=== PATIENT | male | born 1950 | race Caucasian/White ===

== ENCOUNTER 2016-10-03 06:34 | Inpatient (IN) | payer MEDICARE ==
[~2016-10-03] VITALS: Ht 157.5 cm; Wt 51.5 kg
[2016-10-03] VITALS (8 sets, daily range): BP systolic 86–113; BP diastolic 54–68
[2016-10-03 08:21] LABS: ALBUMIN 1.8 GM/DL (3.2-5.2); ALBUMIN/GLOBULIN RATIO 0.35 (1.00-1.93); ALKALINE PHOSPHATASE 149 U/L (45-117); ALT/SGPT 49 U/L (12-78); ANION GAP 14 MEQ/L (8-16); AST/SGOT 86 U/L (15-37); BILIRUBIN,DIRECT 0.4 MG/DL (0.0-0.2); BILIRUBIN,TOTAL 0.7 MG/DL (0.2-1.0); BLOOD UREA NITROGEN 110 MG/DL (7-18); CALCIUM LEVEL 7.5 MG/DL (8.8-10.2); CARBON DIOXIDE LEVEL 24 MEQ/L (21-32); CHLORIDE LEVEL 92 MEQ/L (98-107); GLOMERULAR FILTRATION RATE 13.1 (>49); GLUCOSE, FASTING 92 MG/DL (80-110); POTASSIUM SERUM 3.2 MEQ/L (3.5-5.1); SODIUM LEVEL 130 MEQ/L (136-145)
[2016-10-03 08:30] LABS: DIFF SLIDE NUMBER 94; MEAN CORPUSCULAR HEMOGLOBIN 31.4 pg (27.0-33.0); MEAN CORPUSCULAR HGB CONC 33.8 g/dl (32.0-36.5); MEAN CORPUSCULAR VOLUME 92.9 fl (80.0-96.0); PLATELET COUNT, AUTOMATED 222 k/mm3 (150-450); RED CELL DISTRIBUTION WIDTH 13.4 % (11.5-14.5); WHITE BLOOD COUNT 21.1 K/mm3 (4.0-10.0)
[2016-10-03 08:37] LABS: TOXIC VACUOLATION 1+
[2016-10-03] MEDS ORDERED: CIPROFLOXACIN 400 MG in APPROPRIATE DILUENT 1 EA IV ONE (09:30)
[2016-10-03] MEDS ORDERED: POTASSIUM CHLORIDE 10 MEQ SR TABLET PO ONE (09:45)
[2016-10-03] MEDS ORDERED: ACETAMINOPHEN 325 MG TAB PO ONE (09:45)
[2016-10-03] MEDS ORDERED: NS 1,000 ML IV SCH (09:56)
--- NOTE | 2016-10-03 09:58 | REP ---
CHEST, TWO VIEWS: No comparison. I see no evidence of acute infiltrate. Heart is normal in size. Mediastinal silhouette is unremarkable. There are degenerative changes of the spine. IMPRESSION: No evidence of acute infiltrate. Signed by Awais Carreon MD 10/03/2016 07:45 P
[2016-10-03] MEDS ORDERED: SODIUM CHLORIDE 0.9% 1000 ML IV ONE (10:00)
[2016-10-03 10:05] LABS: MAGNESIUM LEVEL 2.3 MG/DL (1.8-2.4); PHOSPHORUS LEVEL 5.4 MG/DL (2.5-4.9)
[2016-10-03] MEDS ORDERED: cefTRIAXone SOD 1 GM in D5W MINI-BAG PLUS 50 ML IV SCH (10:15)
[2016-10-03 10:44] LABS: GAMMA GLUTAMYLTRANSPEPTIDASE 51 U/L (15-85)
[2016-10-03] MEDS: PERCOCET 5MG/325MG TAB PO PRN ×2 (10:45→21:51)
--- NOTE | 2016-10-03 10:53 | REP ---
BILATERAL KNEES: AP and lateral views of bilateral knees performed. There is no acute fracture or dislocation. There is mild superior patellar spurring bilaterally. I do not see a significant joint effusion bilaterally. There is mild medial joint space narrowing and subchondral sclerosis bilaterally. IMPRESSION: Mild degenerative changes. No evidence of acute fracture or dislocation. Signed by Awais Carreon MD 10/03/2016 07:45 P
[2016-10-03 10:56] LABS: ERYTHROCYTE SEDIMENTATION RATE 65 mm/hr (0-20)
--- NOTE | 2016-10-03 11:40 | REP ---
RENAL AND BLADDER ULTRASOUND: Real-time sonographic evaluation of the kidneys performed. Both kidneys are echogenic suggesting medical renal disease. There is mild right hydronephrosis. I suspect a 6 mm stone in the mid aspect. Left kidney demonstrates no hydronephrosis but there is a possible mass in the upper pole measuring 4.3 x 4.3 x 3.3 cm. Incidental note is made of sludge in the gallbladder. Magaña catheter is seen in a collapsed urinary bladder. Prominent bladder wall may be due to suboptimal distention but I cannot exclude bladder wall thickening. IMPRESSION: Mild right hydronephrosis. Possible left renal mass. Thickened appearance of the bladder wall may be due to suboptimal distention but true thickening cannot be excluded. Signed by Awais Carreon MD 10/03/2016 07:46 P
[2016-10-03] MEDS: HEPARIN SOD (PORCINE) 5000 UNITS/ML VIAL SC SCH ×2 (12:59→21:41)
--- NOTE | 2016-10-03 13:43 | HPEPDOC ---
General Date of Admission October 03, 2016 at 09:56 Chief Complaint The patient is a 65-year-old male Presented to the ER with the inability to walk because of severe knee joint pain. History of Present Illness Patient is a 65 year old male with a PMHx of Osteoarthritis, Eczema / Psoriasis and Diverticulosis who presented to the ER because he was experiencing severe pain in his knees preventing him from walking. Patient noted that he has a history of osteoarthritis and that usually his legs give out below him and he falls. He denies any recent episodes of falls or trauma. He notes that over the past week his pain has been so bad that he cant even walk any more. He denies taking any medications for his knees, including over the counter medications. He did report the last time he took Tylenol or Ibuprofen was >3 months ago. Patient also noted that he has not been able to urinate on Wednesday, Wednesday and Wednesday and was able to have some urine output on . He notes that he has not had any pain or burning with urination. His urine output currently has been minimal. He denies any blood or foul odor of his urine. He denies any fevers at home. He is not aware of any renal disease in the past. Patient presented to the ER and had Magaña catheter placed which revealed an output of 600cc of urine. He denies chest pain, abdominal pain, nausea, vomiting, shortness of breath, no change in his chronic cough, denies any constipation or diarrhea. Denies muscle weakness or sensory changes. Denies blood in his stool. 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 Review of Symptoms Other systems Constitutional: Poor appetite, No recent trauma Eyes: No visual changes or eye pain Ears, Nose, Throat: Denies nose bleeds, or difficulty swallowing Cardiovascular: Denies chest pain, sweating, or orthopnea Respiratory: Denies cough, wheezing, or shortness of breath GI: Eusebio nausea, vomiting, abdominal pain, diarrhea or constipation : Difficulty with urination Musculoskeletal: Positive joint pain at knees and hands Neuro / Psych: Denies muscle weakness or sensory loss Skin: No skin rashes noted All other review of systems negative; otherwise stated in history of present illness Screening: - Colonoscopy done 10/[address] Bui; found multiple diverticuli Vital Signs - Vitals: BP 118/67, HR 54, RR 21, Sat 98%RA, Temp 99.3F - General: Lying in bed, No acute distress, Speaking in full sentences, AAOx3 - HEENT: NC, AT, PERRLA, EOMI - Oral: Poor dentition; Dry mucous membranes - CVS: RRR, +S1S2, - Murmurs / rubs / gallops - Lungs: Fair air entry bilaterally, Clear to auscultation, No wheezing / rales / rhonchi - Abdomen: Soft, Non-distended, Non-tender, + Bowel sounds x 4 - Extremities: + PPx4, No lower extremity edema, No calf tenderness - Neuro: No focal motor or sensory deficit - Joint: Unable to extend or flex at the knee bilaterally 2/2 severe pain; + Heberden and cam nodes - Skin: No visible rashes Laboratory Data Labs 24H Laboratory Tests 2 10/03/16 07:50: Bedside Glucose (Misc Panel) 96 10/03/16 07:52: Neutrophils 96H, Lymphocytes (Manual) 2L, Monocytes (Manual) 1, Myelocytes 1H, Toxic Vacuolation 1+, Platelet Estimate NORMAL, Red Blood Cell Morphology NORMAL , Erythrocyte Sedimentation Rate 65H, Anion Gap 14, Glomerular Filtration Rate 13.1L, Osmolality 299, Calcium Level 7.5L, Phosphorus Level 5.4H, Magnesium Level 2.3, Aspartate Amino Transf (AST/SGOT) 86H, Alanine Aminotransferase (ALT/ SGPT) 49, Gamma Glutamyl Transpeptidase 51, Alkaline Phosphatase 149H, Total Bilirubin 0.7, Direct Bilirubin 0.4H, C-Reactive Protein, Quantitative 40.80H, Total Protein 7.0, Albumin 1.8L, Albumin/Globulin Ratio 0.35L, Rheumatoid Factor < 10.0 10/03/16 08:00: Lactic Acid Level 1.4 10/03/16 08:56: Urine Appearance CLOUDYH, Urine Color BARBIE, Urine pH 6.0, Urine Specific [place] 1.012, Urine Protein 2+H, Urine Glucose (UA) NEGATIVE, Urine Ketones NEGATIVE, Urine Urobilinogen 0.2, Urine Bilirubin NEGATIVE, Urine Leukocyte Esterase 3+H, Urine Blood 3+H, Urine Nitrite NEGATIVE, Urine WBC (Auto) TNTCH, Urine RBC (Auto) 123H, Urine Hyaline Casts (Auto) 0, Urine Bacteria (Auto) 1+H, Urine Squamous Epithelial Cells 2, Urine Amorphous Sediment SMALLH, Urine Mucus (Auto) SMALL, Urine Sperm (Auto) , Urine Random Osmolality 339L, Urine Random Creatinine 145.0, Urine Random Sodium 28 CBC/BMP Laboratory Tests 10/03/16 07:52 Red Blood Count 4.46, Mean Corpuscular Volume 92.9, Mean Corpuscular Hemoglobin 31.4, Mean Corpuscular Hemoglobin Concent 33.8, Red Cell Distribution Width 13.4 Microbiology Microbiology 10/03/16 Blood Culture, Received Pending 10/03/16 Blood Culture, Received Pending 10/03/16 Urine Culture, Received Pending Plan / VTE VTE Prophylaxis Ordered?: Yes Plan / Urinary Catheter Reason for insertion/continuin: Other-document below Plan Plan Acute renal failure possibly 2/2 pre-renal etiology, renal etiology, post- renal etiology - Noted to have difficulty with urination over the last 1 week, poor oral intake / fluid intake - Physical reveals dry mucous membranes - Labs reveals significant elevation in Cr compared to baseline from 2008 - Will check urine electrolytes, urinalysis and renal ultrasound - Will give NS bolus of 1 Liter and c/w 100 cc/ hr thereafter - Will re-evaluate BMP at 300PM Leukocytosis possibly 2/2 infectious etiology, possibly 2/2 reactive etiology - Negative review of systems - No elevation in lactic acid - UA consistent with infection - CXR negative - Will get blood cultures and urine cultures - s/p Ciprofloxacin in the ER - Will start Ceftriaxone at this time Intractable knee pain likely 2/2 osteoarthritis - Presented with knee pain, preventing him from ambulating - Physical reveals limited range of motion of the knees 2/2 pain; + Heberden and cam nodes - will get XR of knees - will check RF and anti-CCP - Will start Tylenol and Percocet PRN for pain Hypokalemia - will supplement Hyponatremia - Serum osmolality of 299 - Volume status appears hypovolemic - Will give IV fluid hydration - Will repeat BMP at 300PM DVT prophylaxis - Will start heparin DEBBIE MAYO MD October 03, 2016 13:43
[2016-10-03 15:47] LABS: CALCIUM LEVEL 7.1 MG/DL (8.8-10.2); CREATININE FOR GFR 4.4 MG/DL (0.70-1.30); GLOMERULAR FILTRATION RATE 14.4 (>49); POTASSIUM SERUM 3.4 MEQ/L (3.5-5.1)
--- NOTE | 2016-10-03 16:47 | ECGEPIP ---
Stationary ECG Study [facility] - ED Test Date: 2016-10-03 Pat Name: BIENVENIDO DOVE Department: Room: [place] [address] Gender: M Rn Bsn: rn : 1950 Requested By: MANUEL House Order Number: [id number] Reading MD: Bonnie Martinez Measurements Intervals [place] Rate: 97 P: 71 LA: 157 QRS: -76 QRSD: 116 T: -21 QT: 324 QTc: 413 Interpretive Statements SINUS RHYTHM WITH OCCASIONAL SUPRAVENTRICULAR PREMATURE COMPLEXES PATTERN CONSISTENT WITH PULMONARY DISEASE INFERIOR MYOCARDIAL INFARCTION, OF INDETERMINATE AGE WITH POSTERIOR EXTENSION NSTTW ABNORMALITY NO PRIOR FOR COMPARISON Electronically Signed On 10-03-2016 16:46:52 EDT by Bonnie Martinez
[2016-10-03] MEDS: ACETAMINOPHEN TAB 650MG DOSE (2X325MG) PO PRN (18:48)
--- NOTE | 2016-10-03 21:22 | SMCUROLCON ---
Urology Consultation General Date of Consultation 10/03/16 Reason For Consultation This patient is seen for Acute Kidney Injury, UTI?; leukocytosis; AUR; CRF; OA. Magaña to SD. IV Rocephin until urine and blood cultures available. Review CT. Full consultation dictated. History of Present Illness The patient is a -year-old with a past medical history for . Medications Current Medications Current Medications Acetaminophen (Tylenol Tab) 650 mg Q4HP PRN PO MILD PAIN OR FEVER Last administered on 10/03/16 18:48; Start 10/03/16 at 10:00; Stop 11/02/16 at 09:59 Ceftriaxone Sodium 1 gm/ Dextrose 50 ml @ 100 mls/hr Q24H IV Last administered on 10/03/16 10:55; Start 10/03/16 at 10:15; Stop 10/10/16 at 10:14 Heparin Sodium (Porcine) (Heparin) 5,000 units Q8H SC Last administered on 10/03 12:59; Start 10/03/16 at 14:00; Stop 10/08/16 at 13:59 Home Med (Med Rec Complete!) ASDIRECTED XX ; Start 10/03/16 at 08:15; Stop at 08:15; Status DC Oxycodone/ Acetaminophen (Percocet 5mg/ 325mg Tablet) 1 tab Q4HP PRN PO MODERATE PAIN (PS 5-7) Last administered on 10/03/16 10:45; Start 10/03/16 at 10:00; Stop 10/10/16 at 09:59 Sodium Chloride 1,000 ml @ 100 mls/hr Q10H IV Last administered on 10/03/16 09:56; Start 10/03/16 at 09:56; Stop 10/03/16 at 19:55; Status DC Allergies Allergies: Coded Allergies: No Known Drug Allergy (Verified Allergy, Unknown, 10/03/16) Vital Signs/I&O Vital Signs Date Time Temp Pulse Resp B/P (MAP) Pulse Ox O2 Delivery O2 Flow Rate FiO2 10/03/16 18:00 100.9 111 18 113/68 (83) 95 Room Air Laboratory Data 24H Labs Laboratory Tests 2 10/03/16 07:50: Bedside Glucose (Misc Panel) 96 10/03/16 07:52: Neutrophils 96H, Lymphocytes (Manual) 2L, Monocytes (Manual) 1, Myelocytes 1H, Toxic Vacuolation 1+, Platelet Estimate NORMAL, Red Blood Cell Morphology NORMAL , Erythrocyte Sedimentation Rate 65H, Anion Gap 14, Glomerular Filtration Rate 13.1L, Osmolality 299, Calcium Level 7.5L, Phosphorus Level 5.4H, Magnesium Level 2.3, Aspartate Amino Transf (AST/SGOT) 86H, Alanine Aminotransferase (ALT/ SGPT) 49, Gamma Glutamyl Transpeptidase 51, Alkaline Phosphatase 149H, Total Bilirubin 0.7, Direct Bilirubin 0.4H, C-Reactive Protein, Quantitative 40.80H, Total Protein 7.0, Albumin 1.8L, Albumin/Globulin Ratio 0.35L, Rheumatoid Factor < 10.0 10/03/16 08:00: Lactic Acid Level 1.4 10/03/16 08:56: Urine Appearance CLOUDYH, Urine Color BARBIE, Urine pH 6.0, Urine Specific [place] 1.012, Urine Protein 2+H, Urine Glucose (UA) NEGATIVE, Urine Ketones NEGATIVE, Urine Urobilinogen 0.2, Urine Bilirubin NEGATIVE, Urine Leukocyte Esterase 3+H, Urine Blood 3+H, Urine Nitrite NEGATIVE, Urine WBC (Auto) TNTCH, Urine RBC (Auto) 123H, Urine Hyaline Casts (Auto) 0, Urine Bacteria (Auto) 1+H, Urine Squamous Epithelial Cells 2, Urine Amorphous Sediment SMALLH, Urine Mucus (Auto) SMALL, Urine Sperm (Auto) , Urine Random Osmolality 339L, Urine Random Creatinine 145.0, Urine Random Sodium 28 10/03/16 15:16: Anion Gap 14, Glomerular Filtration Rate 14.4L, Blood Urea Nitrogen 108H, Creatinine 4.40H, Sodium Level 131L, Potassium Level 3.4L, Chloride Level 94L, Carbon Dioxide Level 23, Calcium Level 7.1L CBC/BMP Laboratory Tests 10/03/16 07:52 Red Blood Count 4.46, Mean Corpuscular Volume 92.9, Mean Corpuscular Hemoglobin 31.4, Mean Corpuscular Hemoglobin Concent 33.8, Red Cell Distribution Width 13.4 10/03/16 15:16 Calcium Level 7.1 L Microbiology Microbiology 10/03/16 Blood Culture, Received Pending 10/03/16 Blood Culture, Received Pending 10/03/16 Urine Culture, Received Pending KETAN CARRILLO MD October 03, 2016 21:22
[2016-10-03] MEDS: NS 1,000 ML IV SCH (21:53)
--- NOTE | 2016-10-03 22:03 | CR ---
DATE OF CONSULTATION: 10/03/2016 This 65-year-old male was evaluated in consultation as requested by Dr. Hernández on 10/03/2016 for acute urinary retention. He was admitted to the hospital (10/03/2016) with weakness secondary to osteoarthritis and a 5-day history of low urine output with difficulty voiding. Magaña catheter insertion in the emergency department at [facility] resulted in drainage of 600 mL of clear, yellow urine. Prior to presentation, he had a moderate history of lower urinary tract symptoms secondary to benign prostatic hyperplasia. There is no history of gross hematuria, urinary tract infection, flank pain, or constitutional symptoms. PAST MEDICAL HISTORY: Significant for: 1. Osteoarthritis. 2. Diverticulosis. 3. Eczema. 4. Psoriasis. REVIEW OF SYSTEMS: Negative for diabetes, hypertension, cardiac or pulmonary pathology, thyroid problems, headaches, CVA, glaucoma, peptic ulcer disease, urolithiasis, cholelithiasis, or blood borne diseases. MEDICATIONS: He is on no medications. ALLERGIES: He has no allergies to medications. SOCIAL HISTORY: He is single. 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 He is a 65-pack year smoker who does not consume alcohol. FAMILY HISTORY: Significant for gastric cancer in the paternal side. PHYSICAL EXAMINATION: GENERAL: Revealed a comfortable individual. His heart rate was 108, respiratory rate was 36, blood pressure was 92/58, and temperature was 101 degrees Fahrenheit. HEAD/NECK: Palpation of the head and neck failed to reveal the presence of lymphadenopathy. CHEST: Auscultation of the chest is clear. HEART: No murmur or extra heart sounds. ABDOMEN: Examination of the back and abdomen were benign. GENITOURINARY: Draining Magaña catheter was noted. Urinalysis (10/03/2016) demonstrated 3+ microhematuria, 3+ leukocytes with a pH of 6.0. Nitrites were negative. Urine and blood cultures (10/03/2016) were pending at the time of this dictation. CT of the abdomen and pelvis without intravenous contrast (10/03/2016) demonstrated mild right hydroureteronephrosis with a right middle pole 5 mm calculus. Serum hematologic and biochemical indices determination (10/03/2016) demonstrated a hemoglobin of 14.0, leukocytes 21.1, and a creatinine of 4.4. Renal ultrasonography (10/03/2016) demonstrated medical renal disease, mild right hydroureteronephrosis, right middle pole 6 mm calculus and left upper pole 4.3 cm mass versus cystic lesion. ASSESSMENT: 1. Acute urinary retention. 2. Question of sepsis. 3. Leukocytosis. 4. Chronic renal failure. 5. Right middle pole calculus. 6. Left upper pole renal mass. 7. Osteoarthritis. 8. Diverticulosis. PLAN: The above findings were discussed with the patient, nursing staff and hospitalist. Concern for sepsis was reviewed with the hospitalist. Intravenous Rocephin will continue until definitive urine and blood cultures are available. Magaña catheter to straight drainage will continue. Stat complete blood count (CBC), basic metabolic panel (BMP) and lactate levels were obtained. Radiology review of the CT (10/03/2016) will be obtained. Should you require additional information, please do not hesitate to contact me. Thanking you for the confidence of your referral. Sincerely, Lebron Martinez MD
[2016-10-03 22:23] LABS: BASO % 0.2 % (0.0-1.0); EOS % 0.1 % (0.0-3.0); LARGE UNSTAINED CELL # 0.2 K/mm3 (0.0-0.4); LARGE UNSTAINED CELL % 1.1 % (0.0-4.0); LYMPH # 0.3 K/mm3 (1.5-4.5); LYMPH % 1.8 % (24.0-44.0); MEAN CORPUSCULAR HEMOGLOBIN 31.4 pg (27.0-33.0); MEAN CORPUSCULAR HGB CONC 33.3 g/dl (32.0-36.5); MEAN CORPUSCULAR VOLUME 94.4 fl (80.0-96.0); MONO # 0.8 K/mm3 (0.0-0.8); MONO % 4.6 % (0.0-5.0); NEUTROPHILS # 15.3 K/mm3 (1.8-7.7); NEUTROPHILS % 92.1 % (36.0-66.0); PLATELET COUNT, AUTOMATED 200 k/mm3 (150-450); RED CELL DISTRIBUTION WIDTH 13.3 % (11.5-14.5); WHITE BLOOD COUNT 16.6 K/mm3 (4.0-10.0)
[2016-10-03] MEDS ORDERED: VANCOMYCIN HCL 1,000 MG, VIAL MATE ADAPTER 1 EACH in D5W 250 ML IV ONE (22:30)
[2016-10-03] MEDS ORDERED: NS 1,000 ML IV ONE (22:30)
[2016-10-03 22:31] LABS: CREATININE FOR GFR 4.25 MG/DL (0.70-1.30); POTASSIUM SERUM 3.3 MEQ/L (3.5-5.1)
--- NOTE | 2016-10-03 22:48 | PHACANCOPD ---
PHARMACY VANCOMYCIN DOSING Pt Demographics Demographics Patient Age:65 , Weight:47.700 , Gender: male Adjusted Body Weight Date: 10/03/16, Adjusted Body Weight: [46] Kg Events Past 24 Hours Events Past 24 Hours: NO: Dialysis, Diuretic Therapy, Change in CrCl, Fever, Elevation in WBC, Pending Diagnostics, Pending Procedures, Other Vancomycin Vancomycin Target Ranges: 15-20 mcg/ml Vancomycin Load Y/N: Yes Load Dose Date Time Vancomycin Load Dose: 1000MG Date: 10-03 Time: 2300 Vancomycin Dose Date: 10/03/16. Current Vancomycin Dose: [INT] Intermittent Dosing?: Yes Labs Labs Item Value Date Time White Blood Count 16.6 K/mm3 H 10/03/16 2141 Creatinine 4.40 MG/DL H 10/03/16 1516 Creatinine 4.25 MG/DL H 10/03/16 2141 Vital Signs Label Value Date Time Patient Temperature 99.3 degrees F 10/03/16 2215 Temperature Source Oral 10/03/16 2215 Patient Temperature 101.0 degrees F 10/03/16 2200 Temperature Source Temporal 10/03/16 2200 Micro Microbiology 10/03/16 Blood Culture, Received Pending 10/03/16 Blood Culture, Received Pending 10/03/16 Blood Culture - Preliminary, Resulted 10/03/16 Blood Culture, Received Pending 10/03/16 Urine Culture, Received Pending Creatinine Clearance Date:10/03/16. Creatinine Clearance: [13]. Pending Labs Random 05-14 in am Assessment and Plan Maintaining Current Dose?: Yes Reason for dose change: No Dose Change Pharmacist Note Pharmacist Note Date: 10/03/16. Pharmacist note:Dosed intermittent by levels with first random level ordered for 05-14 in am. Will continue to monitor and make adjustments as needed. [facility] October 03, 2016 22:48
[2016-10-04] VITALS (10 sets, daily range): BP systolic 92–112; BP diastolic 52–72
[2016-10-04] MEDS: PIPERACILLIN/TAZOBACTAM SOD 2.25 GM in D5W MINI-BAG PLUS 50 ML IV SCH ×4 (00:49→23:17)
[2016-10-04] MEDS: ACETAMINOPHEN TAB 650MG DOSE (2X325MG) PO PRN ×3 (03:07→21:45)
[2016-10-04] MEDS: HEPARIN SOD (PORCINE) 5000 UNITS/ML VIAL SC SCH ×3 (06:00→21:37)
[2016-10-04 06:26] LABS: BASO % 0.3 % (0.0-1.0); EOS % 0.2 % (0.0-3.0); LARGE UNSTAINED CELL # 0.1 K/mm3 (0.0-0.4); LARGE UNSTAINED CELL % 0.6 % (0.0-4.0); LYMPH # 0.5 K/mm3 (1.5-4.5); LYMPH % 2.9 % (24.0-44.0); MEAN CORPUSCULAR HEMOGLOBIN 32.1 pg (27.0-33.0); MEAN CORPUSCULAR HGB CONC 32.9 g/dl (32.0-36.5); MEAN CORPUSCULAR VOLUME 97.4 fl (80.0-96.0); MONO # 0.5 K/mm3 (0.0-0.8); MONO % 3.4 % (0.0-5.0); NEUTROPHILS # 14.3 K/mm3 (1.8-7.7); NEUTROPHILS % 92.6 % (36.0-66.0); PLATELET COUNT, AUTOMATED 167 k/mm3 (150-450); RED CELL DISTRIBUTION WIDTH 13.5 % (11.5-14.5); WHITE BLOOD COUNT 15.5 K/mm3 (4.0-10.0)
[2016-10-04 06:34] LABS: ALBUMIN 1.3 GM/DL (3.2-5.2); ALBUMIN/GLOBULIN RATIO 0.3 (1.00-1.93); BILIRUBIN,TOTAL 0.6 MG/DL (0.2-1.0); CALCIUM LEVEL 6.8 MG/DL (8.8-10.2); CREATININE FOR GFR 3.91 MG/DL (0.70-1.30); GLOMERULAR FILTRATION RATE 16.6 (>49); MAGNESIUM LEVEL 2.1 MG/DL (1.8-2.4); POTASSIUM SERUM 3.4 MEQ/L (3.5-5.1); TOTAL PROTEIN 5.6 GM/DL (6.4-8.2)
[2016-10-04] MEDS: NS 1,000 ML IV SCH ×3 (06:44→21:37)
--- NOTE | 2016-10-04 06:58 | REP ---
CT ABDOMEN AND PELVIS WITHOUT CONTRAST: CT abdomen and pelvis performed without oral or IV contrast. There appears to be fibrotic change in each lung base with bronchiectasis. There may be some mild superimposed atelectasis or infiltrate in the left lung base. There is a 6 mm nodule in the left lower lobe as well. Evaluation for visceral organ masses is limited without IV contrast Liver, spleen, adrenals and pancreas are grossly unremarkable. Left kidney is grossly unremarkable. Right kidney demonstrates mild hydronephrosis. There is a 5 mm intrarenal calculus in the mid right renal collecting system. No ureteral calculi are seen. There is mild atherosclerotic calcification of the abdominal aorta. No gross adenopathy is seen. There is no free air. No gross bowel wall thickening is seen. There is mild free fluid in the pelvis. A Magaña catheter is seen in the urinary bladder which appears diffusely thickened. The right testicle appears to be located in the right inguinal canal. IMPRESSION: Limited evaluation for visceral organ masses without IV contrast. No obvious mass is seen in the left kidney as was suggested by the recent ultrasound. There is mild right hydronephrosis with a small intrarenal calculus. 6 mm nodule is seen in the left lower lobe with probable adjacent mild atelectasis or infiltrate. Diffuse bladder wall thickening. Mild free fluid in the pelvis. Right testicle is located in the right inguinal canal. Signed by Awais Carreon MD 10/04/2016 07:50 P
[2016-10-04] MEDS ORDERED: POTASSIUM CHLORIDE 10 MEQ SR TABLET PO ONE (09:30)
--- NOTE | 2016-10-04 09:31 | IPNPDOC ---
Text Note Date of Service The patient was seen on 10/04/16. NOTE Subjective: Patient is a 65 year old male with a PMHx Osteoarthritis, Eczema / Psoriasis and Diverticulosis who presented to the ER because he was experiencing severe pain in his knees preventing him from walking. He was noted to have urinary retention and acute kidney injury and was admitted to medical surgical floor. Patient was seen and examined at the bedside. He reports persistence of his knee pain. Objective: Vitals (See below) General: Lying in bed, no acute distress, comfortable, AAOx3 HEENT: NC, AT CVS: RRR, +S1S2 Lungs: Fair air entry b/l, -w/r/r Abdomen: Soft, ND, NT, +BSx4 Extremities: +PPx4, - Edema, - Calf tenderness, + Heberden and cam nodes at bilateral hands; Decrease ROM at knees Assessment and plan: 1. Sepsis / Bacteremia - 2/2 likely urinary tract infection - Hypotensive on the evening of 10/03; responded to IVF hydration - No elevation in lactic acid - UA consistent with infection; Urine culture pending - Blood cultures positive for Staph aureus - CXR negative - s/p Ciprofloxacin in the ER; s/p Ciprofloxacin - c/w Vancomycin and Zosyn (Day #1) 2. Acute renal failure - possibly 2/2 pre-renal etiology, renal etiology, post- renal etiology - Noted to have difficulty with urination over the last 1 week, poor oral intake / fluid intake - Physical initially revealed dry mucous membranes - Labs reveals significant elevation in Cr compared to baseline from 2008; continues to trend down - c/w IV fluid hydration 3. Intractable knee pain - likely 2/2 osteoarthritis - Presented with knee pain, preventing him from ambulating - Physical reveals limited range of motion of the knees 2/2 pain; + Heberden and cam nodes - XR of knees with subchondral cysts - No elevation of RF or anti-CCP - c/w Tylenol and Percocet PRN for pain 4. Hypokalemia - will supplement again today 5. Hyponatremia - Serum osmolality of 299 - Volume status appears hypovolemic - Sodium is improving - c/w IV fluid hydration 6. DVT prophylaxis - Will start heparin VS,Fishbone, I+O VS, Fishbone, I+O Laboratory Tests 10/03/16 15:16 Calcium Level 7.1 L 10/03/16 21:41 Calcium Level 7.0 L, Red Blood Count 4.05 L, Mean Corpuscular Volume 94.4, Mean Corpuscular Hemoglobin 31.4, Mean Corpuscular Hemoglobin Concent 33.3, Red Cell Distribution Width 13.3, Neutrophils (%) (Auto) 92.1 H, Lymphocytes (%) (Auto) 1.8 L, Monocytes (%) (Auto) 4.6, Eosinophils (%) (Auto) 0.1, Basophils (%) (Auto ) 0.2, Neutrophils # (Auto) 15.3 H, Lymphocytes # (Auto) 0.3 L, Monocytes # ( Auto) 0.8, Eosinophils # (Auto) 0.0, Basophils # (Auto) 0.0 10/04/16 05:22 Calcium Level 6.8 L, Red Blood Count 4.02 L, Mean Corpuscular Volume 97.4 H, Mean Corpuscular Hemoglobin 32.1, Mean Corpuscular Hemoglobin Concent 32.9, Red Cell Distribution Width 13.5, Neutrophils (%) (Auto) 92.6 H, Lymphocytes (%) ( Auto) 2.9 L, Monocytes (%) (Auto) 3.4, Eosinophils (%) (Auto) 0.2, Basophils (% ) (Auto) 0.3, Neutrophils # (Auto) 14.3 H, Lymphocytes # (Auto) 0.5 L, Monocytes # (Auto) 0.5, Eosinophils # (Auto) 0.0, Basophils # (Auto) 0.0, Aspartate Amino Transf (AST/SGOT) 79 H, Alanine Aminotransferase (ALT/SGPT) 35, Alkaline Phosphatase 143 H, Total Bilirubin 0.6, Total Protein 5.6 L, Albumin 1.3 #L Vital Signs Date Time Temp Pulse Resp B/P (MAP) Pulse Ox O2 Delivery O2 Flow Rate FiO2 10/04/16 06:00 98.8 91 20 112/71 (85) 92 Room Air I&O- Last 24 Hours up to 6 AM 10/04/16 05:59 Intake Total 1854 ml Output Total 1590 ml Balance 264 ml DEBBIE MAYO MD October 04, 2016 09:31
[2016-10-04] MEDS: PERCOCET 5MG/325MG TAB PO PRN (10:06)
[2016-10-04] MEDS: VANCOMYCIN HCL 750 MG, VIAL MATE ADAPTER 1 EACH in D5W 250 ML IV SCH (10:34)
--- NOTE | 2016-10-04 12:16 | PHACANCOPD ---
PHARMACY VANCOMYCIN DOSING Pt Demographics Demographics Patient Age:65 , Weight:48.900 , Gender: male Adjusted Body Weight Date: 10/03/16, Adjusted Body Weight: [46 - use actual] Kg Events Past 24 Hours Events Past 24 Hours: YES: Change in CrCl, Fever, Elevation in WBC, NO: Dialysis, Diuretic Therapy, Pending Diagnostics, Pending Procedures, Other Vancomycin Vancomycin indication: sepsis Vancomycin Target Ranges: 15-20 mcg/ml Vancomycin Load Y/N: Yes Load Dose Date Time Vancomycin Load Dose: 1000MG Date: 10-03 Time: 2300 Vancomycin Dose Date: 10/04/16. Current Vancomycin Dose: [750mg IV q24h @11] Date: 10/03/16. Current Vancomycin Dose: [INT] Intermittent Dosing?: No Labs Labs Item Value Date Time White Blood Count 21.1 K/mm3 H 10/03/16 0752 White Blood Count 16.6 K/mm3 H 10/03/16 2141 White Blood Count 15.5 K/mm3 H 10/04/16 0522 Random Vancomycin Level 15.4 UG/ML 10/04/16 0522 Creatinine 4.40 MG/DL H 10/03/16 1516 Creatinine 4.25 MG/DL H 10/03/16 2141 Creatinine 3.91 MG/DL H 10/04/16 0522 Vital Signs Label Value Date Time Patient Temperature 99.1 degrees F 10/04/16 0000 Temperature Source Temporal 10/04/16 0000 Micro Microbiology 10/03/16 Blood Culture, Received Pending 10/03/16 Blood Culture, Received Pending 10/03/16 Blood Culture - Preliminary, Resulted Staphylococcus Aureus 10/03/16 Blood Culture - Preliminary, Resulted Staphylococcus Aureus 10/03/16 Urine Culture - Preliminary, Resulted Staphylococcus Aureus Creatinine Clearance Date:10/03/16. Creatinine Clearance: [13]. Pending Labs Random vancomycin level scheduled 5/16 - AM Assessment and Plan Maintaining Current Dose?: No Reason for dose change: Change in serum Cr Pharmacist Note Pharmacist Note Date: 10/04/16. Pharmacist note: random vancomycin level drawn ~6 hours after his first 1g dose was 15.4. I have started him on 750mg q24h. I have a random scheduled for Wednesday morning. Blood 2/2 and urine cultures are positive for Staph aureus, sensitivities are still pending. Pt has had poor intake/output, hydronephrosis. We will continue to monitor cultures, if MSSA he should be changed to a penicillin or cephalosporin based on sensitivities. Date: 10/03/16. Pharmacist note:Dosed intermittent by levels with first random level ordered for 05-14 in am. Will continue to monitor and make adjustments as needed. Morro Ortiz Pharm.D. October 04, 2016 12:16
--- NOTE | 2016-10-04 13:10 | IPNPDOC ---
Assessment/Plan Date Seen The patient was seen on 10/04/16. Plan/VTE VTE Prophylaxis Ordered?: Yes Plan/Urinary Catheter Reason for insertion/continuin: Other-document below Subjective Review oF Systems Chief Complaint The patient is a 65-year-old male admitted with a reason for visit of Acute Kidney Injury; Urosepsis; AUR; OA. [place] to SD. po. Poor ambulation. Comfortable. 96, 20, 92/60, 99.8f. Abdo: Benign. Magaña: 300cc/4hr. Urine/blood cultures (10/03/16) S. Aureus, Vanco/Zosyn. (10/04/16) Hg 12.9, wbc 15.5 (down), Cr 3.9 (down). A: Above. P: [place] to SD. Follow for sepsis evolution. IV Vanco/Zosyn. Objective Vital Signs/I&O Vital Signs Date Time Temp Pulse Resp B/P (MAP) Pulse Ox O2 Delivery O2 Flow Rate FiO2 10/04/16 13:00 98.6 95 95/60 (72) 10/04/16 10:50 24 Room Air 10/04/16 10:00 93 I&O- Last 24 Hours up to 6 AM 10/04/16 06:00 Intake Total 2624 ml Output Total 2090 ml Balance 534 ml Laboratory Data Labs 24H Laboratory Tests 2 10/03/16 15:16: Anion Gap 14, Glomerular Filtration Rate 14.4L, Blood Urea Nitrogen 108H, Creatinine 4.40H, Sodium Level 131L, Potassium Level 3.4L, Chloride Level 94L, Carbon Dioxide Level 23, Calcium Level 7.1L 10/03/16 21:41: Anion Gap 13, Glomerular Filtration Rate 15.0L, Blood Urea Nitrogen 107H, Creatinine 4.25H, Sodium Level 131L, Potassium Level 3.3L, Chloride Level 98, Carbon Dioxide Level 20L, Calcium Level 7.0L, White Blood Count 16.6H, Red Blood Count 4.05L, Hemoglobin 12.7L, Hematocrit 38.3L, Mean Corpuscular Volume 94.4, Mean Corpuscular Hemoglobin 31.4, Mean Corpuscular Hemoglobin Concent 33.3 , Red Cell Distribution Width 13.3, Platelet Count 200, Neutrophils (%) (Auto) 92.1H, Lymphocytes (%) (Auto) 1.8L, Monocytes (%) (Auto) 4.6, Eosinophils (%) ( Auto) 0.1, Basophils (%) (Auto) 0.2, Neutrophils # (Auto) 15.3H, Lymphocytes # ( Auto) 0.3L, Monocytes # (Auto) 0.8, Eosinophils # (Auto) 0.0, Basophils # (Auto ) 0.0, Large Unclassified Cells % 1.1, Large Unclassified Cells # 0.2 10/03/16 21:42: Lactic Acid Level 1.2 10/04/16 05:22: Anion Gap 13, Glomerular Filtration Rate 16.6L, Blood Urea Nitrogen 99H, Creatinine 3.91H, Sodium Level 133L, Potassium Level 3.4L, Chloride Level 101, Carbon Dioxide Level 19L, Calcium Level 6.8L, White Blood Count 15.5H, Red Blood Count 4.02L, Hemoglobin 12.9L, Hematocrit 39.2L, Mean Corpuscular Volume 97.4H, Mean Corpuscular Hemoglobin 32.1, Mean Corpuscular Hemoglobin Concent 32.9, Red Cell Distribution Width 13.5, Platelet Count 167, Neutrophils (%) ( Auto) 92.6H, Lymphocytes (%) (Auto) 2.9L, Monocytes (%) (Auto) 3.4, Eosinophils (%) (Auto) 0.2, Basophils (%) (Auto) 0.3, Neutrophils # (Auto) 14.3H, Lymphocytes # (Auto) 0.5L, Monocytes # (Auto) 0.5, Eosinophils # (Auto) 0.0, Basophils # (Auto) 0.0, Large Unclassified Cells % 0.6, Large Unclassified Cells # 0.1, Aspartate Amino Transf (AST/SGOT) 79H, Alanine Aminotransferase ( ALT/SGPT) 35, Alkaline Phosphatase 143H, Total Bilirubin 0.6, Total Protein 5.6L , Albumin 1.3#L, Magnesium Level 2.1, C-Reactive Protein, Quantitative 28.50H, Albumin/Globulin Ratio 0.30L, Random Vancomycin Level 15.4 CBC/BMP Laboratory Tests 10/03/16 15:16 Calcium Level 7.1 L 10/03/16 21:41 Calcium Level 7.0 L, Red Blood Count 4.05 L, Mean Corpuscular Volume 94.4, Mean Corpuscular Hemoglobin 31.4, Mean Corpuscular Hemoglobin Concent 33.3, Red Cell Distribution Width 13.3, Neutrophils (%) (Auto) 92.1 H, Lymphocytes (%) (Auto) 1.8 L, Monocytes (%) (Auto) 4.6, Eosinophils (%) (Auto) 0.1, Basophils (%) (Auto ) 0.2, Neutrophils # (Auto) 15.3 H, Lymphocytes # (Auto) 0.3 L, Monocytes # ( Auto) 0.8, Eosinophils # (Auto) 0.0, Basophils # (Auto) 0.0 10/04/16 05:22 Calcium Level 6.8 L, Red Blood Count 4.02 L, Mean Corpuscular Volume 97.4 H, Mean Corpuscular Hemoglobin 32.1, Mean Corpuscular Hemoglobin Concent 32.9, Red Cell Distribution Width 13.5, Neutrophils (%) (Auto) 92.6 H, Lymphocytes (%) ( Auto) 2.9 L, Monocytes (%) (Auto) 3.4, Eosinophils (%) (Auto) 0.2, Basophils (% ) (Auto) 0.3, Neutrophils # (Auto) 14.3 H, Lymphocytes # (Auto) 0.5 L, Monocytes # (Auto) 0.5, Eosinophils # (Auto) 0.0, Basophils # (Auto) 0.0, Aspartate Amino Transf (AST/SGOT) 79 H, Alanine Aminotransferase (ALT/SGPT) 35, Alkaline Phosphatase 143 H, Total Bilirubin 0.6, Total Protein 5.6 L, Albumin 1.3 #L Microbiology Microbiology 10/03/16 Blood Culture, Received Pending 10/03/16 Blood Culture, Received Pending 10/03/16 Blood Culture - Preliminary, Resulted Staphylococcus Aureus 10/03/16 Blood Culture - Preliminary, Resulted Staphylococcus Aureus 10/03/16 Urine Culture - Preliminary, Resulted Staphylococcus Aureus KETAN CARRILLO MD October 04, 2016 13:09
[2016-10-04] MEDS ORDERED: SODIUM CHLORIDE 0.9% 1000 ML IV ONE (15:30)
[2016-10-04] MEDS ORDERED: NS 1,000 ML IV ONE (16:30)
[2016-10-05 02:00] VITALS: BP 95/50
[2016-10-05] MEDS: ACETAMINOPHEN TAB 650MG DOSE (2X325MG) PO PRN ×4 (02:18→20:36)
[2016-10-05] MEDS: HEPARIN SOD (PORCINE) 5000 UNITS/ML VIAL SC SCH ×3 (05:00→21:08)
[2016-10-05 05:27] VITALS: BP 97/55
[2016-10-05 05:52] LABS: BASO # 0.1 K/mm3 (0.0-0.2); BASO % 0.3 % (0.0-1.0); EOS # 0.1 K/mm3 (0.0-0.50); EOS % 0.3 % (0.0-3.0); LARGE UNSTAINED CELL # 0.2 K/mm3 (0.0-0.4); LARGE UNSTAINED CELL % 0.7 % (0.0-4.0); LYMPH # 0.6 K/mm3 (1.5-4.5); LYMPH % 2.4 % (24.0-44.0); MEAN CORPUSCULAR HEMOGLOBIN 31.3 pg (27.0-33.0); MEAN CORPUSCULAR HGB CONC 32.1 g/dl (32.0-36.5); MEAN CORPUSCULAR VOLUME 97.2 fl (80.0-96.0); MONO # 0.4 K/mm3 (0.0-0.8); MONO % 1.5 % (0.0-5.0); NEUTROPHILS # 22.4 K/mm3 (1.8-7.7); NEUTROPHILS % 94.8 % (36.0-66.0); PLATELET COUNT, AUTOMATED 142 k/mm3 (150-450); RED CELL DISTRIBUTION WIDTH 14.1 % (11.5-14.5); WHITE BLOOD COUNT 23.6 K/mm3 (4.0-10.0)
[2016-10-05 06:14] LABS: ALBUMIN 1.1 GM/DL (3.2-5.2); ALBUMIN/GLOBULIN RATIO 0.29 (1.00-1.93); BILIRUBIN,TOTAL 0.6 MG/DL (0.2-1.0); CALCIUM LEVEL 6.6 MG/DL (8.8-10.2); CREATININE FOR GFR 3.44 MG/DL (0.70-1.30); GLOMERULAR FILTRATION RATE 19.2 (>49); MAGNESIUM LEVEL 1.9 MG/DL (1.8-2.4); POTASSIUM SERUM 3.7 MEQ/L (3.5-5.1); TOTAL PROTEIN 4.9 GM/DL (6.4-8.2)
[2016-10-05] MEDS: NS 1,000 ML IV SCH ×3 (08:21→22:31)
[2016-10-05] MEDS: PIPERACILLIN/TAZOBACTAM SOD 2.25 GM in D5W MINI-BAG PLUS 50 ML IV SCH (08:21)
[2016-10-05] MEDS ORDERED: SODIUM CHLORIDE 0.9% 1000 ML IV ONE (11:15)
[2016-10-05] MEDS: VANCOMYCIN HCL 750 MG, VIAL MATE ADAPTER 1 EACH in D5W 250 ML IV SCH (11:16)
--- NOTE | 2016-10-05 11:23 | IPNPDOC ---
Text Note Date of Service The patient was seen on 10/05/16. NOTE Subjective: Patient is a 65 year old male with a PMHx Osteoarthritis, Eczema / Psoriasis and Diverticulosis who presented to the ER because he was experiencing severe pain in his knees preventing him from walking. He was noted to have urinary retention and acute kidney injury and was admitted to medical surgical floor. Patient was seen and examined at the bedside. He has noted that his knees continue to hurt. He has been hypotensive on the past few nights, but has been responsive to IV fluids. Objective: Vitals (See below) General: Lying in bed, no acute distress, comfortable, AAOx3 HEENT: NC, AT CVS: RRR, +S1S2 Lungs: Fair air entry b/l, -w/r/r Abdomen: Soft, ND, NT, +BSx4 Extremities: +PPx4, - Edema, - Calf tenderness, + Heberden and cam nodes at bilateral hands; Decrease ROM at knees Assessment and plan: 1. Sepsis - 2/2 bacteremia 2/2 urinary tract infection - Hypotensive on the evening of 10/03 and 10/04; responded to IVF hydration - No elevation in lactic acid - UA consistent with infection; Urine culture positive for MRSA - Blood cultures 10/03 and 10/03 (repeat) positive for MRSA - CXR negative - Will order another set of blood cultures - Will order ECHO and consult infectious disease (Dr. Knig) - s/p Ciprofloxacin in the ER; s/p Ceftriaxone - c/w Vancomycin and Zosyn (Day #2) 2. Acute renal failure - possibly 2/2 pre-renal etiology, renal etiology, post- renal etiology - Noted to have difficulty with urination over the last 1 week, poor oral intake / fluid intake - Physical initially revealed dry mucous membranes - Labs reveals significant elevation in Cr compared to baseline from 2008; continues to trend down - c/w IV fluid hydration - Will consult Nephrology (Dr. Shaw) 3. AG and Non-AG metabolic acidosis - Delta / Delta of < 1 - Possibly 2/2 lactic acidosis and dilutional / RTA - Will get Urine electrolytes (Na, K, Cl) to calculate UAG - Will check lactic acid - c/w IV fluid hydration for now 4. Intractable knee pain - likely 2/2 osteoarthritis - Presented with knee pain, preventing him from ambulating - Physical reveals limited range of motion of the knees 2/2 pain; + Heberden and cam nodes - XR of knees with subchondral cysts - No elevation of RF or anti-CCP - c/w Tylenol PRN for pain; s/p Opiates (re: hypotension) - Pain management has been consulted 5. s/p Hypokalemia 6. s/p Hyponatremia 7. DVT prophylaxis - c/w heparin VS,Fishbone, I+O VS, Fishbone, I+O Laboratory Tests 10/05/16 05:17 Red Blood Count 3.57 L, Mean Corpuscular Volume 97.2 H, Mean Corpuscular Hemoglobin 31.3, Mean Corpuscular Hemoglobin Concent 32.1, Red Cell Distribution Width 14.1, Neutrophils (%) (Auto) 94.8 H, Lymphocytes (%) (Auto) 2.4 L, Monocytes (%) (Auto) 1.5, Eosinophils (%) (Auto) 0.3, Basophils (%) (Auto ) 0.3, Neutrophils # (Auto) 22.4 H, Lymphocytes # (Auto) 0.6 L, Monocytes # ( Auto) 0.4, Eosinophils # (Auto) 0.1, Basophils # (Auto) 0.1, Calcium Level 6.6 L , Aspartate Amino Transf (AST/SGOT) 48 H, Alanine Aminotransferase (ALT/SGPT) 23 , Alkaline Phosphatase 220 H, Total Bilirubin 0.6, Total Protein 4.9 L, Albumin 1.1 L Vital Signs Date Time Temp Pulse Resp B/P (MAP) Pulse Ox O2 Delivery O2 Flow Rate FiO2 10/05/16 05:27 99.2 90 20 97/55 (69) 94 Room Air I&O- Last 24 Hours up to 6 AM 10/05/16 06:00 Intake Total 2825 ml Output Total 2000 ml Balance 825 ml DEBBIE MAYO MD October 05, 2016 11:23
[2016-10-05 11:30] VITALS: BP 95/59
--- NOTE | 2016-10-05 13:10 | REP ---
Clinical: Shortness of breath. Technique: Portable semiupright AP view of the chest. Findings: Mediastinum and cardiac silhouette are normal. Right lower lobe and left lower lobe/retrocardiac infiltrate/atelectasis suggested. Mild interstitial edema cannot be excluded. No obvious effusion. No pneumothorax. Skeletal structures stable. Impression: Trace right basilar and moderate right lower lobe opacities suggest atelectasis/infiltrate. No obvious effusion. Signed by Connor Castrejon MD 10/05/2016 01:01 P
[2016-10-05 14:00] VITALS: BP 109/5
[2016-10-05] MEDS: BICITRA 30ML SOLN UDC PO SCH ×2 (14:01→20:36)
--- NOTE | 2016-10-05 16:41 | CR.PDOC ---
[facility] Pain Clinic Consultation General Date of Consultation: 10/05/16 Consultation Report For: DEBBIE MAYO MD Chief Complaint The patient is a 65-year-old male admitted with a reason for visit of Acute Kidney Injury,Uti. Pain management is asked to see the patient for joint pain involving both knees and the right hand. History of Present Illness Spike Mcdonald is a 65-year-old gentleman who reports that he has been having knee pain which she felt was manageable for about the last 5 years. States, however, at times he did have falls, particularly if he stood too long or walks too far. Reports that over the weekend the pain became so bad that he was unable to get up from his chair. He did call 911 and was brought to the hospital. Once here, it was determined that his bladder was overdistended, that he had developed some acute renal failure and it urinary tract infection. Cultures have demonstrated methicillin-resistant staph aureus and he has had a continuously rising white count. Mr. Mcdonald reports that he rarely takes any medication and has taken no Tylenol or ibuprofen at home. Reports he does have a history of psoriasis. Reports that in the distant past. He was on prednisone, but he is not quite certain what that was for. Rates his pain level today as a 7 -8/10. Notes the pain is centered in both knees and in the joints of the right hand. Describes the pain as aching, burning and throbbing. This that it is similar to his usual pain but much worse. Denies any pain, any other areas. Home Medications No Active Prescriptions or Reported Meds Allergies Coded Allergies: No Known Drug Allergy (Verified Allergy, Unknown, 10/03/16) Past Medical History Medical History History of psoriasis Family History Significant Family History: Noncontributory Social History Social History Denies tobacco, alcohol, or illicit substance abuse. Currently lives with a friend. He is retired Review of Systems Subjective Constitutional: Reports: fever (intermittent), weakness HEENT: Denies: head aches, vision problems, hearing problems Skin: Reports: other (psoriasis lesions over both knees and lower extremities) Pulmonary: Reports: cough (intermittent but frequent), sputum production ( occasional dark yellow were brown) Cardiovascular: Reports: chest pain (denies), palpitations (denies) Gastrointestinal: Reports: normal bowel movements, Denies: loss of bowel control Genitourinary: Reports: loss of bladder control (worsening in the last several days prior to admission), Denies: hematuria Endocrine: Reports: Thyroid dysfunction (denies), Denies: Diabetes mellitus Musculoskeletal: Reports: joint pain (bilateral knees and right hand), joint sweling (bilateral knees and right hand) Psych: Reports: mood normal, Denies: thoughts of self harm, thoughts of harming other Physical Examination Physical Examination Vital Signs/I&O Vital Signs Date Time Temp Pulse Resp B/P (MAP) Pulse Ox O2 Delivery O2 Flow Rate FiO2 10/05/16 14:00 98.5 79 18 109/5 (39) 98 Room Air I&O- Last 24 Hours up to 6 AM 10/05/16 06:00 Intake Total 2825 ml Output Total 2000 ml Balance 825 ml General Exam: Positive: alert, attentive, talkative, no acute distress Visual Analog Score (VAS): 8 (with movement) ENT EXAM: Positive: normocephalic, other (evidence of prior fractured nose) Neck Exam: Positive: Carotid bruit (right carotid bruit) Chest Exam: Positive: Clear to auscultation, Negative: Wheezing, Rales Heart Exam: Positive: Regular rate and rhythm, Normal S1, S2, Negative: Murmurs, Rubs Abdominal Exam: Positive: Soft (slightly distended. Bowel sounds hyperactive) Extremity Exam: Positive: Edema (trace to 1+ edema bilaterally at the ankles), Other (1+ popliteal pulses bilaterally) Skin Exam: Positive: Warm, Rashes (flaky rash noted over both knees for legs and feet.) Psych Exam: Positive: Memory Intact, Alert and oriented x 3 Musculoskeletal Tenderness with palpation bilaterally over the knees. Under numbness also present with palpation in the popliteal space bilaterally. Able to flex knees bilaterally to 90 and does note pain with this movement. Able to flex, extend and rotate both ankles. Edema is noted over the PIP joints of the right hand.. Poor flexion and extension of the fingers right hand. No difficulty noted on the left. Laboratory Data Labs 24H Laboratory Tests 2 10/04/16 16:47: Lactic Acid Level 2.0 10/05/16 05:17: White Blood Count 23.6H, Red Blood Count 3.57L, Hemoglobin 11.2L, Hematocrit 34.7L, Mean Corpuscular Volume 97.2H, Mean Corpuscular Hemoglobin 31.3, Mean Corpuscular Hemoglobin Concent 32.1, Red Cell Distribution Width 14.1, Platelet Count 142L, Neutrophils (%) (Auto) 94.8H, Lymphocytes (%) (Auto) 2.4L, Monocytes (%) (Auto) 1.5, Eosinophils (%) (Auto) 0.3, Basophils (%) (Auto) 0.3, Neutrophils # (Auto) 22.4H, Lymphocytes # (Auto) 0.6L, Monocytes # (Auto) 0.4, Eosinophils # (Auto) 0.1, Basophils # (Auto) 0.1, Large Unclassified Cells % 0.7 , Large Unclassified Cells # 0.2, Anion Gap 12, Glomerular Filtration Rate 19.2L , Blood Urea Nitrogen 85H, Creatinine 3.44H, Sodium Level 140#, Potassium Level 3.7, Chloride Level 111H, Carbon Dioxide Level 17L, Calcium Level 6.6L, Aspartate Amino Transf (AST/SGOT) 48H, Alanine Aminotransferase (ALT/SGPT) 23, Alkaline Phosphatase 220H, Total Bilirubin 0.6, Total Protein 4.9L, Albumin 1.1L , Magnesium Level 1.9, C-Reactive Protein, Quantitative 22.50H, Albumin/ Globulin Ratio 0.29L 10/05/16 11:37: Lactic Acid Level 2.1*H, Phosphorus Level 3.3# 10/05/16 16:07: CBC/BMP Laboratory Tests 10/05/16 05:17 Red Blood Count 3.57 L, Mean Corpuscular Volume 97.2 H, Mean Corpuscular Hemoglobin 31.3, Mean Corpuscular Hemoglobin Concent 32.1, Red Cell Distribution Width 14.1, Neutrophils (%) (Auto) 94.8 H, Lymphocytes (%) (Auto) 2.4 L, Monocytes (%) (Auto) 1.5, Eosinophils (%) (Auto) 0.3, Basophils (%) (Auto ) 0.3, Neutrophils # (Auto) 22.4 H, Lymphocytes # (Auto) 0.6 L, Monocytes # ( Auto) 0.4, Eosinophils # (Auto) 0.1, Basophils # (Auto) 0.1, Calcium Level 6.6 L , Aspartate Amino Transf (AST/SGOT) 48 H, Alanine Aminotransferase (ALT/SGPT) 23 , Alkaline Phosphatase 220 H, Total Bilirubin 0.6, Total Protein 4.9 L, Albumin 1.1 L Microbiology Microbiology 10/05/16 Blood Culture, Received Pending 10/05/16 Blood Culture, Received Pending 10/03/16 Blood Culture - Preliminary, Resulted 10/03/16 Blood Culture - Preliminary, Resulted 10/03/16 Blood Culture - Final, Complete Staph.aureus Methicillin Resis 10/03/16 Blood Culture - Final, Complete Staph.aureus Methicillin Resis 10/03/16 Urine Culture - Final, Complete Staph.aureus Methicillin Resis Diagnostic and Imaging Studies X-ray of the lateral knees demonstrates some degenerative changes. However, there are no fracture or large joint effusions. ASSESSMENT: 1. Degenerative joint disease, probable inflammatory arthritis 2. Joint pain, knees and right hand 3. UTI, acute renal failure and sepsis RECOMMENDATIONS and PLAN: Mr Mcdonald reports he is very resistant to the taking of any pain medications. Review of the chart shows that he has taken none of the acetaminophen which is already ordered. I have encouraged him to use this as needed. He is amenable to the application of some BenGAy cream to his knees and right hand joints. If necessary tramadol 37.5 mg with acetaminophen may be helpful. He is opiate naive and does not wish to be given any stronger opioids. He tells me that he was on prednisone in the past for flaires such as this but right now in view of his sepsis, this would not be appropriate. Thank you Dr Mayo for allowing us to participate in the care of your patient, Spike Mcdonald. Should you have any questions please contact us here at the Pain center at [phone]. Meka Gibson October 05, 2016 16:41
--- NOTE | 2016-10-05 17:50 | REP ---
Clinical: Follow up hydronephrosis. Technique: Real time tavarez scale ultrasound examination using curved array transducer. Comparison: 10/03/2016. Findings: The kidneys are mildly enlarged and diffusely echogenic. The right kidney measures 13.0 x 7.0 x 6.1 cm with mild hydronephrosis and debris in the collecting system as well as 6 mm nonobstructing midpole calculus. The left kidney measures 13.0 x 7.5 x 8.0 cm with mild hydronephrosis and debris in the collecting system and no evidence for nephrolithiasis cystic or mass lesion. Incidental note is made of a presumed column of Chavez in the mid pole left kidney. [place] catheter is identified in collapsed bladder which demonstrates diffuse wall thickening. Incidental note is made of sludge in the gallbladder and mild right upper quadrant free fluid. Impression: 1. Kidneys are enlarged and echogenic along with mild hydronephrosis and debris in the collecting system. 6 mm nonobstructing right renal calculus. Presumed column of Chavez in the left kidney. 2. Bladder wall thickening. 3. Gallbladder demonstrates layering sludge/gravel and small amount of free fluid noted in the right upper quadrant Signed by Connor Castrejon MD 10/05/2016 05:41 P
[2016-10-05 18:00] VITALS: BP 102/62
--- NOTE | 2016-10-05 18:51 | CR ---
DATE OF CONSULTATION: 10/05/2016 REQUESTING PHYSICIAN: Dr. Jeanette Hernández. REASON FOR CONSULTATION: Management of acute kidney injury, and urinary tract infection. CHIEF COMPLAINT: The patient presented to the emergency room on October 03, 2016 with generalized weakness, inability to walk and severe knee pains. HISTORY OF PRESENT ILLNESS: Mr. Spike Bravo is a 65-year-old male with no significant past medical history of chronic kidney disease, baseline creatinine is unknown. He presented to the emergency room on September with severe weakness, generalized body aches and pains, severe pain in both knees. He also complained of inability to urinate and dysuria for about 3-4 days. He was found to have urinary retention in the emergency room. He got a Magaña catheter placed and had 600 mL of urine output right after the Magaña catheter placement. He was also found to have sepsis with a white blood cell count of 21,000. Further imaging in the emergency room including renal ultrasound and CAT scan of the abdomen and pelvis showed that he had mild hydronephrosis on the right side. There was a small intrarenal calculus. The patient was seen by urology as well. Later on the patient's blood culture and urine culture which were sent on October 03, 2016 came back positive for methicillin resistant Staphylococcus aureus (MRSA). The patient's creatinine on admission was 4.8. It is gradually improving with aggressive intravenous (IV) fluid hydration. Creatinine is 3.4 today. Nephrology service was called on board because of acute kidney injury and MRSA urinary tract infection (UTI). PAST MEDICAL HISTORY: 1. Osteoarthritis. 2. Eczema and psoriasis. 3. History of diverticulosis. There is no known history of chronic kidney disease. The patient does have history of benign prostatic hyperplasia. PAST SURGICAL HISTORY: No significant past surgical history. ALLERGIES: No known drug allergies. FAMILY HISTORY: No significant family history of end-stage renal disease or hemodialysis. His father had carcinoma of the stomach. SOCIAL HISTORY: The patient is a current active smoker. He smokes about five packs per day. He denies any history of alcohol abuse or elicit drug abuse. The patient lives alone. REVIEW OF SYSTEMS: CONSTITUTIONAL: The patient reports weakness and inability to walk and fever with chills. HEENT: He denies any blurry vision or double vision. ENT: The patient denies any dysphagia or odynophagia, no ear discharge. CARDIOVASCULAR: The patient denies any chest pain or palpitations. RESPIRATORY: The patient denies any cough, wheezing or shortness of breath. GASTROINTESTINAL (GI): The patient denies any nausea, vomiting, diarrhea, abdominal pain, constipation. GENITOURINARY: The patient did present with difficulty with urination and was found to have urinary retention. He currently has a Magaña catheter. MUSCULOSKELETAL: The patient reports generalized muscle aches and pain, and severe knee pains. 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 SKIN: He denies any rashes or ulcers. PSYCHIATRIC: He denies history of anxiety or depression. Hematologic: The patient denies any history of cancers or anemia. All of the review of systems was found to be negative. PHYSICAL EXAMINATION: VITAL SIGNS: Temperature 99.2 degrees Fahrenheit, blood pressure 97/55, pulse 90, respiratory rate 20, saturating 94% on room air. GENERAL: The patient is awake, alert, oriented times three, sitting on the sofa, no apparent distress at this time. INTAKE AND OUTPUT: The patient's urine output was 1.8 liters yesterday, 650 mL so far today since overnight. Weight in the bed scale is 51.5 mg. HEAD AND NECK EXAM: Extraocular muscles intact. Pupils equal, round, and reactive to light. Moist mucous membranes. Neck is supple. There is no jugular venous distention (JVD). CARDIOVASCULAR: S1, S2. There is a grade 1/6 systolic murmur at the apex. No radiation was noted. RESPIRATORY: Chest is clear to auscultation bilaterally. Bilateral equal air entry. No rales or rhonchi. ABDOMEN: Soft, positive bowel sounds, nontender, no ascites, no organomegaly. The patient has an indwelling Magaña catheter. The urine in the bag is cloudy with some debris and precipitation of blood cells. MUSCULOSKELETAL: The patient has pain in bilateral knees; otherwise pulses are 2+. There is no edema of the bilateral lower extremities. CENTRAL NERVOUS SYSTEM: There is no focal neurological deficits. Power is 5/5 in all extremities. SKIN: No rashes or ulcers, but skin is dry generally LABORATORY DATA: CBC showed WBC 23.6, hemoglobin 11.2, platelets 142. Urinalysis was done on October 03 which was cloudy with 3+ blood, 3+ leukocyte esterase, too numerous to count wbc's. BMP showed sodium 140, potassium 3.7, chloride 111, bicarbonate 17, BUN 85, creatinine 3.4, GRF 19. Lactic acid 2, calcium is 6.6, magnesium 1.9, albumin 1.1. Toxicology: Random vancomycin level was 15.4. Immunology: Rheumatoid factor is negative. Cyclic Citrullinated Peptide (Anti-CCP is pending). Microbiology: Urine culture and blood cultures sent on October 03, 2016 are positive for Staphylococcus Aureus which is methicillin resistant, sensitive to vancomycin which the patient is already on. IMAGING: CAT scan of the abdomen and pelvis done on October 03, 2016 showed no obvious mass in the left kidney, mild right sided hydronephrosis with a small intrarenal calculus and diffuse bladder wall thickening. CURRENT INPATIENT MEDICATIONS: - normal saline at 120 mL per hour - Zosyn 2.25 grams IV every eight hours - vancomycin 750 mg IV every 24 hours - he was started on Bicitra 30 mL by mouth hourly by md - he is on heparin subcutaneous ASSESSMENT: 65-year-old male with past medical history of osteoarthritis, eczema this admission with urinary retention and sepsis secondary to urinary tract infection. PLAN: 1. Acute kidney injury. Acute kidney injury secondary to urinary obstruction and urinary tract infection. Continue aggressive intravenous (IV) fluid hydration. Creatinine is significantly improving. It was 4.8 on admission and it is down to 3.4 now. Continue to monitor daily intake and output. 2. Sepsis secondary to urinary tract infection (UTI). The patient continues to have fever spikes with a temperature maximum of 100.2 last night. He headache leukocytosis and tachycardia, continue aggressive fluid hydration. Continue IV Zosyn and vancomycin. MRSA is sensitive to vancomycin. Continue to aim for vancomycin level of 15-20. Adjust dose accordingly. 3. Methicillin resistant Staphylococcus aureus (MRSA) bacteremia. The source is most likely urine; however the patient is going to get 2 D echocardiogram to rule out vegetation. The patient is currently hemodynamically stable. If the patient becomes hypotensive then he can be transferred to the intensive care unit (ICU) for further management. Serum lactate is being monitored. Lactate level done yesterday was within the acceptable limit. 4. Hyponatremia. Hyponatremia was most likely secondary to hypovolemia. The patient has been aggressively hydrated. His sodium has improved to 140 today. 5. Hypokalemia. Continue to monitor BMP and replete potassium as needed. Potassium is 3.7 which is acceptable at this time. 6. Normal anion gap metabolic acidosis. It is most likely secondary to acute renal failure. Bicarbonate is 17, I have started the patient on Bicitra 30 mL by mouth twice a day. 7. Urinary retention. The patient was already seen by urology. He has an indwelling Magaña catheter. Continue the Magaña at this time. He has mild right sided hydronephrosis as well. The management is as per urology's recommendations. Thank you for involving us in the care of this patient. We shall be happy to follow the patient along with you tomorrow morning. Plan of care was discussed with the hospitalist team, Dr. Jeanette Hernández. cc: Jammie Hernández MD
--- NOTE | 2016-10-05 19:28 | ECHO ---
DATE OF PROCEDURE: 10/05/2016 REFERRING PHYSICIAN: Dr. Jammie Hernández Study which was performed on 10/05/2016 for indication of blood culture positive for methicillin-resistant Staphylococcus aureus (MRSA). The patient measures 158 cm and weighs 52 kg. DIMENSIONS: IVS: 1.0 LV: 4.4 LVPW: 0.9 LA: 3.2 Aorta 3.3 FINDINGS: The study is of excellent technical quality. Left ventricle is of normal size and systolic function with estimated ejection fraction (EF) around 65%. Right ventricle also normal size and systolic function. Both atria appear grossly normal. Aortic valve is heavily sclerotic. It has some thickening of all leaflets, but it has three cusps and mobility is grossly preserved. Mitral valve was very well seen. There is an echo density attached to anterior mitral leaflet that is highly mobile and protruding from left ventricle to the left atrium, depending on cardiac cycle. It measures approximately 1.9 x 0.6 cm. In appropriate clinical setting is diagnostic of vegetation. Tricuspid and pulmonic valves appear normal. No pericardial effusion is noted. Inferior vena cava is normal size. Aortic root is normal, aortic arch is normal. Abdominal aorta was not well seen. Doppler interrogation reveals mild aortic stenosis with peak gradient 25 and mean gradient 12 mmHg. Trace aortic insufficiency is also present. There is approximately mild to moderate mitral insufficiency with posteriorly oriented MR jet. Mild tricuspid insufficiency seen. Calculated pulmonary artery pressure is at least in mid 40s corresponding to moderate pulmonary hypertension. Pulmonic valve is functionally competent. Mitral inflow pattern and tissue Doppler imaging of mitral annulus revealed grade 1 diastolic dysfunction. CONCLUSION: 1. Study is of excellent technical quality. 2. Normal left ventricular (LV) size, systolic function. Grade 1 diastolic dysfunction. 3. Echo density attached to anterior mitral leaflet in appropriate clinical setting consistent with vegetation with resulting mild to moderate mitral insufficiency. 4. Heavily sclerotic aortic valve with mild aortic stenosis. No distinct vegetation is seen on aortic valve. 5. Normal central venous pressure and probably moderate pulmonary hypertension. COMMENT: Subacute bacterial endocarditis (SBE) prophylaxis is recommended. Results of the study were communicated to Dr. Hernández. [facility]CHESTERAleyda
[2016-10-05] MEDS: EUCERIN 120GM CREAM EXT SCH (20:36)
[2016-10-05 22:00] VITALS: BP 115/64
[2016-10-06 02:00] VITALS: BP 110/59
[2016-10-06] MEDS: ACETAMINOPHEN TAB 650MG DOSE (2X325MG) PO PRN ×2 (03:14→16:05)
--- NOTE | 2016-10-06 05:50 | CR ---
DATE OF CONSULTATION: 10/05/2016 REASON FOR CONSULTATION: Asked to consult by Dr. Hernández for evaluation of Methicillin-resistant Staphylococcus aureus bacteremia. HISTORY OF PRESENT ILLNESS: Mr. Mcdonald is a 65-year-old gentleman with no significant past medical history who came into the emergency room complaining of severe right knee pain that he was not able to walk. He also had a low- grade fever, although he did not notice that. On admission, his temperature was 101 and blood cultures were drawn which were positive for Methicillin-resistant Staphylococcus aureus. He was also noticing decreased urine output with some burning. He had some nausea, but no vomiting or diarrhea. No abdominal pain. The patient had a chronic cough from his tobacco abuse, and light shortness of breath, but that was unchanged to baseline. He quit smoking on 09/22 when he moved to his new apartment. On admission, he was noted to have an extremely high white count of 21,000 and he was started on Zosyn and vancomycin. Since hospitalization, he has complained of persistent right knee pain, right ankle, right wrist pain and the left wrist. He is having difficulty walking. He has had five blood cultures drawn on the first day of admission, in an 18-hour period, which were all positive for Methicillin-resistant Staphylococcus aureus. Repeat blood cultures were done 48-hours later are still pending. MEDICAL HISTORY: Significant for osteoarthritis, although he states he had rheumatoid arthritis. In 2004 he had negative rheumatoid factor, uric acid was negative and Lyme titer was negative. He uses a cane due to joint pain. Colonoscopy was done in [address] Cam. He had diverticulosis and internal hemorrhoids. SURGICAL HISTORY: Colonoscopy. ALLERGIES: No known drug allergies. MEDICATIONS: -Eucerin to both legs, -Bicitra 30 mL by mouth every 12 hours - Vancomycin 750 mg IV every 12 hours - Zosyn 2.25 mg IV every 8 hours - Heparin subcu 5,000 units every 8 hours - Sodium Chloride IV fluids - Tylenol as needed. LABORATORY DATA: White count on admission was 21.1, today was 23.6, hemoglobin 11.2, hematocrit 34.7, platelets 142, 95% neutrophils, 2% lymphocytes, 5% monocytes. ESR was 65, sodium 133, potassium 3.4, chloride 101, bicarbonate 19 , BUN 99, creatinine 3.91, glucose 82, calcium 6.8, magnesium 2.1, bilirubin 0.6 , AST 79, ALT 35, alkaline phosphatase 143. CRP today was 28.5, down from 40.8 on admission. Vancomycin level today was 15.4. Rheumatoid factors less than 10 , anti cyclic citrullinated peptide is pending. Blood cultures as previously mentioned four sets are positive for Methicillin- resistant Staphylococcus aureus, with EVELYN for vancomycin of 1. Clindamycin sensitive. Gentamicin resistant. Urine culture had too numerous to count white cells, 123 red cells, and urine culture was also positive for Methicillin-resistant Staphylococcus aureus. Vancomycin EVELYN= 1. Gentamicin also resistant. IMAGING DATA: Chest x-ray done on 10/03 showed no evidence of acute infiltrate. Renal ultrasound repeated on 10/05 and previously done on 10/03 shows enlarged kidneys, echogenic, along with mild hydronephrosis and debris in the collecting system. 6 mm non obstructive right renal calculus, bladder wall thickening, gallbladder demonstrating layering sludge gravel and small amount of free fluid. CT of the abdomen done on 10/03 limited by the fact that it was without contrast showed no obvious mass in the kidneys. There is mild right hydronephrosis and a 6 mm nodule in the left lower lobe. Diffuse bladder wall thickening. PHYSICAL EXAMINATION: He is an elderly gentleman, sick-looking, in no acute distress. T-max in the past 24-hours was 100.2. Pulse 86, respirations 18, blood pressure 102/62, O2 sat 96% on room air. Heart: Normal S1, S2 with a systolic ejection murmur 2/6 best heard at the left upper sternal border. LUNGS: Diminished breath sounds at the bases, but clear. ABDOMEN: Soft, nontender, no visceromegaly. EXTREMITIES: Ankle edema bilaterally. Ankles have good range of motion. Right knee has limited range of motion. There is mild diffusion noted. He is not able to flex his knee more than 30 degrees. Passively I am to flex it for him but with significant pain. Hip flexion bilaterally normal. Limited range of motion of right wrist, more than left wrist, but they are both slightly swollen and red. NEUROLOGIC EXAM: Intact. SKIN: Has multiple eczematous rashes, erythema scaling of both ankles and feet. IMPRESSION: This is a 65-year-old gentleman with no significant past medical history other than osteoarthritis who presents with acute pain in his knee, difficulty walking, fever, significant leukocytosis, acute renal failure, who has Methicillin-resistant Staphylococcus aureus sepsis. He also had acute renal failure and CT is suggestive of urinary tract infection with evidence of CT showing cystitis with bladder wall thickening and debris as well in the kidneys. The patient does not have CVA tenderness. The fact that he has had persistent bacteremia for 24 hours is concerning as well for endocarditis and therefore an echocardiogram was ordered. On exam he also has evidence of a knee effusion with limited range of motion at the right knee, which makes it concerning for a septic arthritis from seating of his right knee. His wrists as well are concerning. That could be though a flare up of gout of pseudo gout in the setting of an acute infection. PLAN: Continue IV vancomycin. Keeping vancomycin trough between 15 and 20. Echocardiogram has been obtained and results called from the hospitalist stated that he has a vegetation on his mitral valve 1.5 cm, and therefore this patient will be transferred to [place] as soon as we can find a bed. I had ordered earlier a knee MRI to rule out an effusion, and if there is an effusion then the orthopedic needs to be consulted to do an arthrocentesis. Patient will need a valve replacement as the size of the vegetation >1cm and is at risk of septic emboli. Repeat blood cultures on 10/05 are pending. Continue blood cultures until we have a negative set. SORIN
[2016-10-06 06:00] VITALS: BP 106/64
[2016-10-06] MEDS: HEPARIN SOD (PORCINE) 5000 UNITS/ML VIAL SC SCH ×2 (06:01→14:32)
[2016-10-06 07:14] LABS: IONIZED CALCIUM 4.1 MG/DL (4.5-5.3)
[2016-10-06 07:20] LABS: BASO # 0.1 K/mm3 (0.0-0.2); BASO % 0.5 % (0.0-1.0); EOS # 0.1 K/mm3 (0.0-0.50); EOS % 0.2 % (0.0-3.0); LARGE UNSTAINED CELL # 0.2 K/mm3 (0.0-0.4); LARGE UNSTAINED CELL % 0.8 % (0.0-4.0); LYMPH # 1.3 K/mm3 (1.5-4.5); LYMPH % 4.2 % (24.0-44.0); MEAN CORPUSCULAR HEMOGLOBIN 31.3 pg (27.0-33.0); MEAN CORPUSCULAR HGB CONC 32.8 g/dl (32.0-36.5); MEAN CORPUSCULAR VOLUME 95.6 fl (80.0-96.0); MONO # 0.5 K/mm3 (0.0-0.8); NEUTROPHILS # 23.7 K/mm3 (1.8-7.7); NEUTROPHILS % 92.4 % (36.0-66.0); PLATELET COUNT, AUTOMATED 167 k/mm3 (150-450); RED CELL DISTRIBUTION WIDTH 14.6 % (11.5-14.5); WHITE BLOOD COUNT 25.6 K/mm3 (4.0-10.0)
[2016-10-06 07:39] LABS: PHOSPHORUS LEVEL 3.3 MG/DL (2.5-4.9)
[2016-10-06 07:44] LABS: ALBUMIN 1.1 GM/DL (3.2-5.2); ALBUMIN/GLOBULIN RATIO 0.33 (1.00-1.93); BILIRUBIN,TOTAL 0.7 MG/DL (0.2-1.0); CALCIUM LEVEL 6.3 MG/DL (8.8-10.2); CREATININE FOR GFR 2.65 MG/DL (0.70-1.30); GLOMERULAR FILTRATION RATE 25.9 (>49); MAGNESIUM LEVEL 1.8 MG/DL (1.8-2.4); POTASSIUM SERUM 3.6 MEQ/L (3.5-5.1); TOTAL PROTEIN 4.4 GM/DL (6.4-8.2); VANCOMYCIN RANDOM 19.1 UG/ML
[2016-10-06] MEDS: BICITRA 30ML SOLN UDC PO SCH ×2 (08:08→09:00)
[2016-10-06] MEDS: EUCERIN 120GM CREAM EXT SCH (08:08)
[2016-10-06] MEDS: NS 1,000 ML IV SCH (08:08)
--- NOTE | 2016-10-06 08:08 | PHACANCOPD ---
PHARMACY VANCOMYCIN DOSING Pt Demographics Demographics Patient Age:65 , Weight:51.500 , Gender: male Adjusted Body Weight Date: 10/03/16, Adjusted Body Weight: [46 - use actual] Kg Events Past 24 Hours Events Past 24 Hours: YES: Change in CrCl (CRCL HAS IMPROVED ) Vancomycin Vancomycin indication: sepsis Vancomycin Target Ranges: 15-20 mcg/ml Vancomycin Load Y/N: Yes Load Dose Date Time Vancomycin Load Dose: 1000MG Date: 10-03 Time: 2300 Vancomycin Dose Date: 10/04/16. Current Vancomycin Dose: [750mg IV q24h @11] Date: 10/03/16. Current Vancomycin Dose: [INT] Intermittent Dosing?: No Labs Labs Item Value Date Time White Blood Count 15.5 K/mm3 H 10/04/16 05 White Blood Count 23.6 K/mm3 H 10/05/16 05 White Blood Count 25.6 K/mm3 H 10/06/16 0658 Creatinine 2.65 MG/DL H 10/06/16 0657 Creatinine 3.91 MG/DL H 10/04/16 0522 Creatinine 3.44 MG/DL H 10/05/16 0517 Random Vancomycin Level 15.4 UG/ML 10/04/16 0522 Random Vancomycin Level 19.1 UG/ML 10/06/16 0657 Micro Microbiology 10/05/16 Blood Culture, Received Pending 10/05/16 Blood Culture, Received Pending 10/03/16 Blood Culture - Final, Complete Staph.aureus Methicillin Resis 10/03/16 Blood Culture - Final, Complete Staph.aureus Methicillin Resis 10/03/16 Blood Culture - Final, Complete Staph.aureus Methicillin Resis 10/03/16 Blood Culture - Final, Complete Staph.aureus Methicillin Resis 10/03/16 Urine Culture - Final, Complete Staph.aureus Methicillin Resis Creatinine Clearance Date:10/06/16. Creatinine Clearance: [21]. Date:10/03/16. Creatinine Clearance: [13]. Assessment and Plan Maintaining Current Dose?: Yes Reason for dose change: No Dose Change Pharmacist Note Pharmacist Note Date: 10/06/16. Pharmacist note: Patients trough was drawn after 3 doses and returned at 19.1. Patients CrCl has improved. Cultures were positive for MRSA with a Vanco EVELYN of 1. Continue current dosing and follow up with another trough in a few days. Continue to monitor renal function and adjust dose as needed. Date: 10/04/16. Pharmacist note: random vancomycin level drawn ~6 hours after his first 1g dose was 15.4. I have started him on 750mg q24h. I have a random scheduled for Wednesday morning. Blood 2/2 and urine cultures are positive for Staph aureus, sensitivities are still pending. Pt has had poor intake/output, hydronephrosis. We will continue to monitor cultures, if MSSA he should be changed to a penicillin or cephalosporin based on sensitivities. Date: 10/03/16. Pharmacist note:Dosed intermittent by levels with first random level ordered for 05-14 in am. Will continue to monitor and make adjustments as needed. [facility] October 06, 2016 08:08
[2016-10-06 10:00] VITALS: BP 115/70
[2016-10-06] MEDS ORDERED: CALCIUM GLUCONATE 1,000 MG in D5W MINI-BAG PLUS 100 ML IV ONE (10:00)
[2016-10-06] MEDS: VANCOMYCIN HCL 750 MG, VIAL MATE ADAPTER 1 EACH in D5W 250 ML IV SCH (11:02)
--- NOTE | 2016-10-06 12:19 | IPN ---
DATE: 10/06/2016 SUBJECTIVE: Patient was seen and examined at the bedside today in the morning. He continues to report weakness. His renal function is improving. Last 24 hour urines were noted. Patient was found to have a vegetation on the mitral valve. Patient was seen by infectious disease as well. I appreciate the ID recommendations. They are recommending to transfer the patient to [place] as soon as possible. REVIEW OF SYSTEMS: The patient reports chills and rigors. He reports generalized body aches and pains. He reports weakness. He denies any chest pain or shortness of breath. The patient denies pain in the abdomen, constipation or diarrhea, but he reports decreased appetite. The rest of review of systems is negative. OBJECTIVE: VITAL SIGNS: Temperature is 100.4 degrees Fahrenheit, blood pressure is 115/70, pulse is 100, respiratory rate of 24, saturating 94% on room air. INTAKE AND OUTPUT: Urine output recorded is 2.7 liters yesterday, 750 mL so far today since overnight. Weight on the bed scale is not available. PHYSICAL EXAMINATION: GENERAL: Patient is awake, alert and oriented times three, feeling weak and tired, laying in bed, in no apparent distress. HEAD/NECK: Extraocular muscles intact. Pupils equal, round, reactive to light.. Mucous membranes are dry. Neck is supple. There is no jugular venous distention (JVD). CARDIOVASCULAR: S1, S2. He has a grade 1/6 systolic murmur at the apex with no radiation. RESPIRATORY: Chest is clear to auscultation bilaterally. Bilateral equal air entry. No rales or rhonchi. ABDOMEN: Soft. Positive bowel sounds. Nontender. No ascites. No organomegaly. GENITOURINARY (): Patient has an indwelling Magaña catheter and urine int he bag is slightly cloudy. MUSCULOSKELETAL: Patient reports bilateral knee pains and decreased range of movement of bilateral knees. There is trace edema of the bilateral lower extremities. Pulses are 2+. FERTILIZER LOADER: No focal neurological deficit. Power is 5/5 in extremities. LAB REVIEW: CBC showed a WBC of 25.6, hemoglobin 11.5, platelets 167. Urinalysis done today showed it was cloudy. 1+ protein, 3+ blood, 3+ leukocyte esterase. White cell count was 133. Too numerous to count RBCs. BMP showed sodium 143, potassium 3.6, chloride 114, bicarb 16, BUN 72, creatinine 2.6, it was 3.4 yesterday. Uric acid is 8. Calcium is 6.3. Ionized calcium was 4.1. Phosphorous was 3.3. Albumin is 1.1. Random vancomycin level is 19.1. Immunology: Rheumatoid factor and anti-CCP is negative. Microbiology: A repeat blood culture sent on October 05 are negative so far, but the original cultures are positive for Methicillin-resistant Staphylococcus aureus (MRSA). IMAGING: A renal ultrasound was done yesterday, which showed the kidneys are enlarged and echogenic, along with mild hydronephrosis and debris in the collecting system. There was a 6 mm nonobstructing right renal stone. 2D echocardiogram done yesterday showed normal left ventricular systolic function. There was a vegetation in the anterior mitral valve leaflet and aortic valve was heavily sclerotic with no vegetation. There was normal central venous pressure and probably moderate pulmonary hypertension. CURRENT MEDICATIONS: The patient medications were all reviewed by me. He continues to be on IV normal saline at 100 mL an hour. He is on vancomycin 750 mg IV every 24 hours. I gave him a dose of calcium gluconate 1 gram IV and he was started on Bicitra 30 mL by mouth twice a day. There is no other changes in the medications today as compared with yesterday. ASSESSMENT: 65-year-old male with past medical history of osteoarthritis and eczema, this admission with sepsis secondary to MRSA UTI, MRSA bacteremia and infective endocarditis. PLAN: 1. Acute kidney injury. Acute kidney injury is secondary to urinary obstruction, MRSA UTI, sepsis, and bacteremia. Continue aggressive IV fluid hydration. The patient is developing mild edema of the lower extremities. I have decreased the IV fluid to 100 mL an hour. Creatinine continues to improve. Continue to monitor daily intake and output. 2. Sepsis secondary to infective endocarditis. The patient has a vegetation on the mitral valve. Continue vancomycin at this time as recommended by ID. The primary team is trying to transfer the patient to [place] for a higher level of care. 3. MRSA bacteremia and MRSA UTI. The patient is being treated with IV vancomycin. Try to aim for a vancomycin trough level of 15-20. Level was 19.1 today. 4. Metabolic acidosis. It is secondary to acute renal failure. Patient was started on Bicitra. Continue current dose of Bicitra 30 mL by mouth twice a day. No need of bicarb in the IV fluids at this time. 5. Hypocalcemia. Patient was given a dose of calcium gluconate 1 gram IV today morning. 6. Hyperuricemia. Patient denies any history of gout attacks in the past. Acute hyperuricemia might be secondary to acute renal failure. I am not going to start Uloric at this time. I will repeat another uric acid level. If uric acid level remains high given the patient's history of arthritis and knee pains, I will probably start the patient on xanthine oxidase inhibitors. Continue to monitor for now. The plan of care was discussed with the hospitalist team, Dr. Zev Rizvi. SORIN
[2016-10-06 14:00] VITALS: BP 119/74
[2016-10-06] MEDS ORDERED: predniSONE 20 MG TAB PO ONE (15:00)
--- NOTE | 2016-10-06 16:07 | IPN ---
DATE: 10/06/2016 Spike is not doing very well. He still complains of significant pain in his joints, mostly the wrist and both knees. He has a cough, mostly a smoker cough, but minimal shortness of breath. No nausea, vomiting or diarrhea. Temperature is 100.4, pulse 100, respirations 24, blood pressure 115/70, O2 sat 94% on room air. Heart: Normal S1-S2 with a holosystolic murmur 2/6 best heard at the left upper sternal and left lower sternal border. Lungs are clear. No wheezes, rales or rhonchi. Abdomen: Soft, nontender. : Has a Magaña catheter. Urine is cloudy. Extremities: He has bilateral knee erythema with decreased range of motion especially of the right knee, decreased range of motion of the right wrist. Neurologic: Exam is normal. LABORATORY DATA White count is 25.6, hemoglobin 11.5, hematocrit 35.1, platelets 167, 92% neutrophils, 4% lymphocytes. Sodium 143, potassium 3.6, chloride 14, bicarb 16, BUN 72, creatinine 2.65, glucose 60. Uric acid is 8, calcium 6.3. Whole blood ionized calcium is 4.1, phosphorus 3.3, AST 41, ALT 21, alkaline phosphatase 295, CRP 15.2, total protein 4.1, albumin 1.1. Blood cultures, four sets were positive on 10/03 with Methicillin-resistant Staphylococcus aureus (MRSA). Minimum inhibitory concentration (EVELYN) is 1. Gentamicin resistant. Medication, day number #3 of IV vancomycin and 750 mg every 24 hours. Echocardiogram done by Dr. Izquierdo shows left ventricle size and systolic function being normal. Grade 1 diastolic dysfunction. Density attached to the anterior mitral leaflet consistent with vegetation with moderate mitral insufficiency. Heavily sclerotic aortic valve, with mild aortic stenosis. The vegetation size measures 1.9 x 0.6 cm. IMPRESSION 1. 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 Repeat cultures after 48 hours are negative. Due to the size of the vegetation, the patient will need to be transferred to tertiary care center for probable valve replacement. Repeat cultures have been negative. EVELYN to vancomycin is 1. His vancomycin trough has been between 15 and 19. Will also obtain daptomycin MICs. The patient has gentamicin resistance and rifampin has not been added as rifampin use is controversial. 2. Polyarthritis involving right wrist, both knees. 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 Uric acid is elevated. The patient will be given a dose of prednisone 20 mg today. 3. Acute kidney injury. Creatinine has improved from 4.8 to 2.65 with IV fluids and Bicitra. PLAN: Transfer to a tertiary care center.
--- NOTE | 2016-10-06 16:14 | REP ---
MRI study of the right knee without contrast: History: Increased right knee pain. Comparison knee radiographs are from October 03, 2016. Technique: Sagittal, axial and coronal imaging planes are utilized for T1, proton density and T2-weighted scans obtained in the usual fashion with and without fat saturation. MRI findings: Cortical and medullary bone signal intensity are normal. There is no evidence of occult fracture. There is a diffuse pattern of extra-articular soft tissue swelling involving the subcutaneous and fascial planes about the knee. This is most pronounced posterolaterally. There is a Hartman's cyst in the posteromedial popliteal soft tissues, which measures 3.5 cm in greatest diameter. A small joint effusion is evident. Medial and lateral patellar retinacular structures are intact. The patellar and quadriceps tendons appear intact. There is some thickening of the quadriceps tendon at the superior pole and patellar insertion consistent with chronic quadriceps tendonitis. Anterior and posterior cruciate ligaments have an intact appearance. There is a horizontal pattern of increased signal intensity in the body and posterior horn of the lateral meniscus. This extends to the superior meniscal margin at the level of the central body of the meniscus and is consistent with a meniscal tear. No medial meniscal tear is appreciated. No medial or lateral collateral ligament disruption is appreciated. There is mild chondromalacia involving the medial femoral condyle. Impression: 1. Diffuse periarticular soft tissue swelling. 2. Small joint effusion and Hartman's cyst. 3. Evidence of chronic patellar tendonitis. 4. Horizontal tear lateral meniscus. 5. Chondromalacia in the medial tibiofemoral compartment. Signed by Juve Mart MD 10/06/2016 04:15 P
--- NOTE | 2016-10-06 17:11 | DS.PDOC ---
Discharge Summary General Date of Admission October 03, 2016 at 09:56 Date of Discharge 10/06/16 Specialist/Consultants Involve Dr. Martinez of Urology, Dr. Shaw of Nephrology, Dr. King of Infectious Diseases Discharge Summary PROCEDURES PERFORMED DURING STAY: None. ADMITTING DIAGNOSES: 1. . MRSA bacteremia 2. . Vegetation on mitral valve, found on echocardiogram 3. . Acute kidney injury DISCHARGE DIAGNOSES: 1. . MRSA bacteremia 2. . Vegetation on mitral valve, found on echocardiogram 3. . Acute kidney injury COMPLICATIONS/CHIEF COMPLAINT: Acute Kidney Injury,Uti. HISTORY OF PRESENT ILLNESS: . 65-year-old male with past medical history of osteoarthritis, eczema, psoriasis , and diverticulosis presented to the ER with a chief complaint of severe knee joint pain and progressive weakness with difficulty walking. In addition, the patient noted that he was having difficulty urinating, and was making minimal urine over the last 4 days. He denied taking any NSAIDs, or any other medications. The patient also notes that he felt febrile at home during this time. In the ER, the patient was noted to have acute renal failure with a serum creatinine of 4.8. The patient was started on IV fluids and a nephrology and urology consultation was obtained. During the patient's hospitalization his serum creatinine improved to 2.65, and he had adequate urine output. However, the patient was noted to be persistently febrile and blood cultures ordered on admission were noted to be positive for MRSA 4 bottles total. The patient was started on vancomycin. He has remained hemodynamically stable. An echocardiogram was obtained to further delineate the etiology of the blood cultures. The patient's echocardiogram noted an echodensity attached to the anterior mitral leaflet measuring 1.9 x 0.6 cm diagnostic of a vegetation. In addition the patient was also noted to have moderate mitral insufficiency. Given the above findings, and after consultation with our infectious disease specialist and assembler aircraft power plant who read the echo, it was deemed that the patient would be best served to be transferred to a higher level of care for possible mitral valve replacement given the above findings of MRSA bacteremia in a patient with a vegetation on the mitral valve. Dr. Rodriguez has graciously accepted our request for transfer for further evaluation and management of care. DISCHARGE MEDICATIONS: Please see below. ALLERGIES: Please see below. PHYSICAL EXAMINATION ON DISCHARGE: VITAL SIGNS: Please see below. GENERAL: Awake, alert, oriented HEENT: Normocephalic NECK: No JVD CARDIOVASCULAR EXAMINATION: Normal rate, rhythm RESPIRATORY EXAMINATION: Clear to auscultation bilaterally ABDOMINAL EXAMINATION: Soft, nontender, nondistended EXTREMITIES: No swelling, no erythema LABORATORY DATA: Please see below. IMAGING: Study which was performed on 10/05/2016 for indication of blood culture positive for methicillin-resistant Staphylococcus aureus (MRSA). The patient measures 158 cm and weighs 52 kg. DIMENSIONS: IVS: 1.0 LV: 4.4 LVPW: 0.9 LA: 3.2 Aorta 3.3 FINDINGS: The study is of excellent technical quality. Left ventricle is of normal size and systolic function with estimated ejection fraction (EF) around 65%. Right ventricle also normal size and systolic function. Both atria appear grossly normal. Aortic valve is heavily sclerotic. It has some thickening of all leaflets, but it has three cusps and mobility is grossly preserved. Mitral valve was very well seen. There is an echo density attached to anterior mitral leaflet that is highly mobile and protruding from left ventricle to the left atrium, depending on cardiac cycle. It measures approximately 1.9 x 0.6 cm in appropriate clinical setting is diagnostic of vegetation. Tricuspid and pulmonic valves appear normal. No pericardial effusion is noted. Inferior vena cava is normal size. Aortic root is normal, aortic arch is normal. Abdominal aorta was not well seen. Doppler interrogation reveals mild aortic stenosis with peak gradient 25 and mean gradient 12 mmHg. Trace aortic insufficiency is also present. There is approximately mild to moderate mitral insufficiency with posteriorly oriented MR jet. Mild tricuspid insufficiency seen. Calculated pulmonary artery pressure is at least in mid 40s corresponding to moderate pulmonary hypertension. Pulmonic valve is functionally competent. Mitral inflow pattern and tissue Doppler imaging of mitral annulus revealed grade 1 diastolic dysfunction. CONCLUSION: 1. Study is of excellent technical quality. 2. Normal left ventricular (LV) size, systolic function. Grade 1 diastolic dysfunction. 3. Echo density attached to anterior mitral leaflet in appropriate clinical setting consistent with vegetation with resulting mild to moderate mitral insufficiency. 4. Heavily sclerotic aortic valve with mild aortic stenosis. No distinct vegetation is seen on aortic valve. 5. Normal central venous pressure and probably moderate pulmonary hypertension. Findings: The kidneys are mildly enlarged and diffusely echogenic. The right kidney measures 13.0 x 7.0 x 6.1 cm with mild hydronephrosis and debris in the collecting system as well as 6 mm nonobstructing midpole calculus. The left kidney measures 13.0 x 7.5 x 8.0 cm with mild hydronephrosis and debris in the collecting system and no evidence for nephrolithiasis cystic or mass lesion. Incidental note is made of a presumed column of Chavez in the mid pole left kidney. Magaña catheter is identified in collapsed bladder which demonstrates diffuse wall thickening. Incidental note is made of sludge in the gallbladder and mild right upper quadrant free fluid. Impression: 1. Kidneys are enlarged and echogenic along with mild hydronephrosis and debris in the collecting system. 6 mm nonobstructing right renal calculus. Presumed column of Chavez in the left kidney. 2. Bladder wall thickening. 3. Gallbladder demonstrates layering sludge/gravel PROGNOSIS: Guarded ACTIVITY: As tolerated. DIET: . Nothing by mouth DISCHARGE PLAN: DISPOSITION: . Patient to be transferred to [facility] DISCHARGE INSTRUCTIONS: 1. . Follow-up with Dr. Rodriguez of cardiothoracic surgery regarding possible mitral valve replacement in view of aforementioned findings ITEMS TO FOLLOWUP ON ON OUTPATIENT: 1. . Follow-up with primary care physician within one week following discharge from [facility] DISCHARGE CONDITION: Stable. TIME SPENT ON DISCHARGE: Greater than 30 minutes. Vital Signs/I&Os Vital Signs Date Time Temp Pulse Resp B/P (MAP) Pulse Ox O2 Delivery O2 Flow Rate FiO2 10/06/16 14:00 100.0 103 24 119/74 (89) 96 Room Air I&O- Last 24 Hours up to 6 AM 10/06/16 06:00 Intake Total 3245 ml Output Total 2825 ml Balance 420 ml Laboratory Data Labs 24H Laboratory Tests 2 10/06/16 03:19: Urine Appearance CLOUDYH, Urine Color YELLOW, Urine pH 5.0, Urine Specific [place] 1.008, Urine Protein 1+H, Urine Glucose (UA) NEGATIVE, Urine Ketones NEGATIVE, Urine Urobilinogen 0.2, Urine Bilirubin NEGATIVE, Urine Leukocyte Esterase 3+H, Urine Blood 3+H, Urine Nitrite NEGATIVE, Urine WBC (Auto) 133H, Urine RBC (Auto) TNTCH, Urine Hyaline Casts (Auto) 0, Urine Bacteria (Auto) NEGATIVE, Urine Squamous Epithelial Cells 0, Urine Mucus (Auto) SMALL, Urine Sperm (Auto) , Urine Random Sodium 66, Urine Random Potassium 8.3, Urine Random Chloride 74 10/06/16 06:57: Anion Gap 13, Glomerular Filtration Rate 25.9L, Blood Urea Nitrogen 72H, Creatinine 2.65H, Sodium Level 143, Potassium Level 3.6, Chloride Level 114H, Carbon Dioxide Level 16L, Calcium Level 6.3L, Aspartate Amino Transf (AST/SGOT) 41H, Alanine Aminotransferase (ALT/SGPT) 21, Alkaline Phosphatase 295H, Total Bilirubin 0.7, Uric Acid 8.0H, Total Protein 4.4L, Albumin 1.1L, Magnesium Level 1.8, C-Reactive Protein, Quantitative 15.20H, Albumin/Globulin Ratio 0.33L , Random Vancomycin Level 19.1 10/06/16 06:58: White Blood Count 25.6H, Red Blood Count 3.67L, Hemoglobin 11.5L, Hematocrit 35.1L, Mean Corpuscular Volume 95.6, Mean Corpuscular Hemoglobin 31.3, Mean Corpuscular Hemoglobin Concent 32.8, Red Cell Distribution Width 14.6H, Platelet Count 167, Neutrophils (%) (Auto) 92.4H, Lymphocytes (%) (Auto) 4.2L, Monocytes (%) (Auto) 2.0, Eosinophils (%) (Auto) 0.2, Basophils (%) (Auto) 0.5, Neutrophils # (Auto) 23.7H, Lymphocytes # (Auto) 1.3L, Monocytes # (Auto) 0.5, Eosinophils # (Auto) 0.1, Basophils # (Auto) 0.1, Large Unclassified Cells % 0.8 , Large Unclassified Cells # 0.2, Whole Blood Ionized Calcium 4.1L, Phosphorus Level 3.3 CBC/BMP Laboratory Tests 10/06/16 06:57 Calcium Level 6.3 L, Aspartate Amino Transf (AST/SGOT) 41 H, Alanine Aminotransferase (ALT/SGPT) 21, Alkaline Phosphatase 295 H, Total Bilirubin 0.7 , Uric Acid 8.0 H, Total Protein 4.4 L, Albumin 1.1 L 10/06/16 06:58 Red Blood Count 3.67 L, Mean Corpuscular Volume 95.6, Mean Corpuscular Hemoglobin 31.3, Mean Corpuscular Hemoglobin Concent 32.8, Red Cell Distribution Width 14.6 H, Neutrophils (%) (Auto) 92.4 H, Lymphocytes (%) (Auto ) 4.2 L, Monocytes (%) (Auto) 2.0, Eosinophils (%) (Auto) 0.2, Basophils (%) ( Auto) 0.5, Neutrophils # (Auto) 23.7 H, Lymphocytes # (Auto) 1.3 L, Monocytes # (Auto) 0.5, Eosinophils # (Auto) 0.1, Basophils # (Auto) 0.1 Microbiology Microbiology 10/05/16 Blood Culture - Preliminary, Resulted No growth after 24 hours . All specim... 10/05/16 Blood Culture - Preliminary, Resulted No growth after 24 hours . All specim... 10/03/16 Blood Culture - Final, Complete Staph.aureus Methicillin Resis 10/03/16 Blood Culture - Final, Complete Staph.aureus Methicillin Resis 10/03/16 Blood Culture - Final, Complete Staph.aureus Methicillin Resis 10/03/16 Blood Culture - Final, Complete Staph.aureus Methicillin Resis 10/03/16 Urine Culture - Final, Complete Staph.aureus Methicillin Resis Discharge Medications No Active Prescriptions or Reported Meds Allergies Coded Allergies: No Known Drug Allergy (Verified Allergy, Unknown, 10/03/16) EDGARDO MONAE MD October 06, 2016 17:11
== END 2016-10-06 17:50 | disposition short-term general hospital (02) | DRG 871 ==
LOC: EDBD 06:34 → M ED 07:19 → M ED INP 09:56 → EEVIPCON 09:56 → M MSPAV 11:15
PROVIDERS: ADMIT Internal Medicine; ATTEND Internal Medicine
DX: A41.02 Sepsis due to Methicillin resistant Staphylococcus aureus (principal); I33.0 Acute and subacute infective endocarditis; N17.9 Acute kidney failure, unspecified; N39.0 Urinary tract infection, site not specified; E87.1 Hypo-osmolality and hyponatremia; E87.2 Acidosis; N13.6 Pyonephrosis; N40.1 Benign prostatic hyperplasia with lower urinary tract symptoms; M25.562 Pain in left knee; M25.541 Pain in joints of right hand; M10.9 Gout, unspecified; B95.62 Methicillin resistant Staphylococcus aureus infection as the cause of diseases classified elsewhere; M25.561 Pain in right knee; M17.4 Other bilateral secondary osteoarthritis of knee; F17.210 Nicotine dependence, cigarettes, uncomplicated; E87.6 Hypokalemia; Z80.0 Family history of malignant neoplasm of digestive organs

== ENCOUNTER → 2016-12-09 | Outpatient (REF) | payer MEDICARE ==
[~2016-12-09] MED LIST: ASPI81TA18; ASPI81TA18 PO; FLOM5CAP PO; TAMSULOSIN PO; TRAM50TA2 PO
[2016-12-09 14:16] LABS: ANION GAP 5 MEQ/L (8-16); BLOOD UREA NITROGEN 24 MG/DL (7-18); CALCIUM LEVEL 9.6 MG/DL (8.8-10.2); CARBON DIOXIDE LEVEL 30 MEQ/L (21-32); CHLORIDE LEVEL 105 MEQ/L (98-107); CREATININE FOR GFR 1.27 MG/DL (0.70-1.30); GLOMERULAR FILTRATION RATE > 60.0 (>49); GLUCOSE, FASTING 93 MG/DL (80-110); POTASSIUM SERUM 4.9 MEQ/L (3.5-5.1); SODIUM LEVEL 140 MEQ/L (136-145)
== END ==
LOC: M SHH 13:53 → M LAB REF 13:53
PROVIDERS: ATTEND Physician Assistant Medical
DX: N39.0 Urinary tract infection, site not specified (principal)

== ENCOUNTER 2017-03-17 12:27 | Inpatient (IN) | payer MEDICARE ==
[~2017-03-17] VITALS: Ht 157.5 cm; Wt 35.6 kg
[2017-03-17] MEDS ORDERED: ASPI81TA18 (12:52)
[2017-03-17] MEDS ORDERED: TRAM50TA2 PO ×2 (12:52→14:14)
[2017-03-17] MEDS ORDERED: TAMSULOSIN PO (12:52)
[2017-03-17 13:48] LABS: MEAN CORPUSCULAR HEMOGLOBIN 26.9 pg (27.0-33.0); MEAN CORPUSCULAR VOLUME 79.1 fl (80.0-96.0); PLATELET COUNT, AUTOMATED 629 10^3/uL (150-450); RED CELL DISTRIBUTION WIDTH 15.5 % (11.5-14.5); WHITE BLOOD COUNT 12.7 10^3/uL (4.0-10.0)
[2017-03-17 13:55] LABS: CALCIUM LEVEL 10.5 MG/DL (8.8-10.2); CREATININE FOR GFR 9.9 MG/DL (0.70-1.30); GLOMERULAR FILTRATION RATE 5.6 (>49); POTASSIUM SERUM 4.3 MEQ/L (3.5-5.1)
[2017-03-17 13:57] LABS: ALBUMIN 1.9 GM/DL (3.2-5.2); ALBUMIN/GLOBULIN RATIO 0.32 (1.00-1.93); BILIRUBIN,DIRECT 0.2 MG/DL (0.0-0.2); BILIRUBIN,TOTAL 0.4 MG/DL (0.2-1.0); TOTAL PROTEIN 7.9 GM/DL (6.4-8.2)
[2017-03-17 13:58] LABS: ADD MANUAL DIFFER YES; DIFF SLIDE NUMBER 265; LEFT SHIFT POS FLAG; POSITIVE MORPH POS FLAG
[2017-03-17] MEDS ORDERED: FLOM5CAP PO (14:14)
[2017-03-17] MEDS ORDERED: ASPI81TA18 PO (14:14)
--- NOTE | 2017-03-17 14:33 | REP ---
Portable chest, 02:01 p.m., the patient semi upright AP: Comparison is 10/05/1926. The patient is rotated. The lung bonner are clear. Cardiac size normal. The josiah, mediastinum, and bony thorax are unremarkable. Impression: There are no acute cardiopulmonary changes. The patient is rotated. Signed by Awais Vargas MD 03/17/2017 02:25 P
[2017-03-17] MEDS ORDERED: NS 500 ML IV ONE ×2 (14:45→15:30)
[2017-03-17 15:00] LABS: BANDS 2 % (< 11); TOXIC GRANULATION 2+
--- NOTE | 2017-03-17 15:17 | REP ---
CT study of the brain without contrast: History: Injury in a fall. No comparison CT studies. CT findings: Preliminary digital fitness centre manager radiograph is unremarkable. The patient is edentulous. Bone window settings demonstrate an intact bony calvarium. No skull fracture is seen. No significant scalp hematoma is appreciated. There is vascular calcification. Visualized paranasal sinuses are clear. There is diffuse moderate cerebral atrophy. There is no evidence of intracranial hemorrhage. No mass, infarct, extra-axial fluid collection, or midline shift is seen. Carreon/white differentiation pattern is intact. Impression: Diffuse moderate atrophy and vascular calcification. No acute intracranial abnormality. Signed by Juve Mart MD 03/17/2017 03:19 P
--- NOTE | 2017-03-17 15:26 | REP ---
BILATERAL HIPS AND PELVIS: Six views. HISTORY: Hip pain recent falls. FINDINGS: AP lateral and oblique radiographs are obtained. There is severe osteoarthritis the right hip with subcortical cyst formation extensively in the right acetabulum and femoral head. Positioning is suboptimal. The patient is apparently unable to straighten the right hip. There is mild osteoarthritis of the left hip. Bony pelvic ring is otherwise intact. Sacrum and SI joints are unremarkable. There are some degenerative changes in the lower lumbar spine. IMPRESSION: Severe osteoarthritis right hip with extensive subcortical cyst formation in the right acetabulum and right femoral head. Milder osteoarthritic changes are noted in the left hip. No fracture or other acute bony abnormality is appreciated. The patient is apparently unable to straighten or extend the right hip. Signed by Juve aMrt MD 03/17/2017 04:12 P
[2017-03-17] MEDS ORDERED: ONDANSETRON 4MG/2ML VIAL (J2405) IV PRN (16:30)
[2017-03-17 16:31] LABS: RENAL EPITHELIAL CELLS 4 /HPF; YEAST LIKE CELL URINE AUTO LARGE
[2017-03-17] MEDS: NS 1,000 ML IV SCH (17:03)
[2017-03-17] MEDS: cefTRIAXone SOD 1 GM in D5W 50 ML IV SCH (17:15)
[2017-03-17] MEDS: PERCOCET 5MG/325MG TAB PO PRN (17:17)
--- NOTE | 2017-03-17 17:40 | HPE ---
DATE OF ADMISSION: 03/17/2017 PRIMARY CARE PROVIDER: [facility] HISTORY OF PRESENT ILLNESS: The patient is a 66-year-old male with past medical history significant for severe osteoarthritis, eczema/psoriasis and diverticulosis, hemorrhoids was brought to [facility] on March 17, 2017. When the patient arrived in the emergency room per emergency room physician the patient had a complete altered mental status and no information was able to be obtained from the patient. The hospitalist team was called for admission. When I saw the patient, the patient started having improved mental status and the patient became more oriented. The patient states that he is been having worsening weakness for the past three weeks. The patient also started to have frequent falls per patient. The patient has been falling at least three times in the past 3 weeks. The patient also started having very poor oral intake. The patient noted to have frequent bowel movements. He stated he had several bowel movements on a daily basis for the past three weeks and his stool is loose. The patient is also complaining about worsening right hip pain. The pain is sharp and radiates to the right lower extremities. Denies any fever or chills. PAST MEDICAL HISTORY: Osteoarthritis. Eczema/psoriasis. Diverticulosis. PAST SURGICAL HISTORY: None. SOCIAL HISTORY: The patient has smoked since 5 years old. Denies alcohol use. Denies recreational drug use. The patient lives with a niece. HOME MEDICATIONS: - aspirin 81 mg by mouth every daily - Flomax 0.4 mg by mouth every evening - tramadol 50 mg by mouth twice a day REVIEW OF SYSTEMS: GENERAL: No fever, no chills. Complains about poor oral intake over the past 3 weeks. HEENT: No vision changes, no auditory changes. CARDIOVASCULAR: Denies any chest pain or palpitations. RESPIRATORY: No cough, no sputum production. GI: Complains about frequent bowel movements. Loose stool. No abdominal pain. No nausea, no vomiting. MUSCULOSKELETAL: Severe right hip pain, progressively worse over the last several years. Now he can hardly move his right hip. It is hard to find a position that is comfortable for him. NEUROLOGICAL: No numbness, no tingling. OBJECTIVE: VITAL SIGNS: Rectal temperature is 97.6, pulse is 106, blood pressure is 92/57, pulse oximetry 94% on room air. GENERAL: Moderate to severe distress secondary to significant right hip pain. Alert and oriented times three at the moment of encounter. HEENT: Normocephalic, atraumatic. Extraocular motors grossly intact. CARDIOVASCULAR: Distant heart sounds, positive S1, S2. LUNGS: Clear to auscultation bilaterally. Distant lung sounds. ABDOMEN: Soft, nontender, nondistended. Bowel sounds present. MUSCULOSKELETAL: Severe tenderness to palpation of the right hip joint. Unable to test with limited range of motion due to the severe pain. No lower extremity edema. NEUROLOGICAL: Sensation to fine touch grossly intact. Muscle strength, unable to test of the lower extremities due to severe pain. EXTREMITIES: No cyanosis, no calf tenderness. LABORATORY DATA: WBC 12.7, hemoglobin 9.8, hematocrit 28.8, platelet count is 629. Sodium is 128. Potassium 4.3, chloride 93, carbon dioxide 17, BUN 154, creatinine 9.9. GFR is 5.6. Fasting glucose 143. Lactic acid 143. Calcium 10.5. Total bilirubin is 0.4. Direct bilirubin 0.2, AST 48, ALT 31, alkaline phosphatase 131. Total protein 7.9, albumin 1.9. Urine culture is pending. IMAGING STUDIES: Chest x-ray shows no acute cardiopulmonary changes. Bilateral hip x-ray shows severe osteoarthritis of the right hip with extensive subcortical cyst formation in the right acetabulum and the right femoral head. Mild osteoarthritic changes noted on the left hip. No fracture or acute bony abnormality is appreciated. IMPRESSION: Acute renal failure. The patient admitted to PCU under inpatient status. Will follow with UA and urine cultures. Will also follow with renal ultrasound and urine chemistry. Follow with renal function. Nephrology has been consulted and I will appreciate Dr. Antoine's assistance. Hypotension. Will try to rule out urinary tract infection (UTI) or other potential. The patient does have a history of methicillin-resistant Staphylococcus aureus (MRSA) bacteremia and endocarditis from MRSA urosepsis. While we are waiting for urine culture results empirically the patient started on Rocephin and Vancomycin for the possible UTI. History of MRSA endocarditis/ urosepsis/ bacteremia. Occurred in September 2016. Patient was transferred to [facility] at that hospitalization stay. Grade 1 distolic CHF. No sign of overload at this moment. Patient has hypotension from currently infection. On fluid support. Confusion. Initially when patient arrived in the emergency room the patient's complete altered, no information able to be obtained from the patient. During the encounter, the patient's mental status started to improve. Severe osteoarthritis with extensive subcortical cyst formation in the right acetabulum and the right femoral head. I have discussed the case with orthopedic surgeon, Dr. Banks, who recommended pain management at the moment and the patient can followup in the outpatient setting. Deep venous thrombosis (DVT) prophylaxis. Heparin. MTDD
[2017-03-17 20:24] VITALS: BP 89/55
[2017-03-17 20:30] VITALS: BP 82/62
--- NOTE | 2017-03-17 21:21 | PHACANCOPD ---
PHARMACY VANCOMYCIN DOSING Pt Demographics Demographics Patient Age:66 , Weight:38.000 , Gender: male Adjusted Body Weight Date: 03/17/17, Adjusted Body Weight: [38] Kg Events Past 24 Hours Events Past 24 Hours: NO: Dialysis, Diuretic Therapy, Change in CrCl, Fever, Elevation in WBC, Pending Diagnostics, Pending Procedures, Other Vancomycin Vancomycin Target Ranges: 15-20 mcg/ml Vancomycin Load Y/N: Yes Load Dose Date Time Vancomycin Load Dose: 750MG Date: 03-17 Time: 2129 Vancomycin Dose Date: 03/17/17. Current Vancomycin Dose: Intermittent Dosing?: Yes Labs Labs Item Value Date Time White Blood Count 12.7 10^3/uL H 03/17/17 1317 Creatinine 9.90 MG/DL H 03/17/17 1317 Blood Urea Nitrogen 154 MG/DL H 03/17/17 1317 Vital Signs Label Value Date Time Patient Temperature 98.9 degrees F 03/17/172023 Temperature Source Temporal 03/17/172023 Micro Microbiology 03/17/17 Urine Culture, Received Pending Creatinine Clearance Date:03/17/17. Creatinine Clearance: [5.6]. Pending Labs Random level 10-27 in am Assessment and Plan Maintaining Current Dose?: Yes Reason for dose change: No Dose Change Pharmacist Note Pharmacist Note Date: 03/17/17. Pharmacist note:Patient dosed intermittent with levels. 750mg load given with the first random ordered for 10-27 in am. Will continue to monitor and make adjustments as needed. [facility] Mar 17, 2017 21:21
[2017-03-17] MEDS ORDERED: VANCOMYCIN HCL 750 MG, VIAL MATE ADAPTER 1 EACH in D5W 250 ML IV ONE (21:30)
[2017-03-17] MEDS: TAMSULOSIN 0.4 MG CAP PO SCH (22:55)
[2017-03-17] MEDS: HEPARIN SOD (PORCINE) 5000 UNITS/ML VIAL SC SCH (22:55)
[2017-03-17 23:59] VITALS: BP 78/42
[2017-03-18] VITALS (10 sets, daily range): BP systolic 66–99; BP diastolic 47–68
[2017-03-18] MEDS ORDERED: NS 500 ML IV ONE (00:45)
[2017-03-18] MEDS: NS 1,000 ML IV SCH ×3 (01:38→21:26)
[2017-03-18] MEDS: cefTRIAXone SOD 1 GM in D5W 50 ML IV SCH ×2 (05:29→17:20)
[2017-03-18] MEDS: HEPARIN SOD (PORCINE) 5000 UNITS/ML VIAL SC SCH ×3 (05:30→21:24)
[2017-03-18] MEDS: PERCOCET 5MG/325MG TAB PO PRN (05:30)
[2017-03-18 05:42] LABS: MEAN CORPUSCULAR HEMOGLOBIN 27.5 pg (27.0-33.0); MEAN CORPUSCULAR HGB CONC 34.4 g/dl (32.0-36.5); MEAN CORPUSCULAR VOLUME 79.8 fl (80.0-96.0); PLATELET COUNT, AUTOMATED 612 10^3/uL (150-450); RED CELL DISTRIBUTION WIDTH 15.6 % (11.5-14.5); WHITE BLOOD COUNT 12.8 10^3/uL (4.0-10.0)
[2017-03-18 05:57] LABS: CALCIUM LEVEL 8.6 MG/DL (8.8-10.2); CREATININE FOR GFR 7.14 MG/DL (0.70-1.30); GLOMERULAR FILTRATION RATE 8.2 (>49); MAGNESIUM LEVEL 2.3 MG/DL (1.8-2.4); POTASSIUM SERUM 3.7 MEQ/L (3.5-5.1)
[2017-03-18] MEDS ORDERED: DIGOXIN IMMUNE FAB (OVINE) 40MG VIAL (J1162) IV STA (08:32)
[2017-03-18] MEDS ORDERED: DIGOXIN INJ 0.5 MG/2 ML AMP (J1160) As Ordered ONE (08:49)
[2017-03-18] MEDS ORDERED: DIGOXIN INJ 0.5 MG/2 ML AMP (J1160) IV ONE (09:00)
[2017-03-18] MEDS: ASPIRIN 81 MG ENTERIC TAB PO SCH (10:46)
[2017-03-18 11:07] LABS: CORTISOL AM 33.8 UG/DL (4.3-22.4)
[2017-03-18] MEDS ORDERED: VANCOMYCIN INTERMITTENT/PULSE DOSING BY CLINICAL PHARMACIST PER DOSING PROTOCOL XX SCH (12:00)
[2017-03-18] MEDS: ACETAMINOPHEN TAB 650MG DOSE (2X325MG) PO PRN (12:18)
--- NOTE | 2017-03-18 14:04 | CR ---
DATE OF CONSULTATION: 03/17/2017 REQUESTING PHYSICIAN: Dr. Aleisha Corona REASON FOR CONSULTATION: Management of acute renal failure. HISTORY OF PRESENT ILLNESS: The patient is a somewhat poor historian. History is obtained from discussion with the patient and also from conversation with other health care providers. The patient is a 66-year-old male with a past medical history for severe osteoarthritis, history of urinary retention, history of acute kidney injury, hemorrhoids, diverticulosis, and failure to thrive. The patient was a welfare check earlier today and was brought to the emergency room with altered mental status. Per the patient, he has been feeling very fatigued and weak for the past several weeks. He cannot recall the last time he was able to leave his bed. He thinks it was a couple of weeks prior. His nephew's girlfriend brings him food, but he states he has not eaten or drunk in several days. He cannot recall the last time he passed urine. He complained of diarrheal episodes over the past several days. He also complained of pain in his right hip and knee. He complained of thirst. When the patient arrived in the emergency room, he was mildly tachycardic, pulse 103, with borderline blood pressures, systolic 80s to 90s, and clinically dehydrated on exam. He received a one liter normal saline bolus. Magaña catheter was placed with immediate output of 600 mL of cloudy urine. Over the subsequent several hours, the patient made an additional 500 mL of urine while continuing on IV fluid. At the time of my visit, the patient was eating dinner and was noted to have finished most of his tray and was drinking beverages with gusto. PAST MEDICAL HISTORY: 1. Acute kidney injury secondary to urinary retention and methicillin-resistant Staphylococcus aureus (MRSA) bacteremia. 2. History of infective endocarditis with mitral valve vegetation. 3. History of hyperuricemia. 4. History of severe osteoarthritis. 5. History of sepsis. 6. History of nephrolithiasis. PAST SURGICAL HISTORY: None reported. FAMILY HISTORY: Father with stomach cancer. HOME MEDICATIONS: Reportedly taking tramadol. ALLERGIES: No known drug allergies. SOCIAL HISTORY: Chronic smoker for over 60 years. Lives alone, but family lives next door, his nephew and nephew's fiancee who provide the patient with food while the patient has been bed bound recently. REVIEW OF SYSTEMS: Limited due to clinical condition: Positive for generalized fatigue, weakness, poor oral intake for the past several days, decreased urine output, diarrheal bowel movements, and severe pain in the right lower extremity. Review of systems is negative for chest pain, palpitations, shortness of breath, nausea, vomiting, headaches, syncope. Remainder of review of systems is negative. PHYSICAL EXAMINATION: VITAL SIGNS: Temperature 97.6. Pulse 98. Blood pressure 105/55. Saturating 96% on room air. INTAKE AND OUTPUT: Urine output to the Magaña catheter at the time of my visit was 1100 mL. PHYSICAL EXAMINATION: The patient is seen in the emergency room lying in bed in no distress at rest. Chronically ill appearing. Appears older than stated age. Frail body habitus. Deconditioned with muscle wasting. HEAD AND NECK: Bitemporal wasting. Edentulous. Tongue is moist. Neck is supple. No distention of the jugular veins. CARDIOVASCULAR: S1, S2. Faint systolic murmur. 2+ radial pulse. Absolutely no edema in the peripheries or in the dependent area. LUNGS: Clear to auscultation bilaterally. ABDOMEN: Soft. Nontender. There are bowel sounds present. GENITOURINARY: Magaña catheter with cloudy urine output. MUSCULOSKELETAL: The patient's legs are folded. He is unable to stretch them out due to pain. He grimaces with palpation of the right hip to the right knee. He is able to wiggle his toes. There is absolutely no edema in the dependent areas or in the lower extremities. NEUROLOGIC: He answers simple questions appropriately and is oriented to self and situation. PSYCHIATRIC: Appropriate mood and affect. LABS: White count 12.7, hemoglobin 9.8, platelets 629. Sodium 128, potassium 4.3, bicarbonate 17, BUN 154, creatinine 9.9, glucose 143, lactic acid 1.3, calcium 10.5, corrected calcium 12.1, BNP 3300, CRP 34. MICROBIOLOGY: Blood and urine cultures pending. IMAGING: Chest x-ray clear lungs, 03/17/2017. Hip x-ray, 03/17/2017, severe osteoarthritis of the right hip. Head CT on 03/17/2017, diffuse moderate atrophy, no acute intracranial abnormality. INPATIENT MEDICATIONS: - The patient received a 1 liter normal saline bolus in the emergency room. I increased his IV fluids to normal saline at 100 mL/hr and ordered an extra 500 mL bolus as his blood pressures are borderline and he continues to be tachycardic. - The patient is also on Ceftriaxone 1 gram IV every 12. - Received 750 mg of IV vancomycin times one dose. - aspirin 81 mg by mouth daily - heparin subcutaneous 5000 units every 8 - Percocet as needed - Flomax 0.4 mg by mouth at bedtime ASSESSMENT AND PLAN: 1. Nonoliguric renal failure in the setting of poor oral intake, dehydration and recurrent diarrheal bowel movements. The patient is clinically dry on exam when seen in the emergency room. Vitals are noticeable for hypotension and tachycardia. The patient received a 1 liter normal saline bolus with improvement in his blood pressure and heart rate. I have increased the rate of IV fluids to 100 mL/hr and have ordered an additional bolus. He has begun to make urine output to the Magaña catheter. When initially placed, there was 600 mL output. Subsequently, he has made a further 500 mL with improvement while he has received IV fluids and his hemodynamics have improved. He is markedly dehydrated with a corrected calcium of 12.1 and needs IV hydration to stabilize his blood pressure at this time. 2. History of urinary retention. The patient is currently with a Magaña catheter and started on Flomax. He does have a history of nephrolithiasis in the past. Renal ultrasound is pending. 3. Leukocytosis, hypotension, elevated markers of inflammation concerning for a picture of sepsis. Blood cultures and urine cultures are pending. The patient received a one time dose of vancomycin 750 mg, which I feel is appropriate given his renal failure and slight body habitus. He is also on ceftriaxone 1 gram IV every 12. The patient does have a history of MRSA bacteremia in the past and mitral valve vegetation on a recent admission in September 2016. 4. Hyponatremia. Serum sodium 128 secondary to renal failure with marked elevation in BUN and hyperosmolar state. His sodium should improve with normal saline and with correction of his acute renal failure. 5. Anion gap metabolic acidosis with a normal lactate. Acidemia is likely secondary to renal failure. No need for bicarbonate therapy at present. 6. Hypercalcemia. Corrected calcium of 12.1. Presumed secondary to intravascular volume depletion. Continue with IV fluids. 7. Diastolic dysfunction. Clinically hypovolemic at present. Continue with IV fluids for hemodynamic support. Patient is currently hypotensive and tachycardic. Chest x-ray with clear lungs and saturating well on room air at present. MTDD
[2017-03-18] MEDS ORDERED: SLF 3 ML SYR IV PRN (15:00)
--- NOTE | 2017-03-18 15:13 | REP ---
RENAL ULTRASOUND: Real-time sonographic evaluation of the kidneys performed. Both kidneys are hyperechoic. Right kidney measures 11.7 x 5.9 x 6.7 cm and left kidney 11.4 x 6.5 x 8.0 cm. There is moderate to severe right hydroureteronephrosis. There is moderate left hydroureteronephrosis. There is a 7 mm caliceal calcification in the right upper pole. Debris is seen in the dilated collecting systems bilaterally. Urinary bladder contains a Magaña catheter and is empty. IMPRESSION: Moderate to severe right hydroureteronephrosis. Moderate left hydroureteronephrosis. Signed by Awais Carreon MD 03/19/2017 05:41 P
[2017-03-18] MEDS ORDERED: SODIUM CHLORIDE 0.9% 1000 ML IV ONE (17:00)
--- NOTE | 2017-03-18 17:25 | ECGEPIP ---
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 Rule out RVH versus prior PWMI ST/T-wave abnormalities Tachyarrhythmia new from 10/03/16. Clinical correlation advised. Electronically Signed On 03-18-2017 17:25:06 EDT by Dawson Rosa
--- NOTE | 2017-03-18 17:28 | ECGEPIP ---
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
--- NOTE | 2017-03-18 18:02 | IPNPDOC ---
Subjective Date Seen The patient was seen on 03/18/17. Subjective Chief Complaint/HPI The patient is a 66-year-old male admitted with a reason for visit of Acute Renal Failure. Events since last encounter Patient does not offer any complaints this am . Says feeling a little better since admission . Has a de la fuente in place which is draining purulent urine. patient was suddenly noted have tachycardia to 150- 170 around 8 :15 am initial ekg showed Afib with rvr , repeat ekg showed junctional vs a flutter . patient was given 1 dose of digoxin 0.5 mg with slowing of rate repeat ekg showed sinus rhythm at 11 am. Pateint's blood pressure had worsened with tachycardia but improved with control of heart rate. Objective Physical Examination General Exam: Positive: Alert, Cooperative, No Acute Distress Eye Exam: Positive: PERRLA, Conjunctiva & lids normal, EOMI, Negative: Sclera icteric ENT Exam: Positive: Atraumatic, Mucous membr. moist/pink, Pharynx Normal Neck Exam: Positive: Supple, Negative: JVD, thyromegaly Chest Exam: Positive: Clear to auscultation, Normal air movement Heart Exam: Positive: Tachycardic, Regular Rhythm, Normal S1, Normal S2 Telemetry: Positive: Tachycardia, Other Telemetry: (svt) Abdomen Exam: Positive: Normal bowel sounds, Soft, Negative: Tenderness, Hepatospenomegaly Extremity Exam: Positive: Normal pulses, Negative: Clubbing, Cyanosis, Edema Assessment /Plan Problems (1) Sepsis Status: Acute Problem Text: due to UTI urine culture and blood culture in progress. (2) Obstructive uropathy Status: Acute Problem Text: renal US shows bilateral hydronephrosis right > left old renal US in september did show mild to moderate right hydronephrosis at that time with thickened bladder [facility] has been consulted. (3) Acute renal failure Status: Acute Problem Text: due to obstructive uropathy de la fuente in place making urine creatinine improving no electrolyte imbalance, no uremic signs, no rub , no severe acidosis (4) UTI (urinary tract infection) Status: Acute Problem Text: will continue ceftriaxone. (5) Diastolic CHF Status: Chronic (6) Acute metabolic encephalopathy Status: Acute (7) History of endocarditis Status: Resolved (8) Hypotension Status: Acute Problem Text: poor oral intake , hypovolemia , infection , responed to IVF. Pateint does have chronically low blood pressure with systolic of 90s to 100s. will have to use small cuff for BP measurement. (9) Tachycardia Status: Acute Problem Text: SVT vs aflutter received 1 dose of dig and corrected to sinus rhythm (10) Severe protein-calorie malnutrition Status: Chronic Problem Text: Has a BMI of 15 . Has lost 10 kgs in last 6 months. Plan/VTE VTE Prophylaxis Ordered?: Yes VS, I&O, 24H, Fishbone Vital Signs/I&O Vital Signs Date Time Temp Pulse Resp B/P (MAP) Pulse Ox O2 Delivery O2 Flow Rate FiO2 03/18/17 16:00 98.2 101 20 95/51 (66) 98 Room Air I&O- Last 24 Hours up to 6 AM 03/19/17 06:00 Intake Total 1560 ml Output Total 400 ml Balance 1160 ml Laboratory Data 24H LABS Laboratory Tests 2 03/18/17 05:20: Nucleated Red Blood Cells % (auto) 0.0, Anion Gap 14, Glomerular Filtration Rate 8.2L, Blood Urea Nitrogen 129H, Creatinine 7.14H, Sodium Level 134L, Potassium Level 3.7, Chloride Level 103, Carbon Dioxide Level 17L, Calcium Level 8.6#L, Magnesium Level 2.3, C-Reactive Protein, Quantitative 27.30H, Thyroid Stimulating Hormone (TSH) 1.500, Cortisol AM Sample 33.8H CBC/BMP Laboratory Tests 03/18/17 05:20 Red Blood Count 3.02 L, Mean Corpuscular Volume 79.8 L, Mean Corpuscular Hemoglobin 27.5, Mean Corpuscular Hemoglobin Concent 34.4, Red Cell Distribution Width 15.6 H, Calcium Level 8.6 #L Microbiology Microbiology 03/17/17 Blood Culture, Received Pending 03/17/17 Blood Culture, Received Pending 03/18/17 MRSA Screen, Received Pending 03/17/17 Urine Culture, Received Pending ANTONIA GARCIA MD Mar 18, 2017 17:32
--- NOTE | 2017-03-18 19:38 | PHACANCOPD ---
PHARMACY VANCOMYCIN DOSING Pt Demographics Demographics Patient Age:66 , Weight:38.600 , Gender: male Adjusted Body Weight Date: 03/17/17, Adjusted Body Weight: [38] Kg Vancomycin Vancomycin Target Ranges: 15-20 mcg/ml Vancomycin Load Y/N: Yes Load Dose Date Time Vancomycin Load Dose: 750MG Date: 03-17 Time: 2130 Vancomycin Dose Date: 03/17/17. Current Vancomycin Dose: Intermittent Dosing?: Yes Labs Labs Item Value Date Time White Blood Count 12.7 10^3/uL H 03/17/17 1317 White Blood Count 12.8 10^3/uL H 03/18/17 0520 Creatinine 7.14 MG/DL H 03/18/17 0520 Creatinine 9.90 MG/DL H 03/17/17 1317 Vancomycin Level Trough 11.9 UG/ML 03/18/17 1758 Vital Signs Label Value Date Time Patient Temperature 98.2 degrees F 03/18/17 1600 Temperature Source Temporal 03/18/17 1600 Patient Temperature 97.4 degrees F 03/18/17 1200 Temperature Source Temporal 03/18/17 1200 Micro Microbiology 03/17/17 Blood Culture, Received Pending 03/17/17 Blood Culture, Received Pending 03/18/17 Gastrointestinal Tract Panel (PCR), Received Pending 03/18/17 MRSA Screen, Received Pending 03/17/17 Urine Culture, Received Pending Creatinine Clearance Date:03/17/17. Creatinine Clearance: [5.6]. Pending Labs Random level 10-27 in am Assessment and Plan Maintaining Current Dose?: No Reason for dose change: Trough too low Pharmacist Note Pharmacist Note 03/18/17: Random drawn at 1758 came back at 11.9mcg/ml. This level is well below our target ideal trough. Pt.s renal function is starting to improve. I have scheduled a 1G Vanco dose @1999. There is already another random scheduled for tomorrow at 0500. We will continue to monitor and dose as appropriate. Date: 03/17/17. Pharmacist note:Patient dosed intermittent with levels. 750mg load given with the first random ordered for 10-27 in am. Will continue to monitor and make adjustments as needed. [facility] Mar 18, 2017 19:38
[2017-03-18] MEDS ORDERED: VANCOMYCIN HCL 1,000 MG, VIAL MATE ADAPTER 1 EACH in D5W 250 ML IV ONE (20:00)
[2017-03-18] MEDS: TAMSULOSIN 0.4 MG CAP PO SCH (21:24)
[2017-03-18] MEDS: SLF 3 ML SYR IV SCH (21:24)
[2017-03-19 04:00] VITALS: BP 86/49
[2017-03-19] MEDS: cefTRIAXone SOD 1 GM in D5W 50 ML IV SCH ×2 (04:20→16:25)
[2017-03-19] MEDS: SLF 3 ML SYR IV SCH ×3 (04:20→21:22)
[2017-03-19] MEDS: HEPARIN SOD (PORCINE) 5000 UNITS/ML VIAL SC SCH ×3 (05:17→21:21)
[2017-03-19 05:34] LABS: MEAN CORPUSCULAR HEMOGLOBIN 26.9 pg (27.0-33.0); MEAN CORPUSCULAR HGB CONC 33.5 g/dl (32.0-36.5); MEAN CORPUSCULAR VOLUME 80.3 fl (80.0-96.0); PLATELET COUNT, AUTOMATED 615 10^3/uL (150-450); WHITE BLOOD COUNT 13.1 10^3/uL (4.0-10.0)
[2017-03-19 06:02] LABS: CALCIUM LEVEL 8.2 MG/DL (8.8-10.2); CREATININE FOR GFR 4.9 MG/DL (0.70-1.30); DIGOXIN LEVEL 0.9 NG/ML (0.5-2.0); GLOMERULAR FILTRATION RATE 12.7 (>49); PHOSPHORUS LEVEL 2.8 MG/DL (2.5-4.9); POTASSIUM SERUM 3.3 MEQ/L (3.5-5.1)
[2017-03-19] MEDS: KCL 40MEQ in NS 1000ML 1,000 ML IV SCH ×2 (06:21→16:26)
--- NOTE | 2017-03-19 07:17 | ECGEPIP ---
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
[2017-03-19 08:00] VITALS: BP 92/50
[2017-03-19] MEDS: DIGOXIN 0.0625MG PER 1/2TABLET PO SCH (08:37)
[2017-03-19] MEDS: ASPIRIN 81 MG ENTERIC TAB PO SCH (08:37)
[2017-03-19] MEDS: metroNIDAZOLE (FLAGYL) 500 MG TAB PO SCH ×3 (08:37→23:19)
--- NOTE | 2017-03-19 09:20 | IPNPDOC ---
Subjective Date Seen The patient was seen on 03/19/17. Subjective Chief Complaint/HPI The patient is a 66-year-old male admitted with a reason for visit of Acute Renal Failure. Events since last encounter No over night events, making good urine, having diarrhea, c diff positive, patient with contracted lower extremities seems like has not walked for months however patient says that he did walk a few steps with his walker the day before admission but has not been feeling safe using it. low grade fever. good oral intake. Objective Physical Examination General Exam: Positive: Alert, Cooperative, No Acute Distress Eye Exam: Positive: PERRLA, Conjunctiva & lids normal, EOMI, Negative: Sclera icteric ENT Exam: Positive: Atraumatic, Mucous membr. moist/pink, Pharynx Normal Neck Exam: Positive: Supple, Negative: JVD, thyromegaly Chest Exam: Positive: Clear to auscultation, Normal air movement Heart Exam: Positive: Tachycardic, Regular Rhythm, Normal S1, Normal S2 Telemetry: Positive: Tachycardia, Other Telemetry: (svt) Abdomen Exam: Positive: Normal bowel sounds, Soft, Negative: Tenderness, Hepatospenomegaly Extremity Exam: Positive: Normal pulses, Tenderness, Other (both legs are contracted. ), Negative: Clubbing, Cyanosis, Edema Skin Exam: Positive: Other skin issue (very frailand loose. ) Assessment /Plan Problems (1) Acute renal failure Status: Acute Problem Text: due to obstructive uropathy de la fuente in place making urine creatinine improving no electrolyte imbalance, no uremic signs, no rub , no severe acidosis (2) Sepsis Status: Acute Problem Text: due to UTI and c diff urine culture and blood culture in progress. (3) C. difficile diarrhea Status: Acute Problem Text: started on metronidazole. (4) Obstructive uropathy Status: Acute Problem Text: renal US shows bilateral hydronephrosis right > left old renal US in september did show mild to moderate right hydronephrosis at that time with thickened bladder [facility] urology has been consulted. (5) UTI (urinary tract infection) Status: Acute Problem Text: will continue ceftriaxone. (6) Diastolic CHF Status: Chronic (7) Acute metabolic encephalopathy Status: Acute (8) History of endocarditis Status: Resolved (9) Hypotension Status: Acute Problem Text: poor oral intake , hypovolemia , infection , responed to IVF. Pateint does have chronically low blood pressure with systolic of 90s to 100s. will have to use small cuff for BP measurement. (10) Tachycardia Status: Acute Problem Text: SVT vs aflutter received 1 dose of dig and corrected to sinus rhythm (11) Severe protein-calorie malnutrition Status: Chronic Problem Text: Has a BMI of 15 . Has lost 10 kgs in last 6 months. legs contracted and possibly has been bed bound for months. Plan/VTE VTE Prophylaxis Ordered?: Yes Plan Anticipated Discharge: [facility], I&O, 24H, Fish[facility] Vital Signs/I&O Vital Signs Date Time Temp Pulse Resp B/P (MAP) Pulse Ox O2 Delivery O2 Flow Rate FiO2 03/19/17 08:37 101 03/19/17 06:00 Room Air 03/19/17 04:00 99.6 22 86/49 (61) 93 Laboratory Data 24H LABS Laboratory Tests 2 03/18/17 17:58: Vancomycin Level Trough 11.9 03/19/17 04:57: Nucleated Red Blood Cells % (auto) 0.0, Anion Gap 13, Glomerular Filtration Rate 12.7L, Blood Urea Nitrogen 106H, Creatinine 4.90H, Sodium Level 141#, Potassium Level 3.3L, Chloride Level 113H, Carbon Dioxide Level 15L, Calcium Level 8.2L, Phosphorus Level 2.8, Magnesium Level 2.0, C-Reactive Protein, Quantitative 21.50H, Prostate Specific Antigen Screen 1.32, Digoxin Level 0.9 CBC/BMP Laboratory Tests 03/19/17 04:57 Red Blood Count 2.94 L, Mean Corpuscular Volume 80.3, Mean Corpuscular Hemoglobin 26.9 L, Mean Corpuscular Hemoglobin Concent 33.5, Red Cell Distribution Width 16.0 H, Calcium Level 8.2 L Microbiology Microbiology 03/17/17 Blood Culture - Preliminary, Resulted No growth after 24 hours . All specim... 03/17/17 Blood Culture - Preliminary, Resulted No growth after 24 hours . All specim... 03/18/17 Gastrointestinal Tract Panel (PCR) - Final, Complete Clostridium Difficile A/B 03/18/17 MRSA Screen - Final, Complete Staph.aureus Methicillin Resis 03/17/17 Urine Culture, Received Pending ANTONIA GARCIA MD Mar 19, 2017 09:20
[2017-03-19 11:23] LABS: ABG PARTIAL PRESSURE CO2 26.6 mmHg (35.0-45.0); ABG PARTIAL PRESSURE O2 84.7 mmHg (75.0-100.0); ABG TOTAL CO2 16.8 MEQ/L (23.0-31.0); ABG pH (ARTERIAL) 7.397 UNITS (7.350-7.450)
[2017-03-19 11:24] LABS: ABG BASE EXCESS -7.9 (-2.0-2.0)
[2017-03-19 12:00] VITALS: BP 80/42
--- NOTE | 2017-03-19 15:18 | IPN ---
DATE OF SERVICE: 03/18/2017 SUBJECTIVE: The patient is seen this morning at the bedside. The patient had an episode of tachycardia this morning and he received a dose of digoxin 0.5 mg for atrial fibrillation (AFib) with rapid ventricular response (RVR). He was subsequently noted to be in sinus tachycardia with heart rate 100-110. The patient did have hypotension while he was significantly tachycardic and blood pressure later on improved to 90s/50s. He has no specific complaints. Remains on room air. States he tolerated breakfast well without any issues. Denies any diarrhea or other complaints. His [place] remains in place and is draining purulent urine. He had a renal ultrasound that showed bilateral hydroureteronephrosis, which is a new finding as compared to a CAT scan done in September 2016. REVIEW OF SYSTEMS: Limited due to clinical condition, but patient denies headache, dizziness, chest pain, palpitations, shortness of breath, nausea, vomiting, diarrhea. He reports chronic arthritic pains and generalized fatigue and deconditioning. VITAL SIGNS: At time of my visit, temperature 97.4. Pulse 112, sinus tachycardia. Respiratory rate 20. Blood pressure 89/52. Mean arterial pressure (MAP) of 64. Saturating 93% on room air. INTAKE AND OUTPUT: Urine output to the [place] catheter was yesterday 900 mL, today 1325 mL. He is in positive fluid balance 1.5 liters. GENERAL: The patient is seeing lying lateral recumbent in bed with legs curled up towards chest, chronically ill appearing, appears older than stated age, frail body habitus, deconditioned with muscle wasting. HEAD AND NECK: Bitemporal wasting. Edentulous. His tongue is moist. His neck is supple. The jugular veins are not distended. CARDIAC: S1, S2. Tachycardic. Heart rate 110. 2+ radial pulse. No edema in the peripheries or in the dependent area. LUNGS: Symmetric auscultation bilaterally, comfortable on room air. ABDOMEN: Soft, nontender. GENITOURINARY: Mag[place] catheter with cloudy purulent urine draining. MUSCULOSKELETAL: The patient has pain with palpation of the right hip all the way to the right knee. He is able to move his toes. There is no edema in the dependent areas or in the lower extremities. His legs are folded. NEUROLOGIC: The patient is able to answer simple questions appropriately and follow commands. PSYCHIATRIC: Appropriate mood and affect. LABORATORIES: White count 12.8. Hemoglobin 8.3. Platelets 612. Sodium 134. Potassium 3.7. Bicarbonate 17. BUN 129. Creatinine 7.1. Calcium 8.6. CRP down trending 27. TSH 1.5. Cortisol 33. MICROBIOLOGY: GI tract PCR pending. Blood cultures and urine cultures pending. IMAGING: Renal ultrasound 03/18/2017, moderate to severe right hydroureteronephrosis, moderate left hydroureteronephrosis. INPATIENT MEDICATIONS: - The patient remains on normal saline at 100 mL/hr. - He is receiving vancomycin and ceftriaxone. - He received a one time dose of digoxin this morning and is started on digoxin 0.625 mg by mouth daily. Remainder of medications are unchanged from prior. PROBLEMS: 1. Nonoliguric renal failure in the setting of clinical dehydration and obstruction and hemodynamic instability. The patient has received multiple fluid boluses over the past 24 hours. His blood pressure remains somewhat soft and he continues on normal saline at 100 mL/hr. Continue IV fluids for hemodynamic support. Urology consult for obstructive uropathy with bilateral hydroureteronephrosis on ultrasound. The patient did have mild right-sided hydronephrosis back in September of 2016, which is likely chronic, however, worsened now at this time. 2. Sepsis. Blood cultures and urine cultures are pending. Patient is on empiric antibiotics. Redose vancomycin for level between 15-20. Continue with IV fluids for hemodynamic support. 3. Failure to thrive, deconditioning. 4. Diastolic heart failure and no evidence of volume overload at this time. Continue with IV fluids. 5. Hypotension secondary to sepsis as well as arrhythmia. Continue with IV fluids and started on digoxin per the primary team. 6. Hyponatremia. Hyperosmolar hyponatremia due to renal failure corrected by 6 mEq in 24 hours, which is appropriate. Thyroid-stimulating hormone (TSH) is normal and morning cortisol is appropriately elevated. Plan of care is discussed with Dr. Estrella Carrillo.
[2017-03-19 16:00] VITALS: BP 82/40
[2017-03-19 20:00] VITALS: BP 92/58
[2017-03-19] MEDS: TAMSULOSIN 0.4 MG CAP PO SCH (21:00)
[2017-03-19] MEDS: PERCOCET 5MG/325MG TAB PO PRN (21:19)
[2017-03-19] MEDS ORDERED: SODIUM BICARBONATE 75 MEQ in NS 0.45% 1,000 ML IV SCH (23:15)
[2017-03-20] VITALS: BP 90/54
[2017-03-20] MEDS: PERCOCET 5MG/325MG TAB PO PRN ×5 (01:07→18:24)
[2017-03-20 04:00] VITALS: BP 90/58
[2017-03-20] MEDS: HEPARIN SOD (PORCINE) 5000 UNITS/ML VIAL SC SCH ×3 (05:07→21:09)
[2017-03-20] MEDS: cefTRIAXone SOD 1 GM in D5W 50 ML IV SCH (05:07)
[2017-03-20] MEDS: SLF 3 ML SYR IV SCH ×3 (05:07→21:10)
[2017-03-20 05:23] LABS: MEAN CORPUSCULAR HEMOGLOBIN 27.1 pg (27.0-33.0); MEAN CORPUSCULAR HGB CONC 33.5 g/dl (32.0-36.5); MEAN CORPUSCULAR VOLUME 80.9 fl (80.0-96.0); PLATELET COUNT, AUTOMATED 598 10^3/uL (150-450); RED CELL DISTRIBUTION WIDTH 15.8 % (11.5-14.5); WHITE BLOOD COUNT 10.8 10^3/uL (4.0-10.0)
[2017-03-20 05:38] LABS: CALCIUM LEVEL 7.7 MG/DL (8.8-10.2); CREATININE FOR GFR 2.63 MG/DL (0.70-1.30); GLOMERULAR FILTRATION RATE 26.1 (>49); MAGNESIUM LEVEL 1.5 MG/DL (1.8-2.4); POTASSIUM SERUM 3.9 MEQ/L (3.5-5.1)
[2017-03-20] MEDS: MAG SULF 1GM/100ML (MAG RUN) 1 GM in APPROPRIATE DILUENT 1 EA IV SCH ×2 (07:34→08:39)
[2017-03-20 08:00] VITALS: BP 90/59
[2017-03-20] MEDS ORDERED: VANCOMYCIN HCL 500 MG in D5W MINI-BAG PLUS 100 ML IV SCH (08:00)
[2017-03-20] MEDS: ASPIRIN 81 MG ENTERIC TAB PO SCH (08:01)
[2017-03-20] MEDS: metroNIDAZOLE (FLAGYL) 500 MG TAB PO SCH ×2 (08:01→15:37)
[2017-03-20] MEDS: DIGOXIN 0.0625MG PER 1/2TABLET PO SCH (08:02)
[2017-03-20] MEDS: SODIUM BICARBONATE 75 MEQ, POTASSIUM CHLORIDE INJ 20 MEQ in NS 0.45% 1,000 ML IV SCH ×4 (09:43)
--- NOTE | 2017-03-20 10:17 | IPNPDOC ---
Assessment/Plan Date Seen The patient was seen on 03/20/17. Problems (1) Acute renal failure Status: Acute (2) Sepsis Status: Acute (3) C. difficile diarrhea Status: Acute (4) Obstructive uropathy Status: Acute (5) UTI (urinary tract infection) Status: Acute (6) Diastolic CHF Status: Chronic (7) Acute metabolic encephalopathy Status: Acute (8) History of endocarditis Status: Resolved (9) Hypotension Status: Acute (10) Tachycardia Status: Acute (11) Severe protein-calorie malnutrition Status: Chronic Plan/VTE VTE Prophylaxis Ordered?: Yes Plan Anticipated Discharge: [facility] Subjective Review oF Systems Chief Complaint The patient is a 66-year-old male admitted with a reason for visit of Acute Renal Failure; bilateral HUN; C Diff; MRSA; anorexia; extremity contractions. Poor po intake and mobilization. A, Ox3. 92, 20, 98.6f, 90/59. Abdo: Benign. Magaña clear. UA (03/17/17) 8.0, rbc2+, wbc3+, nitrite-. (03/20/17) Hg 7.1, 10.8, Cr 2.6 (down ). US (03/18/17) bilateral moderate HUN. A: Above. P: Mag[place] to SD. Serial Cr. Consider TPN. CT w/o IV as arranged. Objective Physical Examination Heart Exam: Positive: Tachycardic, Regular Rhythm, Normal S1, Normal S2 Vital Signs/I&O Vital Signs Date Time Temp Pulse Resp B/P (MAP) Pulse Ox O2 Delivery O2 Flow Rate FiO2 03/20/17 08:02 98 03/20/17 08:00 98.6 20 90/59 (69) 95 Room Air I&O- Last 24 Hours up to 6 AM 03/21/17 06:00 Intake Total 310 ml Output Total 0 ml Balance 310 ml Laboratory Data Labs 24H Laboratory Tests 2 03/19/17 11:13: Blood Gas Bicarbonate Standard 18.0L, Arterial Blood pH 7.397, Arterial Blood Partial Pressure CO2 26.6L, Arterial Blood Partial Pressure O2 84.7, Arterial Blood Total CO2 16.8L, Arterial Blood HCO3 16.0L, Arterial Blood Base Excess - 7.9L, Arterial Blood Oxygen Saturation 96.7 03/19/17 16:48: Random Vancomycin Level 18.6 03/20/17 04:58: Nucleated Red Blood Cells % (auto) 0.0, Anion Gap 9, Glomerular Filtration Rate 26.1L, Blood Urea Nitrogen 66H, Creatinine 2.63H, Sodium Level 144, Potassium Level 3.9, Chloride Level 117H, Carbon Dioxide Level 18L, Calcium Level 7.7L, Magnesium Level 1.5L, C-Reactive Protein, Quantitative 14.00H CBC/BMP Laboratory Tests 03/20/17 04:58 Red Blood Count 2.62 L, Mean Corpuscular Volume 80.9, Mean Corpuscular Hemoglobin 27.1, Mean Corpuscular Hemoglobin Concent 33.5, Red Cell Distribution Width 15.8 H, Calcium Level 7.7 L Microbiology Microbiology 03/17/17 Blood Culture - Preliminary, Resulted No Growth after 48 hours. All Specime... 03/17/17 Blood Culture - Preliminary, Resulted No Growth after 48 hours. All Specime... 03/18/17 Gastrointestinal Tract Panel (PCR) - Final, Complete Clostridium Difficile A/B 03/18/17 MRSA Screen - Final, Complete Staph.aureus Methicillin Resis 03/17/17 Urine Culture, Received Pending KETAN CARRILLO MD Mar 20, 2017 10:17
--- NOTE | 2017-03-20 10:33 | IPNPDOC ---
Subjective Date Seen The patient was seen on 03/20/17. Subjective Chief Complaint/HPI The patient is a 66-year-old male admitted with a reason for visit of Acute Renal Failure. Events since last encounter complains of generalized pain. Cannot straighten the right leg , no fever or chills, no chest pain or sob. No abdominal pain , nausea or vomiting , eating better. Objective Physical Examination General Exam: Positive: Alert, Cooperative, No Acute Distress Eye Exam: Positive: PERRLA, Conjunctiva & lids normal, EOMI, Negative: Sclera icteric ENT Exam: Positive: Atraumatic, Mucous membr. moist/pink, Pharynx Normal Neck Exam: Positive: Supple, Negative: JVD, thyromegaly Chest Exam: Positive: Clear to auscultation, Normal air movement Heart Exam: Positive: Tachycardic, Regular Rhythm, Normal S1, Normal S2 Telemetry: Positive: Tachycardia, Other Telemetry: (svt) Abdomen Exam: Positive: Normal bowel sounds, Soft, Negative: Tenderness, Hepatospenomegaly Extremity Exam: Positive: Normal pulses, Tenderness, Other (both legs are contracted. ), Negative: Clubbing, Cyanosis, Edema Skin Exam: Positive: Other skin issue (very frailand loose. ) Assessment /Plan Problems (1) Acute renal failure Status: Acute Response to Treatment: Improving Problem Text: due to obstructive uropathy and dehydration from diarrhea. improved with de la fuente possibly has bladder neck obs or bph or urethral stricture. de la fuente in place making urine creatinine improving (2) Sepsis Status: Acute Problem Text: due to UTI and c diff urine culture and blood culture in progress. (3) C. difficile diarrhea Status: Acute Problem Text: started on metronidazole. (4) Obstructive uropathy Status: Acute Problem Text: renal US showed bilateral hydronephrosis right > left old renal US in september did show mild to moderate right hydronephrosis at that time with thickened bladder mcdonald Spoke with urology as creatinine improving with de la fuente no need for urgent intervention at present however will need follow up as outpatient for work up of obstruction. 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 Will recall urology next week once creatinine improved and infection treated if patient still here. (5) UTI (urinary tract infection) Status: Acute Problem Text: will continue ceftriaxone. (6) Diastolic CHF Status: Chronic (7) Acute metabolic encephalopathy Status: Acute (8) History of endocarditis Status: Resolved (9) Hypotension Status: Acute Problem Text: poor oral intake , hypovolemia , infection , responed to IVF. Pateint does have chronically low blood pressure with systolic of 90s to 100s. will have to use small cuff for BP measurement. (10) Tachycardia Status: Acute Problem Text: SVT vs aflutter received 1 dose of dig and corrected to sinus rhythm (11) Severe protein-calorie malnutrition Status: Chronic Problem Text: Has a BMI of 15 . Has lost 10 kgs in last 6 months. legs contracted and possibly has been bed bound for months. Plan/VTE VTE Prophylaxis Ordered?: Yes Plan Anticipated Discharge: [facility], I&O, 24H, [facility] Vital Signs/I&O Vital Signs Date Time Temp Pulse Resp B/P (MAP) Pulse Ox O2 Delivery O2 Flow Rate FiO2 03/20/17 08:02 98 03/20/17 08:00 98.6 20 90/59 (69) 95 Room Air I&O- Last 24 Hours up to 6 AM 03/21/17 06:00 Intake Total 310 ml Output Total 0 ml Balance 310 ml Laboratory Data 24H LABS Laboratory Tests 2 03/19/17 11:13: Blood Gas Bicarbonate Standard 18.0L, Arterial Blood pH 7.397, Arterial Blood Partial Pressure CO2 26.6L, Arterial Blood Partial Pressure O2 84.7, Arterial Blood Total CO2 16.8L, Arterial Blood HCO3 16.0L, Arterial Blood Base Excess - 7.9L, Arterial Blood Oxygen Saturation 96.7 03/19/17 16:48: Random Vancomycin Level 18.6 03/20/17 04:58: Nucleated Red Blood Cells % (auto) 0.0, Anion Gap 9, Glomerular Filtration Rate 26.1L, Blood Urea Nitrogen 66H, Creatinine 2.63H, Sodium Level 144, Potassium Level 3.9, Chloride Level 117H, Carbon Dioxide Level 18L, Calcium Level 7.7L, Magnesium Level 1.5L, C-Reactive Protein, Quantitative 14.00H CBC/BMP Laboratory Tests 03/20/17 04:58 Red Blood Count 2.62 L, Mean Corpuscular Volume 80.9, Mean Corpuscular Hemoglobin 27.1, Mean Corpuscular Hemoglobin Concent 33.5, Red Cell Distribution Width 15.8 H, Calcium Level 7.7 L Microbiology Microbiology 03/17/17 Blood Culture - Preliminary, Resulted No Growth after 48 hours. All Specime... 03/17/17 Blood Culture - Preliminary, Resulted No Growth after 48 hours. All Specime... 03/18/17 Gastrointestinal Tract Panel (PCR) - Final, Complete Clostridium Difficile A/B 03/18/17 MRSA Screen - Final, Complete Staph.aureus Methicillin Resis 03/17/17 Urine Culture, Received Pending ANTONIA GARCIA MD Mar 20, 2017 10:33
[2017-03-20 12:00] VITALS: BP 100/56
[2017-03-20 16:00] VITALS: BP 93/69
[2017-03-20] MEDS ORDERED: CALCIUM GLUCONATE 1,000 MG in D5W MINI-BAG PLUS 100 ML IV ONE (16:00)
[2017-03-20] MEDS ORDERED: MAG SULF 1GM/100ML (MAG RUN) 1 GM in APPROPRIATE DILUENT 1 EA IV ONE (17:00)
[2017-03-20 19:30] VITALS: BP 90/48
[2017-03-20] MEDS: TAMSULOSIN 0.4 MG CAP PO SCH (21:09)
--- NOTE | 2017-03-20 21:09 | IPN ---
DATE: 03/19/2017 SUBJECTIVE: The patient is seen this morning at the bedside. He complains of diarrhea overnight. He otherwise denies any complaints at present. Reports eating breakfast without issues. He remains on intravenous (IV) fluids with [place] catheter and continues to make urine. Clostridium (C) difficile polymerase chain reaction (PCR) came back positive. The patient continues on vancomycin and ceftriaxone. Vancomycin random level today was 18. He is also started on oral Flagyl. REVIEW OF SYSTEMS: Positive for low-grade fevers, diarrhea, and chronic pain in both lower extremities. Review of systems is negative for chest pain, palpitations, shortness of breath, nausea, vomiting, abdominal pain. Remainder of review of systems is negative. Temperature 97.6, pulse 100-108, respiratory rate 19-22, blood pressure systolic 80-92 over diastolic in the 50s, saturating 94-100% on room air. Intake and output: Intake yesterday was 1080 mL. Intravenous (IV) intake was 3.4 liters. Urine output was 2.2 liters. Patient is positive 2300 mL. PHYSICAL EXAMINATION: The patient is seen lying in bed, left lateral recumbent. Legs contracted up toward the chest. Chronically ill appearing. Appears older than stated age. Very frail. Body habitus deconditioned with prominent muscle wasting. HEAD AND NECK: Bitemporal wasting. Edentulous. Tongue is moist. Neck is supple. The jugular veins are not distended. CARDIAC: S1, S2, tachycardic. Heart rate 100-110. Radial pulse 2+. Absolutely no edema in the peripheries nor in the dependent area. LUNGS: Symmetric air entry bilaterally. Comfortable on room air. No respiratory distress. ABDOMEN: Soft and nontender. GENITOURINARY: Mag[place] catheter with urine draining. MUSCULOSKELETAL: Severe muscle wasting and deconditioning. Contracture of the lower extremities and pain with palpation of the right knee and the right hip. NEUROLOGIC: The patient is able to answer simple questions appropriately and follow commands. PSYCHIATRIC: Appropriate mood and affect. LABORATORY DATA: White count 13.1, hemoglobin 7.9, platelets 615. Sodium 141, potassium 3.3, bicarbonate 15, BUN 106, creatinine 4.9. CRP down-trending to 21, phosphorus 2.8, magnesium 2.0, calcium 8.2, glucose 106. Vancomycin random 18.6. A pH 7.3, pCO2 of 26, pO2 of 84. Microbiology: Stool C. difficile PCR positive March 18, and methicillin-resistant Staphylococcus aureus (MRSA) nares positive March 18. INPATIENT MEDICATIONS: The patient is switched to half-normal saline with 75 mEq of sodium bicarbonate by myself at 125 mL an hour. He remains on ceftriaxone 1 gram IV every 12, vancomycin 500 mg IV 24 with a daily vancomycin level, aspirin 81 mg daily, digoxin 0.0625 mg by mouth daily, started on Flagyl 500 mg by mouth every 8. Remainder of medications are unchanged from prior. PROBLEMS: 1. Nonoliguric renal failure in the setting of clinical dehydration. Renal obstruction bilaterally. Hemodynamic instability from sepsis in the setting of C. difficile colitis. The patient's renal function continues to improve, and he is making adequate urine to the Mag[place] catheter. He is pending evaluation with urology. His blood pressures continue to be borderline with ongoing tachycardia. I have increased the rate of his IV fluids. He has had considerable urine output today, 2.8 liters thus far, and is actually in a negative fluid balance despite ongoing IV fluids. 2. Sepsis in the setting of C. difficile colitis. The patient is now on IV ceftriaxone and IV vancomycin. His vancomycin is dosed for daily level. I would keep him between 15-20. Vancomycin random this morning was 18. He is also started on oral Flagyl for C. difficile colitis. Blood cultures thus far have been negative for 48 hours. His white count does continue to mildly uptrend. 3. Anion gap metabolic acidosis with non-anion gap metabolic acidosis with respiratory alkalosis. Patient has a triple acid base disorder. He has increased his minute ventilation to compensate for his anion gap acidosis with concomitant non-anion gap acidosis. I have changed the IV fluids to half-normal saline with 75 mEq of bicarbonate and have increased the drip rate to 125 mL an hour in view of his acidemia and hypotension and current negative fluid balance. 4. Hypokalemi despite significant acidosis. The patient is currently total body potassium deplete. He received IV potassium with his IV fluids during the course of the day, and as I am switching to bicarbonate- containing fluids, I will give him further potassium. 5. History of diastolic heart failure. No evidence of any volume overload at this time. Patient is continued on increased IV fluids. 6. Hypertension secondary to sepsis. Continue with aggressive IV hydration with fluid boluses as required. At the present time, he does not seem to require pressor support. 7. Hyponatremia. The patient has corrected at a rate of 6 mEq per day for the past 2 days, which is appropriate. We will have to watch for polyuria secondary to postobstructive diuresis. The patient may end up requiring hypotonic fluid. At present, will monitor and continue with isotonic. MTDD
[2017-03-21] VITALS: BP 89/49
[2017-03-21] MEDS: metroNIDAZOLE (FLAGYL) 500 MG TAB PO SCH ×3 (00:01→16:38)
[2017-03-21] MEDS: PERCOCET 5MG/325MG TAB PO PRN (03:58)
[2017-03-21 04:00] VITALS: BP 90/46
[2017-03-21 05:16] LABS: MEAN CORPUSCULAR HEMOGLOBIN 27.1 pg (27.0-33.0); MEAN CORPUSCULAR HGB CONC 33.3 g/dl (32.0-36.5); MEAN CORPUSCULAR VOLUME 81.4 fl (80.0-96.0); PLATELET COUNT, AUTOMATED 686 10^3/uL (150-450); RED CELL DISTRIBUTION WIDTH 15.9 % (11.5-14.5); WHITE BLOOD COUNT 11.3 10^3/uL (4.0-10.0)
[2017-03-21] MEDS: HEPARIN SOD (PORCINE) 5000 UNITS/ML VIAL SC SCH ×3 (05:27→21:33)
[2017-03-21] MEDS: SLF 3 ML SYR IV SCH ×3 (05:27→21:33)
[2017-03-21 05:40] LABS: CALCIUM LEVEL 7.8 MG/DL (8.8-10.2); CREATININE FOR GFR 1.91 MG/DL (0.70-1.30); GLOMERULAR FILTRATION RATE 37.7 (>49); MAGNESIUM LEVEL 2.1 MG/DL (1.8-2.4); POTASSIUM SERUM 4.3 MEQ/L (3.5-5.1); VANCOMYCIN RANDOM 15.6 UG/ML
--- NOTE | 2017-03-21 05:57 | PHACANCOPD ---
PHARMACY VANCOMYCIN DOSING Pt Demographics Demographics Patient Age:66 , Weight:40.400 , Gender: male Adjusted Body Weight Date: 03/17/17, Adjusted Body Weight: [38] Kg Events Past 24 Hours Events Past 24 Hours: NO: Dialysis, Diuretic Therapy, Change in CrCl, Fever, Elevation in WBC, Pending Diagnostics, Pending Procedures, Other Vancomycin Vancomycin Target Ranges: 15-20 mcg/ml Vancomycin Load Y/N: Yes Load Dose Date Time Vancomycin Load Dose: 750MG Date: 03-17 Time: 2129 Vancomycin Dose Date: 03/21/17. Current Vancomycin Dose: [750MG Q24H] Intermittent Dosing?: Yes Labs Labs Item Value Date Time White Blood Count 11.3 10^3/uL H 03/21/17 0501 Creatinine 1.91 MG/DL H 03/21/17 0501 Blood Urea Nitrogen 44 MG/DL H 03/21/17 0501 Random Vancomycin Level 15.6 UG/ML 03/21/17 0501 Vital Signs Label Value Date Time Patient Temperature 98.6 degrees F 03/21/17 0400 Temperature Source Temporal 03/21/17 0400 Micro Microbiology 03/17/17 Blood Culture - Preliminary, Resulted No Growth after 72 hours. All specime... 03/17/17 Blood Culture - Preliminary, Resulted No Growth after 72 hours. All specime... 03/18/17 Gastrointestinal Tract Panel (PCR) - Final, Complete Clostridium Difficile A/B 03/18/17 MRSA Screen - Final, Complete Staph.aureus Methicillin Resis 03/17/17 Urine Culture - Final, Complete Proteus Mirabilis Creatinine Clearance Date:03/21/17. Creatinine Clearance: [29.38]. Pending Labs Trough 10- @0500 Assessment and Plan Maintaining Current Dose?: No Reason for dose change: Trough too low Pharmacist Note Pharmacist Note Date: 03/17/17. Pharmacist note:Random of 15.6 was drawn 3 hours before dose. by dosing time this would be below the target range. Dose increased to 750mg q24h with a trough ordered for 10-31 @0500. Will continue to monitor and make adjustments as needed. [facility] Mar 21, 2017 05:57
[2017-03-21] MEDS ORDERED: VANCOMYCIN HCL 750 MG, VIAL MATE ADAPTER 1 EACH in D5W 250 ML IV SCH (06:00)
[2017-03-21] MEDS: SODIUM BICARBONATE 75 MEQ, POTASSIUM CHLORIDE INJ 20 MEQ in NS 0.45% 1,000 ML IV SCH (07:40)
[2017-03-21 08:00] VITALS: BP 85/61
[2017-03-21] MEDS: DIGOXIN 0.0625MG PER 1/2TABLET PO SCH (09:08)
[2017-03-21] MEDS: cefTRIAXone SOD 1 GM in D5W 50 ML IV SCH (09:08)
[2017-03-21] MEDS: ASPIRIN 81 MG ENTERIC TAB PO SCH (09:08)
--- NOTE | 2017-03-21 11:01 | IPNPDOC ---
Assessment/Plan Date Seen The patient was seen on 03/21/17. Problems (1) Acute renal failure Status: Acute (2) Sepsis Status: Acute (3) C. difficile diarrhea Status: Acute (4) Obstructive uropathy Status: Acute (5) UTI (urinary tract infection) Status: Acute (6) Diastolic CHF Status: Chronic (7) Acute metabolic encephalopathy Status: Acute (8) History of endocarditis Status: Resolved (9) Hypotension Status: Acute (10) Tachycardia Status: Acute (11) Severe protein-calorie malnutrition Status: Chronic Plan/VTE VTE Prophylaxis Ordered?: Yes Plan Anticipated Discharge: Long-Term Subjective Review oF Systems Chief Complaint The patient is a 66-year-old male admitted with a reason for visit of Acute Renal Failure; bilateral HUN; C Diff; MRSA; anorexia; extremity contractions. Poor po intake and mobilization chronic. A, Ox3. 89, 18, 97.9f, 85/61. Abdo: Benign. Mag[place] clear. UA (03/17/17) 8.0, rbc2+, wbc3+, nitrite-. Urine culture (03/17/17) Proteus, Bactrim/Levaquin. Blood culture (03/17/17) no growth. Nasal culture (03/18/17) MRSA. Stool culture (03/18/17) C. Diff. (03/21/17) Hg 8.9, 11.3, Cr 1.9 (down). US (03/18/17) bilateral moderate HUN. A: Above. P: Ma[place] to SD. Serial Cr. Consider TPN. CT w/o IV as arranged. Objective Physical Examination Heart Exam: Positive: Tachycardic, Regular Rhythm, Normal S1, Normal S2 Vital Signs/I&O Vital Signs Date Time Temp Pulse Resp B/P (MAP) Pulse Ox O2 Delivery O2 Flow Rate FiO2 03/21/17 09:08 89 03/21/17 08:00 97.9 18 85/61 (69) 96 Room Air I&O- Last 24 Hours up to 6 AM 03/22/17 06:00 Intake Total 170 ml Output Total 0 ml Balance 170 ml Laboratory Data Labs 24H Laboratory Tests 2 03/21/17 05:01: Nucleated Red Blood Cells % (auto) 0.0, Anion Gap 8, Glomerular Filtration Rate 37.7L, Blood Urea Nitrogen 44H, Creatinine 1.91H, Sodium Level 141, Potassium Level 4.3, Chloride Level 111H, Carbon Dioxide Level 22, Calcium Level 7.8L, Magnesium Level 2.1, Random Vancomycin Level 15.6 CBC/BMP Laboratory Tests 03/21/17 05:01 Red Blood Count 3.28 L, Mean Corpuscular Volume 81.4, Mean Corpuscular Hemoglobin 27.1, Mean Corpuscular Hemoglobin Concent 33.3, Red Cell Distribution Width 15.9 H, Calcium Level 7.8 L Microbiology Microbiology 03/17/17 Blood Culture - Preliminary, Resulted No Growth after 72 hours. All specime... 03/17/17 Blood Culture - Preliminary, Resulted No Growth after 72 hours. All specime... 03/18/17 Gastrointestinal Tract Panel (PCR) - Final, Complete Clostridium Difficile A/B 03/18/17 MRSA Screen - Final, Complete Staph.aureus Methicillin Resis 03/17/17 Urine Culture - Final, Complete Proteus Mirabilis KETAN CARRILLO MD Mar 21, 2017 11:01
[2017-03-21 12:00] VITALS: BP 81/46
--- NOTE | 2017-03-21 14:03 | IPNPDOC ---
Subjective Date Seen The patient was seen on 03/21/17. Subjective Chief Complaint/HPI Patient seen and examined at the bedside. States that he is feeling better, denies any acute complaints at this time. Objective Physical Examination General Exam: Positive: Alert, Cooperative, No Acute Distress, Other (appears cachectic with bitemporal wasting) Eye Exam: Negative: Sclera icteric ENT Exam: Positive: Atraumatic, Mucous membr. moist/pink Neck Exam: Negative: JVD Chest Exam: Positive: Clear to auscultation, Normal air movement Heart Exam: Positive: Rate Normal, Regular Rhythm, Normal S1, Normal S2 Abdomen Exam: Positive: Soft, Negative: Tenderness Extremity Exam: Positive: Normal pulses, Tenderness, Other (both legs are contracted. ), Negative: Clubbing, Cyanosis, Edema Assessment /Plan Plan/VTE VTE Prophylaxis Ordered?: Yes Plan Anticipated Discharge: Halfway Acute Renal Failure 2/2 C. Diff, Obstructive Uropathy Serum Cr down to 1.9 this AM (Baseline ~1.3) IVF Hydration Hold Nephrotoxins Renal U/S notable for Bilateral hydronephrosis right > left -- no urological intervention was deemed necessary as the patient's serum creatinine was improving after placement of Mag[place] catheter, IV fluid hydration Repeat CT Scan of the Abd scheduled for tomorrow Appreciate nephrology and urology input Obstructive uropathy Renal U/S notable for Bilateral hydronephrosis right > left -- no urological intervention was deemed necessary as the patient's serum creatinine was improving after placement of [place] catheter , IV fluid hydration Repeat CT Scan of the Abd scheduled for tomorrow We will follow-up with urology recommendations C. difficile The patient reports that his diarrhea has improved while on metronidazole Urinary tract infection UA suggestive of possible Continue on Rocephin History of diastolic congestive heart failure Currently not volume overloaded History of endocarditis Status post treatment Severe protein calorie malnutrition By mouth intake encouraged Physical deconditioning, bilateral lower extremity/contractures Physical therapy ordered DVT prophylaxis Subcutaneous heparin Dispo--pending clinical improvement, physical therapy VS, I&O, 24H, Fishbone Vital Signs/I&O Vital Signs Date Time Temp Pulse Resp B/P (MAP) Pulse Ox O2 Delivery O2 Flow Rate FiO2 03/21/17 12:00 98.5 106 18 81/46 (58) 97 Room Air I&O- Last 24 Hours up to 6 AM 03/22/17 06:00 Intake Total 170 ml Output Total 0 ml Balance 170 ml Laboratory Data 24H LABS Laboratory Tests 2 03/21/17 05:01: Nucleated Red Blood Cells % (auto) 0.0, Anion Gap 8, Glomerular Filtration Rate 37.7L, Blood Urea Nitrogen 44H, Creatinine 1.91H, Sodium Level 141, Potassium Level 4.3, Chloride Level 111H, Carbon Dioxide Level 22, Calcium Level 7.8L, Magnesium Level 2.1, Random Vancomycin Level 15.6 CBC/BMP Laboratory Tests 03/21/17 05:01 Red Blood Count 3.28 L, Mean Corpuscular Volume 81.4, Mean Corpuscular Hemoglobin 27.1, Mean Corpuscular Hemoglobin Concent 33.3, Red Cell Distribution Width 15.9 H, Calcium Level 7.8 L Microbiology Microbiology 03/17/17 Blood Culture - Preliminary, Resulted No Growth after 72 hours. All specime... 03/17/17 Blood Culture - Preliminary, Resulted No Growth after 72 hours. All specime... 03/18/17 Gastrointestinal Tract Panel (PCR) - Final, Complete Clostridium Difficile A/B 03/18/17 MRSA Screen - Final, Complete Staph.aureus Methicillin Resis 03/17/17 Urine Culture - Final, Complete Proteus Mirabilis EDGARDO MONAE MD Mar 21, 2017 14:03
--- NOTE | 2017-03-21 14:33 | IPN ---
DATE: 03/20/2017 The patient was seen and examined at the bedside today in the morning. He was laying in the bed. No apparent distress. Renal function continues to improve with IV fluid hydration. Hemodynamically stable. Creatinine continues to trend down at this time. REVIEW OF SYSTEMS: The patient is unable to provide reliable review of systems, but he is not in any apparent distress and he is laying comfortably in the bed. He does report abdominal pain. OBJECTIVE: Vital signs: Temperature is 99.6 degrees Fahrenheit. Blood pressure is 100/56. Pulse is 104. Respiratory rate of 18, saturating 99% on room air. Intake and output: Urine output recorded as 2.8 liters yesterday. 2.1 liters so far today since overnight. Weight on the bed scale is 40.4 kg. PHYSICAL EXAMINATION: GENERAL: The patient is awake, alert and oriented times two. Laying in bed. Very weak and cachectic. HEAD/NECK: Bilateral temporal wasting. Mucous membranes are moist. Neck is supple. There is no jugular venous distention (JVD). CARDIOVASCULAR: S1, S2, tachycardia. No murmur, rub or gallop. RESPIRATORY: Chest is clear to auscultation bilaterally. Bilateral equal air entry. No rales or rhonchi. ABDOMEN: Soft. Tender to deep palpation. No ascites. No organomegaly. GENITOURINARY: The patient has a Mag[place] catheter. Urine in the bag is clear at this time. MUSCULOSKELETAL: The patient has contractures of his extremities. Otherwise no edema and pulses are 2+. CENTRAL NERVOUS SYSTEM: The patient is oriented times two. He follows some commands and he answers simple questions. PSYCHIATRIC: Appropriate mood and affect. LAB REVIEW: CBC showed WBC 10.8, hemoglobin 7.1, platelets are 598. BMP showed sodium 144, potassium 144. Potassium 3.9, chloride 117. Bicarbonate is 18, BUN 66, creatinine is 2.6 now. Calcium 7.7. Magnesium 1.5. C-reactive protein is 14. Microbiology: C. difficile toxin was positive on 03/18/2017. Urine culture was sent on March 17, 2017. Official report is pending. But as per preliminary report, the patient is growing proteus. Sensitivities are pending at this time. CURRENT INPATIENT MEDICATIONS: The patient's medications were all reviewed by me. I have decreased the Rocephin dose to 1 gram IV daily because the patient weighs only 40 kg and he is in acute renal failure at this time. I have decreased the IV fluid hydration at 50 mL an hour because of the risk of fluid overload in this patient. He continues to be on IV vancomycin as well. Vancomycin trough levels are within the acceptable range. There is no other change in the medications today as compared with yesterday. ASSESSMENT: 66-year-old male who is severely debilitated, cachectic, bed-bound admitted this time because of sepsis secondary to urinary tract infection, acute renal failure and failure to thrive. PLAN: 1. Acute kidney injury. It was secondary to sepsis, secondary to urinary tract infection (UTI), dehydration, volume depletion and urinary tract obstruction. The patient continues to have Magaña at this time. Continue IV fluid hydration, but I have decreased the rate to 50 mL an hour. Since patient is making good amount of urine, urology recommends outpatient followup at this time for bilateral hydroureteronephrosis. 2. Urinary tract infection. Preliminary reports show he is growing proteus. Sensitivity is back. Antibiotics will be changed once the sensitivity does come back. However, I have decreased the Rocephin dose to 1 gram IV daily because he has C. Difficile and he weighs only 40 kg. 3. C. difficile colitis. The patient is currently on Flagyl 500 mg by mouth every 8 hourly. Taper down the antibiotic coverage once the sensitivity results of UTI come back. 4. Metabolic acidosis. The patient has metabolic acidosis secondary to acute kidney injury. He is on IV bicarbonate fluid. Continue the bicarbonate fluid at this time. Serum bicarbonate is improving and it is up to 18 at this time. 5. Hypomagnesemia. The patient will get a dose of magnesium sulfate 1 gram IV times one dose today. 6. Anemia. The patient's hemoglobin is 7.1. He will be given one unit of packed red blood cells transfusion today.
[2017-03-21] MEDS: NS 0.45% 1,000 ML IV SCH (15:10)
[2017-03-21 16:00] VITALS: BP 89/51
[2017-03-21 20:39] VITALS: BP 89/50
[2017-03-21] MEDS: ACETAMINOPHEN TAB 650MG DOSE (2X325MG) PO PRN (21:32)
[2017-03-21] MEDS: TAMSULOSIN 0.4 MG CAP PO SCH (21:32)
[2017-03-22 00:38] VITALS: BP 88/53
[2017-03-22] MEDS: metroNIDAZOLE (FLAGYL) 500 MG TAB PO SCH ×4 (00:42→23:58)
[2017-03-22] MEDS: NS 0.45% 1,000 ML IV SCH (03:19)
[2017-03-22] MEDS: ACETAMINOPHEN TAB 650MG DOSE (2X325MG) PO PRN ×3 (03:44→20:52)
[2017-03-22 04:10] VITALS: BP 90/58
[2017-03-22 05:21] LABS: MEAN CORPUSCULAR HEMOGLOBIN 26.9 pg (27.0-33.0); MEAN CORPUSCULAR HGB CONC 32.6 g/dl (32.0-36.5); MEAN CORPUSCULAR VOLUME 82.6 fl (80.0-96.0); PLATELET COUNT, AUTOMATED 672 10^3/uL (150-450); RED CELL DISTRIBUTION WIDTH 16.3 % (11.5-14.5); WHITE BLOOD COUNT 10.7 10^3/uL (4.0-10.0)
[2017-03-22 05:40] LABS: CALCIUM LEVEL 7.9 MG/DL (8.8-10.2); CREATININE FOR GFR 1.49 MG/DL (0.70-1.30); GLOMERULAR FILTRATION RATE 50.2 (>49); MAGNESIUM LEVEL 1.7 MG/DL (1.8-2.4)
[2017-03-22 05:51] LABS: POTASSIUM SERUM 3.3 MEQ/L (3.5-5.1)
[2017-03-22] MEDS: HEPARIN SOD (PORCINE) 5000 UNITS/ML VIAL SC SCH ×3 (06:15→20:51)
[2017-03-22] MEDS: SLF 3 ML SYR IV SCH ×3 (06:15→20:51)
[2017-03-22] MEDS ORDERED: POTASSIUM CHLORIDE 10 MEQ SR TABLET PO ONE (07:45)
--- NOTE | 2017-03-22 08:42 | REP ---
CT of the abdomen pelvis without IV and oral contrast: Comparison is 10/03/2016. Note from the technologist reveals that the the patient was unable to lie flat or bring arms over head. These findings in combination with significant motion artifact and minimal volume of body fat conspire to make this study essentially uninterpretable. I suspect there is right hydronephrosis as an interval change. The right hip demonstrates that the right femoral head is impacted against the posterior acetabular labrum. There is now an impaction fracture of the right humeral head as well as posterior inferior subluxation within the acetabulum. This may all be secondary to aseptic necrosis. Right hip MRI might be considered. If the patient's clinical condition will permit repeat study with IV contrast and sedation might be considered. Signed by Awais Vargas MD 03/22/2017 08:34 A
[2017-03-22 09:14] VITALS: BP 97/50
[2017-03-22] MEDS: ASPIRIN 81 MG ENTERIC TAB PO SCH (09:19)
[2017-03-22] MEDS: DIGOXIN 0.0625MG PER 1/2TABLET PO SCH (09:19)
[2017-03-22] MEDS: MAG SULF 1GM/100ML (MAG RUN) 1 GM in APPROPRIATE DILUENT 1 EA IV SCH ×2 (09:20→10:33)
[2017-03-22] MEDS: PERCOCET 5MG/325MG TAB PO PRN (09:38)
--- NOTE | 2017-03-22 10:27 | IPNPDOC ---
Subjective Date Seen The patient was seen on 03/22/17. Subjective Chief Complaint/HPI Patient seen and examined at bedside. He states that he has been feeling more nauseous and has had more diarrhea overnight. Denies any abdominal pain or any episodes of vomiting. Objective Physical Examination General Exam: Positive: Alert, Cooperative, No Acute Distress, Other (appears cachectic with bitemporal wasting) Eye Exam: Negative: Sclera icteric ENT Exam: Positive: Atraumatic, Mucous membr. moist/pink Neck Exam: Negative: JVD Chest Exam: Positive: Clear to auscultation, Normal air movement Heart Exam: Positive: Rate Normal, Regular Rhythm, Normal S1, Normal S2 Abdomen Exam: Positive: Soft, Negative: Tenderness Extremity Exam: Positive: Normal pulses, Tenderness, Other (both legs are contracted. ), Negative: Clubbing, Cyanosis, Edema Psych Exam: Positive: Oriented x 3 Assessment /Plan Plan/VTE VTE Prophylaxis Ordered?: Yes Plan Anticipated Discharge: Snf Acute Renal Failure 2/ C. Diff, Obstructive Uropathy Serum Cr down to 1.49 this AM (Baseline ~1.3) IVF Hydration Hold Nephrotoxins Renal U/S notable for Bilateral hydronephrosis right > left -- no urological intervention was deemed necessary as the patient's serum creatinine was improving after placement of [place] catheter, IV fluid hydration Repeat CT Scan of the Abd scheduled for today Appreciate nephrology and urology input Obstructive uropathy Renal U/S notable for Bilateral hydronephrosis right > left -- no urological intervention was deemed necessary as the patient's serum creatinine was improving after placement of [place] catheter , IV fluid hydration Repeat CT Scan of the Abd scheduled for today We will follow-up with urology recommendations C. difficile The patient reports that his diarrhea was worse overnight Will add on PO Vancomycin Urinary tract infection UA suggestive of possible Continue on Rocephin History of diastolic congestive heart failure Currently not volume overloaded History of endocarditis Status post treatment Severe protein calorie malnutrition By mouth intake encouraged Physical deconditioning, bilateral lower extremity/contractures Physical therapy ordered DVT prophylaxis Subcutaneous heparin Dispo--pending clinical improvement, physical therapy VS, I&O, 24H, Fishbone Vital Signs/I&O Vital Signs Date Time Temp Pulse Resp B/P (MAP) Pulse Ox O2 Delivery O2 Flow Rate FiO2 03/22/17 09:38 18 Room Air 03/22/17 09:19 93 03/22/17 09:14 97.8 97/50 (51) 57 I&O- Last 24 Hours up to 6 AM 03/23/17 06:00 Intake Total 0 ml Output Total 0 ml Balance 0 ml Laboratory Data 24H LABS Laboratory Tests 2 03/22/17 04:59: Nucleated Red Blood Cells % (auto) 0.0, Anion Gap 9, Glomerular Filtration Rate 50.2, Blood Urea Nitrogen 29H, Creatinine 1.49H, Sodium Level 138, Potassium Level 3.3#L, Chloride Level 107, Carbon Dioxide Level 22, Calcium Level 7.9L, Magnesium Level 1.7L CBC/BMP Laboratory Tests 03/22/17 04:59 Red Blood Count 3.34 L, Mean Corpuscular Volume 82.6, Mean Corpuscular Hemoglobin 26.9 L, Mean Corpuscular Hemoglobin Concent 32.6, Red Cell Distribution Width 16.3 H, Calcium Level 7.9 L Microbiology Microbiology 03/17/17 Blood Culture - Preliminary, Resulted No Growth after 72 hours. All specime... 03/17/17 Blood Culture - Preliminary, Resulted No Growth after 72 hours. All specime... 03/18/17 Gastrointestinal Tract Panel (PCR) - Final, Complete Clostridium Difficile A/B 03/18/17 MRSA Screen - Final, Complete Staph.aureus Methicillin Resis 03/17/17 Urine Culture - Final, Complete Proteus Mirabilis EDGARDO MONAE MD Mar 22, 2017 10:27
[2017-03-22] MEDS ORDERED: VANCOMYCIN ORAL SOL 250MG/5ML ORAL SYRINGE PO SCH (11:00)
[2017-03-22] MEDS: KCL 20MEQ IN 0.45NS 1000ML 1,000 ML IV SCH (11:41)
[2017-03-22] MEDS: cefTRIAXone SOD 1 GM in D5W 50 ML IV SCH (11:41)
[2017-03-22] MEDS: VANCOMYCIN ORAL SOL 250MG/5ML ORAL SYRINGE PO SCH ×3 (12:23→23:58)
[2017-03-22 12:37] VITALS: BP 96/52
[2017-03-22 16:24] VITALS: BP 89/52
[2017-03-22 19:32] VITALS: BP 98/52
[2017-03-22] MEDS: TAMSULOSIN 0.4 MG CAP PO SCH (20:52)
[2017-03-23] VITALS: BP 90/58
--- NOTE | 2017-03-23 00:33 | IPN ---
DATE OF SERVICE: 03/21/2017 SUBJECTIVE: Patient was seen and examined at the bedside today morning. He is much more awake and alert. He is hemodynamically stable. Renal function continues to improve at this time and his acidosis is also improving. REVIEW OF SYSTEMS: Patient denies any fever or chills, rigors. He denies any chest pain, shortness of breath. He denies any pain abdomen, constipation, or diarrhea. Rest of review of systems is negative. OBJECTIVE: Vital signs: Temperature is 98.2 degrees Fahrenheit. Blood pressure is 89/51. Pulse is 97, respiratory rate of 18, saturating 99% on room air. Intake and output: Urine output recorded as 3.2 liters yesterday, 850 mL so far today since overnight. Weight on the bed scale is 42.7 kg. PHYSICAL EXAMINATION: GENERAL: Patient is awake, alert and oriented times two lying in bed. No apparent distress. Patient is very weak, cachectic. HEAD/NECK: Patient has bilateral temporal wasting. Mucous membranes are otherwise moist. Neck is supple. There is no jugular venous distention (JVD). CARDIOVASCULAR: S1, S2, regular rate. No murmur, rub or gallop. RESPIRATORY: Chest is clear to auscultation bilaterally. Bilateral equal air entry. No rales or rhonchi. ABDOMEN: Soft, nontender. No ascites. No organomegaly. GENITOURINARY: Patient has a [place] catheter. Urine in the bag is getting clear now. MUSCULOSKELETAL: Patient has contractures of his extremities. There is no edema. Pulses are 2+. CENTRAL NERVOUS SYSTEM: The patient is oriented times two. He follows commands and he is able to communicate. PSYCHIATRIC: Appropriate mood and affect. LABORATORY REVIEW: CBC showed WBC 11.3, hemoglobin 8.9, platelets are 696. BMP showed sodium 141, potassium 4.3, chloride 111. Bicarbonate is 22, BUN 44, creatinine is 1.9. Calcium is 7.8. Magnesium is 2.1. Microbiology: Urine culture sent on 03/17/2017 came back as proteus, which is sensitive to Rocephin. CURRENT INPATIENT MEDICATIONS: Patient's medications were all reviewed by me. He continues to be on intravenous (IV) Rocephin 1 gram daily. I have started the patient on half-normal saline at 60 mL/h. IV bicarbonate drip has been stopped. Vancomycin has also been stopped. ASSESSMENT: 66-year-old male severely debilitated, chronically bedridden, cachectic, admitted this time because of sepsis secondary to urinary tract infection, acute renal failure and failure to thrive. PLAN: 1. Acute kidney injury. It was secondary to sepsis, dehydration, volume depletion and urinary tract infection. Patient continues to improve. Continue the Mag[place] at this time. Stop the intravenous (IV) bicarbonate fluid. I have changed the fluid to half-normal saline. 2. Urinary tract infection. Patient is growing proteus, which is sensitive to Rocephin. Continue current dose of Rocephin at this time. 3. Clostridium (C) difficile colitis. Continue current dose of Flagyl. 4. Metabolic acidosis. It was secondary to acute kidney injury. Bicarbonate level has improved to 22 at this time. IV bicarbonate has been stopped now. Further improvement in the bicarbonate is expected with improvement in the renal function. 5. Anemia. Patient's hemoglobin was 7.1. He was given one unit of packed red blood cells (PRBC) transfusion. Hemoglobin has improved to 8.9 today. 6. Protein calorie malnutrition. Continue to encourage oral diet. Patient was bed bound and he was unable to feed himself at home. Continue Ensure with the diet.
[2017-03-23 04:50] VITALS: BP 98/52
[2017-03-23] MEDS: VANCOMYCIN ORAL SOL 250MG/5ML ORAL SYRINGE PO SCH (05:07)
[2017-03-23] MEDS: SLF 3 ML SYR IV SCH ×3 (05:08→21:37)
[2017-03-23] MEDS: HEPARIN SOD (PORCINE) 5000 UNITS/ML VIAL SC SCH ×3 (05:08→21:27)
[2017-03-23] MEDS: ACETAMINOPHEN TAB 650MG DOSE (2X325MG) PO PRN (05:08)
[2017-03-23] MEDS: KCL 20MEQ IN 0.45NS 1000ML 1,000 ML IV SCH ×2 (05:08→21:37)
[2017-03-23 05:34] LABS: MEAN CORPUSCULAR HEMOGLOBIN 27.6 pg (27.0-33.0); MEAN CORPUSCULAR VOLUME 83.8 fl (80.0-96.0); PLATELET COUNT, AUTOMATED 689 10^3/uL (150-450); RED CELL DISTRIBUTION WIDTH 16.7 % (11.5-14.5); WHITE BLOOD COUNT 11.8 10^3/uL (4.0-10.0)
[2017-03-23 05:57] LABS: ANION GAP 7 MEQ/L (8-16); BLOOD UREA NITROGEN 25 MG/DL (7-18); CARBON DIOXIDE LEVEL 25 MEQ/L (21-32); CHLORIDE LEVEL 106 MEQ/L (98-107); CREATININE FOR GFR 1.24 MG/DL (0.70-1.30); GLOMERULAR FILTRATION RATE > 60.0 (>49); GLUCOSE, FASTING 89 MG/DL (80-110); MAGNESIUM LEVEL 1.9 MG/DL (1.8-2.4); POTASSIUM SERUM 4.3 MEQ/L (3.5-5.1); SODIUM LEVEL 138 MEQ/L (136-145)
[2017-03-23 08:00] VITALS: BP 87/55
--- NOTE | 2017-03-23 08:37 | CR ---
DATE OF CONSULTATION: 03/23/2017 CONSULTATION FOR: Dr. Rizvi COMPLAINT: Right hip pain, longstanding. HISTORY: This is a 66-year-old gentleman with a long history of right hip pain. He said this has been bothering him since September when he went to [facility] to try to get cleared from a methicillin-resistant Staphylococcus aureus (MRSA) infection. He was admitted with altered mental status on the . There was mention of renal insufficiency. He said that since September he has not been able to ambulate, he has been somewhat contracted in his lower extremities. He complains of right hip pain. He also was noted to have some congestive heart failure and was hypotensive on admission. PAST MEDICAL HISTORY: Prior to this is notable for osteoporosis, eczema and diverticulosis. PAST SURGICAL HISTORY: Denies any. SOCIAL HISTORY: Has smoked since 5 years of age. HOME MEDICATIONS: - aspirin - Flomax - tramadol REVIEW OF SYSTEMS: Otherwise unremarkable for any current skin conditions. Musculoskeletal: As noted above. Cardiovascular and Respiratory: As noted above. PHYSICAL EXAMINATION: He is alert, frail, lays in the bed in somewhat contracted, almost position. HEENT: Extraocular muscles intact. His abdomen appears benign. He seems to have a regular rate and rhythm to his pulse. He keeps his right hip flexed above 90 degrees. He can move his toes well distally, but any sort of motion of the right hip is uncomfortable for him. Previous x-rays were pretty limited due to his contractures of his lower extremities. His CT scan of his abdomen and pelvis showed severe right hip osteoarthritis. CT scan showed not only the severe arthritis, but maybe even some subtle impaction of the femoral head which is related to arthritis, not necessarily from a trauma. IMPRESSION: Frail 66-year-old gentleman with history of MRSA endocarditis and urosepsis bacteremia in September who was treated at [facility] at that point. He has extensive osteoarthritis of his right hip and cystic formation, even a little bit of subchondral collapse. I reviewed the CT scan and plain x-rays. RECOMMENDATIONS: At this point, I do not think he is a candidate certainly in my hands for a hip replacement. This might be something that could be addressed at [facility] since he has had treatment there. I think the risk would be too high and it would be a very complicated surgery given his contractures. I would suggest that we try an intra-articular steroid injection of some Kenalog and see if that helps him. That might give him some temporary relief and might confirm that it is the hip joint that is causing the pain. He is very much interested in doing that. He understands the risk of infection and drug reaction. This will be ordered at this point, but I do not have any other further options for this patient. Again, he could follow up at [facility] down the road to see if they would consider doing a hip replacement, but that certainly us not something I would be willing to attempt. I discussed this with him.
[2017-03-23] MEDS: cefTRIAXone SOD 1 GM in D5W 50 ML IV SCH (09:08)
[2017-03-23] MEDS: DIGOXIN 0.0625MG PER 1/2TABLET PO SCH (09:08)
[2017-03-23] MEDS: ASPIRIN 81 MG ENTERIC TAB PO SCH (09:09)
[2017-03-23] MEDS: metroNIDAZOLE (FLAGYL) 500 MG TAB PO SCH (09:09)
[2017-03-23] MEDS ORDERED: CONRAY-43 43% 50ML VIAL (Q9960) As Ordered ONE (09:19)
[2017-03-23] MEDS ORDERED: TRIAMCINOLONE ACETONIDE SUSP 40 MG/ML VIAL (J3301) As Ordered ONE (09:19)
[2017-03-23] MEDS ORDERED: LIDOCAINE 1% MDV 20ML VIAL As Ordered ONE (09:19)
--- NOTE | 2017-03-23 10:44 | IPNPDOC ---
Subjective Date Seen The patient was seen on 03/23/17. Subjective Chief Complaint/HPI Patient seen and examined at bedside. States that he is still having persistent diarrhea, but it is becoming more formed. Denies any other acute complaints at this time. Objective Physical Examination General Exam: Positive: Alert, Cooperative, No Acute Distress, Other (appears cachectic with bitemporal wasting) Eye Exam: Negative: Sclera icteric ENT Exam: Positive: Atraumatic, Mucous membr. moist/pink Neck Exam: Negative: JVD Chest Exam: Positive: Clear to auscultation, Normal air movement Heart Exam: Positive: Rate Normal, Regular Rhythm, Normal S1, Normal S2 Abdomen Exam: Positive: Soft, Negative: Tenderness Extremity Exam: Positive: Normal pulses, Tenderness, Other (both legs are contracted. ), Negative: Clubbing, Cyanosis, Edema Psych Exam: Positive: Oriented x 3 Assessment /Plan Plan/VTE VTE Prophylaxis Ordered?: Yes Plan Anticipated Discharge: Longterm Acute Renal Failure 2/2 C. Diff, Obstructive Uropathy, resolved Serum Cr down to 1.24 this AM (Baseline ~1.3) IVF Hydration Hold Nephrotoxins Renal U/S notable for Bilateral hydronephrosis right > left -- no urological intervention was deemed necessary as the patient's serum creatinine was improving after placement of [place] catheter, IV fluid hydration Repeat CT Scan of the Abd from 03/22 noted--Will follow up with Urology regarding further recommendations Appreciate nephrology and urology input Obstructive uropathy Renal U/S notable for Bilateral hydronephrosis right > left -- no urological intervention was deemed necessary as the patient's serum creatinine was improving after placement of [place] catheter , IV fluid hydration Repeat CT Scan of the Abd on 03/22 noted We will follow-up with urology recommendations C. difficile The patient reports that his diarrhea was worse overnight Cont PO Vancomycin, Flagyl Severe Right Hip Arthritis with possible subtle impaction of Femoral Head noted on CT Patient unable to tolerate an MRI of the Hip Ortho consulted, and input appreciated--Patient will receive an intra-articular steroid injection of Kenalog Patient not a surgical candidate at this time, can follow up with [facility] in the future for further evaluation Urinary tract infection UA suggestive of possible Continue on Rocephin History of diastolic congestive heart failure Currently not volume overloaded History of endocarditis Status post treatment Severe protein calorie malnutrition By mouth intake encouraged Physical deconditioning, bilateral lower extremity/contractures Physical therapy ordered DVT prophylaxis Subcutaneous heparin Dispo--pending clinical improvement, physical therapy. Patient will need group home placement--PFS on board VS, I&O, 24H, Fishbone Vital Signs/I&O Vital Signs Date Time Temp Pulse Resp B/P (MAP) Pulse Ox O2 Delivery O2 Flow Rate FiO2 03/23/17 09:08 57 03/23/17 08:02 Room Air 03/23/17 08:00 98.0 18 87/55 (66) 98 I&O- Last 24 Hours up to 6 AM 03/24/17 06:00 Intake Total 0 ml Output Total 0 ml Balance 0 ml Laboratory Data 24H LABS Laboratory Tests 2 03/23/17 05:13: Nucleated Red Blood Cells % (auto) 0.0, Anion Gap 7L, Glomerular Filtration Rate > 60.0, Blood Urea Nitrogen 25H, Creatinine 1.24, Sodium Level 138, Potassium Level 4.3#, Chloride Level 106, Carbon Dioxide Level 25, Calcium Level 8.0L, Magnesium Level 1.9 CBC/BMP Laboratory Tests 03/23/17 05:13 Red Blood Count 3.51 L, Mean Corpuscular Volume 83.8, Mean Corpuscular Hemoglobin 27.6, Mean Corpuscular Hemoglobin Concent 33.0, Red Cell Distribution Width 16.7 H, Calcium Level 8.0 L Microbiology Microbiology 03/17/17 Blood Culture - Final, Complete NO GROWTH AFTER 5 DAYS 03/17/17 Blood Culture - Final, Complete NO GROWTH AFTER 5 DAYS 03/18/17 Gastrointestinal Tract Panel (PCR) - Final, Complete Clostridium Difficile A/B 03/18/17 MRSA Screen - Final, Complete Staph.aureus Methicillin Resis 03/17/17 Urine Culture - Final, Complete Proteus Mirabilis EDGARDO MONAE MD Mar 23, 2017 10:44
--- NOTE | 2017-03-23 11:15 | IPN ---
DATE OF SERVICE: 03/22/2017 SUBJECTIVE: Patient was seen and examined at the bedside today morning. Patient is hemodynamically stable. His renal function continues to improve, however, patient reported that he was having a lot of diarrhea despite being on Flagyl for Clostridium colitis. REVIEW OF SYSTEMS: Patient denies any fever or chills, rigors, headache, chest pain, shortness of breath. He does report loose stools. He denies any pain in abdomen. Rest of review of system is negative. OBJECTIVE: Vital signs: Temperature is 97.8 degrees Fahrenheit, blood pressure 97/50, pulse 93, respiratory rate of 18, saturating 96% on room air. Intake and output: Urine output recorded as 2.7 liter yesterday, 575 mL so far today since overnight. Weight on the bed scale is 39.9 kg. PHYSICAL EXAMINATION: General: Patient is awake, alert, oriented times two, lying in bed, body weak and cachectic. Head and neck exam: Pupils equally round and reactive to light. Patient has bitemporal wasting. There is no jugular venous distention (JVD). Cardiovascular: S1, S2, regular rate. No murmur, rub or gallop. Respiratory: Chest is clear to auscultation bilaterally. Bilateral equal air entry. No rales or rhonchi. Abdomen is soft, mildly tender to deep palpation. No ascites. No organomegaly. Genitourinary: Patient has an indwelling [place] catheter. Urine in the bag is getting clearer now. Musculoskeletal: Patient has contractures of the extremities. Otherwise no edema. Pulses are 2+. Central nervous system: Patient is oriented times two. He follows commands but he is unable to walk at this time. Psych: Appropriate mood and affect. LAB REVIEW: CBC showed WBC 10.7, hemoglobin is 9, platelets are 672. BMP showed sodium 138, potassium 3.3, chloride 107, bicarbonate 22, BUN 29, creatinine is 1.4. Calcium 7.9, magnesium is 1.7. CURRENT INPATIENT MEDICATIONS: Patient's medications were all reviewed by me. He continues to be IV Rocephin, last dose will be on March 26. I changes his IV fluid to KCL 20 mEq and half normal saline at 60 mL/hr. He has been started on oral vancomycin 250 mg every 6 hours. Patient was also given potassium chloride 40 mEq by mouth times one dose. ASSESSMENT: 66-year-old male who is severely debilitated, chronically bedridden, very cachectic with malnutrition admitted this time because of sepsis secondary to urinary tract infection, obstructive uropathy and acute renal failure. PLAN: 1. Acute kidney injury secondary to obstructive uropathy. Bilateral hydroureteronephrosis. Patient has an indwelling [place] catheter at this time. Patient also has urinary tract infection. Renal function continues to improve. Continue the IV fluids. I have changed the IV fluids to half normal saline plus 20 mEq KCL. 2. Urinary tract infection secondary to proteus mirabilis. Patient continues to be on IV Rocephin. Urine is getting clearer. I would have patient's [place] catheter changed today. 3. Clostridium difficile colitis. Patient is on oral Flagyl. He continues to have diarrhea. We also have to continue the IV antibiotics at this time to cover urinary tract infection. Oral vancomycin was added by primary team. I have increased the vancomycin dose to 250 mg by mouth every 6 hours. 4. Hypokalemia. Patient was given a dose of potassium chloride 40 mEq by mouth by the primary team. He is having hypokalemia because of diarrhea and post obstructive diuresis. I had added potassium to the IV fluids at this time. 5. Anemia. Patient's hemoglobin is stable at 9. He got 1 unit of packed red blood cell transfusion during this admission. 6. Protein calorie malnutrition. Patient's oral intake has been improving. He is getting Ensure with his meals. Nutrition status is expected to improve after his Clostridium difficile gets better.
[2017-03-23 12:00] VITALS: BP 137/66
--- NOTE | 2017-03-23 13:04 | REP ---
RIGHT HIP ARTHROGRAM: The procedure is performed by ELIANE Venegas under the direct supervision of Dr. Carreon. The procedure, along with its risks, benefits, and complications was discussed with the patient prior to the examination. Informed consent was obtained both verbally and written. The right femoral head was localized using fluoroscopic guidance. The skin was marked, prepped, and draped in the usual sterile fashion. A procedural time-out was performed to ensure that the correct patient, site, and procedure were being performed. Local infiltrative anesthesia was achieved using 1% lidocaine. Under fluoroscopic observation, a 22-gauge spinal needle was inserted and advanced to the femoral head. 0.5 mL of Conray 43 was injected to verify needle placement. 6 mL of a solution containing 5 mL of 1% lidocaine and 1 mL of Kenalog 40 was injected into the joint space. The needle was then removed. The patient tolerated the procedure well and had no immediate complications. 21.7 seconds of fluoroscopy time were utilized for this procedure. Reviewed by ELIANE Monroy 03/23/2017 04:00 PEdited and Signed by Awais Carreon MD 03/23/2017 05:19 P
[2017-03-23] MEDS: FIDAXOMICIN 200 MG TAB (DIFICID) PO SCH ×2 (14:25→21:27)
[2017-03-23 16:00] VITALS: BP 110/55
[2017-03-23] MEDS: PERCOCET 5MG/325MG TAB PO PRN ×2 (18:06→21:28)
[2017-03-23 20:00] VITALS: BP 105/53
[2017-03-23] MEDS: TAMSULOSIN 0.4 MG CAP PO SCH (21:27)
--- NOTE | 2017-03-23 22:17 | IPN ---
DATE: 03/23/2017 SUBJECTIVE: The patient was seen and examined at the bedside today morning. He continues to be on IV fluids. Renal function continues to improve, however, he does report that his frequency of diarrhea is getting worse despite being on by mouth (p.o.) Flagyl and by mouth vancomycin. The patient also reports pain and decreased range of movement of the right leg. REVIEW OF SYSTEMS: The patient denies any fever, chills, rigors. He denies any chest pain, shortness of breath. He does report mild pain in abdomen and persistent diarrhea. He denies any lower extremity edema. He does report pain and decreased range of movement of the right leg. The rest of review of systems is negative. OBJECTIVE: Temperature is 98 degrees Fahrenheit. Blood pressure is 87/55. Pulse is 95, respiratory rate of 18, saturating 98% on room air. Intake and output" Urine output recorded is 1.9 liters yesterday, 1 liter so far today since overnight. Weight on the bed scale is stable at 39.5 kg. The patient had 8 bowel movements yesterday. 10 bowel movements so far today since overnight. PHYSICAL EXAMINATION: GENERAL: The patient is awake, alert and oriented times two. Laying in bed. Very weak and cachectic. HEAD/NECK: Extraocular muscles intact. Pupils equally round and reactive to light. The patient has bitemporal wasting. CARDIOVASCULAR: S1, S2, irregular rate. No murmur, rub or gallop. RESPIRATORY: Chest is clear to auscultation bilaterally. Bilateral equal air entry. No rales or rhonchi. ABDOMEN: Soft. Mildly tender to deep palpation. No ascites. No organomegaly. GENITOURINARY: The patient has an indwelling [place] catheter. Urine in the bag is clear. MUSCULOSKELETAL: The patient has contracture of the right leg and he is unable to move the right leg. He is able to move the left extremity and patient's range of movement of the upper extremity is improving. CENTRAL NERVOUS SYSTEM: The patient is oriented times two. He is able to communicate but patient is unable to walk at this time. PSYCHIATRIC: Normal mood and affect. LABORATORY RESULTS: CBC showed a WBC of 11.8, hemoglobin 9.7, platelets are 689. BMP showed sodium 138, potassium 4.3, chloride 106, bicarbonate 25, BUN 25, creatinine is 1.24. Calcium 8, magnesium 1.9. CURRENT INPATIENT MEDICATIONS: The patient's medication were all reviewed by me. He continues to be on IV Rocephin 1 gram daily, last dose will be on March 26, 2017. He continues to be on IV fluid at 60 mL an hour. Has stopped his Flagyl and vancomycin. The patient has been started on Dificid 200 mg by mouth twice a day. There is no other change in the medications today as compared with yesterday. ASSESSMENT: 66-year-old male severely debilitated, chronically bed ridden, cachectic and malnourished admitted this time because of sepsis secondary to urinary tract infection, obstructive uropathy, acute renal failure and C. difficile colitis. PLAN: 1. Acute kidney injury secondary to obstructive uropathy. The patient continues to have [place] catheter. Urine output is good. Continue IV fluid hydration. Renal function continues to improve. 2. Urinary tract infection secondary to proteus mirabilis. Continue IV Rocephin. Last dose will be on March 26, 2017. 3. C. difficile colitis. The patient continues to have loose stools. He was started on vancomycin yesterday, however, the frequency of loose stools is not improving. I am going to stop Flagyl and vancomycin. The patient is going to be started on Dificid 200 mg by mouth twice a day for 10 days. 4. Protein calorie malnutrition. Continue to encourage oral hydration. Continue to give Ensure with meals and treatment of C. difficile is as mentioned above. 5. Pain in the right hip. The patient is going to get an intraarticular steroid injection by orthopedic surgery. 6. Hypokalemia. Potassium level has improved. Continue the potassium 20 mEq in the IV fluids.
[2017-03-24] VITALS: BP 88/54
[2017-03-24 05:12] VITALS: BP 102/60
[2017-03-24] MEDS: ACETAMINOPHEN TAB 650MG DOSE (2X325MG) PO PRN (05:27)
[2017-03-24] MEDS: HEPARIN SOD (PORCINE) 5000 UNITS/ML VIAL SC SCH ×3 (05:27→20:30)
[2017-03-24] MEDS: SLF 3 ML SYR IV SCH ×3 (05:27→20:30)
[2017-03-24 05:35] LABS: MEAN CORPUSCULAR HEMOGLOBIN 27.6 pg (27.0-33.0); MEAN CORPUSCULAR HGB CONC 32.9 g/dl (32.0-36.5); PLATELET COUNT, AUTOMATED 727 10^3/uL (150-450); RED CELL DISTRIBUTION WIDTH 16.7 % (11.5-14.5)
[2017-03-24 05:56] LABS: ANION GAP 8 MEQ/L (8-16); BLOOD UREA NITROGEN 25 MG/DL (7-18); CALCIUM LEVEL 7.8 MG/DL (8.8-10.2); CARBON DIOXIDE LEVEL 23 MEQ/L (21-32); CHLORIDE LEVEL 103 MEQ/L (98-107); CREATININE FOR GFR 1.13 MG/DL (0.70-1.30); GLOMERULAR FILTRATION RATE > 60.0 (>49); GLUCOSE, FASTING 132 MG/DL (80-110); MAGNESIUM LEVEL 1.6 MG/DL (1.8-2.4); SODIUM LEVEL 134 MEQ/L (136-145)
[2017-03-24 06:00] LABS: POTASSIUM SERUM 5.2 MEQ/L (3.5-5.1)
[2017-03-24] MEDS ORDERED: MAG SULF 1GM/100ML (MAG RUN) 1 GM in APPROPRIATE DILUENT 1 EA IV ONE (06:45)
[2017-03-24] MEDS ORDERED: NS 0.45% 1,000 ML IV SCH (06:45)
[2017-03-24 08:00] VITALS: BP 102/56
[2017-03-24] MEDS ORDERED: NS 1,000 ML IV SCH (08:00)
[2017-03-24] MEDS: FIDAXOMICIN 200 MG TAB (DIFICID) PO SCH ×2 (08:56→20:29)
[2017-03-24] MEDS: DIGOXIN 0.0625MG PER 1/2TABLET PO SCH (08:56)
[2017-03-24] MEDS: ASPIRIN 81 MG ENTERIC TAB PO SCH (08:57)
[2017-03-24] MEDS: PERCOCET 5MG/325MG TAB PO PRN ×3 (08:58→20:29)
[2017-03-24] MEDS: cefTRIAXone SOD 1 GM in D5W 50 ML IV SCH (08:59)
[2017-03-24 11:28] VITALS: BP 82/50
--- NOTE | 2017-03-24 11:51 | IPNPDOC ---
Subjective Date Seen The patient was seen on 03/24/17. Subjective Chief Complaint/HPI Patient seen and examined at the bedside. States that he is feeling much better this morning, and notes that his diarrhea dissipated overnight. Objective Physical Examination General Exam: Positive: Alert, Cooperative, No Acute Distress, Other (appears cachectic with bitemporal wasting) Eye Exam: Negative: Sclera icteric ENT Exam: Positive: Atraumatic, Mucous membr. moist/pink Neck Exam: Negative: JVD Chest Exam: Positive: Clear to auscultation, Normal air movement Heart Exam: Positive: Rate Normal, Regular Rhythm, Normal S1, Normal S2 Abdomen Exam: Positive: Soft, Negative: Tenderness Extremity Exam: Positive: Normal pulses, Other (both legs are contracted. ), Negative: Clubbing, Cyanosis, Edema, Swelling Psych Exam: Positive: Oriented x 3 Assessment /Plan Plan/VTE VTE Prophylaxis Ordered?: Yes Plan Anticipated Discharge: Correction Acute Renal Failure 2/2 C. Diff, Obstructive Uropathy, resolved Serum Cr back to baseline s/p IVF Hydration Renal U/S notable for Bilateral hydronephrosis right > left -- no urological intervention was deemed necessary as the patient's serum creatinine was improving after placement of [place] catheter, IV fluid hydration Repeat CT Scan of the Abd from 03/22 noted--Dr. Oakley notes that the patient does not require any urologic intervention at this time, and can be D/C' d with a de la fuente catheter to gravity, with R0htwouk changes, and follow up as an outpatient with Urology for further monitoring. Appreciate nephrology and urology input Obstructive uropathy Renal U/S notable for Bilateral hydronephrosis right > left -- no urological intervention was deemed necessary as the patient's serum creatinine was improving after placement of [place] catheter , IV fluid hydration Repeat CT Scan of the Abd on 03/22 noted--Dr. Oakley notes that the patient does not require any urologic intervention at this time, and can be D/C'd with a de [place] fuente catheter to gravity, with U0misnds changes, and follow up as an outpatient with Urology for further monitoring. C. difficile On dificid Diarrhea has abated Will cont to monitor Severe Right Hip Arthritis with possible subtle impaction of Femoral Head noted on CT Patient unable to tolerate an MRI of the Hip Ortho consulted, and input appreciated--s/p Intra-articular injection of Kenalog on 03/23 with subsequent improvement of discomfort/ROM Patient not a surgical candidate at this time, can follow up with [facility] in the future for further evaluation Urinary tract infection UA suggestive of possible Continue on Rocephin History of diastolic congestive heart failure Currently not volume overloaded History of endocarditis Status post treatment Severe protein calorie malnutrition By mouth intake encouraged Physical deconditioning, bilateral lower extremity/contractures Physical therapy ordered DVT prophylaxis Subcutaneous heparin Dispo--pending clinical improvement, physical therapy. Patient will possibly need prison placement--PFS on board VS, I&O, 24H, Fishbone Vital Signs/I&O Vital Signs Date Time Temp Pulse Resp B/P (MAP) Pulse Ox O2 Delivery O2 Flow Rate FiO2 03/24/17 11:38 Room Air 03/24/17 11:28 97.0 77 20 82/50 (61) 98 I&O- Last 24 Hours up to 6 AM 03/25/17 06:00 Intake Total 60 ml Balance 60 ml Laboratory Data 24H LABS Laboratory Tests 2 03/24/17 05:21: Nucleated Red Blood Cells % (auto) 0.0, Anion Gap 8, Glomerular Filtration Rate > 60.0, Blood Urea Nitrogen 25H, Creatinine 1.13, Sodium Level 134L, Potassium Level 5.2H, Chloride Level 103, Carbon Dioxide Level 23, Calcium Level 7.8L, Magnesium Level 1.6L CBC/BMP Laboratory Tests 03/24/17 05:21 Red Blood Count 3.62 L, Mean Corpuscular Volume 84.0, Mean Corpuscular Hemoglobin 27.6, Mean Corpuscular Hemoglobin Concent 32.9, Red Cell Distribution Width 16.7 H, Calcium Level 7.8 L Microbiology Microbiology 03/17/17 Blood Culture - Final, Complete NO GROWTH AFTER 5 DAYS 03/17/17 Blood Culture - Final, Complete NO GROWTH AFTER 5 DAYS 03/18/17 Gastrointestinal Tract Panel (PCR) - Final, Complete Clostridium Difficile A/B 03/18/17 MRSA Screen - Final, Complete Staph.aureus Methicillin Resis 03/17/17 Urine Culture - Final, Complete Proteus Mirabilis EDGARDO MONAE MD Mar 24, 2017 11:51
[2017-03-24 14:32] LABS: MAGNESIUM LEVEL 1.8 MG/DL (1.8-2.4)
[2017-03-24 14:48] LABS: POTASSIUM SERUM 5.2 MEQ/L (3.5-5.1)
[2017-03-24] MEDS ORDERED: SOD POLYSTYRENE SULFONATE SUSP 15 GM/60 ML UD PO ONE (16:30)
[2017-03-24 18:45] VITALS: BP 101/56
--- NOTE | 2017-03-24 18:52 | IPN ---
DATE: 03/24/2017 SUBJECTIVE: Patient was seen and examined at the bedside today morning. He is hemodynamically stable. Renal function is stable. He continues to be on intravenous (IV) fluid. Patient reports that his diarrhea is significantly better today. He was started on Dificid yesterday. REVIEW OF SYSTEMS: Patient denies any fevers, chills, rigors, chest pain, shortness of breath, pain in abdomen. As mentioned above, patient's diarrhea is significantly better. He continues to report inability to walk. Rest of review of systems is negative. OBJECTIVE: VITAL SIGNS: Temperature is 97 degrees Fahrenheit, blood pressure is 82/50, pulse is 77, respiratory rate of 18, saturating 98% on room air. Intake and output: Urine output recorded as 1.7 liters yesterday, 475 mL so far today since overnight. Patient had 16 bowel movements yesterday, and he has had no bowel movements so far today since overnight. Weight in the bed scale is stable at 38.7 kg. PHYSICAL EXAMINATION: GENERAL: Patient is awake, alert, oriented times three, lying in bed, weak and cachectic. HEAD AND NECK: Extraocular muscles intact. Pupils equally round and reactive to light. Patient is bitemporal wasting. CARDIOVASCULAR: S1, S2, irregular heart rate. No murmur, rub, or gallop. RESPIRATORY: Chest is clear to auscultation bilaterally. Bilateral equal air entry. No rales or rhonchi. ABDOMEN: Soft. Positive bowel sounds. Nontender. No ascites. No organomegaly. GENITOURINARY: Patient has an indwelling [place] catheter. Urine in the bag is clear. MUSCULOSKELETAL: Patient has contracture of the right leg and inability to move because of pain. Patient is unable to walk. Otherwise no clubbing or cyanosis. CENTRAL NERVOUS SYSTEM: No focal neurological deficit. Patient is oriented times three. He is able to follow commands. He is able to communicate. Patient is unable to walk because of arthritis. PSYCHIATRIC: Normal mood and affect. LABORATORY REVIEW: CBC showed a WBC of 7, hemoglobin is 10, platelets are 727. BMP showed sodium 134, potassium 5.2, chloride 103, bicarbonate 23, BUN 25, creatinine is 1.1, calcium 7.8, magnesium 1.6. CURRENT INPATIENT MEDICATIONS: Patient's medications were all reviewed by me. He continues to be on intravenous (IV) Rocephin. Last dose will be on March 26. I have stopped his IV fluids. Patient is going to get a dose of magnesium sulfate 1 gram IV times one dose. He was started on Dificid yesterday. Vancomycin and Flagyl have been stopped. ASSESSMENT: A 66-year-old male, severely debilitated, chronically bedridden, cachectic, malnourished, admitted at this time because of sepsis secondary to urinary tract infection, obstructive uropathy, acute renal failure, and urinary tract infection (UTI) along with Clostridium (C) difficile colitis. 1. Acute kidney injury secondary to obstructive uropathy, and UTI. Patient's renal function continues to improve. I have stopped the IV fluids at this time. Continue the [place] catheter at this time. Patient has a good urine output. Continue to encourage oral hydration. 2. Urinary tract infection secondary to proteus mirabilis. Continue IV Rocephin. Last dose will be 03/26/2017. 3. C. difficile colitis. Patient was not responding well to oral vancomycin and by mouth Flagyl. These two antibiotics were stopped yesterday. Patient was started on Dificid yesterday, and he reports significant improvement in his diarrhea at this time. 4. Protein calorie malnutrition. Patient's oral intake is improving. His diarrhea is also getting better. Continue Ensure with meals. Nutritional status will improve now since his diarrhea is improved. 5. Hyperkalemia. Patient was given potassium supplement and IV potassium in the intravenous (IV) fluids as well. Potassium is 5.2, which is borderline. IV potassium-containing fluids have been stopped. Potassium level is expected to improve with further diuresis. No need of Kayexalate administration in this patient, because he has history of persistent diarrhea secondary to C. difficile. 6. Hyponatremia. It is most likely secondary to IV fluid administration. IV fluids have been stopped. Sodium level is expected to get better.
[2017-03-24] MEDS: TAMSULOSIN 0.4 MG CAP PO SCH (20:30)
[2017-03-24 22:00] VITALS: BP 93/52
[2017-03-25 05:17] VITALS: BP 92/56
[2017-03-25] MEDS: HEPARIN SOD (PORCINE) 5000 UNITS/ML VIAL SC SCH ×3 (05:19→21:42)
[2017-03-25] MEDS: SLF 3 ML SYR IV SCH ×3 (05:19→21:42)
[2017-03-25] MEDS: PERCOCET 5MG/325MG TAB PO PRN ×4 (05:20→21:43)
[2017-03-25 07:02] LABS: ANION GAP 8 MEQ/L (8-16); BLOOD UREA NITROGEN 39 MG/DL (7-18); CALCIUM LEVEL 7.9 MG/DL (8.8-10.2); CARBON DIOXIDE LEVEL 25 MEQ/L (21-32); CHLORIDE LEVEL 104 MEQ/L (98-107); CREATININE FOR GFR 1.26 MG/DL (0.70-1.30); GLOMERULAR FILTRATION RATE > 60.0 (>49); GLUCOSE, FASTING 129 MG/DL (80-110); MAGNESIUM LEVEL 1.5 MG/DL (1.8-2.4); SODIUM LEVEL 137 MEQ/L (136-145)
[2017-03-25] MEDS: ASPIRIN 81 MG ENTERIC TAB PO SCH (09:42)
[2017-03-25] MEDS: DIGOXIN 0.0625MG PER 1/2TABLET PO SCH (09:42)
[2017-03-25] MEDS: FIDAXOMICIN 200 MG TAB (DIFICID) PO SCH ×2 (09:42→21:41)
[2017-03-25] MEDS: cefTRIAXone SOD 1 GM in D5W 50 ML IV SCH (09:43)
[2017-03-25] MEDS: LACTOBACILLUS ACIDOPHILUS CAP (BACID) PO SCH ×2 (11:34→21:41)
--- NOTE | 2017-03-25 12:25 | IPNPDOC ---
Subjective Date Seen The patient was seen on 03/25/17. Subjective Chief Complaint/HPI Patient seen and examined at the bedside. States that his diarrhea has returned , but it is not as voluminous as before. Reports that his appetite is also improved, and denies any c/o nausea/vomiting or abd pain. Objective Physical Examination General Exam: Positive: Alert, Cooperative, No Acute Distress, Other (appears cachectic with bitemporal wasting) Eye Exam: Negative: Sclera icteric ENT Exam: Positive: Atraumatic, Mucous membr. moist/pink Neck Exam: Negative: JVD Chest Exam: Positive: Clear to auscultation, Normal air movement Heart Exam: Positive: Rate Normal, Regular Rhythm, Normal S1, Normal S2 Abdomen Exam: Positive: Soft, Negative: Tenderness Extremity Exam: Positive: Normal pulses, Other (both legs are contracted. ), Negative: Clubbing, Cyanosis, Edema, Swelling Psych Exam: Positive: Oriented x 3 Assessment /Plan Plan/VTE VTE Prophylaxis Ordered?: Yes Plan Anticipated Discharge: [facility] Acute Renal Failure 2/ C. Diff, Obstructive Uropathy, resolved Serum Cr back to baseline s/p IVF Hydration Renal U/S notable for Bilateral hydronephrosis right > left -- no urological intervention was deemed necessary as the patient's serum creatinine was improving after placement of De La Fuente catheter, IV fluid hydration Repeat CT Scan of the Abd from 03/22 noted--Dr. Oakley notes that the patient does not require any urologic intervention at this time, and can be D/C' d with a de la fuente catheter to gravity, with [id number] changes, and follow up as an outpatient with Urology for further monitoring. Appreciate nephrology and urology input Obstructive uropathy Renal U/S notable for Bilateral hydronephrosis right > left -- no urological intervention was deemed necessary as the patient's serum creatinine was improving after placement of De La Fuente catheter , IV fluid hydration Repeat CT Scan of the Abd on 03/22 noted--Dr. Oakley notes that the patient does not require any urologic intervention at this time, and can be D/C'd with a de la fuente catheter to gravity, with [id number] changes, and follow up as an outpatient with Urology for further monitoring. C. difficile On dificid Diarrhea improving overall Will cont to monitor Severe Right Hip Arthritis with possible subtle impaction of Femoral Head noted on CT Patient unable to tolerate an MRI of the Hip Ortho consulted, and input appreciated--s/p Intra-articular injection of Kenalog on 03/23 with subsequent improvement of discomfort/ROM Patient not a surgical candidate at this time, can follow up with Frank Gray in the future for further evaluation Urinary tract infection UA suggestive of possible s/p Completion of Rocephin for 7 days History of diastolic congestive heart failure Currently not volume overloaded History of endocarditis Status post treatment Severe protein calorie malnutrition By mouth intake encouraged Physical deconditioning, bilateral lower extremity/contractures Physical therapy ordered DVT prophylaxis Subcutaneous heparin Dispo--pending clinical improvement, physical therapy. Patient will possibly need care home placement--PFS on board VS, I&O, 24H, Fishbone Vital Signs/I&O Vital Signs Date Time Temp Pulse Resp B/P (MAP) Pulse Ox O2 Delivery O2 Flow Rate FiO2 03/25/17 11:35 16 03/25/17 09:42 101 03/25/17 05:17 97.5 92/56 (68) 97 Room Air I&O- Last 24 Hours up to 6 AM 03/26/17 06:00 Intake Total 120 ml Balance 120 ml Laboratory Data 24H LABS Laboratory Tests 2 03/24/17 14:01: Magnesium Level 1.8 03/25/17 06:21: Magnesium Level 1.5L, Anion Gap 8, Glomerular Filtration Rate > 60.0, Blood Urea Nitrogen 39#H, Creatinine 1.26, Sodium Level 137, Potassium Level 4.0#, Chloride Level 104, Carbon Dioxide Level 25, Calcium Level 7.9L CBC/BMP Laboratory Tests 03/24/17 14:01 03/25/17 06:21 Calcium Level 7.9 L Microbiology Microbiology 03/17/17 Blood Culture - Final, Complete NO GROWTH AFTER 5 DAYS 03/17/17 Blood Culture - Final, Complete NO GROWTH AFTER 5 DAYS 03/18/17 Gastrointestinal Tract Panel (PCR) - Final, Complete Clostridium Difficile A/B 03/18/17 MRSA Screen - Final, Complete Staph.aureus Methicillin Resis 03/17/17 Urine Culture - Final, Complete Proteus Mirabilis EDGARDO MONAE MD Mar 25, 2017 12:25
[2017-03-25] MEDS: MAG SULF 1GM/100ML (MAG RUN) 1 GM in APPROPRIATE DILUENT 1 EA IV SCH ×3 (12:58→15:17)
[2017-03-25 14:00] VITALS: BP 105/52
--- NOTE | 2017-03-25 15:32 | IPN ---
DATE: 03/25/2017 SUBJECTIVE: Patient was seen and examined at the bedside today morning. Patient' s intravenous (IV) fluids were stopped yesterday. His renal function is stable, but patient reports that his diarrhea is coming back. He has about three loose bowel movements overnight. He continues to be on IV antibiotics at this time. REVIEW OF SYSTEMS: Patient denies any fevers, chills, rigors, chest pain, shortness of breath, pain in abdomen. He does report diarrhea, and he reports inability to walk and decreased range of movement of lower extremities. Rest of review of systems is negative. OBJECTIVE: VITAL SIGNS: Temperature is 97.5 degrees Fahrenheit, blood pressure 92/56, pulse is 84, respiratory rate of 17, saturating 97% on room air. Intake and output: Urine output recorded is 1.1 liter yesterday, 1 liter so far today since overnight. He has had four bowel movements so far today. Weight in the bed scale is not available. PHYSICAL EXAMINATION: GENERAL: Patient is awake, alert, oriented times three, lying in bed, weak and cachectic. HEAD AND NECK: Extraocular muscles intact. Pupils equally round and reactive to light. Patient as bitemporal wasting. CARDIOVASCULAR: S1, S2, regular heart rate. No murmur, rub, or gallop. RESPIRATORY: Chest is clear to auscultation bilaterally. Bilateral equal air entry. No rales or rhonchi. ABDOMEN: Soft. Positive bowel sounds. Nontender. No ascites. No organomegaly. GENITOURINARY: Patient has an indwelling [place] catheter. Urine in the bag is clear. MUSCULOSKELETAL: Patient has contracture of the right leg. Unable to walk. Otherwise no clubbing or cyanosis. CENTRAL NERVOUS SYSTEM: No focal neurological deficit. Power is 5/5 bilateral upper extremities. He has contracture of the right lower extremity, and he is unable to walk. PSYCHIATRIC: Normal mood and affect. LABORATORY REVIEW: CBC showed a WBC of 7, hemoglobin is 10. These labs are from yesterday. Today morning, BMP showed sodium 137, potassium 4, chloride 104, bicarbonate 25, BUN is 39, creatinine is 1.2, calcium 7.9, magnesium 1.5. CURRENT INPATIENT MEDICATIONS: Patient's medications were all reviewed by me. I have stopped the IV Rocephin because of patient's persistent diarrhea, and he continues to be on oral Dificid for Clostridium (C) difficile colitis. I have also started the patient on probiotic one capsule twice a day. Patient was given a dose of Kayexalate yesterday because of hyperkalemia. That is why he is having diarrhea. ASSESSMENT: A 66-year-old male, physically debilitated, chronically bedridden, cachectic, malnourished, admitted at this time because of sepsis secondary to urinary tract infection, obstructive uropathy, acute renal failure, and Clostridium difficile colitis. PLAN: 1. Acute kidney injury. Acute kidney injury (CINDY) was secondary to obstructive uropathy and urinary tract infection (UTI). Patient has an indwelling [place] catheter. Intravenous (IV) fluids were stopped yesterday. Renal function is stable. Continue to encourage oral hydration. 2. Urinary tract infection. UTI was secondary to Proteus. Patient was supposed to finish the course of antibiotics tomorrow, but I am going to stop the antibiotic today because of patient's persistent Clostridium (C) difficile. 3. C. difficile colitis. Patient is symptomatically significantly better with oral Dificid. Continue Dificid. IV antibiotics were stopped. 4. Protein calorie malnutrition. Continue to give Ensure with the meals. Patient's oral intake is improving. 5. Hyperkalemia. Potassium level is improved. Please avoid giving Kayexalate to this patient with C. difficile colitis and associated diarrhea. MTDD
[2017-03-25] MEDS: TAMSULOSIN 0.4 MG CAP PO SCH (21:42)
[2017-03-25 22:00] VITALS: BP 104/59
[2017-03-26] MEDS: PERCOCET 5MG/325MG TAB PO PRN ×3 (02:03→21:25)
[2017-03-26] MEDS: HEPARIN SOD (PORCINE) 5000 UNITS/ML VIAL SC SCH ×3 (05:46→21:19)
[2017-03-26] MEDS: SLF 3 ML SYR IV SCH ×3 (05:46→21:20)
[2017-03-26 06:00] VITALS: BP 97/56
[2017-03-26 06:57] LABS: MEAN CORPUSCULAR HEMOGLOBIN 27.3 pg (27.0-33.0); MEAN CORPUSCULAR HGB CONC 32.4 g/dl (32.0-36.5); MEAN CORPUSCULAR VOLUME 84.4 fl (80.0-96.0); PLATELET COUNT, AUTOMATED 649 10^3/uL (150-450); RED CELL DISTRIBUTION WIDTH 17.9 % (11.5-14.5); WHITE BLOOD COUNT 10.3 10^3/uL (4.0-10.0)
[2017-03-26 07:28] LABS: ANION GAP 9 MEQ/L (8-16); BLOOD UREA NITROGEN 38 MG/DL (7-18); CALCIUM LEVEL 8.2 MG/DL (8.8-10.2); CARBON DIOXIDE LEVEL 23 MEQ/L (21-32); CHLORIDE LEVEL 101 MEQ/L (98-107); CREATININE FOR GFR 1.18 MG/DL (0.70-1.30); GLOMERULAR FILTRATION RATE > 60.0 (>49); GLUCOSE, FASTING 93 MG/DL (80-110); SODIUM LEVEL 133 MEQ/L (136-145)
[2017-03-26] MEDS: LACTOBACILLUS ACIDOPHILUS CAP (BACID) PO SCH ×2 (08:39→21:19)
[2017-03-26] MEDS: ASPIRIN 81 MG ENTERIC TAB PO SCH (08:40)
[2017-03-26] MEDS: DIGOXIN 0.0625MG PER 1/2TABLET PO SCH (08:40)
[2017-03-26] MEDS: FIDAXOMICIN 200 MG TAB (DIFICID) PO SCH ×2 (08:40→21:19)
--- NOTE | 2017-03-26 10:38 | IPNPDOC ---
Subjective Date Seen The patient was seen on 03/26/17. Subjective Chief Complaint/HPI Patient seen and examined at the bedside. States that his diarrhea is improving , and notes that his appetite is significantly improved. Objective Physical Examination General Exam: Positive: Alert, Cooperative, No Acute Distress, Other (appears cachectic with bitemporal wasting) Eye Exam: Negative: Sclera icteric ENT Exam: Positive: Atraumatic, Mucous membr. moist/pink Neck Exam: Negative: JVD Chest Exam: Positive: Clear to auscultation, Normal air movement Heart Exam: Positive: Rate Normal, Regular Rhythm, Normal S1, Normal S2 Abdomen Exam: Positive: Soft, Negative: Tenderness Extremity Exam: Positive: Normal pulses, Other (both legs are contracted. ), Negative: Clubbing, Cyanosis, Edema, Swelling Psych Exam: Positive: Oriented x 3 Assessment /Plan Plan/VTE VTE Prophylaxis Ordered?: Yes Plan Anticipated Discharge: [facility] Acute Renal Failure 2/2 C. Diff, Obstructive Uropathy, resolved Serum Cr back to baseline s/p IVF Hydration Renal U/S notable for Bilateral hydronephrosis right > left -- no urological intervention was deemed necessary as the patient's serum creatinine was improving after placement of De La Fuente catheter, IV fluid hydration Repeat CT Scan of the Abd from 03/22 noted--Dr. Oakley notes that the patient does not require any urologic intervention at this time, and can be D/C' d with a de la fuente catheter to gravity, with [id number] changes, and follow up as an outpatient with Urology for further monitoring. Appreciate nephrology and urology input Obstructive uropathy Renal U/S notable for Bilateral hydronephrosis right > left -- no urological intervention was deemed necessary as the patient's serum creatinine was improving after placement of De La Fuente catheter , IV fluid hydration Repeat CT Scan of the Abd on 03/22 noted--Dr. Oakley notes that the patient does not require any urologic intervention at this time, and can be D/C'd with a de la fuente catheter to gravity, with [id number] changes, and follow up as an outpatient with Urology for further monitoring. C. difficile On dificid, Lactobacillus Diarrhea improving overall Will cont to monitor Severe Right Hip Arthritis with possible subtle impaction of Femoral Head noted on CT Patient unable to tolerate an MRI of the Hip Ortho consulted, and input appreciated--s/p Intra-articular injection of Kenalog on 03/23 with subsequent improvement of discomfort/ROM Patient not a surgical candidate at this time, can follow up with Frank Gray in the future for further evaluation Urinary tract infection UA suggestive of possible s/p Completion of Rocephin for 7 days History of diastolic congestive heart failure Currently not volume overloaded History of endocarditis Status post treatment Severe protein calorie malnutrition By mouth intake encouraged Physical deconditioning, bilateral lower extremity/contractures Physical therapy ordered DVT prophylaxis Subcutaneous heparin Dispo--pending clinical improvement, physical therapy. 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--PFS on board VS, I&O, [facility]H, [facility] Vital Signs/I&O Vital Signs Date Time Temp Pulse Resp B/P (MAP) Pulse Ox O2 Delivery O2 Flow Rate FiO2 03/26/17 08:40 76 03/26/17 06:54 18 Room Air 03/26/17 06:00 97.6 97/56 (70) 96 Laboratory Data 24H LABS Laboratory Tests 2 03/26/17 06:28: Nucleated Red Blood Cells % (auto) 0.0, Anion Gap 9, Glomerular Filtration Rate > 60.0, Blood Urea Nitrogen 38H, Creatinine 1.18, Sodium Level 133L, Potassium Level 4.0, Chloride Level 101, Carbon Dioxide Level 23, Calcium Level 8.2L, Magnesium Level 2.0 CBC/BMP Laboratory Tests 03/26/17 06:28 Red Blood Count 3.66 L, Mean Corpuscular Volume 84.4, Mean Corpuscular Hemoglobin 27.3, Mean Corpuscular Hemoglobin Concent 32.4, Red Cell Distribution Width 17.9 H, Calcium Level 8.2 L Microbiology Microbiology 03/17/17 Blood Culture - Final, Complete NO GROWTH AFTER 5 DAYS 03/17/17 Blood Culture - Final, Complete NO GROWTH AFTER 5 DAYS 03/18/17 Gastrointestinal Tract Panel (PCR) - Final, Complete Clostridium Difficile A/B 03/18/17 MRSA Screen - Final, Complete Staph.aureus Methicillin Resis 03/17/17 Urine Culture - Final, Complete Proteus Mirabilis EDGARDO MONAE MD Mar 26, 2017 10:38
--- NOTE | 2017-03-26 13:35 | IPN ---
DATE: 03/26/2017 SUBJECTIVE: Patient was seen and examined at the bedside today morning. He is hemodynamically stable. Renal function is also stable, however patient has developed some hyponatremia. REVIEW OF SYSTEMS: Patient denies any fevers, chills, rigors, chest pain, shortness of breath, pain in abdomen or constipation. He reports that his diarrhea is better now. Rest of review of systems is negative. OBJECTIVE: VITAL SIGNS: Temperature is 97.6 degrees Fahrenheit, blood pressure 97/56, pulse is 76, respiratory rate of 18, saturating 96% on room air. INTAKE AND OUTPUT: Urine output recorded is 2.9 yesterday, 1.1 liter so far today since overnight. Weight on the bed scale is not available. PHYSICAL EXAMINATION: GENERAL: Patient is awake, alert, oriented times three, lying in bed, weak and cachectic. HEAD AND NECK: Extraocular muscles intact. Pupils equally round and reactive to light. Patient has bitemporal wasting. CARDIOVASCULAR: S1, S2, regular heart rate. No murmur, rub, or gallop. RESPIRATORY: Chest is clear to auscultation bilaterally. Bilateral equal air entry. No rales or rhonchi. ABDOMEN: Soft. Positive bowel sounds. Nontender. No ascites. No organomegaly. GENITOURINARY: Patient has an indwelling [place] catheter. MUSCULOSKELETAL: Patient has contracture of the right leg. He is unable to walk. Otherwise no clubbing or cyanosis. CENTRAL NERVOUS SYSTEM: Patient is oriented times three. He is able to communicate, but patient is unable to walk. PSYCHIATRIC: Normal mood and affect. LABORATORY REVIEW: CBC showed a WBC of 10.3, hemoglobin is 10, platelets are 649. BMP showed sodium 133, potassium 4, chloride 101, bicarbonate 23, BUN is 38, creatinine is 1.1, calcium 8.2. CURRENT INPATIENT MEDICATIONS: Patient's medications were all reviewed by me. His ceftriaxone was stopped yesterday. Patient got three runs of IV magnesium yesterday. He continues to be on oral Dificid. There is no other change in the medications today as compared with yesterday. ASSESSMENT: A 66-year-old male, who is chronically bedridden, physically debilitated, malnourished, admitted at this time because of sepsis secondary to urinary tract infection, obstructive uropathy, acute renal failure, and Clostridium difficile colitis. PLAN: 1. Acute kidney injury. The patient's renal function has improved back to baseline. He continues to have [place] catheter. IV fluids have been stopped. 2. Urinary tract infection. Patient was treated with IV ceftriaxone for proteus UTI. IV antibiotic was stopped yesterday. 3. C. difficile colitis. Patient is current on oral Dificid and diarrhea is improving. 4. Hyponatremia. Patient is taking a lot of liquid in his diet. He is drinking a lot of ensure and fluids. I have decreased his oral fluid intake to 1800 mL daily. Sodium level is expected to improve with fluid restriction.
[2017-03-26 14:00] VITALS: BP 88/50
[2017-03-26] MEDS: TAMSULOSIN 0.4 MG CAP PO SCH (21:00)
[2017-03-26 22:00] VITALS: BP 93/54
[2017-03-27] MEDS: HEPARIN SOD (PORCINE) 5000 UNITS/ML VIAL SC SCH ×3 (05:07→20:54)
[2017-03-27] MEDS: SLF 3 ML SYR IV SCH ×3 (05:08→20:56)
[2017-03-27 06:11] LABS: MEAN CORPUSCULAR HEMOGLOBIN 27.8 pg (27.0-33.0); MEAN CORPUSCULAR HGB CONC 32.7 g/dl (32.0-36.5); MEAN CORPUSCULAR VOLUME 85.2 fl (80.0-96.0); PLATELET COUNT, AUTOMATED 615 10^3/uL (150-450); RED CELL DISTRIBUTION WIDTH 17.9 % (11.5-14.5); WHITE BLOOD COUNT 14.1 10^3/uL (4.0-10.0)
[2017-03-27 06:44] VITALS: BP 92/53
[2017-03-27 06:47] LABS: ANION GAP 9 MEQ/L (8-16); BLOOD UREA NITROGEN 32 MG/DL (7-18); CALCIUM LEVEL 8.3 MG/DL (8.8-10.2); CARBON DIOXIDE LEVEL 23 MEQ/L (21-32); CHLORIDE LEVEL 104 MEQ/L (98-107); GLOMERULAR FILTRATION RATE > 60.0 (>49); GLUCOSE, FASTING 80 MG/DL (80-110); MAGNESIUM LEVEL 1.7 MG/DL (1.8-2.4); POTASSIUM SERUM 4.2 MEQ/L (3.5-5.1); SODIUM LEVEL 136 MEQ/L (136-145)
[2017-03-27] MEDS: ASPIRIN 81 MG ENTERIC TAB PO SCH (08:44)
[2017-03-27] MEDS: MAG SULF 1GM/100ML (MAG RUN) 1 GM in APPROPRIATE DILUENT 1 EA IV SCH ×2 (08:44→09:45)
[2017-03-27] MEDS: LACTOBACILLUS ACIDOPHILUS CAP (BACID) PO SCH ×2 (08:45→20:54)
[2017-03-27] MEDS: FIDAXOMICIN 200 MG TAB (DIFICID) PO SCH ×2 (08:45→20:54)
[2017-03-27] MEDS: DIGOXIN 0.0625MG PER 1/2TABLET PO SCH (08:46)
[2017-03-27] MEDS: PERCOCET 5MG/325MG TAB PO PRN ×2 (11:03→18:04)
[2017-03-27 14:00] VITALS: BP 77/50
--- NOTE | 2017-03-27 14:04 | IPNPDOC ---
Subjective Date Seen The patient was seen on 03/27/17. Subjective Chief Complaint/HPI Patient seen and examined at the bedside. He states that his diarrhea has nearly completely resolved. Reports that he continues to have adequate by mouth intake. Objective Physical Examination General Exam: Positive: Alert, Cooperative, No Acute Distress, Other (appears cachectic with bitemporal wasting) Eye Exam: Negative: Sclera icteric ENT Exam: Positive: Atraumatic, Mucous membr. moist/pink Neck Exam: Negative: JVD Chest Exam: Positive: Clear to auscultation, Normal air movement Heart Exam: Positive: Rate Normal, Regular Rhythm, Normal S1, Normal S2 Abdomen Exam: Positive: Soft, Negative: Tenderness Extremity Exam: Positive: Normal pulses, Other (both legs are contracted. ), Negative: Clubbing, Cyanosis, Edema, Swelling Psych Exam: Positive: Oriented x 3 Assessment /Plan Plan/VTE VTE Prophylaxis Ordered?: Yes Plan Anticipated Discharge: Group Home Acute Renal Failure 2/2 C. Diff, Obstructive Uropathy, resolved Serum Cr back to baseline s/p IVF Hydration Renal U/S notable for Bilateral hydronephrosis right > left -- no urological intervention was deemed necessary as the patient's serum creatinine was improving after placement of De La Fuente catheter, IV fluid hydration Repeat CT Scan of the Abd from 03/22 noted--Dr. Oakley notes that the patient does not require any urologic intervention at this time, and can be D/C' d with a de la fuente catheter to gravity, with [id number] changes, and follow up as an outpatient with Urology for further monitoring. Appreciate nephrology and urology input Obstructive uropathy Renal U/S notable for Bilateral hydronephrosis right > left -- no urological intervention was deemed necessary as the patient's serum creatinine was improving after placement of De La Fuente catheter , IV fluid hydration Repeat CT Scan of the Abd on 03/22 noted--Dr. Oakley notes that the patient does not require any urologic intervention at this time, and can be D/C'd with a de la fuente catheter to gravity, with [id number] changes, and follow up as an outpatient with Urology for further monitoring. C. difficile On dificid, Lactobacillus Diarrhea improving overall Will cont to monitor Severe Right Hip Arthritis with possible subtle impaction of Femoral Head noted on CT Patient unable to tolerate an MRI of the Hip Ortho consulted, and input appreciated--s/p Intra-articular injection of Kenalog on 03/23 with subsequent improvement of discomfort/ROM Patient not a surgical candidate at this time, can follow up with Frank Gray in the future for further evaluation Urinary tract infection UA suggestive of possible s/p Completion of Rocephin for 7 days History of diastolic congestive heart failure Currently not volume overloaded History of endocarditis Status post treatment Severe protein calorie malnutrition By mouth intake encouraged Physical deconditioning, bilateral lower extremity/contractures Physical therapy ordered DVT prophylaxis Subcutaneous heparin Dispo--pending clinical improvement, physical therapy. Patient will possibly need longterm placement--PFS on board VS, I&O, 24H, Fishbone Vital Signs/I&O Vital Signs Date Time Temp Pulse Resp B/P (MAP) Pulse Ox O2 Delivery O2 Flow Rate FiO2 03/27/17 11:33 18 03/27/17 11:03 Room Air 03/27/17 08:46 90 03/27/17 06:44 97.1 92/53 (66) 97 I&O- Last 24 Hours up to 6 AM 03/28/17 06:00 Intake Total 360 ml Balance 360 ml Laboratory Data 24H LABS Laboratory Tests 2 03/27/17 05:54: Nucleated Red Blood Cells % (auto) 0.0, Anion Gap 9, Glomerular Filtration Rate > 60.0, Blood Urea Nitrogen 32H, Creatinine 1.10, Sodium Level 136, Potassium Level 4.2, Chloride Level 104, Carbon Dioxide Level 23, Calcium Level 8.3L, Magnesium Level 1.7L CBC/BMP Laboratory Tests 03/27/17 05:54 Red Blood Count 3.52 L, Mean Corpuscular Volume 85.2, Mean Corpuscular Hemoglobin 27.8, Mean Corpuscular Hemoglobin Concent 32.7, Red Cell Distribution Width 17.9 H, Calcium Level 8.3 L Microbiology Microbiology 03/17/17 Blood Culture - Final, Complete NO GROWTH AFTER 5 DAYS 03/17/17 Blood Culture - Final, Complete NO GROWTH AFTER 5 DAYS 03/18/17 Gastrointestinal Tract Panel (PCR) - Final, Complete Clostridium Difficile A/B 03/18/17 MRSA Screen - Final, Complete Staph.aureus Methicillin Resis 03/17/17 Urine Culture - Final, Complete Proteus Mirabilis EDGARDO MONAE MD Mar 27, 2017 14:04
[2017-03-27] MEDS ORDERED: NS 500 ML IV ONE (15:30)
[2017-03-27 18:09] VITALS: BP 105/52
[2017-03-27] MEDS: TAMSULOSIN 0.4 MG CAP PO SCH (20:54)
[2017-03-27 22:00] VITALS: BP 98/56
[2017-03-28 02:40] VITALS: BP 88/52
[2017-03-28] MEDS: SLF 3 ML SYR IV SCH ×3 (05:06→21:57)
[2017-03-28] MEDS: PERCOCET 5MG/325MG TAB PO PRN ×4 (05:08→21:20)
[2017-03-28] MEDS: HEPARIN SOD (PORCINE) 5000 UNITS/ML VIAL SC SCH ×3 (05:09→21:19)
[2017-03-28 06:00] VITALS: BP 88/46
[2017-03-28 06:25] LABS: MEAN CORPUSCULAR HEMOGLOBIN 27.5 pg (27.0-33.0); MEAN CORPUSCULAR HGB CONC 31.8 g/dl (32.0-36.5); MEAN CORPUSCULAR VOLUME 86.6 fl (80.0-96.0); PLATELET COUNT, AUTOMATED 632 10^3/uL (150-450); RED CELL DISTRIBUTION WIDTH 18.6 % (11.5-14.5); WHITE BLOOD COUNT 10.7 10^3/uL (4.0-10.0)
[2017-03-28 06:52] LABS: ANION GAP 8 MEQ/L (8-16); BLOOD UREA NITROGEN 30 MG/DL (7-18); CALCIUM LEVEL 8.2 MG/DL (8.8-10.2); CARBON DIOXIDE LEVEL 23 MEQ/L (21-32); CHLORIDE LEVEL 105 MEQ/L (98-107); CREATININE FOR GFR 0.96 MG/DL (0.70-1.30); GLOMERULAR FILTRATION RATE > 60.0 (>49); GLUCOSE, FASTING 77 MG/DL (80-110); MAGNESIUM LEVEL 1.9 MG/DL (1.8-2.4); POTASSIUM SERUM 4.3 MEQ/L (3.5-5.1); SODIUM LEVEL 136 MEQ/L (136-145)
[2017-03-28] MEDS: LACTOBACILLUS ACIDOPHILUS CAP (BACID) PO SCH ×2 (08:10→21:19)
[2017-03-28] MEDS: ASPIRIN 81 MG ENTERIC TAB PO SCH (08:10)
[2017-03-28] MEDS: FIDAXOMICIN 200 MG TAB (DIFICID) PO SCH ×2 (08:10→21:32)
[2017-03-28] MEDS: DIGOXIN 0.0625MG PER 1/2TABLET PO SCH (08:13)
[2017-03-28 08:20] VITALS: BP 104/59
--- NOTE | 2017-03-28 11:58 | IPNPDOC ---
Subjective Date Seen The patient was seen on 03/28/17. Subjective Chief Complaint/HPI Patient seen and examined at the bedside. States that he is still having some diarrhea, but it is significantly improved overall. He reports that he has been having a very good amount of by mouth intake. Denies any other acute complaints at this time. Objective Physical Examination General Exam: Positive: Alert, Cooperative, No Acute Distress, Other (appears cachectic with bitemporal wasting) Eye Exam: Negative: Sclera icteric ENT Exam: Positive: Atraumatic, Mucous membr. moist/pink Neck Exam: Negative: JVD Chest Exam: Positive: Clear to auscultation, Normal air movement Heart Exam: Positive: Rate Normal, Regular Rhythm, Normal S1, Normal S2 Abdomen Exam: Positive: Soft, Negative: Tenderness Extremity Exam: Positive: Normal pulses, Other (both legs are contracted. ), Negative: Clubbing, Cyanosis, Edema, Swelling Psych Exam: Positive: Oriented x 3 Assessment /Plan Plan/VTE VTE Prophylaxis Ordered?: Yes Plan Anticipated Discharge: [facility] Acute Renal Failure 2/2 C. Diff, Obstructive Uropathy, resolved Serum Cr back to baseline s/p IVF Hydration Renal U/S notable for Bilateral hydronephrosis right > left -- no urological intervention was deemed necessary as the patient's serum creatinine was improving after placement of De La Fuente catheter, IV fluid hydration Repeat CT Scan of the Abd from 03/22 noted--Dr. Oakley notes that the patient does not require any urologic intervention at this time, and can be D/C' d with a de la fuente catheter to gravity, with [id number] changes, and follow up as an outpatient with Urology for further monitoring. Appreciate nephrology and urology input Obstructive uropathy Renal U/S notable for Bilateral hydronephrosis right > left -- no urological intervention was deemed necessary as the patient's serum creatinine was improving after placement of De La Fuente catheter , IV fluid hydration Repeat CT Scan of the Abd on 03/22 noted--Dr. Oakley notes that the patient does not require any urologic intervention at this time, and can be D/C'd with a de la fuente catheter to gravity, with [id number] changes, and follow up as an outpatient with Urology for further monitoring. C. difficile On dificid, Lactobacillus Diarrhea improving overall Will cont to monitor Severe Right Hip Arthritis with possible subtle impaction of Femoral Head noted on CT Patient unable to tolerate an MRI of the Hip Ortho consulted, and input appreciated--s/p Intra-articular injection of Kenalog on 03/23 with subsequent improvement of discomfort/ROM Patient not a surgical candidate at this time, can follow up with Frank Gray in the future for further evaluation Urinary tract infection UA suggestive of possible s/p Completion of Rocephin for 7 days History of diastolic congestive heart failure Currently not volume overloaded History of endocarditis Status post treatment Severe protein calorie malnutrition By mouth intake encouraged Physical deconditioning, bilateral lower extremity/contractures Physical therapy ordered DVT prophylaxis Subcutaneous heparin Dispo--pending clinical improvement, physical therapy. Patient will possibly need emt intermediate placement--PFS on board VS, I&O, 24H, [facility] Vital Signs/I&O Vital Signs Date Time Temp Pulse Resp B/P (MAP) Pulse Ox O2 Delivery O2 Flow Rate FiO2 03/28/17 08:20 104/59 (74) 03/28/17 08:15 Room Air 03/28/17 08:13 90 03/28/17 06:00 97.6 24 94 I&O- Last 24 Hours up to 6 AM 03/29/17 06:00 Intake Total 120 ml Balance 120 ml Laboratory Data 24H LABS Laboratory Tests 2 03/28/17 05:59: Nucleated Red Blood Cells % (auto) 0.0, Anion Gap 8, Glomerular Filtration Rate > 60.0, Blood Urea Nitrogen 30H, Creatinine 0.96, Sodium Level 136, Potassium Level 4.3, Chloride Level 105, Carbon Dioxide Level 23, Calcium Level 8.2L, Magnesium Level 1.9 CBC/BMP Laboratory Tests 03/28/17 05:59 Red Blood Count 3.67 L, Mean Corpuscular Volume 86.6, Mean Corpuscular Hemoglobin 27.5, Mean Corpuscular Hemoglobin Concent 31.8 L, Red Cell Distribution Width 18.6 H, Calcium Level 8.2 L Microbiology Microbiology 03/18/17 Gastrointestinal Tract Panel (PCR) - Final, Complete Clostridium Difficile A/B 03/18/17 MRSA Screen - Final, Complete Staph.aureus Methicillin Resis EDGARDO MONAE MD Mar 28, 2017 11:58
[2017-03-28 14:00] VITALS: BP 75/47
[2017-03-28] MEDS ORDERED: NS 500 ML IV ONE (15:45)
[2017-03-28 16:38] VITALS: BP 108/50
[2017-03-28] MEDS: TAMSULOSIN 0.4 MG CAP PO SCH (21:19)
[2017-03-28 22:00] VITALS: BP 106/53
[2017-03-29] MEDS: PERCOCET 5MG/325MG TAB PO PRN ×5 (01:29→20:24)
[2017-03-29 06:00] VITALS: BP 118/55
[2017-03-29 06:05] LABS: MEAN CORPUSCULAR HEMOGLOBIN 27.6 pg (27.0-33.0); MEAN CORPUSCULAR HGB CONC 31.4 g/dl (32.0-36.5); MEAN CORPUSCULAR VOLUME 87.7 fl (80.0-96.0); PLATELET COUNT, AUTOMATED 579 10^3/uL (150-450); RED CELL DISTRIBUTION WIDTH 18.8 % (11.5-14.5); WHITE BLOOD COUNT 8.8 10^3/uL (4.0-10.0)
[2017-03-29] MEDS: SLF 3 ML SYR IV SCH ×3 (06:23→20:25)
[2017-03-29] MEDS: HEPARIN SOD (PORCINE) 5000 UNITS/ML VIAL SC SCH ×3 (06:23→20:23)
--- NOTE | 2017-03-29 06:24 | IPN ---
DATE:03/27/2017 SUBJECTIVE: Mr. Mcdonald is a 66-year-old male who has chronic malnourishment. He was admitted with acute renal failure and dehydration. Since admission, his kidney function has improved significantly. He has very poor oral intake and is currently being treated for Clostridium (C.) difficile colitis. PHYSICAL EXAMINATION: This is a emaciated gentleman who looks quite older than his stated age. His temperature is 97 degrees Fahrenheit, heart rate 84 per minute and respiratory rate 18 per minute. Blood pressure 92/53 mmHg and oxygen saturation 97%. His head is atraumatic. Neck is supple and without jugular venous distention (JVD) Heart sounds are regular. Lungs sound clear to auscultation. Abdomen is soft and bowel sounds present. Extremities have no cyanosis or clubbing. He has very poor muscle mass but no peripheral edema. LABORATORY DATA: Today's labs show sodium 136 and potassium 4.2. BUN 32 and creatinine 1.1. Calcium 8.3 and magnesium 1.7. WBC count is 14.1, hemoglobin 9.8 and hematocrit 30. PROBLEMS: 1. Acute kidney injury superimposed on chronic kidney disease. Kidney function has improved significantly since admission. He is not receiving IV fluid and if his oral intake remains insufficient, then he is likely to get worsening kidney function again. 2. Clostridium (C.) difficile colitis. The patient is currently being treated with Dificid, and he reports improved diarrhea. 3. Hypomagnesemia. This is nutritional and the patient has already received a dose of magnesium sulfate today. 4. Protein calorie malnutrition. This is a chronic issue and the patient likely to require supervised living. 5. Hyponatremia. Sodium level has improved to normal range. No intervention is indicated. 6. Disposition: From renal standpoint, the patient is doing well and I am signing off his case. Please do not hesitate to call me should you need further assistance.
[2017-03-29 06:27] LABS: ANION GAP 6 MEQ/L (8-16); BLOOD UREA NITROGEN 29 MG/DL (7-18); CALCIUM LEVEL 8.6 MG/DL (8.8-10.2); CARBON DIOXIDE LEVEL 27 MEQ/L (21-32); CHLORIDE LEVEL 105 MEQ/L (98-107); CREATININE FOR GFR 1.15 MG/DL (0.70-1.30); GLOMERULAR FILTRATION RATE > 60.0 (>49); GLUCOSE, FASTING 89 MG/DL (80-110); MAGNESIUM LEVEL 1.6 MG/DL (1.8-2.4); POTASSIUM SERUM 4.7 MEQ/L (3.5-5.1); SODIUM LEVEL 138 MEQ/L (136-145)
[2017-03-29] MEDS: MAG SULF 1GM/100ML (MAG RUN) 1 GM in APPROPRIATE DILUENT 1 EA IV SCH ×2 (08:22→09:28)
[2017-03-29] MEDS: ASPIRIN 81 MG ENTERIC TAB PO SCH (08:22)
[2017-03-29] MEDS: DIGOXIN 0.0625MG PER 1/2TABLET PO SCH (08:22)
[2017-03-29] MEDS: LACTOBACILLUS ACIDOPHILUS CAP (BACID) PO SCH ×2 (08:22→20:23)
[2017-03-29] MEDS: FIDAXOMICIN 200 MG TAB (DIFICID) PO SCH ×2 (08:22→20:23)
--- NOTE | 2017-03-29 10:59 | IPNPDOC ---
Subjective Date Seen The patient was seen on 03/29/17. Subjective Chief Complaint/HPI Patient seen and examined at the bedside. States that his appetite continues to be strong, and notes that his diarrhea is nearly completely resolved. Objective Physical Examination General Exam: Positive: Alert, Cooperative, No Acute Distress, Other (appears cachectic with bitemporal wasting) Eye Exam: Negative: Sclera icteric ENT Exam: Positive: Atraumatic, Mucous membr. moist/pink Neck Exam: Negative: JVD Chest Exam: Positive: Clear to auscultation, Normal air movement Heart Exam: Positive: Rate Normal, Regular Rhythm, Normal S1, Normal S2 Abdomen Exam: Positive: Soft, Negative: Tenderness Extremity Exam: Positive: Normal pulses, Other (both legs are contracted. ), Negative: Clubbing, Cyanosis, Edema, Swelling Psych Exam: Positive: Oriented x 3 Assessment /Plan Plan/VTE VTE Prophylaxis Ordered?: Yes Plan Anticipated Discharge: Snf Acute Renal Failure 2/2 C. Diff, Obstructive Uropathy, resolved Serum Cr back to baseline s/p IVF Hydration Renal U/S notable for Bilateral hydronephrosis right > left -- no urological intervention was deemed necessary as the patient's serum creatinine was improving after placement of [place] catheter, IV fluid hydration Repeat CT Scan of the Abd from 03/22 noted--Dr. Oakley notes that the patient does not require any urologic intervention at this time, and can be D/C' d with a de la fuente catheter to gravity, with [id number] changes, and follow up as an outpatient with Urology for further monitoring. Appreciate nephrology and urology input Obstructive uropathy Renal U/S notable for Bilateral hydronephrosis right > left -- no urological intervention was deemed necessary as the patient's serum creatinine was improving after placement of [place] Fuente catheter , IV fluid hydration Repeat CT Scan of the Abd on 03/22 noted--Dr. Oakley notes that the patient does not require any urologic intervention at this time, and can be D/C'd with a de [place] fuente catheter to gravity, with [id number] changes, and follow up as an outpatient with Urology for further monitoring. C. difficile On dificid, Lactobacillus Diarrhea nearly resolved according to pt Will cont to monitor Severe Right Hip Arthritis with possible subtle impaction of Femoral Head noted on CT Patient unable to tolerate an MRI of the Hip Ortho consulted, and input appreciated--s/p Intra-articular injection of Kenalog on 03/23 with subsequent improvement of discomfort/ROM Patient not a surgical candidate at this time, can follow up with [facility] in the future for further evaluation Urinary tract infection UA suggestive of possible s/p Completion of Rocephin for 7 days History of diastolic congestive heart failure Currently not volume overloaded History of endocarditis Status post treatment Severe protein calorie malnutrition By mouth intake encouraged Physical deconditioning, bilateral lower extremity/contractures Physical therapy ordered DVT prophylaxis Subcutaneous heparin Dispo--pending clinical improvement, physical therapy. Patient will possibly need intermediate card tender placement--PFS on board VS, I&O, 24H, Fishbone Vital Signs/I&O Vital Signs Date Time Temp Pulse Resp B/P (MAP) Pulse Ox O2 Delivery O2 Flow Rate FiO2 03/29/17 08:22 88 03/29/17 06:53 18 98 Room Air 03/29/17 06:00 99.1 118/55 (76) I&O- Last 24 Hours up to 6 AM 03/30/17 06:00 Intake Total 760 ml Output Total 0 ml Balance 760 ml Laboratory Data 24H LABS Laboratory Tests 2 03/29/17 05:24: Nucleated Red Blood Cells % (auto) 0.0, Anion Gap 6L, Glomerular Filtration Rate > 60.0, Blood Urea Nitrogen 29H, Creatinine 1.15, Sodium Level 138, Potassium Level 4.7, Chloride Level 105, Carbon Dioxide Level 27, Calcium Level 8.6L, Magnesium Level 1.6L CBC/BMP Laboratory Tests 03/29/17 05:24 Red Blood Count 3.59 L, Mean Corpuscular Volume 87.7, Mean Corpuscular Hemoglobin 27.6, Mean Corpuscular Hemoglobin Concent 31.4 L, Red Cell Distribution Width 18.8 H, Calcium Level 8.6 L EDGARDO MONAE MD Mar 29, 2017 10:59
[2017-03-29 22:00] VITALS: BP 94/61
[2017-03-29] MEDS: TAMSULOSIN 0.4 MG CAP PO SCH (22:37)
[2017-03-30] MEDS: PERCOCET 5MG/325MG TAB PO PRN ×4 (02:20→20:01)
[2017-03-30 06:00] VITALS: BP 87/56
[2017-03-30] MEDS: HEPARIN SOD (PORCINE) 5000 UNITS/ML VIAL SC SCH ×3 (06:28→22:42)
[2017-03-30] MEDS: SLF 3 ML SYR IV SCH ×3 (06:29→22:43)
[2017-03-30 07:07] LABS: MEAN CORPUSCULAR HEMOGLOBIN 28.1 pg (27.0-33.0); MEAN CORPUSCULAR HGB CONC 31.7 g/dl (32.0-36.5); MEAN CORPUSCULAR VOLUME 88.7 fl (80.0-96.0); PLATELET COUNT, AUTOMATED 597 10^3/uL (150-450); RED CELL DISTRIBUTION WIDTH 19.2 % (11.5-14.5); WHITE BLOOD COUNT 8.5 10^3/uL (4.0-10.0)
[2017-03-30 07:25] LABS: ANION GAP 6 MEQ/L (8-16); BLOOD UREA NITROGEN 28 MG/DL (7-18); CALCIUM LEVEL 8.5 MG/DL (8.8-10.2); CARBON DIOXIDE LEVEL 28 MEQ/L (21-32); CHLORIDE LEVEL 102 MEQ/L (98-107); GLOMERULAR FILTRATION RATE > 60.0 (>49); GLUCOSE, FASTING 84 MG/DL (80-110); MAGNESIUM LEVEL 1.8 MG/DL (1.8-2.4); POTASSIUM SERUM 4.7 MEQ/L (3.5-5.1); SODIUM LEVEL 136 MEQ/L (136-145)
[2017-03-30] MEDS: FIDAXOMICIN 200 MG TAB (DIFICID) PO SCH ×2 (09:12→20:00)
[2017-03-30] MEDS: DIGOXIN 0.0625MG PER 1/2TABLET PO SCH (09:12)
[2017-03-30] MEDS: LACTOBACILLUS ACIDOPHILUS CAP (BACID) PO SCH ×2 (09:12→20:00)
[2017-03-30] MEDS: ASPIRIN 81 MG ENTERIC TAB PO SCH (09:12)
[2017-03-30 14:00] VITALS: BP 85/51
--- NOTE | 2017-03-30 14:45 | IPN ---
DATE: 03/30/2017 SUBJECTIVE: The patient is seen and examined in the room today. The patient stated he tried to increase his oral intake. The patient has been taking Ensure supplements. When asked about the home situation, the patient stated one of his family members is in alf right now but his family member's girlfriend promised him to take care of him at home. OBJECTIVE: VITAL SIGNS: Temperature is 97.2, pulse is 68, respiratory rate 18, blood pressure is 87/56, pulse oximetry is 94% in room air. GENERAL: No sign of acute distress, alert and oriented times three, cachectic with bitemporal wasting. CARDIOVASCULAR: Positive S1, S2, regular rate. LUNGS: Clear to auscultation bilaterally. ABDOMEN: Soft, nontender, nondistended. Bowel sounds present. EXTREMITIES: Extremely tender to perform any range of motion. Both legs are contracted. No ulcers noted. No edema noted. LABORATORY DATA: WBC is 8.5, hemoglobin 10.2, hematocrit 32.2, platelet count is 597. Sodium is 136, potassium 4.5, chloride 102, carbon dioxide is 28, BUN is 28, creatinine 1, GFR greater than 60, fasting glucose 84, calcium is 8.5, magnesium 1.8. ASSESSMENT AND PLAN: 1. Clostridium (C) difficile colitis. Gastrointestinal (GI) panel performed on 03/18/2017. The patient is on Dificid. Supplement with Bacid. 2. Acute renal failure, secondary to obstructive uropathy and dehydration from Clostridium difficile. Renal function currently is within normal range. Acute renal failure resolved. Renal ultrasound was performed previously and shows bilateral hydronephrosis, right side greater than left. The patient evaluated by the urologist, Dr. Oakley, and determined the patient does not require any urological intervention at the moment. He can be discharged home. At the time of discharge, we can continue the [place] catheter with every four week changes and followup with urology as an outpatient for further monitoring. 3. Obstructive uropathy. The patient has a [place] catheter. Urologist was consulted previously. Recommend outpatient followup. 4. Severe right hip arthritis with subtle impaction of femoral head. Orthopedics consulted. The patient was determined not to be a surgical candidate at the moment. The patient can followup with [facility] in the future for further evaluations. 5. History of urinary tract infection (UTI), status post seven days of Rocephin. 6. History of diastolic dysfunction. Currently, no sign of overload. 7. History of endocarditis, status post antibiotic treatment. 8. Severe protein calorie malnutrition. We encouraged oral intake. The patient currently is supplemented with Ensure. 9. Physical deconditioning. Followup with physical therapy. 10. Deep vein thrombosis (DVT) prophylaxis, on heparin. DISPOSITION: Currently, the patient may need long-term placement. The patient's family member currently was not able to provide care because he is in alf. Family member's girlfriend promised the patient to take care of him but it may not be a safe discharge. [facility]
[2017-03-30] MEDS: TAMSULOSIN 0.4 MG CAP PO SCH (20:00)
[2017-03-30 22:00] VITALS: BP 95/63
[2017-03-31] MEDS: PERCOCET 5MG/325MG TAB PO PRN ×4 (00:34→19:58)
[2017-03-31 06:00] VITALS: BP 97/60
[2017-03-31 06:11] LABS: MEAN CORPUSCULAR HEMOGLOBIN 28.1 pg (27.0-33.0); MEAN CORPUSCULAR HGB CONC 32.1 g/dl (32.0-36.5); MEAN CORPUSCULAR VOLUME 87.7 fl (80.0-96.0); PLATELET COUNT, AUTOMATED 530 10^3/uL (150-450); RED CELL DISTRIBUTION WIDTH 19.5 % (11.5-14.5); WHITE BLOOD COUNT 7.6 10^3/uL (4.0-10.0)
[2017-03-31] MEDS: HEPARIN SOD (PORCINE) 5000 UNITS/ML VIAL SC SCH ×3 (06:17→22:37)
[2017-03-31] MEDS: SLF 3 ML SYR IV SCH ×3 (06:18→22:37)
[2017-03-31 06:26] LABS: ANION GAP 8 MEQ/L (8-16); BLOOD UREA NITROGEN 30 MG/DL (7-18); CALCIUM LEVEL 8.9 MG/DL (8.8-10.2); CARBON DIOXIDE LEVEL 26 MEQ/L (21-32); CHLORIDE LEVEL 102 MEQ/L (98-107); CREATININE FOR GFR 1.02 MG/DL (0.70-1.30); GLOMERULAR FILTRATION RATE > 60.0 (>49); GLUCOSE, FASTING 89 MG/DL (80-110); MAGNESIUM LEVEL 1.8 MG/DL (1.8-2.4); POTASSIUM SERUM 4.4 MEQ/L (3.5-5.1); SODIUM LEVEL 136 MEQ/L (136-145)
[2017-03-31] MEDS: LACTOBACILLUS ACIDOPHILUS CAP (BACID) PO SCH ×2 (09:30→20:00)
[2017-03-31] MEDS: FIDAXOMICIN 200 MG TAB (DIFICID) PO SCH ×2 (09:30→20:00)
[2017-03-31] MEDS: DIGOXIN 0.0625MG PER 1/2TABLET PO SCH (09:30)
[2017-03-31] MEDS: ASPIRIN 81 MG ENTERIC TAB PO SCH (09:31)
[2017-03-31 14:00] VITALS: BP 92/54
--- NOTE | 2017-03-31 19:22 | IPN ---
DATE: 03/31/2017 SUBJECTIVE: The patient is seen and examined in the room today. Continues to complain of persistent bilateral hip pain. Per documentation, the patient had three bowel movements yesterday. When asked questions regarding his stool quality, he stated that he has not been paying much attention to it. Per nursing staff, the patient's bowel movement is more like a smear of stool, the quantity of the bowel movement is not significant. OBJECTIVE: VITAL SIGNS: Temperature is 97.6, pulse is 72, respirations 17, blood pressure 97/60, pulse oximetry is 93% on room air. GENERAL: Mild to moderate distress secondary to persistent hip pain. Alert and oriented times three, cachectic with bitemporal wasting. CARDIOVASCULAR: Positive S1, S2, regular rate. LUNGS: Clear to auscultation bilaterally. ABDOMEN: Soft, nontender, nondistended. Bowel sounds present. EXTREMITIES: Very tender to palpation or any type of range of motion, especially near the hip joint. Bilateral legs are contracted. No edema is noted. LABORATORY DATA: WBC is 7.6, hemoglobin 10.1, hematocrit 31.5, platelet count is 530. Sodium is 136, potassium 4.4, chloride 102, carbon dioxide is 26, BUN is 30, creatinine 1.02, GFR greater than 60, fasting glucose 89, calcium is 8.9, magnesium 1.8. ASSESSMENT AND PLAN: 1. Clostridium (C) difficile colitis. The patient is on Dificid. Supplement with Bacid. The patient has smear of stool, stool quantity is not significant. We will continue to monitor the patient's bowel movement pattern. GI panel was performed on 03/18/2017. 2. Acute renal failure, secondary to obstructive uropathy and dehydration from C difficile. Renal function returned to normal range. Renal ultrasound was performed previously and showed bilateral hydronephrosis, right side greater than left. The patient was evaluated by the urologist, Dr. Oakley, and determined the patient does not require any urgent urological intervention at the moment. The patient can followup in the outpatient setting after discharge. Per recommendations at the time of discharge, the patient will continue with chronic [place] catheter and followup in the outpatient with urology for further monitoring. 3. Obstructive uropathy. The patient has a [place] catheter. Urologist was consulted previously. Recommend outpatient followup. 4. Severe right sided arthritis with subtle impaction of femoral head. Orthopedics consulted. The patient was determined not to be a surgical candidate at the moment. The patient can followup with [facility] in the future for further evaluations. 5. History of urinary tract infection (UTI), status post course of Rocephin. 6. History of diastolic dysfunction. No sign of fluid overload. 7. History of endocarditis, status post antibiotic treatment. 8. Severe protein calorie malnutrition. We encouraged oral intake. The patient currently is supplemented with Ensure. 9. Physical deconditioning. Followup with physical therapy. 10. Deep vein thrombosis (DVT) prophylaxis, on heparin. DISPOSITION: The patient agreed for long-term placement. Patient and family services (PFS) has been assisting to seek for possible placement for the patient. [facility]
[2017-03-31] MEDS: TAMSULOSIN 0.4 MG CAP PO SCH (20:00)
[2017-03-31 22:00] VITALS: BP 100/53
[2017-04-01] MEDS: PERCOCET 5MG/325MG TAB PO PRN ×6 (00:04→23:29)
[2017-04-01] MEDS ORDERED: MORPHINE 2 MG/ML 1ML SYRINGE IV ONE (00:45)
[2017-04-01] MEDS: HEPARIN SOD (PORCINE) 5000 UNITS/ML VIAL SC SCH ×3 (05:27→21:01)
[2017-04-01] MEDS: SLF 3 ML SYR IV SCH ×3 (05:28→21:02)
[2017-04-01 06:00] VITALS: BP 98/53
[2017-04-01 07:21] LABS: MEAN CORPUSCULAR HEMOGLOBIN 28.7 pg (27.0-33.0); MEAN CORPUSCULAR HGB CONC 32.1 g/dl (32.0-36.5); MEAN CORPUSCULAR VOLUME 89.4 fl (80.0-96.0); PLATELET COUNT, AUTOMATED 500 10^3/uL (150-450); RED CELL DISTRIBUTION WIDTH 19.9 % (11.5-14.5); WHITE BLOOD COUNT 8.5 10^3/uL (4.0-10.0)
[2017-04-01 07:43] LABS: ANION GAP 6 MEQ/L (8-16); BLOOD UREA NITROGEN 29 MG/DL (7-18); CALCIUM LEVEL 8.8 MG/DL (8.8-10.2); CARBON DIOXIDE LEVEL 26 MEQ/L (21-32); CHLORIDE LEVEL 102 MEQ/L (98-107); CREATININE FOR GFR 1.05 MG/DL (0.70-1.30); GLOMERULAR FILTRATION RATE > 60.0 (>49); GLUCOSE, FASTING 90 MG/DL (80-110); MAGNESIUM LEVEL 1.9 MG/DL (1.8-2.4); POTASSIUM SERUM 4.2 MEQ/L (3.5-5.1); SODIUM LEVEL 134 MEQ/L (136-145)
[2017-04-01] MEDS: FIDAXOMICIN 200 MG TAB (DIFICID) PO SCH ×2 (10:12→21:01)
[2017-04-01] MEDS: LACTOBACILLUS ACIDOPHILUS CAP (BACID) PO SCH ×2 (10:12→21:01)
[2017-04-01] MEDS: ASPIRIN 81 MG ENTERIC TAB PO SCH (10:12)
[2017-04-01] MEDS: DIGOXIN 0.0625MG PER 1/2TABLET PO SCH (10:15)
[2017-04-01 14:00] VITALS: BP 89/56
--- NOTE | 2017-04-01 15:54 | IPNPDOC ---
Text Note Date of Service The patient was seen on 04/01/17. NOTE SUBJECTIVE: The patient is seen and examined in the room today. Continues to complain of persistent bilateral hip pain. Per nursing staff, patient starts having soft stool now. No issue with oral intake. OBJECTIVE: VITAL SIGNS: Listed below. GENERAL: Mild to moderate distress secondary to persistent hip pain. Alert and oriented times three, cachectic with bitemporal wasting. CARDIOVASCULAR: Positive S1, S2, regular rate. LUNGS: Clear to auscultation bilaterally. ABDOMEN: Soft, nontender, nondistended. Bowel sounds present. EXTREMITIES: Very tender to palpation or any type of range of motion, especially near the hip joint. Bilateral legs are contracted. No edema is noted. LABORATORY DATA: Listed below ASSESSMENT AND PLAN: 1. Clostridium (C) difficile colitis. The patient is on Dificid. Supplement with Bacid. Positive GI panel was performed on 03/18/2017. Start having soft stool. Will taper off the dificid. 2. Acute renal failure, secondary to obstructive uropathy and dehydration from C difficile. Renal function returned to normal range. Renal ultrasound was performed previously and showed bilateral hydronephrosis, right side greater than left. The patient was evaluated by the urologist, Dr. Oakley, and determined the patient does not require any urgent urological intervention at the moment. The patient can followup in the outpatient setting after discharge. Per recommendations at the time of discharge, the patient will continue with chronic [place] catheter and followup in the outpatient with urology for further monitoring. 3. Obstructive uropathy. The patient has a [place] catheter. Urologist was consulted previously. Recommend outpatient followup. 4. Severe right sided arthritis with subtle impaction of femoral head. Orthopedics consulted. The patient was determined not to be a surgical candidate at the moment. The patient can followup with [facility] in the future for further evaluations. 5. History of urinary tract infection (UTI), status post course of Rocephin. 6. History of diastolic dysfunction. No sign of fluid overload. 7. History of endocarditis, status post antibiotic treatment. 8. Severe protein calorie malnutrition. We encouraged oral intake. The patient currently is supplemented with Ensure. 9. Physical deconditioning. Followup with physical therapy. 10. Deep vein thrombosis (DVT) prophylaxis, on heparin. DISPOSITION: The patient agreed for long-term placement. Patient and family services (PFS) has been assisting to seek for possible placement for the patient. VS,Fishbone, I+O VS, Fishbone, I+O Laboratory Tests 04/01/17 06:48 Red Blood Count 3.49 L, Mean Corpuscular Volume 89.4, Mean Corpuscular Hemoglobin 28.7, Mean Corpuscular Hemoglobin Concent 32.1, Red Cell Distribution Width 19.9 H, Calcium Level 8.8 Vital Signs Date Time Temp Pulse Resp B/P (MAP) Pulse Ox O2 Delivery O2 Flow Rate FiO2 04/01/17 15:30 16 04/01/17 10:15 84 04/01/17 10:00 Room Air 04/01/17 06:00 98.0 98/53 (69) 95 I&O- Last 24 Hours up to 6 AM 04/02/17 06:00 Intake Total 320 ml Output Total 0 ml Balance 320 ml KALE PARKER DO Apr 01, 2017 15:54
[2017-04-01 21:00] VITALS: BP 91/57
[2017-04-01] MEDS: TAMSULOSIN 0.4 MG CAP PO SCH (21:01)
[2017-04-02] MEDS: PERCOCET 5MG/325MG TAB PO PRN ×4 (03:29→15:34)
[2017-04-02] MEDS: HEPARIN SOD (PORCINE) 5000 UNITS/ML VIAL SC SCH ×3 (05:38→21:38)
[2017-04-02] MEDS: SLF 3 ML SYR IV SCH ×3 (05:38→21:44)
[2017-04-02 06:30] VITALS: BP 93/50
[2017-04-02 08:27] LABS: MEAN CORPUSCULAR HEMOGLOBIN 27.9 pg (27.0-33.0); MEAN CORPUSCULAR HGB CONC 31.1 g/dl (32.0-36.5); MEAN CORPUSCULAR VOLUME 89.4 fl (80.0-96.0); PLATELET COUNT, AUTOMATED 452 10^3/uL (150-450); RED CELL DISTRIBUTION WIDTH 19.9 % (11.5-14.5); WHITE BLOOD COUNT 6.6 10^3/uL (4.0-10.0)
[2017-04-02] MEDS: LACTOBACILLUS ACIDOPHILUS CAP (BACID) PO SCH ×2 (09:24→21:38)
[2017-04-02] MEDS: ASPIRIN 81 MG ENTERIC TAB PO SCH (09:24)
[2017-04-02] MEDS: DIGOXIN 0.0625MG PER 1/2TABLET PO SCH (09:24)
[2017-04-02 09:39] LABS: ANION GAP 9 MEQ/L (8-16); BLOOD UREA NITROGEN 28 MG/DL (7-18); CALCIUM LEVEL 8.6 MG/DL (8.8-10.2); CARBON DIOXIDE LEVEL 27 MEQ/L (21-32); CHLORIDE LEVEL 103 MEQ/L (98-107); CREATININE FOR GFR 1.13 MG/DL (0.70-1.30); GLOMERULAR FILTRATION RATE > 60.0 (>49); GLUCOSE, FASTING 102 MG/DL (80-110); MAGNESIUM LEVEL 1.8 MG/DL (1.8-2.4); POTASSIUM SERUM 4.1 MEQ/L (3.5-5.1); SODIUM LEVEL 139 MEQ/L (136-145)
--- NOTE | 2017-04-02 13:28 | IPNPDOC ---
Text Note Date of Service The patient was seen on 04/02/17. NOTE SUBJECTIVE: The patient is seen and examined in the room today. Continues to complain of persistent bilateral hip pain. He feels the pain is under controlled. Patient had a soft bowel movement today. No issue with oral intake. OBJECTIVE: VITAL SIGNS: Listed below. GENERAL: Mild to moderate distress secondary to persistent hip pain. Alert and oriented times three, cachectic with bitemporal wasting. CARDIOVASCULAR: Positive S1, S2, regular rate. LUNGS: Clear to auscultation bilaterally. ABDOMEN: Soft, nontender, nondistended. Bowel sounds present. EXTREMITIES: Very tender to palpation or any type of range of motion, especially near the hip joint. Bilateral legs are contracted. No edema is noted. LABORATORY DATA: Listed below ASSESSMENT AND PLAN: 1. Clostridium (C) difficile colitis. Positive GI panel was on 03/18/2017. Finished course of antibiotic; last dose of dificid on 04/01/17. On bacid. Start having soft stool in the last 48 hours. 2. Acute renal failure, secondary to obstructive uropathy and dehydration from C difficile. Renal function returned to normal range. Renal ultrasound was performed previously and showed bilateral hydronephrosis, right side greater than left. The patient was evaluated by the urologist, Dr. Oakley, and determined the patient does not require any urgent urological intervention at the moment. The patient can followup in the outpatient setting after discharge. Per recommendations at the time of discharge, the patient will continue with chronic [place] catheter and followup in the outpatient with urology for further monitoring. 3. Obstructive uropathy. The patient has a [place] catheter. Urologist was consulted previously. Recommend outpatient followup. 4. Severe right sided arthritis with subtle impaction of femoral head. Orthopedics was consulted. The patient was determined not to be a surgical candidate at the moment. The patient can followup with [facility] in the future for further evaluations. Will consult pain management for pain medication adjustment. 5. History of urinary tract infection (UTI), status post course of Rocephin. 6. History of diastolic dysfunction. No sign of fluid overload. 7. History of endocarditis, status post antibiotic treatment. 8. Severe protein calorie malnutrition. We encouraged oral intake. The patient currently is supplemented with Ensure. 9. Physical deconditioning. Followup with physical therapy. 10. Deep vein thrombosis (DVT) prophylaxis, on heparin. DISPOSITION: The patient agreed for long-term placement. Patient and family services (PFS) has been assisting to seek for possible placement for the patient. VS,Fishbone, I+O VS, Fishbone, I+O Laboratory Tests 04/02/17 08:17 Red Blood Count 3.41 L, Mean Corpuscular Volume 89.4, Mean Corpuscular Hemoglobin 27.9, Mean Corpuscular Hemoglobin Concent 31.1 L, Red Cell Distribution Width 19.9 H, Calcium Level 8.6 L Vital Signs Date Time Temp Pulse Resp B/P (MAP) Pulse Ox O2 Delivery O2 Flow Rate FiO2 04/02/17 13:16 Room Air 04/02/17 12:06 16 04/02/17 09:24 92 04/02/17 06:30 98.9 93/50 (88) 96 I&O- Last 24 Hours up to 6 AM 04/03/17 06:00 Intake Total 300 ml Output Total 300 ml Balance 0 ml KALE PARKER DO Apr 02, 2017 13:28
[2017-04-02 14:00] VITALS: BP 91/52
[2017-04-02] MEDS ORDERED: ONDANSETRON 4 MG TAB (S0181) PO PRN (15:00)
--- NOTE | 2017-04-02 19:00 | CR.PDOC ---
[facility] Pain Clinic Consultation General Date of Consultation: 04/02/17 Chief Complaint The patient is a 66-year-old male admitted with a reason for visit of Acute Renal Failure . Pain management is asked to see him for further evaluation and treatment of right hip and bone pain. History of Present Illness Spike Mcdonald is a 66-year-old gentleman who reports he was in fairly good health until September 2016. States that at that time he was able to stand and walk and get along without too much difficulty. Unfortunately, in September 2016. 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 He was transferred to [facility] in [place]. Since then he has not been able to ambulate and has developed contractures of the lower extremities. He notes also notes considerable right hip pain. He has been in bed since that time. He states he does turn himself side to side and that nursing also assists with this. It is reported he has no pressure ulcers or skin breaks despite he has very poor nutrition and that he is basically immobile. Nursing has worked very hard to maintain his skin integrity. Spike reports that prior to his September hospitalization. He was not on any pain medications. He reports he has not had any adverse effects to any pain medications that he has been given since his hospitalizations began. States his pain level is consistently 810/10 and at best after his pain medication and improves to an 8/10. Reports that the pain is in his legs both sides down to his feet. States he has no back pain. He also notes pain in his right arm, which radiates from the shoulder to the hand. It is deep in the bone. States the pain is constant, although does increase with repositioning. Home Medications Scheduled (Aspirin EC Low Dose) 81 Mg Tab, 81 MG PO DAILY, (Reported) Tamsulosin Hydrochloride (Flomax) 0.4 Mg Cap, 0.4 MG PO QPM, (Reported) Tramadol HCl (Tramadol HCl) 50 Mg Tab, 50 MG PO BID, (Reported) Allergies Coded Allergies: No Known Drug Allergy (Verified Allergy, Unknown, 10/03/16) Social History Social History Denies tobacco, alcohol, or illicit substance abuse. Review of Systems Subjective Constitutional: Reports: weakness, fatigue, weight loss (since his hospitalization in September. Reports he was always a fairly thin gentleman) HEENT: Denies: vision problems, blurred vision, hearing problems, throat pain, epistaxis, difficulty swallowing Skin: Denies: lesions, rash, breakdown Pulmonary: Reports: cough (intermittent cough without production.), shortness of breath (with exertion), wheezing Cardiovascular: Denies: chest pain, edema, palpitations Gastrointestinal: Reports: constipation, Denies: loss of bowel control Genitourinary: Reports: retention, other (Magaña catheter is in place) Hematologic: Denies: easy bleeding, easy bruising, blood dyscrasias Endocrine: Reports: Thyroid dysfunction (denies), Denies: Diabetes mellitus Musculoskeletal: Reports: arm pain (right arm), leg pain (bilateral), muscle stiffness, other (in tractors of both lower extremities) Neurological: Reports: weakness (both lower extremities), Denies: seizures Psych: Reports: mood normal, Denies: thoughts of self harm, thoughts of harming other Physical Examination Physical Examination Vital Signs/I&O Vital Signs Date Time Temp Pulse Resp B/P (MAP) Pulse Ox O2 Delivery O2 Flow Rate FiO2 04/02/17 16:04 16 Room Air 04/02/17 14:00 98.5 82 91/52 (65) 96 I&O- Last 24 Hours up to 6 AM 04/03/17 06:00 Intake Total 300 ml Output Total 650 ml Balance -350 ml General Exam: Positive: alert, attentive, talkative, no acute distress ( resting in his hospital bed), oriented times three, other (very thin) Visual Analog Score (VAS): 8 Neck Exam: Positive: Limited range of motion Chest Exam: Positive: Wheezing, Rhonchi, Decreased resp. excursion Heart Exam: Positive: Regular rate and rhythm, Normal S1, S2, Rubs, Tachycardic Abdominal Exam: Positive: Normal bowel sounds, Soft, Nondistended Extremity Exam: Positive: Normal pulses, Other (contracture noted bilaterally the hip and knee. No edema. Is able to flex and extend on bilaterally at the foot.) Skin Exam: Positive: Warm, Dry, Other (padding placed over bony prominences particularly at the hip and knee), Negative: Rashes, Lesions Neuro Exam: Positive: Other (no sensory changes noted in the upper or lower extremities. Is unable to ambulate or even sit up independently) Psych Exam: Positive: Mental status NL, Mood NL Inspection of spine No tenderness with palpation over lumbar spinous processes or across the lumbosacral axis. Musculoskeletal States light touch is uncomfortable over the right upper extremity from the deltoid to the wrist. Notes tenderness with palpation over the right trochanter over the right and left femur and right greater than left tibia fibula. Again significant contracture is noted bilaterally on at the hip and knee. Laboratory Data Labs 24H Laboratory Tests 2 04/02/17 08:17: Nucleated Red Blood Cells % (auto) 0.0, Anion Gap 9, Glomerular Filtration Rate > 60.0, Blood Urea Nitrogen 28H, Creatinine 1.13, Sodium Level 139, Potassium Level 4.1, Chloride Level 103, Carbon Dioxide Level 27, Calcium Level 8.6L, Magnesium Level 1.8 CBC/BMP Laboratory Tests 04/02/17 08:17 Red Blood Count 3.41 L, Mean Corpuscular Volume 89.4, Mean Corpuscular Hemoglobin 27.9, Mean Corpuscular Hemoglobin Concent 31.1 L, Red Cell Distribution Width 19.9 H, Calcium Level 8.6 L Diagnostic and Imaging Studies X-rays as well as the CT scan of the abdomen and pelvis demonstrated severe right hip osteoarthritis as well as possible impact fracture of the right femoral head. Assessment 1. Severe right hip osteoarthritis and possible on fracture not a candidate for surgery, as per Dr. Kj Banks. 2. Severe generalized degenerative joint disease/osteoarthritis. 3. Nutritional issues with wasting. 4. Generalized pain Recommendation and Plan Currently Mr. Mcdonald is receiving Percocet 5/325 one every 4 hours and has been on this dose for some time. He notes the pain will diminish from a 10 over 10 to an 8/10. We'll recommend and will write to increase his Percocet to oxycodone 10 mg 1 every 6 hours. I did discuss with Mr. Mcdonald that we would need to be very careful with this and to go slow because of his respiratory issues. He was in agreement with this. Would also look to start him on Cymbalta at 20 mg daily for its effect in dealing with the degenerative joint pain. He is working hard on improving his nutrition. He and nursing have been working hard and doing a fairly good job at keeping his skin intact in preventing any pressure wounds. We'll be glad to continue to monitor. Thank you [Cj], for allowing us to participate in the care of your patient , [Spike Mcdonald]. Should you have any questions we will be glad to discuss this with you at any time please contact us here at the pain center at [phone]. Meka Gibson Apr 02, 2017 19:00
[2017-04-02] MEDS: oxyCODONE 5MG TAB PO PRN (19:51)
[2017-04-02 20:45] VITALS: BP 91/57
[2017-04-02] MEDS: TAMSULOSIN 0.4 MG CAP PO SCH (21:39)
[2017-04-03] MEDS: oxyCODONE 5MG TAB PO PRN ×4 (02:04→21:04)
[2017-04-03] MEDS: HEPARIN SOD (PORCINE) 5000 UNITS/ML VIAL SC SCH ×3 (05:53→21:05)
[2017-04-03] MEDS: SLF 3 ML SYR IV SCH (05:54)
[2017-04-03 06:17] LABS: MEAN CORPUSCULAR HEMOGLOBIN 28.4 pg (27.0-33.0); MEAN CORPUSCULAR HGB CONC 31.8 g/dl (32.0-36.5); MEAN CORPUSCULAR VOLUME 89.2 fl (80.0-96.0); PLATELET COUNT, AUTOMATED 428 10^3/uL (150-450); RED CELL DISTRIBUTION WIDTH 19.9 % (11.5-14.5); WHITE BLOOD COUNT 6.1 10^3/uL (4.0-10.0)
[2017-04-03 06:30] VITALS: BP 86/54
[2017-04-03 06:33] LABS: ANION GAP 7 MEQ/L (8-16); BLOOD UREA NITROGEN 26 MG/DL (7-18); CALCIUM LEVEL 8.9 MG/DL (8.8-10.2); CARBON DIOXIDE LEVEL 29 MEQ/L (21-32); CHLORIDE LEVEL 102 MEQ/L (98-107); CREATININE FOR GFR 1.05 MG/DL (0.70-1.30); GLOMERULAR FILTRATION RATE > 60.0 (>49); GLUCOSE, FASTING 92 MG/DL (80-110); MAGNESIUM LEVEL 1.9 MG/DL (1.8-2.4); POTASSIUM SERUM 4.2 MEQ/L (3.5-5.1); SODIUM LEVEL 138 MEQ/L (136-145)
[2017-04-03] MEDS: ASPIRIN 81 MG ENTERIC TAB PO SCH (09:42)
[2017-04-03] MEDS: DIGOXIN 0.0625MG PER 1/2TABLET PO SCH (09:43)
[2017-04-03] MEDS: LACTOBACILLUS ACIDOPHILUS CAP (BACID) PO SCH ×2 (09:44→21:05)
[2017-04-03] MEDS: DULoxetine 20 MG CAP (CYMBALTA) PO SCH (09:44)
--- NOTE | 2017-04-03 13:55 | IPNPDOC ---
Text Note Date of Service The patient was seen on 04/03/17. NOTE SUBJECTIVE: The patient is seen and examined in the room today. Continues to complain of persistent bilateral hip pain. Patient had a soft bowel movement today. Patient wants to be full code. OBJECTIVE: VITAL SIGNS: Listed below. GENERAL: Mild to moderate distress secondary to persistent hip pain. Alert and oriented times three, cachectic with bitemporal wasting. CARDIOVASCULAR: Positive S1, S2, regular rate. LUNGS: Clear to auscultation bilaterally. ABDOMEN: Soft, nontender, nondistended. Bowel sounds present. EXTREMITIES: Very tender to palpation or any type of range of motion, especially near the hip joint. Bilateral legs are contracted. No edema is noted. LABORATORY DATA: Listed below ASSESSMENT AND PLAN: 1. Clostridium (C) difficile colitis. Positive GI panel was on 03/18/2017. Finished course of antibiotic; last dose of dificid on 04/01/17. On bacid. Continue having soft stool. Need placement. 2. Acute renal failure, secondary to obstructive uropathy and dehydration from C difficile. Renal function returned to normal range. Renal ultrasound was performed previously and showed bilateral hydronephrosis, right side greater than left. The patient was evaluated by the urologist, Dr. Oakley, and determined the patient does not require any urgent urological intervention at the moment. The patient can followup in the outpatient setting after discharge. Per recommendations at the time of discharge, the patient will continue with chronic Mag[place] catheter and followup in the outpatient with urology for further monitoring. 3. Obstructive uropathy. The patient has a Mag[place] catheter. Urologist was consulted previously. Recommend outpatient followup. 4. Severe right sided arthritis with subtle impaction of femoral head. Orthopedics was consulted. The patient was determined not to be a surgical candidate at the moment. The patient can followup with [facility] in the future for further evaluations. pain management consulted. Pain medication adjusted. 5. History of urinary tract infection (UTI), status post course of Rocephin. 6. History of diastolic dysfunction. No sign of fluid overload. 7. History of endocarditis, status post antibiotic treatment. 8. Severe protein calorie malnutrition. We encouraged oral intake. The patient currently is supplemented with Ensure. 9. Physical deconditioning. Followup with physical therapy. 10. Deep vein thrombosis (DVT) prophylaxis, on heparin. DISPOSITION: The patient agreed for long-term placement. Patient and family services (PFS) has been assisting to seek for possible placement for the patient. VS,Darrenbone, I+O VS, Fishbone, I+O Laboratory Tests 04/03/17 06:06 Red Blood Count 3.52 L, Mean Corpuscular Volume 89.2, Mean Corpuscular Hemoglobin 28.4, Mean Corpuscular Hemoglobin Concent 31.8 L, Red Cell Distribution Width 19.9 H, Calcium Level 8.9 Vital Signs Date Time Temp Pulse Resp B/P (MAP) Pulse Ox O2 Delivery O2 Flow Rate FiO2 04/03/17 09:43 78 04/03/17 08:50 16 Room Air 04/03/17 06:30 96.0 86/54 (84) 96 I&O- Last 24 Hours up to 6 AM 04/04/17 06:00 Intake Total 120 ml Output Total 0 ml Balance 120 ml KALE PARKER DO Apr 03, 2017 13:55
[2017-04-03 14:00] VITALS: BP 93/54
[2017-04-03] MEDS: TAMSULOSIN 0.4 MG CAP PO SCH (21:04)
[2017-04-03 22:00] VITALS: BP 86/54
[2017-04-04] MEDS: oxyCODONE 5MG TAB PO PRN ×3 (03:05→17:46)
[2017-04-04] MEDS: HEPARIN SOD (PORCINE) 5000 UNITS/ML VIAL SC SCH ×3 (05:55→21:15)
[2017-04-04 06:00] VITALS: BP 89/66
[2017-04-04 06:04] LABS: MEAN CORPUSCULAR HEMOGLOBIN 28.3 pg (27.0-33.0); MEAN CORPUSCULAR HGB CONC 31.6 g/dl (32.0-36.5); MEAN CORPUSCULAR VOLUME 89.7 fl (80.0-96.0); PLATELET COUNT, AUTOMATED 442 10^3/uL (150-450); RED CELL DISTRIBUTION WIDTH 19.6 % (11.5-14.5); WHITE BLOOD COUNT 6.5 10^3/uL (4.0-10.0)
[2017-04-04 06:19] LABS: ANION GAP 7 MEQ/L (8-16); BLOOD UREA NITROGEN 27 MG/DL (7-18); CALCIUM LEVEL 9.6 MG/DL (8.8-10.2); CARBON DIOXIDE LEVEL 28 MEQ/L (21-32); CHLORIDE LEVEL 103 MEQ/L (98-107); CREATININE FOR GFR 1.08 MG/DL (0.70-1.30); GLOMERULAR FILTRATION RATE > 60.0 (>49); GLUCOSE, FASTING 94 MG/DL (80-110); MAGNESIUM LEVEL 1.9 MG/DL (1.8-2.4); POTASSIUM SERUM 4.2 MEQ/L (3.5-5.1); SODIUM LEVEL 138 MEQ/L (136-145)
[2017-04-04] MEDS: DULoxetine 20 MG CAP (CYMBALTA) PO SCH (10:16)
[2017-04-04] MEDS: ASPIRIN 81 MG ENTERIC TAB PO SCH (10:16)
[2017-04-04] MEDS: LACTOBACILLUS ACIDOPHILUS CAP (BACID) PO SCH ×2 (10:16→21:15)
[2017-04-04] MEDS: DIGOXIN 0.0625MG PER 1/2TABLET PO SCH (10:18)
[2017-04-04 10:23] VITALS: BP 90/63
--- NOTE | 2017-04-04 11:24 | IPNPDOC ---
Text Note Date of Service The patient was seen on 04/04/17. NOTE SUBJECTIVE: The patient is seen and examined in the room today. Patient had pain medication adjustment by pain management previously. Narcotic dose was doubled but he still Continues to have significant pain. He tries to turn himself in bed once every few hours. Continue drinking his ensure; 3-4 times daily. OBJECTIVE: VITAL SIGNS: Listed below. GENERAL: moderate distress secondary to persistent hip pain. Alert and oriented times three, cachectic with bitemporal wasting. CARDIOVASCULAR: Positive S1, S2, regular rate. LUNGS: Clear to auscultation bilaterally. ABDOMEN: Soft, nontender, nondistended. Bowel sounds present. EXTREMITIES: Very tender to palpation or any type of range of motion, especially near the hip joint. Bilateral legs are contracted. No edema is noted. LABORATORY DATA: Listed below ASSESSMENT AND PLAN: 1. Clostridium (C) difficile colitis. Positive GI panel was on 03/18/2017. Finished course of antibiotic; last dose of dificid on 04/01/17. On bacid. Continue having soft stool. Need placement. 2. Acute renal failure, secondary to obstructive uropathy and dehydration from C difficile. Renal function returned to normal range. Renal ultrasound was performed previously and showed bilateral hydronephrosis, right side greater than left. The patient was evaluated by the urologist, Dr. Oakley, and determined the patient does not require any urgent urological intervention at the moment. The patient can followup in the outpatient setting after discharge. Per recommendations at the time of discharge, the patient will continue with chronic Magaña catheter and followup in the outpatient with urology for further monitoring. 3. Obstructive uropathy. The patient has a Mag[place] catheter. Urologist was consulted previously. Recommend outpatient followup. 4. Severe right sided arthritis with subtle impaction of femoral head. Orthopedics was consulted. The patient was determined not to be a surgical candidate at the moment. The patient can followup with [facility] in the future for further evaluations. pain management consulted. Pain medication adjusted. If pain is still not controlled, will contact pain management again. 5. History of urinary tract infection (UTI), status post course of Rocephin. 6. History of diastolic dysfunction. No sign of fluid overload. 7. History of endocarditis, status post antibiotic treatment. 8. Severe protein calorie malnutrition. We encouraged oral intake. The patient currently is supplemented with Ensure. 9. Physical deconditioning. Followup with physical therapy. 10. Deep vein thrombosis (DVT) prophylaxis, on heparin. DISPOSITION: The patient agreed for long-term placement. Patient and family services (PFS) has been assisting to seek for possible placement for the patient. VS,Fishbone, I+O VS, Fishbone, I+O Laboratory Tests 04/04/17 05:45 Red Blood Count 3.60 L, Mean Corpuscular Volume 89.7, Mean Corpuscular Hemoglobin 28.3, Mean Corpuscular Hemoglobin Concent 31.6 L, Red Cell Distribution Width 19.6 H, Calcium Level 9.6 Vital Signs Date Time Temp Pulse Resp B/P (MAP) Pulse Ox O2 Delivery O2 Flow Rate FiO2 04/04/17 10:23 90/63 (72) 04/04/17 10:18 95 04/04/17 10:17 16 04/04/17 06:00 98.2 94 Room Air I&O- Last 24 Hours up to 6 AM 04/05/17 06:00 Intake Total 120 ml Output Total 0 ml Balance 120 ml KALE PARKER DO Apr 04, 2017 11:24
[2017-04-04 14:00] VITALS: BP 95/56
[2017-04-04] MEDS: TAMSULOSIN 0.4 MG CAP PO SCH (21:15)
[2017-04-04 22:00] VITALS: BP 94/60
[2017-04-05] MEDS: oxyCODONE 5MG TAB PO PRN ×4 (02:15→22:06)
[2017-04-05] MEDS: HEPARIN SOD (PORCINE) 5000 UNITS/ML VIAL SC SCH ×3 (05:12→22:05)
[2017-04-05 06:00] VITALS: BP 93/59
[2017-04-05 07:31] LABS: MEAN CORPUSCULAR HEMOGLOBIN 28.1 pg (27.0-33.0); MEAN CORPUSCULAR HGB CONC 31.2 g/dl (32.0-36.5); MEAN CORPUSCULAR VOLUME 90.3 fl (80.0-96.0); PLATELET COUNT, AUTOMATED 443 10^3/uL (150-450); RED CELL DISTRIBUTION WIDTH 19.4 % (11.5-14.5); WHITE BLOOD COUNT 6.1 10^3/uL (4.0-10.0)
[2017-04-05 07:57] LABS: ANION GAP 5 MEQ/L (8-16); BLOOD UREA NITROGEN 26 MG/DL (7-18); CARBON DIOXIDE LEVEL 30 MEQ/L (21-32); CHLORIDE LEVEL 103 MEQ/L (98-107); CREATININE FOR GFR 1.04 MG/DL (0.70-1.30); GLOMERULAR FILTRATION RATE > 60.0 (>49); GLUCOSE, FASTING 94 MG/DL (80-110); MAGNESIUM LEVEL 2.2 MG/DL (1.8-2.4); SODIUM LEVEL 138 MEQ/L (136-145)
[2017-04-05] MEDS: LACTOBACILLUS ACIDOPHILUS CAP (BACID) PO SCH ×2 (08:56→22:05)
[2017-04-05] MEDS: DIGOXIN 0.0625MG PER 1/2TABLET PO SCH (08:56)
[2017-04-05] MEDS: ASPIRIN 81 MG ENTERIC TAB PO SCH (08:57)
[2017-04-05] MEDS: DULoxetine 20 MG CAP (CYMBALTA) PO SCH (08:57)
[2017-04-05 14:00] VITALS: BP 97/56
--- NOTE | 2017-04-05 14:16 | IPNPDOC ---
Text Note Date of Service The patient was seen on 04/05/17. NOTE SUBJECTIVE: The patient is seen and examined in the room today. Patient is complaining about poor appetite in the morning. Still experiences significant right hip pain. OBJECTIVE: VITAL SIGNS: Listed below. GENERAL: moderate distress secondary to persistent hip pain. Alert and oriented times three, cachectic with bitemporal wasting. CARDIOVASCULAR: Positive S1, S2, regular rate. LUNGS: Clear to auscultation bilaterally. ABDOMEN: Soft, nontender, nondistended. Bowel sounds present. EXTREMITIES: Very tender to palpation or any type of range of motion, especially near the hip joint. Bilateral legs are contracted. No edema is noted. LABORATORY DATA: Listed below ASSESSMENT AND PLAN: 1. Clostridium (C) difficile colitis. Positive GI panel was on 03/18/2017. Finished course of antibiotic; last dose of dificid on 04/01/17. On bacid. Continue having soft stool. Need placement. 2. Acute renal failure, secondary to obstructive uropathy and dehydration from C difficile. Renal function returned to normal range. Renal ultrasound was performed previously and showed bilateral hydronephrosis, right side greater than left. The patient was evaluated by the urologist, Dr. Oakley, and determined the patient does not require any urgent urological intervention at the moment. The patient can followup in the outpatient setting after discharge. Per recommendations at the time of discharge, the patient will continue with chronic Mag[place] catheter and followup in the outpatient with urology for further monitoring. 3. Obstructive uropathy. The patient has a Mag[place] catheter. Urologist was consulted previously. Recommend outpatient followup. 4. Severe right sided arthritis with subtle impaction of femoral head. Orthopedics was consulted. The patient was determined not to be a surgical candidate at the moment. The patient can followup with [facility] in the future for further evaluations. pain management consulted. Pain medication adjusted. If pain is still not controlled, will contact pain management again. 5. History of urinary tract infection (UTI), status post course of Rocephin. 6. History of diastolic dysfunction. No sign of fluid overload. 7. History of endocarditis, status post antibiotic treatment. 8. Severe protein calorie malnutrition. We encouraged oral intake. The patient currently is supplemented with Ensure. 9. Physical deconditioning. Followup with physical therapy. 10. Deep vein thrombosis (DVT) prophylaxis, on heparin. DISPOSITION: The patient agreed for long-term placement. Patient and family services (PFS) has been assisting to seek for placement options for the patient. VS,Fishbone, I+O VS, Fishbone, I+O Laboratory Tests 04/05/17 07:14 Red Blood Count 3.59 L, Mean Corpuscular Volume 90.3, Mean Corpuscular Hemoglobin 28.1, Mean Corpuscular Hemoglobin Concent 31.2 L, Red Cell Distribution Width 19.4 H, Calcium Level 10.0 Vital Signs Date Time Temp Pulse Resp B/P (MAP) Pulse Ox O2 Delivery O2 Flow Rate FiO2 04/05/17 10:18 Room Air 04/05/17 09:27 18 04/05/17 08:56 70 04/05/17 06:00 98.9 93/59 (70) 95 I&O- Last 24 Hours up to 6 AM 04/06/17 06:00 Intake Total 0 ml Balance 0 ml KALE PARKER DO Apr 05, 2017 14:16
[2017-04-05 22:00] VITALS: BP 98/56
[2017-04-05] MEDS: TAMSULOSIN 0.4 MG CAP PO SCH (22:05)
[2017-04-06 06:23] LABS: MEAN CORPUSCULAR HEMOGLOBIN 28.1 pg (27.0-33.0); MEAN CORPUSCULAR HGB CONC 31.3 g/dl (32.0-36.5); MEAN CORPUSCULAR VOLUME 89.9 fl (80.0-96.0); PLATELET COUNT, AUTOMATED 455 10^3/uL (150-450); RED CELL DISTRIBUTION WIDTH 19.4 % (11.5-14.5); WHITE BLOOD COUNT 5.8 10^3/uL (4.0-10.0)
[2017-04-06 06:53] LABS: ANION GAP 5 MEQ/L (8-16); BLOOD UREA NITROGEN 27 MG/DL (7-18); CALCIUM LEVEL 9.7 MG/DL (8.8-10.2); CARBON DIOXIDE LEVEL 32 MEQ/L (21-32); CHLORIDE LEVEL 100 MEQ/L (98-107); CREATININE FOR GFR 0.94 MG/DL (0.70-1.30); GLOMERULAR FILTRATION RATE > 60.0 (>49); GLUCOSE, FASTING 83 MG/DL (80-110); MAGNESIUM LEVEL 2.1 MG/DL (1.8-2.4); SODIUM LEVEL 137 MEQ/L (136-145)
[2017-04-06] MEDS: oxyCODONE 5MG TAB PO PRN ×2 (07:01→21:04)
[2017-04-06] MEDS: HEPARIN SOD (PORCINE) 5000 UNITS/ML VIAL SC SCH ×4 (07:01→21:08)
[2017-04-06] MEDS: LACTOBACILLUS ACIDOPHILUS CAP (BACID) PO SCH ×2 (10:05→21:03)
[2017-04-06] MEDS: DULoxetine 20 MG CAP (CYMBALTA) PO SCH (10:05)
[2017-04-06] MEDS: ASPIRIN 81 MG ENTERIC TAB PO SCH (10:05)
[2017-04-06] MEDS: DIGOXIN 0.0625MG PER 1/2TABLET PO SCH (10:06)
--- NOTE | 2017-04-06 11:43 | REP ---
RENAL ULTRASOUND: Real-time sonographic evaluation of the kidneys performed. Kidneys are slightly small in size, but normal in echotexture, right kidney measuring 9.0 x 5.6 x 5.1 cm and left kidney 8.6 x 4.9 x 4.3 cm. There is no hydronephrosis bilaterally. I suspect a 7 mm calculus in the mid right renal collecting system. No definite mass is seen. Mag[place] catheter is seen in a collapsed urinary bladder. IMPRESSION: No hydronephrosis. Suspected right renal calculus. Signed by Awais Carreon MD 04/06/2017 01:30 P
[2017-04-06 14:00] VITALS: BP 91/53
[2017-04-06] MEDS: TAMSULOSIN 0.4 MG CAP PO SCH (21:03)
[2017-04-07 05:56] LABS: MEAN CORPUSCULAR HEMOGLOBIN 28.4 pg (27.0-33.0); MEAN CORPUSCULAR HGB CONC 31.8 g/dl (32.0-36.5); MEAN CORPUSCULAR VOLUME 89.3 fl (80.0-96.0); PLATELET COUNT, AUTOMATED 477 10^3/uL (150-450); RED CELL DISTRIBUTION WIDTH 19.1 % (11.5-14.5); WHITE BLOOD COUNT 9.3 10^3/uL (4.0-10.0)
[2017-04-07 06:00] VITALS: BP 102/60
[2017-04-07] MEDS: HEPARIN SOD (PORCINE) 5000 UNITS/ML VIAL SC SCH ×3 (06:00→22:00)
[2017-04-07 06:15] LABS: ANION GAP 6 MEQ/L (8-16); BLOOD UREA NITROGEN 27 MG/DL (7-18); CARBON DIOXIDE LEVEL 31 MEQ/L (21-32); CHLORIDE LEVEL 100 MEQ/L (98-107); CREATININE FOR GFR 1.01 MG/DL (0.70-1.30); GLOMERULAR FILTRATION RATE > 60.0 (>49); GLUCOSE, FASTING 83 MG/DL (80-110); MAGNESIUM LEVEL 1.9 MG/DL (1.8-2.4); POTASSIUM SERUM 4.1 MEQ/L (3.5-5.1); SODIUM LEVEL 137 MEQ/L (136-145)
[2017-04-07] MEDS: LACTOBACILLUS ACIDOPHILUS CAP (BACID) PO SCH ×2 (09:51→20:13)
[2017-04-07] MEDS: ASPIRIN 81 MG ENTERIC TAB PO SCH (09:51)
[2017-04-07] MEDS: DIGOXIN 0.0625MG PER 1/2TABLET PO SCH (09:51)
[2017-04-07] MEDS: DULoxetine 20 MG CAP (CYMBALTA) PO SCH (09:52)
[2017-04-07 14:00] VITALS: BP 121/58
[2017-04-07] MEDS: oxyCODONE 5MG TAB PO PRN ×2 (14:56→20:13)
[2017-04-07] MEDS: TAMSULOSIN 0.4 MG CAP PO SCH (20:13)
[2017-04-07 22:00] VITALS: BP 100/56
[2017-04-08] MEDS: oxyCODONE 5MG TAB PO PRN ×3 (04:16→20:42)
[2017-04-08 06:00] VITALS: BP 100/51
[2017-04-08 06:15] LABS: MEAN CORPUSCULAR HEMOGLOBIN 28.5 pg (27.0-33.0); PLATELET COUNT, AUTOMATED 484 10^3/uL (150-450); RED CELL DISTRIBUTION WIDTH 18.8 % (11.5-14.5)
[2017-04-08] MEDS: HEPARIN SOD (PORCINE) 5000 UNITS/ML VIAL SC SCH ×3 (06:18→20:41)
[2017-04-08 06:41] LABS: ANION GAP 8 MEQ/L (8-16); BLOOD UREA NITROGEN 28 MG/DL (7-18); CALCIUM LEVEL 10.1 MG/DL (8.8-10.2); CARBON DIOXIDE LEVEL 32 MEQ/L (21-32); CHLORIDE LEVEL 96 MEQ/L (98-107); CREATININE FOR GFR 1.08 MG/DL (0.70-1.30); GLOMERULAR FILTRATION RATE > 60.0 (>49); GLUCOSE, FASTING 101 MG/DL (80-110); MAGNESIUM LEVEL 2.1 MG/DL (1.8-2.4); POTASSIUM SERUM 4.1 MEQ/L (3.5-5.1); SODIUM LEVEL 136 MEQ/L (136-145)
[2017-04-08] MEDS: LACTOBACILLUS ACIDOPHILUS CAP (BACID) PO SCH ×2 (09:40→20:40)
[2017-04-08] MEDS: ASPIRIN 81 MG ENTERIC TAB PO SCH (09:40)
[2017-04-08] MEDS: DULoxetine 20 MG CAP (CYMBALTA) PO SCH (11:54)
[2017-04-08] MEDS: DIGOXIN 0.0625MG PER 1/2TABLET PO SCH (11:54)
[2017-04-08 14:00] VITALS: BP 94/52
[2017-04-08] MEDS: TAMSULOSIN 0.4 MG CAP PO SCH (20:41)
[2017-04-08 22:00] VITALS: BP 99/59
[2017-04-09] MEDS: oxyCODONE 5MG TAB PO PRN ×3 (05:19→15:15)
[2017-04-09] MEDS: HEPARIN SOD (PORCINE) 5000 UNITS/ML VIAL SC SCH ×3 (05:19→21:57)
[2017-04-09 06:00] VITALS: BP 100/68
--- NOTE | 2017-04-09 08:47 | IPNPDOC ---
Subjective Date Seen The patient was seen on 04/09/17. Subjective Chief Complaint/HPI The patient is a 66-year-old male admitted with a reason for visit of Acute Renal Failure. Events since last encounter Patient's de la fuente catheter was discontinued on 04/07 did not void over12 hours after that so had to be straight cathed on 04/08 but after that patiet says he has been voiding but is incontinent . Though he can feel the pressure before voiding which is released afterwards. Bladder scan < 300 ml. Continues to complain of right hip pain but is better controlled now after increasing the frequency of the oxycodone. No fever or chills, no chest pain or sob , appetite OK. having regular bowel movements. Objective Physical Examination General Exam: Positive: Alert, Cooperative, No Acute Distress, Other (appears cachectic with bitemporal wasting) Eye Exam: Negative: Sclera icteric ENT Exam: Positive: Atraumatic, Mucous membr. moist/pink Neck Exam: Negative: JVD Chest Exam: Positive: Clear to auscultation, Normal air movement Heart Exam: Positive: Rate Normal, Regular Rhythm, Normal S1, Normal S2 Abdomen Exam: Positive: Soft, Negative: Tenderness Extremity Exam: Positive: Normal pulses, Other (right leg contracted to above waist , left lag also partially contracted. ), Negative: Clubbing, Cyanosis, Edema, Swelling Psych Exam: Positive: Oriented x 3 Assessment /Plan Problems (1) Unable to ambulate Status: Chronic Problem Text: Patient bed bound with severely contracted right leg to abouve the hip joint. Left leg partially contracted. Has been nonambulatory since september. Can turn side to side on the bed by himself. patient awaiting information security specialist [facility] placement. (2) Arthritis of right hip Status: Chronic Problem Text: Severe right sided arthritis with subtle impaction of femoral head against the posterior acetabular labrum. There is also an impaction fracture of the right humeral head as well as posterior inferior subluxation within the acetabulum. Radiologist felt this may all be secondary to aseptic necrosis. Dr Banks from Orthopedics was consulted. The patient was determined not to be a surgical candidate at this moment also his surgery which would be total hip replacement would be a very complicated one in view of his contractures which cannot be done here. If he wants to pursue surgical intervention at a later date he has to followup with [facility] in the future for further evaluations as he was treated there before. Pain management consulted had an intraarticular Kenalog injection done in the right hip with no improvement of pain . Pain medication adjusted now pain better controlled. (3) Sepsis Status: Resolved Problem Text: due to UTI and c diff (4) Acute renal failure Status: Resolved Problem Text: due to obstructive uropathy and dehydration from diarrhea. improved with de la fuente possibly has bladder neck obs or bph or urethral stricture. pateint has been on flomax for about 3 weeks so de la fuente has been discontinued on 04/07 for voiding trial. will continue with bladder scans twice a day. (5) Obstructive uropathy Status: Resolved Problem Text: renal US on admission showed bilateral hydronephrosis right > left old renal US in september did show mild to moderate right hydronephrosis at that time with thickened bladder mcdonald Repeat US on 04/05 showed resolution of bilateral hydronephrosis. De La Fuente has been discontinued on 04/07, patient is on voiding trial. he is mostly incontinent. If again has urinary retention will put de la fuente back in and follow up with urology as outpatient. (6) UTI (urinary tract infection) Status: Resolved (7) Diastolic CHF Status: Chronic Problem Text: with possibly moderate pulmonary hypertension , mitral regurgitation. (8) Acute metabolic encephalopathy Status: Resolved Problem Text: due to sepsis and acute renal failure. 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 So was transferred to [facility] for higher level of care. (10) Tachycardia Status: Resolved Problem Text: SVT vs aflutter received 1 dose of dig and corrected to sinus rhythm (11) Severe protein-calorie malnutrition Status: Chronic Problem Text: Has a BMI of 15 . Has lost 10 kgs in last 6 months. legs contracted and possibly has been bed bound for months. (12) C. difficile diarrhea Status: Acute Problem Text: started on metronidazole. Plan/VTE VTE Prophylaxis Ordered?: Yes Plan Anticipated Discharge: [facility] VS, I&O, 24H, Fishbone Vital Signs/I&O Vital Signs Date Time Temp Pulse Resp B/P (MAP) Pulse Ox O2 Delivery O2 Flow Rate FiO2 04/09/17 06:00 97.2 72 18 100/68 (79) 95 Room Air Laboratory Data Microbiology Microbiology 04/07/17 Stool Occult Blood (EVELYN) - Final, Complete RAY,ANTONIA MD Apr 09, 2017 08:47
[2017-04-09] MEDS: ASPIRIN 81 MG ENTERIC TAB PO SCH (09:12)
[2017-04-09] MEDS: LACTOBACILLUS ACIDOPHILUS CAP (BACID) PO SCH ×2 (09:12→21:57)
[2017-04-09] MEDS: DULoxetine 20 MG CAP (CYMBALTA) PO SCH (11:13)
[2017-04-09] MEDS: DIGOXIN 0.0625MG PER 1/2TABLET PO SCH (11:14)
[2017-04-09 14:00] VITALS: BP 99/58
[2017-04-09] MEDS: TAMSULOSIN 0.4 MG CAP PO SCH (21:57)
[2017-04-09 22:00] VITALS: BP 122/68
[2017-04-10 06:00] VITALS: BP 95/56
[2017-04-10] MEDS: HEPARIN SOD (PORCINE) 5000 UNITS/ML VIAL SC SCH ×3 (06:00→22:08)
[2017-04-10] MEDS: ASPIRIN 81 MG ENTERIC TAB PO SCH (09:22)
[2017-04-10] MEDS: ACETAMINOPHEN TAB 650MG DOSE (2X325MG) PO PRN ×3 (09:23→22:08)
[2017-04-10] MEDS: DULoxetine 20 MG CAP (CYMBALTA) PO SCH (09:23)
[2017-04-10] MEDS: DIGOXIN 0.0625MG PER 1/2TABLET PO SCH (09:23)
[2017-04-10] MEDS: LACTOBACILLUS ACIDOPHILUS CAP (BACID) PO SCH ×2 (09:23→22:07)
--- NOTE | 2017-04-10 09:51 | IPNPDOC ---
Assessment/Plan Date Seen The patient was seen on 04/10/17. Problems (1) Unable to ambulate Status: Chronic (2) Arthritis of right hip Status: Chronic (3) Sepsis Status: Resolved (4) Acute renal failure Status: Resolved (5) Obstructive uropathy Status: Resolved (6) UTI (urinary tract infection) Status: Resolved (7) Diastolic CHF Status: Chronic (8) Acute metabolic encephalopathy Status: Resolved (9) History of endocarditis Status: Resolved (10) Tachycardia Status: Resolved (11) Severe protein-calorie malnutrition Status: Chronic (12) C. difficile diarrhea Status: Acute Plan/VTE VTE Prophylaxis Ordered?: Yes Plan Anticipated Discharge: [facility] Subjective Review oF Systems Chief Complaint The patient is a 66-year-old male admitted with a reason for visit of Acute Renal Failure (resolved); bilateral HUN (resolved); C Diff (resolved); MRSA; anorexia; extremity contractions; CHF. Poor po intake and mobilization chronic. De La Fuente removed by primary service. Urinary incontinence (likely due to poor mobilization). Awaiting LTAC placement. 96, 16, 95/56, 97.6f Abdo: Benign. Bladder scan PVR (04/10/17) 96cc. (04/08/17) Hg 10.1, wbc 8.0, Cr 1.1. US renal (04/05/17) RMP 7mm stone; no hydronephrosis. A: Above. P: Consider de la fuente to SD for "incontinence" to minimize risk for cutaneous exposure to urine and skin breakdown. LTAC pending. Objective Physical Examination Heart Exam: Positive: Rate Normal, Regular Rhythm, Normal S1, Normal S2 Vital Signs/I&O Vital Signs Date Time Temp Pulse Resp B/P (MAP) Pulse Ox O2 Delivery O2 Flow Rate FiO2 04/10/17 09:23 96 04/10/17 06:00 97.6 16 95/56 (69) 95 Room Air Laboratory Data Microbiology Microbiology 04/07/17 Stool Occult Blood (EVELYN) - Final, Complete KETAN CARRILLO MD Apr 10, 2017 09:51
[2017-04-10 14:00] VITALS: BP 92/58
--- NOTE | 2017-04-10 17:50 | IPNPDOC ---
Text Note Date of Service The patient was seen on 04/10/17. NOTE Urology has recommended that patient have urinary catheter inserted due to the risk of increased skin breakdown and risk for wound ulcers as patient is not ambulatory and urinates into an adult diaper. Order placed for urinary catheter to be reinserted. Received call from RN stating that patient has refused urinary catheter insertion. Talked with patient [id number] to ascertain reason for reluctance. Patient states that he has had many urinary catheters in the past and they are uncomfortable and painful. Suggested condom catheter. Yet, the patient continues to refuse insertion of urinary catheter. Have obliged patient's wishes and will not insert urinary catheter of any sort. VS,Fishbone, I+O VS, Fishbone, I+O Vital Signs Date Time Temp Pulse Resp B/P (MAP) Pulse Ox O2 Delivery O2 Flow Rate FiO2 04/10/17 14:00 98.0 102 20 92/58 (69) 96 Room Air I&O- Last 24 Hours up to 6 AM 04/11/17 05:59 Intake Total 200 ml Balance 200 ml GISELLE ROWE DO Apr 10, 2017 17:50
[2017-04-10 22:00] VITALS: BP 100/64
[2017-04-10] MEDS: TAMSULOSIN 0.4 MG CAP PO SCH (22:07)
[2017-04-11] MEDS: HEPARIN SOD (PORCINE) 5000 UNITS/ML VIAL SC SCH ×3 (05:34→21:48)
[2017-04-11] MEDS: ACETAMINOPHEN TAB 650MG DOSE (2X325MG) PO PRN ×3 (05:49→21:48)
[2017-04-11 06:00] VITALS: BP 114/76
[2017-04-11] MEDS: ASPIRIN 81 MG ENTERIC TAB PO SCH (09:23)
[2017-04-11] MEDS: DULoxetine 20 MG CAP (CYMBALTA) PO SCH (09:23)
[2017-04-11] MEDS: LACTOBACILLUS ACIDOPHILUS CAP (BACID) PO SCH ×2 (09:23→21:47)
[2017-04-11] MEDS: DIGOXIN 0.0625MG PER 1/2TABLET PO SCH (09:23)
[2017-04-11 14:00] VITALS: BP 103/58
[2017-04-11] MEDS: TAMSULOSIN 0.4 MG CAP PO SCH (21:47)
[2017-04-12] MEDS: ACETAMINOPHEN TAB 650MG DOSE (2X325MG) PO PRN (04:48)
[2017-04-12] MEDS: HEPARIN SOD (PORCINE) 5000 UNITS/ML VIAL SC SCH ×3 (05:11→22:49)
[2017-04-12 06:00] VITALS: BP 97/51
[2017-04-12 08:52] LABS: MEAN CORPUSCULAR HEMOGLOBIN 27.9 pg (27.0-33.0); MEAN CORPUSCULAR HGB CONC 32.1 g/dl (32.0-36.5); MEAN CORPUSCULAR VOLUME 86.8 fl (80.0-96.0); PLATELET COUNT, AUTOMATED 698 10^3/uL (150-450); RED CELL DISTRIBUTION WIDTH 18.9 % (11.5-14.5); WHITE BLOOD COUNT 9.7 10^3/uL (4.0-10.0)
[2017-04-12 09:19] LABS: CALCIUM LEVEL 10.2 MG/DL (8.8-10.2); CREATININE FOR GFR 2.54 MG/DL (0.70-1.30); GLOMERULAR FILTRATION RATE 27.1 (>49); POTASSIUM SERUM 4.2 MEQ/L (3.5-5.1)
[2017-04-12] MEDS: LACTOBACILLUS ACIDOPHILUS CAP (BACID) PO SCH ×2 (09:40→22:49)
[2017-04-12] MEDS: DULoxetine 20 MG CAP (CYMBALTA) PO SCH (09:40)
[2017-04-12] MEDS: ASPIRIN 81 MG ENTERIC TAB PO SCH (09:41)
[2017-04-12] MEDS: oxyCODONE 5MG TAB PO PRN ×3 (09:41→19:35)
[2017-04-12] MEDS: DIGOXIN 0.0625MG PER 1/2TABLET PO SCH (09:42)
--- NOTE | 2017-04-12 16:05 | REP ---
RENAL AND BLADDER ULTRASOUND: Real-time sonographic evaluation of the kidneys are performed. Kidneys are normal in size and echotexture, right kidney measuring 11.9 x 6.7 x 6.6 cm and left kidney 10.8 x 5.0 x 5.7 cm. There is moderately severe right hydronephrosis which is new compared to the prior study of 04/05/2017. There is moderate left hydronephrosis. No other definite renal abnormality is seen bilaterally. Urinary bladder demonstrates scattered echogenic debris and measures 9.0 x 8.7 x 7.3 cm for a total volume of 373.2 mL. No right ureteral jet is visualized with Doppler color evaluation while a left ureteral jet is visualized. Patient is unable to empty the bladder. IMPRESSION: Moderately severe right hydronephrosis. Moderate left hydronephrosis. There is debris in a moderately distended bladder. A left ureteral jet is visualized. A right ureteral jet is not visualized. Signed by Awais Carreon MD 04/12/2017 04:10 P
[2017-04-12 22:00] VITALS: BP 100/55
[2017-04-12] MEDS: TAMSULOSIN 0.4 MG CAP PO SCH (22:49)
[2017-04-13] MEDS: oxyCODONE 5MG TAB PO PRN ×4 (00:22→16:58)
[2017-04-13] MEDS: HEPARIN SOD (PORCINE) 5000 UNITS/ML VIAL SC SCH ×3 (05:45→22:55)
[2017-04-13 06:00] VITALS: BP 116/50
[2017-04-13 06:24] LABS: CALCIUM LEVEL 10.2 MG/DL (8.8-10.2); CREATININE FOR GFR 1.84 MG/DL (0.70-1.30); GLOMERULAR FILTRATION RATE 39.4 (>49)
[2017-04-13] MEDS: LACTOBACILLUS ACIDOPHILUS CAP (BACID) PO SCH ×2 (09:48→20:35)
[2017-04-13] MEDS: DIGOXIN 0.0625MG PER 1/2TABLET PO SCH (09:50)
[2017-04-13] MEDS: DULoxetine 20 MG CAP (CYMBALTA) PO SCH (09:50)
[2017-04-13] MEDS: ASPIRIN 81 MG ENTERIC TAB PO SCH (09:50)
[2017-04-13] MEDS: TAMSULOSIN 0.4 MG CAP PO SCH (20:35)
[2017-04-13 22:00] VITALS: BP 98/51
[2017-04-14] MEDS: oxyCODONE 5MG TAB PO PRN ×3 (00:12→13:09)
[2017-04-14] MEDS: HEPARIN SOD (PORCINE) 5000 UNITS/ML VIAL SC SCH ×3 (05:33→20:54)
[2017-04-14 06:00] VITALS: BP 99/52
[2017-04-14 09:02] LABS: CREATININE FOR GFR 1.3 MG/DL (0.70-1.30); GLOMERULAR FILTRATION RATE 58.8 (>49)
[2017-04-14] MEDS: DULoxetine 20 MG CAP (CYMBALTA) PO SCH (11:04)
[2017-04-14] MEDS: DIGOXIN 0.0625MG PER 1/2TABLET PO SCH (11:04)
[2017-04-14] MEDS: LACTOBACILLUS ACIDOPHILUS CAP (BACID) PO SCH ×2 (11:04→20:54)
[2017-04-14] MEDS: ASPIRIN 81 MG ENTERIC TAB PO SCH (11:04)
[2017-04-14 14:00] VITALS: BP 88/58
[2017-04-14] MEDS: TAMSULOSIN 0.4 MG CAP PO SCH (20:54)
[2017-04-14 22:00] VITALS: BP 98/57
[2017-04-15] MEDS: oxyCODONE 5MG TAB PO PRN (03:05)
[2017-04-15 06:00] VITALS: BP 92/54
[2017-04-15] MEDS: HEPARIN SOD (PORCINE) 5000 UNITS/ML VIAL SC SCH ×3 (06:37→21:36)
[2017-04-15 07:03] LABS: MEAN CORPUSCULAR HEMOGLOBIN 27.7 pg (27.0-33.0); MEAN CORPUSCULAR HGB CONC 31.8 g/dl (32.0-36.5); MEAN CORPUSCULAR VOLUME 87.2 fl (80.0-96.0); PLATELET COUNT, AUTOMATED 758 10^3/uL (150-450); RED CELL DISTRIBUTION WIDTH 17.9 % (11.5-14.5); WHITE BLOOD COUNT 6.9 10^3/uL (4.0-10.0)
[2017-04-15 07:21] LABS: ANION GAP 8 MEQ/L (8-16); BLOOD UREA NITROGEN 30 MG/DL (7-18); CALCIUM LEVEL 10.2 MG/DL (8.8-10.2); CARBON DIOXIDE LEVEL 32 MEQ/L (21-32); CHLORIDE LEVEL 95 MEQ/L (98-107); CREATININE FOR GFR 1.09 MG/DL (0.70-1.30); GLOMERULAR FILTRATION RATE > 60.0 (>49); GLUCOSE, FASTING 127 MG/DL (80-110); POTASSIUM SERUM 4.4 MEQ/L (3.5-5.1); SODIUM LEVEL 135 MEQ/L (136-145)
[2017-04-15] MEDS: DULoxetine 20 MG CAP (CYMBALTA) PO SCH (10:03)
[2017-04-15] MEDS: LACTOBACILLUS ACIDOPHILUS CAP (BACID) PO SCH ×2 (10:04→21:36)
[2017-04-15] MEDS: ASPIRIN 81 MG ENTERIC TAB PO SCH (10:04)
[2017-04-15] MEDS: DIGOXIN 0.0625MG PER 1/2TABLET PO SCH (10:04)
[2017-04-15 14:00] VITALS: BP 88/51
[2017-04-15] MEDS: TAMSULOSIN 0.4 MG CAP PO SCH (21:36)
[2017-04-16] MEDS: HEPARIN SOD (PORCINE) 5000 UNITS/ML VIAL SC SCH ×3 (05:31→21:56)
[2017-04-16 06:00] VITALS: BP 109/58
[2017-04-16] MEDS: DULoxetine 20 MG CAP (CYMBALTA) PO SCH (08:45)
[2017-04-16] MEDS: ASPIRIN 81 MG ENTERIC TAB PO SCH (08:45)
[2017-04-16] MEDS: LACTOBACILLUS ACIDOPHILUS CAP (BACID) PO SCH ×2 (08:47→21:56)
[2017-04-16] MEDS: DIGOXIN 0.0625MG PER 1/2TABLET PO SCH (08:47)
[2017-04-16] MEDS: oxyCODONE 5MG TAB PO PRN ×2 (08:48→16:04)
[2017-04-16 15:34] VITALS: BP 86/53
[2017-04-16] MEDS: SENOKOT S TAB PO SCH (21:56)
[2017-04-16] MEDS: TAMSULOSIN 0.4 MG CAP PO SCH (21:56)
[2017-04-16 22:00] VITALS: BP 121/64
[2017-04-17] MEDS: oxyCODONE 5MG TAB PO PRN ×4 (00:29→20:11)
[2017-04-17 06:00] VITALS: BP 121/64
[2017-04-17] MEDS: HEPARIN SOD (PORCINE) 5000 UNITS/ML VIAL SC SCH ×3 (06:00→20:12)
[2017-04-17] MEDS: BISACODYL 5 MG TAB PO SCH (08:55)
[2017-04-17] MEDS: DULoxetine 20 MG CAP (CYMBALTA) PO SCH (08:56)
[2017-04-17] MEDS: ASPIRIN 81 MG ENTERIC TAB PO SCH (08:56)
[2017-04-17] MEDS: SENOKOT S TAB PO SCH ×2 (08:56→20:11)
[2017-04-17] MEDS: DIGOXIN 0.0625MG PER 1/2TABLET PO SCH (09:00)
[2017-04-17] MEDS: LACTOBACILLUS ACIDOPHILUS CAP (BACID) PO SCH ×2 (09:00→20:10)
[2017-04-17 14:00] VITALS: BP 98/68
[2017-04-17] MEDS: TAMSULOSIN 0.4 MG CAP PO SCH (20:12)
[2017-04-18] MEDS: HEPARIN SOD (PORCINE) 5000 UNITS/ML VIAL SC SCH ×3 (04:55→22:09)
[2017-04-18] MEDS: oxyCODONE 5MG TAB PO PRN ×4 (04:55→22:10)
[2017-04-18 06:00] VITALS: BP 99/50
[2017-04-18] MEDS ORDERED: MIRALAX *UNIT DOSE* 17GM PACKET PO PRN (09:00)
[2017-04-18] MEDS: LACTOBACILLUS ACIDOPHILUS CAP (BACID) PO SCH ×2 (09:16→22:08)
[2017-04-18] MEDS: DULoxetine 20 MG CAP (CYMBALTA) PO SCH (09:17)
[2017-04-18] MEDS: DIGOXIN 0.0625MG PER 1/2TABLET PO SCH (09:17)
[2017-04-18] MEDS: BISACODYL 5 MG TAB PO SCH (09:17)
[2017-04-18] MEDS: SENOKOT S TAB PO SCH ×2 (09:17→21:00)
[2017-04-18] MEDS: ASPIRIN 81 MG ENTERIC TAB PO SCH (09:17)
[2017-04-18] MEDS ORDERED: FLEET ENEMA PR PRN (16:30)
[2017-04-18] MEDS: TAMSULOSIN 0.4 MG CAP PO SCH (22:07)
[2017-04-19] MEDS: HEPARIN SOD (PORCINE) 5000 UNITS/ML VIAL SC SCH ×3 (06:15→21:52)
[2017-04-19 08:01] LABS: MEAN CORPUSCULAR HEMOGLOBIN 27.8 pg (27.0-33.0); MEAN CORPUSCULAR HGB CONC 31.3 g/dl (32.0-36.5); MEAN CORPUSCULAR VOLUME 88.7 fl (80.0-96.0); PLATELET COUNT, AUTOMATED 715 10^3/uL (150-450); RED CELL DISTRIBUTION WIDTH 18.6 % (11.5-14.5); WHITE BLOOD COUNT 12.8 10^3/uL (4.0-10.0)
[2017-04-19 08:19] LABS: ANION GAP 7 MEQ/L (8-16); BLOOD UREA NITROGEN 27 MG/DL (7-18); CALCIUM LEVEL 9.4 MG/DL (8.8-10.2); CARBON DIOXIDE LEVEL 33 MEQ/L (21-32); CHLORIDE LEVEL 98 MEQ/L (98-107); CREATININE FOR GFR 0.97 MG/DL (0.70-1.30); GLOMERULAR FILTRATION RATE > 60.0 (>49); GLUCOSE, FASTING 169 MG/DL (80-110); POTASSIUM SERUM 3.9 MEQ/L (3.5-5.1); SODIUM LEVEL 138 MEQ/L (136-145)
[2017-04-19] MEDS: DULoxetine 20 MG CAP (CYMBALTA) PO SCH (08:45)
[2017-04-19] MEDS: SENOKOT S TAB PO SCH ×2 (08:46→21:52)
[2017-04-19] MEDS: BISACODYL 5 MG TAB PO SCH (08:46)
[2017-04-19] MEDS: LACTOBACILLUS ACIDOPHILUS CAP (BACID) PO SCH ×2 (08:46→21:51)
[2017-04-19] MEDS: ASPIRIN 81 MG ENTERIC TAB PO SCH (08:46)
[2017-04-19] MEDS: DIGOXIN 0.0625MG PER 1/2TABLET PO SCH (08:46)
--- NOTE | 2017-04-19 15:15 | IPNPDOC ---
Subjective Date Seen The patient was seen on 04/19/17. Subjective Chief Complaint/HPI The patient is a 66-year-old male admitted with a reason for visit of Acute Renal Failure. Events since last encounter pateint seen at bedside. No complaints today . pain controlled with current pain medications, de la fuente working without issues. Objective Physical Examination General Exam: Positive: Alert, Cooperative, No Acute Distress, Other (appears cachectic with bitemporal wasting) Eye Exam: Negative: Sclera icteric ENT Exam: Positive: Atraumatic, Mucous membr. moist/pink Neck Exam: Negative: JVD Chest Exam: Positive: Clear to auscultation, Normal air movement Heart Exam: Positive: Rate Normal, Regular Rhythm, Normal S1, Normal S2 Abdomen Exam: Positive: Soft, Negative: Tenderness Extremity Exam: Positive: Normal pulses, Other (right leg contracted to above waist , left lag also partially contracted. ), Negative: Clubbing, Cyanosis, Edema, Swelling Psych Exam: Positive: Oriented x 3 Assessment /Plan Problems (1) Unable to ambulate Status: Chronic Problem Text: Patient bed bound with severely contracted right leg to abouve the hip joint. Left leg partially contracted. Has been nonambulatory since september. Can turn side to side on the bed by himself. patient awaiting [facility] placement. (2) Arthritis of right hip Status: Chronic Problem Text: Severe right sided arthritis with subtle impaction of femoral head against the posterior acetabular labrum. There is also an impaction fracture of the right humeral head as well as posterior inferior subluxation within the acetabulum. Radiologist felt this may all be secondary to aseptic necrosis. Dr Banks from Orthopedics was consulted. The patient was determined not to be a surgical candidate at this moment also his surgery which would be total hip replacement would be a very complicated one in view of his contractures which cannot be done here. If he wants to pursue surgical intervention at a later date he has to followup with [facility] in the future for further evaluations as he was treated there before. Pain management consulted had an intraarticular Kenalog injection done in the right hip with no improvement of pain . Pain medication adjusted now pain better controlled. (3) Sepsis Status: Resolved Problem Text: due to UTI and c diff (4) Acute renal failure Status: Resolved Problem Text: due to obstructive uropathy and dehydration from diarrhea. improved with de la fuente possibly has bladder neck obs or bph or urethral stricture. pateint has been on flomax for about 3 weeks so de la fuente has been discontinued on 04/07 for voiding trial. will continue with bladder scans twice a day. (5) Obstructive uropathy Status: Resolved Problem Text: renal US on admission showed bilateral hydronephrosis right > left old renal US in september did show mild to moderate right hydronephrosis at that time with thickened bladder mcdonald Repeat US on 04/05 showed resolution of bilateral hydronephrosis. De La Fuente was discontinued on 04/07 for voiding trial which pateint failed with chronic retension of about 300 to 400 ml in bladder and creatinine again went up . So de la fuente was reinserted. Will be discharged with chronic de la fuente. follow up with urology as outpatient. (6) UTI (urinary tract infection) Status: Resolved (7) Diastolic CHF Status: Chronic Problem Text: with possibly moderate pulmonary hypertension , mitral regurgitation. (8) Acute metabolic encephalopathy Status: Resolved Problem Text: due to sepsis and acute renal failure. 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 So was transferred to [facility] for higher level of care. (10) Tachycardia Status: Resolved Problem Text: SVT vs aflutter received 1 dose of dig and corrected to sinus rhythm (11) Severe protein-calorie malnutrition Status: Chronic Problem Text: Has a BMI of 15 . Has lost 10 kgs in last 6 months. legs contracted and possibly has been bed bound for months. (12) C. difficile diarrhea Status: Resolved Plan/VTE VTE Prophylaxis Ordered?: Yes Plan Anticipated Discharge: [facility], I&O, 24H, [facility] Vital Signs/I&O Vital Signs Date Time Temp Pulse Resp B/P (MAP) Pulse Ox O2 Delivery O2 Flow Rate FiO2 04/19/17 09:00 Room Air 04/19/17 08:46 78 04/18/17 22:40 16 04/18/17 06:00 98.2 99/50 (66) 94 I&O- Last 24 Hours up to 6 AM 04/20/17 06:00 Intake Total 120 ml Balance 120 ml Laboratory Data 24H LABS Laboratory Tests 2 04/19/17 07:49: Nucleated Red Blood Cells % (auto) 0.0, Anion Gap 7L, Glomerular Filtration Rate > 60.0, Blood Urea Nitrogen 27H, Creatinine 0.97, Sodium Level 138, Potassium Level 3.9, Chloride Level 98, Carbon Dioxide Level 33H, Calcium Level 9.4 CBC/BMP Laboratory Tests 04/19/17 07:49 Red Blood Count 3.53 L, Mean Corpuscular Volume 88.7, Mean Corpuscular Hemoglobin 27.8, Mean Corpuscular Hemoglobin Concent 31.3 L, Red Cell Distribution Width 18.6 H, Calcium Level 9.4 ANTONIA GARCIA MD Apr 19, 2017 15:15
[2017-04-19] MEDS: TAMSULOSIN 0.4 MG CAP PO SCH (21:51)
[2017-04-20] MEDS: HEPARIN SOD (PORCINE) 5000 UNITS/ML VIAL SC SCH ×2 (05:36→14:00)
[2017-04-20 06:00] VITALS: BP 96/58
[2017-04-20 08:50] VITALS: BP 90/54
[2017-04-20] MEDS ORDERED: OXYCO5TA PO (09:39)
[2017-04-20] MEDS ORDERED: DIGO0.12 PO (09:39)
[2017-04-20] MEDS ORDERED: MIRA3350 PO (09:41)
[2017-04-20] MEDS ORDERED: SENN8.6T17 PO (09:41)
[2017-04-20] MEDS: LACTOBACILLUS ACIDOPHILUS CAP (BACID) PO SCH (11:26)
[2017-04-20] MEDS: DIGOXIN 0.0625MG PER 1/2TABLET PO SCH (11:27)
[2017-04-20] MEDS: DULoxetine 20 MG CAP (CYMBALTA) PO SCH (11:28)
[2017-04-20] MEDS: SENOKOT S TAB PO SCH (11:28)
[2017-04-20] MEDS: ASPIRIN 81 MG ENTERIC TAB PO SCH (11:28)
[2017-04-20] MEDS: BISACODYL 5 MG TAB PO SCH (11:29)
[2017-04-20] MEDS: ACETAMINOPHEN TAB 650MG DOSE (2X325MG) PO PRN (11:43)
[2017-04-20 14:00] VITALS: BP 94/54
--- NOTE | 2017-04-20 19:48 | DSES ---
DATE OF ADMISSION: 03/17/2017 DATE OF DISCHARGE: CONSULTANTS DURING THIS ADMISSION: Studio Control Operator, Dr. Rony Antoine. Pain management, MULUGETA Bennett. Urologist, Dr. Lebron John. Dr. Kj Banks, orthopedic surgery. PRIMARY CARE PROVIDER: Resident clinic. PRIMARY DISCHARGE DIAGNOSES: 1. Unable to ambulate secondary to contracted leg above the hip joint. 2. Arthritis of the right hip with subtle impaction of the femoral head against acetabulum and labrum/aseptic necrosis. 3. Sepsis secondary to Clostridium (C) difficile and urinary tract infection (UTI). 4. Acute renal failure due to obstructive uropathy, dehydration from diarrhea with ureteral stricture. 5. Obstructive uropathy with bilateral hydronephrosis, right greater than left. 6. Urinary tract infection (UTI). 7. Diastolic heart failure with moderate pulmonary hypertension. 8. Mitral regurgitation. 9. Acute metabolic encephalopathy due to sepsis. 10. Acute renal failure. 11. History of endocarditis with methicillin resistant Staphylococcus aureus (MRSA) in September 2016 with vegetation of the mitral valve. 12. Moderate mitral insufficiency. 13. SVT versus atrial flutter corrected with Digoxin. 14. Severe protein calorie malnutrition. 15. Clostridium (C) difficile diarrhea. HOSPITAL COURSE: This is a 66-year-old male with history of urine retention, renal failure, diverticulosis, failure to thrive, osteoarthritis who was brought in due to altered mental status, who has had severe fatigue for the past few weeks and pain at the right hip and knee, contracted. Pulse of 103, tachycardic with a systolic pressure of 80 and dehydrated. The patient's Magaña catheter showed cloudy urine. The patient was admitted for urinary tract infection. White count on admission was 12.7. He was found to have Proteus mirabilis, resistant to nitrofurantoin and tigecycline. Diarrhea was evaluated and found to be C difficile. The patient was started on vancomycin 250 mg every 6 hours with resolution of diarrhea. He was started on intravenous fluids for renal failure. Magaña catheter was placed due to obstructive uropathy with bilateral hydronephrosis found on CT of the abdomen and pelvis on 03/22/2017. Repeat with Magaña catheter placement. The patient had some improvement. Repeat ultrasound on 04/05/2017 showed no hydronephrosis and suspected right renal calculus. The patient complained of severe hip pain, evaluated by orthopedic surgeon, Dr. Banks, who felt that the patient was too high risk in his current condition, it would be a total hip replacement and a complicated one due to his contractures, which cannot be done here at [facility]. If the patient pursues surgical intervention at a later date, he is best to follow with [facility] for further evaluation, as he was treated there previously. The patient did receive Kenalog injection done in the right hip with no improvement of pain. He currently has impaction of the fracture in the right femoral head and posteroinferior subluxation with the acetabulum. He can turn side to side in the bed by himself, but the patient's family, nephew, has agreed to take him home, along with the nephew's girlfriend. The patient's urinary tract infection and C difficile have resolved with antibiotic and vancomycin. Acute renal failure improved with Magaña catheter, most likely due to bladder neck obstruction or benign prostatic hypertrophy (BPH) or urethral stricture. Had been on Flomax for 3 weeks. Magaña was discontinued on 04/07/2017 with a voiding trial and bladder scans twice a day. The patient is to followup with urology as an outpatient. The patient did have an episode of SVT, first with atrial flutter, which resolved with one dose of digoxin and corrected to sinus rhythm. The patient has a Body Mass Index (BMI) of 15. Has lost 10 kg in the past 6 months. Leg is contracted and has been bed bound for months. The patient has taken orally and supplement nutrition with Ensure or Boost. Discharge laboratories: White count 12.8, hemoglobin 9.8, hematocrit 31, platelet count 715. Sodium 138, potassium 3.9, chloride 98, bicarbonate 33, BUN 27, creatinine 0.97, glucose of 169. 03/18/2017 C difficile positive. Methicillin resistant Staphylococcus aureus (MRSA) screen on 03/18/2017 positive. Two sets of blood cultures on 03/17/2017 negative. Proteus mirabilis 03/17/2017 culture. Hemoccult stool on 04/07/2017 negative. IMAGING STUDIES: Chest x-ray on 03/17/2017 with no acute cardiopulmonary changes. The patient is rotated. Hip x-ray on 03/17/2017 showed severe osteoarthritis with extensive subcortical cyst formation in the right acetabulum, right femoral head. Mild osteoarthritic changes noted in the left hip. No fracture or other acute bony abnormalities appreciated. Apparently unable to straighten or extend the right hip. CT of the head done on 03/17/2017 showed diffuse moderate atrophy and vascular calcification. No acute intracranial pathology. Renal ultrasound on 03/18/2017 showed moderate to severe right hydroureteronephrosis. Moderate left hydroureteronephrosis on CT of the abdomen and pelvis from 03/22/2017. Right hip demonstrated impacted right femoral head against acetabulum and labrum with impaction fracture of the right femoral head and posterosuperior subluxation within the acetabulum. This may be secondary to aseptic necrosis right hip and MRI would be considered. Repeat renal ultrasound on 04/05/2017 showed no hydronephrosis, suspected right renal calculus. 04/12/2017 renal ultrasound with moderate to severe right hydronephrosis, moderate left hydronephrosis, moderately distended bladder, left ureteral jets visualized. Right ureteral jet was not visualized. Time spent on discharge: 30 minutes.
== END 2017-04-20 15:36 | disposition home health service (06) | DRG 871 ==
LOC: M ED 12:27 → M ED INP 16:21 → M PCU 19:55 → M MSPAV 03-24 18:34
PROVIDERS: ADMIT Internal Medicine; ATTEND General Practice
PROC: 30233N1 Transfusion of Nonautologous Red Blood Cells into Peripheral Vein, Percutaneous Approach (ICD-10-PCS; principal; 2017-03-20)
DX: A41.4 Sepsis due to anaerobes (principal); E43 Unspecified severe protein-calorie malnutrition; G93.41 Metabolic encephalopathy; S72.091A Other fracture of head and neck of right femur, initial encounter for closed fracture; N17.9 Acute kidney failure, unspecified; I50.32 Chronic diastolic (congestive) heart failure; A04.72 Enterocolitis due to Clostridium difficile, not specified as recurrent; N39.0 Urinary tract infection, site not specified; I96 Gangrene, not elsewhere classified; I48.92 Unspecified atrial flutter; I47.1 Supraventricular tachycardia; N13.2 Hydronephrosis with renal and ureteral calculous obstruction; Z68.1 Body mass index [BMI] 19.9 or less, adult; M87.051 Idiopathic aseptic necrosis of right femur; E87.1 Hypo-osmolality and hyponatremia; M62.50 Muscle wasting and atrophy, not elsewhere classified, unspecified site; M16.11 Unilateral primary osteoarthritis, right hip; E86.0 Dehydration; I34.0 Nonrheumatic mitral (valve) insufficiency; I27.20 Pulmonary hypertension, unspecified; K57.30 Diverticulosis of large intestine without perforation or abscess without bleeding; M24.551 Contracture, right hip; M24.561 Contracture, right knee; B96.4 Proteus (mirabilis) (morganii) as the cause of diseases classified elsewhere; L40.8 Other psoriasis; F17.200 Nicotine dependence, unspecified, uncomplicated; Z79.82 Long term (current) use of aspirin; Z79.899 Other long term (current) drug therapy; M85.48 Solitary bone cyst, other site; E83.52 Hypercalcemia; D64.9 Anemia, unspecified; R26.2 Difficulty in walking, not elsewhere classified; W18.30XA Fall on same level, unspecified, initial encounter; Y92.009 Unspecified place in unspecified non-institutional (private) residence as the place of occurrence of the external cause

== ENCOUNTER → 2017-04-29 | Outpatient (REF) | payer MEDICARE, MEDICAID ==
[~2017-04-29] MED LIST changes: +DIGO0.12 PO; +MIRA3350 PO; +OXYCO5TA PO; +SENN8.6T17 PO
[2017-04-29 18:37] LABS: FOLATE 9.8 NG/ML
[2017-04-29 18:43] LABS: PERCENT SATURATION 9.5 % (19.7-50.0)
== END ==
LOC: M LAB REF 17:14
PROVIDERS: ATTEND Internal Medicine Nephrology
DX: D64.9 Anemia, unspecified (principal)

== ENCOUNTER 2017-05-24 02:23 | Inpatient (IN) | payer MEDICARE, MEDICAID ==
[2017-05-24] MEDS: NS 1,000 ML IV ×4 (03:15→19:10)
[2017-05-24 04:11] LABS: BASO % 0.2 % (0.0-1.0); EOS % 0.4 % (0.0-3.0); HEMATOCRIT 32.8 % (42.0-52.0); HEMOGLOBIN 10.7 g/dl (14.0-18.0); IMMATURE GRANULOCYTE % 0.4 % (0-0); LYMPH % 9.6 % (24.0-44.0); MEAN CORPUSCULAR HEMOGLOBIN 27.5 pg (27.0-33.0); MEAN CORPUSCULAR HGB CONC 32.6 g/dl (32.0-36.5); MEAN CORPUSCULAR VOLUME 84.3 fl (80.0-96.0); MONO # 0.4 10^3/uL (0.0-0.8); NEUTROPHILS % 85.4 % (36.0-66.0); PLATELET COUNT, AUTOMATED 746 10^3/uL (150-450); RED BLOOD COUNT 3.89 10^6/uL (4.30-6.10); RED CELL DISTRIBUTION WIDTH 16.9 % (11.5-14.5); WHITE BLOOD COUNT 10.5 10^3/uL (4.0-10.0)
[2017-05-24 04:34] LABS: ALBUMIN/GLOBULIN RATIO 0.41 (1.00-1.93); ALKALINE PHOSPHATASE 130 U/L (45-117); ALT/SGPT 10 U/L (12-78); ANION GAP 9 MEQ/L (8-16); AST/SGOT 17 U/L (7-37); BILIRUBIN,DIRECT 0.1 MG/DL (0.0-0.2); BILIRUBIN,TOTAL 0.3 MG/DL (0.2-1.0); BLOOD UREA NITROGEN 23 MG/DL (7-18); CALCIUM LEVEL 8.8 MG/DL (8.8-10.2); CARBON DIOXIDE LEVEL 27 MEQ/L (21-32); CHLORIDE LEVEL 98 MEQ/L (98-107); CREATININE FOR GFR 0.69 MG/DL (0.70-1.30); GLOMERULAR FILTRATION RATE > 60.0 (>49); GLUCOSE, FASTING 153 MG/DL (80-110); LIPASE 92 U/L (73-393); POTASSIUM SERUM 3.7 MEQ/L (3.5-5.1); SODIUM LEVEL 134 MEQ/L (136-145); TOTAL PROTEIN 6.9 GM/DL (6.4-8.2)
[2017-05-24] MEDS: VANCOMYCIN ORAL SOL 250MG/5ML ORAL SYRINGE PO ×4 (06:00→23:44)
[2017-05-24] MEDS: LevoFLOXacin 250 MG TABLET PO (06:00)
[2017-05-24 06:13] LABS: LACTIC ACID SEPSIS PROTOCOL 0.5 MMOL/L (0.4-2.0)
[2017-05-24 08:11] LABS: AMORPHOUS SEDIMENT RFX SMALL (NEGATIVE); KETONE, URINE AUTO RFX NEGATIVE (NEGATIVE); LEUKOCYTE ESTERASE UR AUTO RFX 2+ (NEGATIVE); NITRITE, URINE AUTO RFX NEGATIVE (NEGATIVE); RBC, URINE AUTO RFX 73 /HPF (0-3); SPECIFIC GRAVITY UR AUTO RFX 1.017 (1.002-1.035); SQUAM EPITHELIAL CELL UR AURFX 0 /HPF (0-6); WBC, URINE AUTO RFX TNTC /HPF (0-3)
[2017-05-24] MEDS: ASPIRIN 81 MG ENTERIC TAB PO (08:12)
[2017-05-24] MEDS: DIGOXIN 0.0625MG PER 1/2TABLET PO (08:12)
[2017-05-24] MEDS: PANTOPRAZOLE 40MG TAB (PROTONIX) PO (08:12)
[2017-05-24 11:09] LABS: DIGOXIN LEVEL 0.2 NG/ML (0.5-2.0)
[2017-05-24] MEDS: NS 500 ML IV (18:26)
[2017-05-24] MEDS: ACETAMINOPHEN 650MG ER TAB (TYLENOL ARTHRITIS) PO (22:09)
[2017-05-25 05:48] LABS: HEMATOCRIT 26.1 % (42.0-52.0); MEAN CORPUSCULAR HGB CONC 31.8 g/dl (32.0-36.5); PLATELET COUNT, AUTOMATED 514 10^3/uL (150-450); RED BLOOD COUNT 3.07 10^6/uL (4.30-6.10); WHITE BLOOD COUNT 9.4 10^3/uL (4.0-10.0)
[2017-05-25 05:56] LABS: HEMOGLOBIN 8.3 g/dl (14.0-18.0)
[2017-05-25 06:07] LABS: ALBUMIN 1.5 GM/DL (3.2-5.2); ALBUMIN/GLOBULIN RATIO 0.36 (1.00-1.93); ALKALINE PHOSPHATASE 92 U/L (45-117); ALT/SGPT < 6 U/L (12-78); ANION GAP 9 MEQ/L (8-16); AST/SGOT 11 U/L (7-37); BILIRUBIN,TOTAL 0.1 MG/DL (0.2-1.0); BLOOD UREA NITROGEN 13 MG/DL (7-18); CALCIUM LEVEL 7.2 MG/DL (8.8-10.2); CARBON DIOXIDE LEVEL 23 MEQ/L (21-32); CHLORIDE LEVEL 104 MEQ/L (98-107); CREATININE FOR GFR 0.55 MG/DL (0.70-1.30); GLOMERULAR FILTRATION RATE > 60.0 (>49); GLUCOSE, FASTING 137 MG/DL (80-110); POTASSIUM SERUM 2.8 MEQ/L (3.5-5.1); SODIUM LEVEL 136 MEQ/L (136-145); TOTAL PROTEIN 5.7 GM/DL (6.4-8.2)
[2017-05-25] MEDS: LevoFLOXacin 250 MG TABLET PO (06:27)
[2017-05-25] MEDS: POTASSIUM CHLORIDE 10 MEQ SR TABLET PO ×2 (06:27→08:37)
[2017-05-25] MEDS: VANCOMYCIN ORAL SOL 250MG/5ML ORAL SYRINGE PO ×3 (06:27→17:48)
[2017-05-25 07:52] LABS: MAGNESIUM LEVEL 1.7 MG/DL (1.8-2.4)
[2017-05-25] MEDS: KCL 40MEQ in NS 1000ML 1,000 ML IV ×2 (08:37→22:24)
[2017-05-25] MEDS: PANTOPRAZOLE 40MG TAB (PROTONIX) PO (08:37)
[2017-05-25] MEDS: ASPIRIN 81 MG ENTERIC TAB PO (08:38)
[2017-05-25] MEDS: DIGOXIN 0.0625MG PER 1/2TABLET PO (08:38)
[2017-05-25] MEDS: ACETAMINOPHEN 650MG ER TAB (TYLENOL ARTHRITIS) PO (09:55)
[2017-05-25] MEDS: MAG SULF 1GM/100ML (MAG RUN) 1 GM in APPROPRIATE DILUENT 1 EA IV (11:43)
[2017-05-25] MEDS: fentaNYL 12 MCG/HR PATCH TOP (11:43)
[2017-05-25] MEDS: oxyCODONE 5MG TAB PO ×3 (12:46→20:13)
[2017-05-25 12:54] LABS: ANION GAP 8 MEQ/L (8-16); BLOOD UREA NITROGEN 11 MG/DL (7-18); CALCIUM LEVEL 7.4 MG/DL (8.8-10.2); CARBON DIOXIDE LEVEL 23 MEQ/L (21-32); CHLORIDE LEVEL 107 MEQ/L (98-107); GLOMERULAR FILTRATION RATE > 60.0 (>49); GLUCOSE, FASTING 134 MG/DL (80-110); POTASSIUM SERUM 4.3 MEQ/L (3.5-5.1); SODIUM LEVEL 138 MEQ/L (136-145)
[2017-05-26] MEDS: VANCOMYCIN ORAL SOL 250MG/5ML ORAL SYRINGE PO ×5 (00:05→23:41)
[2017-05-26] MEDS: oxyCODONE 5MG TAB PO ×6 (00:06→21:08)
[2017-05-26 05:20] LABS: HEMATOCRIT 28.2 % (42.0-52.0); HEMOGLOBIN 8.8 g/dl (14.0-18.0); MEAN CORPUSCULAR HEMOGLOBIN 26.7 pg (27.0-33.0); MEAN CORPUSCULAR HGB CONC 31.2 g/dl (32.0-36.5); MEAN CORPUSCULAR VOLUME 85.7 fl (80.0-96.0); PLATELET COUNT, AUTOMATED 482 10^3/uL (150-450); RED BLOOD COUNT 3.29 10^6/uL (4.30-6.10); RED CELL DISTRIBUTION WIDTH 17.2 % (11.5-14.5); WHITE BLOOD COUNT 8.1 10^3/uL (4.0-10.0)
[2017-05-26] MEDS: ACETAMINOPHEN 650MG ER TAB (TYLENOL ARTHRITIS) PO (05:38)
[2017-05-26 05:45] LABS: ALBUMIN 1.5 GM/DL (3.2-5.2); ALBUMIN/GLOBULIN RATIO 0.36 (1.00-1.93); ALKALINE PHOSPHATASE 88 U/L (45-117); ALT/SGPT < 6 U/L (12-78); ANION GAP 4 MEQ/L (8-16); AST/SGOT 12 U/L (7-37); BILIRUBIN,TOTAL 0.1 MG/DL (0.2-1.0); BLOOD UREA NITROGEN 7 MG/DL (7-18); CALCIUM LEVEL 7.5 MG/DL (8.8-10.2); CARBON DIOXIDE LEVEL 27 MEQ/L (21-32); CHLORIDE LEVEL 107 MEQ/L (98-107); CREATININE FOR GFR 0.56 MG/DL (0.70-1.30); GLOMERULAR FILTRATION RATE > 60.0 (>49); GLUCOSE, FASTING 81 MG/DL (80-110); POTASSIUM SERUM 4.5 MEQ/L (3.5-5.1); SODIUM LEVEL 138 MEQ/L (136-145); TOTAL PROTEIN 5.7 GM/DL (6.4-8.2)
[2017-05-26] MEDS: PANTOPRAZOLE 40MG TAB (PROTONIX) PO (09:46)
[2017-05-26] MEDS: DIGOXIN 0.0625MG PER 1/2TABLET PO (09:46)
[2017-05-26] MEDS: ASPIRIN 81 MG ENTERIC TAB PO (09:47)
[2017-05-26] MEDS: KCL 40MEQ in NS 1000ML 1,000 ML IV ×2 (13:16→21:09)
[2017-05-26] MEDS: SANTYL OINT 30GM TOP (15:02)
[2017-05-27] MEDS: oxyCODONE 5MG TAB PO ×6 (01:47→20:20)
[2017-05-27] MEDS: VANCOMYCIN ORAL SOL 250MG/5ML ORAL SYRINGE PO ×3 (05:13→17:56)
[2017-05-27 06:41] LABS: HEMATOCRIT 27.7 % (42.0-52.0); HEMOGLOBIN 8.7 g/dl (14.0-18.0); MEAN CORPUSCULAR HEMOGLOBIN 27.6 pg (27.0-33.0); MEAN CORPUSCULAR HGB CONC 31.4 g/dl (32.0-36.5); MEAN CORPUSCULAR VOLUME 87.9 fl (80.0-96.0); PLATELET COUNT, AUTOMATED 454 10^3/uL (150-450); RED BLOOD COUNT 3.15 10^6/uL (4.30-6.10); RED CELL DISTRIBUTION WIDTH 17.3 % (11.5-14.5); WHITE BLOOD COUNT 7.2 10^3/uL (4.0-10.0)
[2017-05-27 06:59] LABS: ALBUMIN 1.5 GM/DL (3.2-5.2); ALBUMIN/GLOBULIN RATIO 0.36 (1.00-1.93); ALKALINE PHOSPHATASE 90 U/L (45-117); ALT/SGPT 6 U/L (12-78); ANION GAP 5 MEQ/L (8-16); AST/SGOT 15 U/L (7-37); BILIRUBIN,TOTAL 0.1 MG/DL (0.2-1.0); BLOOD UREA NITROGEN 8 MG/DL (7-18); CALCIUM LEVEL 7.9 MG/DL (8.8-10.2); CARBON DIOXIDE LEVEL 29 MEQ/L (21-32); CHLORIDE LEVEL 103 MEQ/L (98-107); CREATININE FOR GFR 0.48 MG/DL (0.70-1.30); GLOMERULAR FILTRATION RATE > 60.0 (>49); GLUCOSE, FASTING 95 MG/DL (80-110); POTASSIUM SERUM 4.5 MEQ/L (3.5-5.1); SODIUM LEVEL 137 MEQ/L (136-145); TOTAL PROTEIN 5.7 GM/DL (6.4-8.2)
[2017-05-27] MEDS: ASPIRIN 81 MG ENTERIC TAB PO (08:52)
[2017-05-27] MEDS: DIGOXIN 0.0625MG PER 1/2TABLET PO (08:52)
[2017-05-27] MEDS: PANTOPRAZOLE 40MG TAB (PROTONIX) PO (08:52)
[2017-05-27] MEDS: SANTYL OINT 30GM TOP (08:53)
[2017-05-28] MEDS: VANCOMYCIN ORAL SOL 250MG/5ML ORAL SYRINGE PO ×4 (00:24→17:52)
[2017-05-28] MEDS: oxyCODONE 5MG TAB PO ×6 (01:10→21:00)
[2017-05-28 06:14] LABS: HEMATOCRIT 26.7 % (42.0-52.0); HEMOGLOBIN 8.3 g/dl (14.0-18.0); MEAN CORPUSCULAR HEMOGLOBIN 27.2 pg (27.0-33.0); MEAN CORPUSCULAR HGB CONC 31.1 g/dl (32.0-36.5); MEAN CORPUSCULAR VOLUME 87.5 fl (80.0-96.0); PLATELET COUNT, AUTOMATED 461 10^3/uL (150-450); RED BLOOD COUNT 3.05 10^6/uL (4.30-6.10); WHITE BLOOD COUNT 6.1 10^3/uL (4.0-10.0)
[2017-05-28 06:39] LABS: ALBUMIN 1.6 GM/DL (3.2-5.2); ALBUMIN/GLOBULIN RATIO 0.36 (1.00-1.93); ALKALINE PHOSPHATASE 90 U/L (45-117); ALT/SGPT 9 U/L (12-78); ANION GAP 5 MEQ/L (8-16); AST/SGOT 13 U/L (7-37); BILIRUBIN,TOTAL < 0.1 MG/DL (0.2-1.0); BLOOD UREA NITROGEN 10 MG/DL (7-18); CALCIUM LEVEL 8.2 MG/DL (8.8-10.2); CARBON DIOXIDE LEVEL 34 MEQ/L (21-32); CHLORIDE LEVEL 96 MEQ/L (98-107); CREATININE FOR GFR 0.49 MG/DL (0.70-1.30); GLOMERULAR FILTRATION RATE > 60.0 (>49); GLUCOSE, FASTING 105 MG/DL (80-110); POTASSIUM SERUM 4.2 MEQ/L (3.5-5.1); SODIUM LEVEL 135 MEQ/L (136-145)
[2017-05-28] MEDS: DIGOXIN 0.0625MG PER 1/2TABLET PO (08:49)
[2017-05-28] MEDS: ASPIRIN 81 MG ENTERIC TAB PO (08:49)
[2017-05-28] MEDS: PANTOPRAZOLE 40MG TAB (PROTONIX) PO (08:49)
[2017-05-28] MEDS: fentaNYL 12 MCG/HR PATCH TOP (08:50)
[2017-05-28] MEDS: SANTYL OINT 30GM TOP (08:51)
[2017-05-29] MEDS: VANCOMYCIN ORAL SOL 250MG/5ML ORAL SYRINGE PO ×4 (00:37→17:19)
[2017-05-29] MEDS: oxyCODONE 5MG TAB PO ×6 (00:56→21:28)
[2017-05-29] MEDS: SODIUM CHLORIDE 0.9% 500 ML IV (05:57)
[2017-05-29 06:17] LABS: HEMOGLOBIN 8.6 g/dl (14.0-18.0); MEAN CORPUSCULAR HEMOGLOBIN 26.8 pg (27.0-33.0); MEAN CORPUSCULAR HGB CONC 30.7 g/dl (32.0-36.5); MEAN CORPUSCULAR VOLUME 87.2 fl (80.0-96.0); PLATELET COUNT, AUTOMATED 492 10^3/uL (150-450); RED BLOOD COUNT 3.21 10^6/uL (4.30-6.10); RED CELL DISTRIBUTION WIDTH 16.9 % (11.5-14.5); WHITE BLOOD COUNT 6.4 10^3/uL (4.0-10.0)
[2017-05-29 06:34] LABS: ALBUMIN 1.6 GM/DL (3.2-5.2); ALBUMIN/GLOBULIN RATIO 0.35 (1.00-1.93); ALKALINE PHOSPHATASE 95 U/L (45-117); ALT/SGPT 11 U/L (12-78); ANION GAP 3 MEQ/L (8-16); AST/SGOT 15 U/L (7-37); BILIRUBIN,TOTAL < 0.1 MG/DL (0.2-1.0); BLOOD UREA NITROGEN 14 MG/DL (7-18); CALCIUM LEVEL 8.1 MG/DL (8.8-10.2); CARBON DIOXIDE LEVEL 37 MEQ/L (21-32); CHLORIDE LEVEL 93 MEQ/L (98-107); CREATININE FOR GFR 0.48 MG/DL (0.70-1.30); GLOMERULAR FILTRATION RATE > 60.0 (>49); GLUCOSE, FASTING 116 MG/DL (80-110); POTASSIUM SERUM 4.3 MEQ/L (3.5-5.1); SODIUM LEVEL 133 MEQ/L (136-145); TOTAL PROTEIN 6.2 GM/DL (6.4-8.2)
[2017-05-29] MEDS: PANTOPRAZOLE 40MG TAB (PROTONIX) PO (08:49)
[2017-05-29] MEDS: ASPIRIN 81 MG ENTERIC TAB PO (08:49)
[2017-05-29] MEDS: DIGOXIN 0.0625MG PER 1/2TABLET PO (08:50)
[2017-05-29] MEDS: SANTYL OINT 30GM TOP (08:50)
[2017-05-30] MEDS: VANCOMYCIN ORAL SOL 250MG/5ML ORAL SYRINGE PO ×4 (00:43→17:34)
[2017-05-30] MEDS: oxyCODONE 5MG TAB PO ×6 (00:43→20:43)
[2017-05-30 06:15] LABS: HEMOGLOBIN 8.2 g/dl (14.0-18.0); MEAN CORPUSCULAR HEMOGLOBIN 26.8 pg (27.0-33.0); MEAN CORPUSCULAR HGB CONC 30.4 g/dl (32.0-36.5); MEAN CORPUSCULAR VOLUME 88.2 fl (80.0-96.0); PLATELET COUNT, AUTOMATED 496 10^3/uL (150-450); RED BLOOD COUNT 3.06 10^6/uL (4.30-6.10); RED CELL DISTRIBUTION WIDTH 16.8 % (11.5-14.5); WHITE BLOOD COUNT 6.1 10^3/uL (4.0-10.0)
[2017-05-30 06:41] LABS: ALBUMIN 1.6 GM/DL (3.2-5.2); ALBUMIN/GLOBULIN RATIO 0.34 (1.00-1.93); ALKALINE PHOSPHATASE 90 U/L (45-117); ALT/SGPT 11 U/L (12-78); ANION GAP 4 MEQ/L (8-16); AST/SGOT 16 U/L (7-37); BILIRUBIN,TOTAL < 0.1 MG/DL (0.2-1.0); BLOOD UREA NITROGEN 13 MG/DL (7-18); CALCIUM LEVEL 8.1 MG/DL (8.8-10.2); CARBON DIOXIDE LEVEL 38 MEQ/L (21-32); CHLORIDE LEVEL 93 MEQ/L (98-107); CREATININE FOR GFR 0.51 MG/DL (0.70-1.30); GLOMERULAR FILTRATION RATE > 60.0 (>49); GLUCOSE, FASTING 117 MG/DL (80-110); POTASSIUM SERUM 3.8 MEQ/L (3.5-5.1); SODIUM LEVEL 135 MEQ/L (136-145); TOTAL PROTEIN 6.3 GM/DL (6.4-8.2)
[2017-05-30] MEDS: SANTYL OINT 30GM TOP (09:00)
[2017-05-30] MEDS: PANTOPRAZOLE 40MG TAB (PROTONIX) PO (09:05)
[2017-05-30] MEDS: ASPIRIN 81 MG ENTERIC TAB PO (09:05)
[2017-05-30] MEDS: DIGOXIN 0.0625MG PER 1/2TABLET PO (09:06)
[2017-05-31] MEDS: VANCOMYCIN ORAL SOL 250MG/5ML ORAL SYRINGE PO ×4 (01:02→16:57)
[2017-05-31] MEDS: oxyCODONE 5MG TAB PO ×6 (01:03→21:29)
[2017-05-31 05:51] LABS: HEMATOCRIT 27.3 % (42.0-52.0); HEMOGLOBIN 8.4 g/dl (14.0-18.0); MEAN CORPUSCULAR HEMOGLOBIN 26.9 pg (27.0-33.0); MEAN CORPUSCULAR HGB CONC 30.8 g/dl (32.0-36.5); MEAN CORPUSCULAR VOLUME 87.5 fl (80.0-96.0); PLATELET COUNT, AUTOMATED 516 10^3/uL (150-450); RED BLOOD COUNT 3.12 10^6/uL (4.30-6.10); RED CELL DISTRIBUTION WIDTH 16.9 % (11.5-14.5); WHITE BLOOD COUNT 5.4 10^3/uL (4.0-10.0)
[2017-05-31 06:15] LABS: ALBUMIN 1.6 GM/DL (3.2-5.2); ALBUMIN/GLOBULIN RATIO 0.37 (1.00-1.93); ALKALINE PHOSPHATASE 94 U/L (45-117); ALT/SGPT 11 U/L (12-78); ANION GAP 6 MEQ/L (8-16); AST/SGOT 24 U/L (7-37); BILIRUBIN,TOTAL < 0.1 MG/DL (0.2-1.0); BLOOD UREA NITROGEN 14 MG/DL (7-18); CALCIUM LEVEL 7.8 MG/DL (8.8-10.2); CARBON DIOXIDE LEVEL 36 MEQ/L (21-32); CHLORIDE LEVEL 95 MEQ/L (98-107); CREATININE FOR GFR 0.67 MG/DL (0.70-1.30); GLOMERULAR FILTRATION RATE > 60.0 (>49); GLUCOSE, FASTING 100 MG/DL (80-110); POTASSIUM SERUM 4.7 MEQ/L (3.5-5.1); SODIUM LEVEL 137 MEQ/L (136-145); TOTAL PROTEIN 5.9 GM/DL (6.4-8.2)
[2017-05-31] MEDS: SANTYL OINT 30GM TOP (09:03)
[2017-05-31] MEDS: ASPIRIN 81 MG ENTERIC TAB PO (09:04)
[2017-05-31] MEDS: fentaNYL 12 MCG/HR PATCH TOP (09:04)
[2017-05-31] MEDS: PANTOPRAZOLE 40MG TAB (PROTONIX) PO (09:04)
[2017-05-31] MEDS: DIGOXIN 0.0625MG PER 1/2TABLET PO (09:05)
[2017-05-31] MEDS: FENTANYL REMOVAL DOCUMENTATION MISC XX (10:12)
[2017-05-31] MEDS: metroNIDAZOLE (FLAGYL) 500 MG TAB PO ×2 (14:22→21:29)
[2017-05-31] MEDS: LACTOBACILLUS ACIDOPHILUS CAP (BACID) PO ×2 (14:22→21:28)
[2017-06-01] MEDS: oxyCODONE 5MG TAB PO ×6 (00:12→21:27)
[2017-06-01] MEDS: VANCOMYCIN ORAL SOL 250MG/5ML ORAL SYRINGE PO ×4 (00:12→17:41)
[2017-06-01] MEDS: metroNIDAZOLE (FLAGYL) 500 MG TAB PO ×3 (05:26→21:27)
[2017-06-01 06:19] LABS: BASO % 0.2 % (0.0-1.0); EOS # 0.2 10^3/uL (0.0-0.50); EOS % 2.9 % (0.0-3.0); HEMATOCRIT 29.3 % (42.0-52.0); HEMOGLOBIN 8.7 g/dl (14.0-18.0); IMMATURE GRANULOCYTE % 0.4 % (0-0); LYMPH # 1.8 10^3/uL (1.5-4.5); LYMPH % 34.5 % (24.0-44.0); MEAN CORPUSCULAR HEMOGLOBIN 26.5 pg (27.0-33.0); MEAN CORPUSCULAR HGB CONC 29.7 g/dl (32.0-36.5); MEAN CORPUSCULAR VOLUME 89.3 fl (80.0-96.0); MONO # 0.5 10^3/uL (0.0-0.8); MONO % 8.6 % (0.0-5.0); NEUTROPHILS # 2.8 10^3/uL (1.8-7.7); NEUTROPHILS % 53.4 % (36.0-66.0); PLATELET COUNT, AUTOMATED 570 10^3/uL (150-450); RED BLOOD COUNT 3.28 10^6/uL (4.30-6.10); RED CELL DISTRIBUTION WIDTH 16.9 % (11.5-14.5); WHITE BLOOD COUNT 5.2 10^3/uL (4.0-10.0)
[2017-06-01 06:32] LABS: ANION GAP 3 MEQ/L (8-16); BLOOD UREA NITROGEN 15 MG/DL (7-18); CALCIUM LEVEL 8.7 MG/DL (8.8-10.2); CARBON DIOXIDE LEVEL 38 MEQ/L (21-32); CHLORIDE LEVEL 97 MEQ/L (98-107); CREATININE FOR GFR 0.55 MG/DL (0.70-1.30); GLOMERULAR FILTRATION RATE > 60.0 (>49); GLUCOSE, FASTING 78 MG/DL (80-110); POTASSIUM SERUM 3.7 MEQ/L (3.5-5.1); SODIUM LEVEL 138 MEQ/L (136-145)
[2017-06-01] MEDS: LACTOBACILLUS ACIDOPHILUS CAP (BACID) PO ×2 (09:43→21:27)
[2017-06-01] MEDS: ASPIRIN 81 MG ENTERIC TAB PO (09:43)
[2017-06-01] MEDS: PANTOPRAZOLE 40MG TAB (PROTONIX) PO (09:44)
[2017-06-01] MEDS: DIGOXIN 0.0625MG PER 1/2TABLET PO (09:45)
[2017-06-01] MEDS: SANTYL OINT 30GM TOP (09:45)
[2017-06-01] MEDS: KCL 10MEQ IN D5/0.45NS 1000ML 1,000 ML IV (16:43)
[2017-06-02] MEDS: VANCOMYCIN ORAL SOL 250MG/5ML ORAL SYRINGE PO ×4 (00:38→17:57)
[2017-06-02] MEDS: oxyCODONE 5MG TAB PO ×6 (00:38→20:38)
[2017-06-02] MEDS: metroNIDAZOLE (FLAGYL) 500 MG TAB PO ×3 (05:29→22:04)
[2017-06-02] MEDS: DIGOXIN 0.0625MG PER 1/2TABLET PO (08:26)
[2017-06-02] MEDS: ASPIRIN 81 MG ENTERIC TAB PO (08:26)
[2017-06-02] MEDS: SANTYL OINT 30GM TOP (08:26)
[2017-06-02] MEDS: LACTOBACILLUS ACIDOPHILUS CAP (BACID) PO ×2 (08:26→20:38)
[2017-06-02] MEDS: PANTOPRAZOLE 40MG TAB (PROTONIX) PO (08:26)
[2017-06-02 10:31] LABS: BASO % 0.3 % (0.0-1.0); EOS # 0.1 10^3/uL (0.0-0.50); EOS % 1.9 % (0.0-3.0); HEMOGLOBIN 8.6 g/dl (14.0-18.0); IMMATURE GRANULOCYTE % 0.3 % (0-0); LYMPH # 1.3 10^3/uL (1.5-4.5); LYMPH % 21.3 % (24.0-44.0); MEAN CORPUSCULAR HEMOGLOBIN 26.7 pg (27.0-33.0); MEAN CORPUSCULAR HGB CONC 30.7 g/dl (32.0-36.5); MONO # 0.5 10^3/uL (0.0-0.8); MONO % 7.4 % (0.0-5.0); NEUTROPHILS # 4.3 10^3/uL (1.8-7.7); NEUTROPHILS % 68.8 % (36.0-66.0); PLATELET COUNT, AUTOMATED 564 10^3/uL (150-450); RED BLOOD COUNT 3.22 10^6/uL (4.30-6.10); WHITE BLOOD COUNT 6.2 10^3/uL (4.0-10.0)
[2017-06-02 10:50] LABS: ANION GAP 5 MEQ/L (8-16); BLOOD UREA NITROGEN 13 MG/DL (7-18); CALCIUM LEVEL 8.2 MG/DL (8.8-10.2); CARBON DIOXIDE LEVEL 34 MEQ/L (21-32); CHLORIDE LEVEL 100 MEQ/L (98-107); CREATININE FOR GFR 0.49 MG/DL (0.70-1.30); GLOMERULAR FILTRATION RATE > 60.0 (>49); GLUCOSE, FASTING 100 MG/DL (80-110); POTASSIUM SERUM 3.8 MEQ/L (3.5-5.1); SODIUM LEVEL 139 MEQ/L (136-145)
[2017-06-03] MEDS: VANCOMYCIN ORAL SOL 250MG/5ML ORAL SYRINGE PO ×3 (00:47→13:55)
[2017-06-03] MEDS: oxyCODONE 5MG TAB PO ×6 (00:48→21:03)
[2017-06-03] MEDS: metroNIDAZOLE (FLAGYL) 500 MG TAB PO ×2 (05:19→13:56)
[2017-06-03 06:28] LABS: BASO % 0.3 % (0.0-1.0); EOS # 0.1 10^3/uL (0.0-0.50); EOS % 2.2 % (0.0-3.0); HEMATOCRIT 28.3 % (42.0-52.0); HEMOGLOBIN 8.6 g/dl (14.0-18.0); IMMATURE GRANULOCYTE % 0.3 % (0-0); LYMPH # 1.7 10^3/uL (1.5-4.5); LYMPH % 28.3 % (24.0-44.0); MEAN CORPUSCULAR HEMOGLOBIN 26.4 pg (27.0-33.0); MEAN CORPUSCULAR HGB CONC 30.4 g/dl (32.0-36.5); MEAN CORPUSCULAR VOLUME 86.8 fl (80.0-96.0); MONO # 0.4 10^3/uL (0.0-0.8); MONO % 6.9 % (0.0-5.0); NEUTROPHILS # 3.7 10^3/uL (1.8-7.7); PLATELET COUNT, AUTOMATED 565 10^3/uL (150-450); RED BLOOD COUNT 3.26 10^6/uL (4.30-6.10); RED CELL DISTRIBUTION WIDTH 17.2 % (11.5-14.5); WHITE BLOOD COUNT 5.9 10^3/uL (4.0-10.0)
[2017-06-03 06:43] LABS: ANION GAP 6 MEQ/L (8-16); BLOOD UREA NITROGEN 14 MG/DL (7-18); CALCIUM LEVEL 8.7 MG/DL (8.8-10.2); CARBON DIOXIDE LEVEL 32 MEQ/L (21-32); CHLORIDE LEVEL 100 MEQ/L (98-107); CREATININE FOR GFR 0.55 MG/DL (0.70-1.30); GLOMERULAR FILTRATION RATE > 60.0 (>49); GLUCOSE, FASTING 109 MG/DL (80-110); POTASSIUM SERUM 4.1 MEQ/L (3.5-5.1); SODIUM LEVEL 138 MEQ/L (136-145)
[2017-06-03] MEDS: DIGOXIN 0.0625MG PER 1/2TABLET PO (10:01)
[2017-06-03] MEDS: PANTOPRAZOLE 40MG TAB (PROTONIX) PO (10:01)
[2017-06-03] MEDS: LACTOBACILLUS ACIDOPHILUS CAP (BACID) PO ×2 (10:01→21:02)
[2017-06-03] MEDS: D5W/0.45% SODIUM CHLORIDE 1,000 ML IV (10:02)
[2017-06-03] MEDS: ASPIRIN 81 MG ENTERIC TAB PO (10:02)
[2017-06-03] MEDS: SANTYL OINT 30GM TOP (10:02)
[2017-06-03] MEDS: fentaNYL 12 MCG/HR PATCH TOP (10:10)
[2017-06-03] MEDS: FENTANYL REMOVAL DOCUMENTATION MISC XX (11:29)
[2017-06-03] MEDS: FIDAXOMICIN 200 MG TAB (DIFICID) PO (21:02)
[2017-06-04] MEDS: oxyCODONE 5MG TAB PO ×6 (02:01→20:15)
[2017-06-04 06:08] LABS: BASO % 0.7 % (0.0-1.0); EOS # 0.2 10^3/uL (0.0-0.50); EOS % 3.6 % (0.0-3.0); HEMOGLOBIN 8.6 g/dl (14.0-18.0); IMMATURE GRANULOCYTE % 0.3 % (0-0); LYMPH # 1.7 10^3/uL (1.5-4.5); LYMPH % 28.8 % (24.0-44.0); MEAN CORPUSCULAR HGB CONC 30.7 g/dl (32.0-36.5); MEAN CORPUSCULAR VOLUME 88.1 fl (80.0-96.0); MONO # 0.5 10^3/uL (0.0-0.8); MONO % 7.8 % (0.0-5.0); NEUTROPHILS # 3.4 10^3/uL (1.8-7.7); NEUTROPHILS % 58.8 % (36.0-66.0); PLATELET COUNT, AUTOMATED 551 10^3/uL (150-450); RED BLOOD COUNT 3.18 10^6/uL (4.30-6.10); RED CELL DISTRIBUTION WIDTH 17.2 % (11.5-14.5); WHITE BLOOD COUNT 5.8 10^3/uL (4.0-10.0)
[2017-06-04 06:23] LABS: ANION GAP 4 MEQ/L (8-16); BLOOD UREA NITROGEN 13 MG/DL (7-18); CALCIUM LEVEL 8.4 MG/DL (8.8-10.2); CARBON DIOXIDE LEVEL 33 MEQ/L (21-32); CHLORIDE LEVEL 101 MEQ/L (98-107); CREATININE FOR GFR 0.54 MG/DL (0.70-1.30); GLOMERULAR FILTRATION RATE > 60.0 (>49); GLUCOSE, FASTING 85 MG/DL (80-110); POTASSIUM SERUM 4.1 MEQ/L (3.5-5.1); SODIUM LEVEL 138 MEQ/L (136-145)
[2017-06-04] MEDS: DIGOXIN 0.0625MG PER 1/2TABLET PO (10:01)
[2017-06-04] MEDS: FIDAXOMICIN 200 MG TAB (DIFICID) PO ×2 (10:01→20:15)
[2017-06-04] MEDS: PANTOPRAZOLE 40MG TAB (PROTONIX) PO (10:01)
[2017-06-04] MEDS: LACTOBACILLUS ACIDOPHILUS CAP (BACID) PO ×2 (10:01→20:15)
[2017-06-04] MEDS: ASPIRIN 81 MG ENTERIC TAB PO (10:02)
[2017-06-04] MEDS: SANTYL OINT 30GM TOP (10:02)
[2017-06-05] MEDS: oxyCODONE 5MG TAB PO ×6 (01:10→20:38)
[2017-06-05 06:00] LABS: BASO % 0.6 % (0.0-1.0); EOS # 0.3 10^3/uL (0.0-0.50); EOS % 4.1 % (0.0-3.0); HEMATOCRIT 29.1 % (42.0-52.0); HEMOGLOBIN 8.8 g/dl (14.0-18.0); IMMATURE GRANULOCYTE % 0.3 % (0-0); LYMPH # 1.8 10^3/uL (1.5-4.5); LYMPH % 27.8 % (24.0-44.0); MEAN CORPUSCULAR HEMOGLOBIN 26.4 pg (27.0-33.0); MEAN CORPUSCULAR HGB CONC 30.2 g/dl (32.0-36.5); MEAN CORPUSCULAR VOLUME 87.4 fl (80.0-96.0); MONO # 0.4 10^3/uL (0.0-0.8); MONO % 6.5 % (0.0-5.0); NEUTROPHILS # 3.8 10^3/uL (1.8-7.7); NEUTROPHILS % 60.7 % (36.0-66.0); PLATELET COUNT, AUTOMATED 607 10^3/uL (150-450); RED BLOOD COUNT 3.33 10^6/uL (4.30-6.10); RED CELL DISTRIBUTION WIDTH 17.2 % (11.5-14.5); WHITE BLOOD COUNT 6.3 10^3/uL (4.0-10.0)
[2017-06-05 06:11] LABS: ANION GAP 3 MEQ/L (8-16); BLOOD UREA NITROGEN 14 MG/DL (7-18); CALCIUM LEVEL 8.6 MG/DL (8.8-10.2); CARBON DIOXIDE LEVEL 34 MEQ/L (21-32); CHLORIDE LEVEL 103 MEQ/L (98-107); CREATININE FOR GFR 0.63 MG/DL (0.70-1.30); GLOMERULAR FILTRATION RATE > 60.0 (>49); GLUCOSE, FASTING 93 MG/DL (80-110); POTASSIUM SERUM 4.2 MEQ/L (3.5-5.1); SODIUM LEVEL 140 MEQ/L (136-145)
[2017-06-05] MEDS: D5W/0.45% SODIUM CHLORIDE 1,000 ML IV (06:18)
[2017-06-05] MEDS: LACTOBACILLUS ACIDOPHILUS CAP (BACID) PO ×2 (09:53→20:38)
[2017-06-05] MEDS: FIDAXOMICIN 200 MG TAB (DIFICID) PO ×2 (09:53→20:38)
[2017-06-05] MEDS: ASPIRIN 81 MG ENTERIC TAB PO (09:53)
[2017-06-05] MEDS: DIGOXIN 0.0625MG PER 1/2TABLET PO (09:53)
[2017-06-05] MEDS: PANTOPRAZOLE 40MG TAB (PROTONIX) PO (09:54)
[2017-06-05] MEDS: SANTYL OINT 30GM TOP (09:55)
[2017-06-06] MEDS: oxyCODONE 5MG TAB PO ×6 (00:43→21:47)
[2017-06-06] MEDS: D5W/0.45% SODIUM CHLORIDE 1,000 ML IV (00:45)
[2017-06-06] MEDS: SODIUM CHLORIDE 0.9% 1000 ML IV (05:59)
[2017-06-06 06:20] LABS: BASO % 0.7 % (0.0-1.0); EOS # 0.3 10^3/uL (0.0-0.50); EOS % 5.9 % (0.0-3.0); HEMATOCRIT 29.8 % (42.0-52.0); HEMOGLOBIN 9.3 g/dl (14.0-18.0); IMMATURE GRANULOCYTE % 0.4 % (0-0); LYMPH # 1.7 10^3/uL (1.5-4.5); LYMPH % 29.9 % (24.0-44.0); MEAN CORPUSCULAR HEMOGLOBIN 27.2 pg (27.0-33.0); MEAN CORPUSCULAR HGB CONC 31.2 g/dl (32.0-36.5); MEAN CORPUSCULAR VOLUME 87.1 fl (80.0-96.0); MONO # 0.4 10^3/uL (0.0-0.8); MONO % 7.8 % (0.0-5.0); NEUTROPHILS # 3.1 10^3/uL (1.8-7.7); NEUTROPHILS % 55.3 % (36.0-66.0); PLATELET COUNT, AUTOMATED 530 10^3/uL (150-450); RED BLOOD COUNT 3.42 10^6/uL (4.30-6.10); RED CELL DISTRIBUTION WIDTH 17.4 % (11.5-14.5); WHITE BLOOD COUNT 5.6 10^3/uL (4.0-10.0)
[2017-06-06 06:52] LABS: ERYTHROCYTE SEDIMENTATION RATE 103 mm/hr (0-20)
[2017-06-06 06:55] LABS: ALBUMIN 1.8 GM/DL (3.2-5.2); ALBUMIN/GLOBULIN RATIO 0.47 (1.00-1.93); ALKALINE PHOSPHATASE 82 U/L (45-117); ALT/SGPT 8 U/L (12-78); ANION GAP 3 MEQ/L (8-16); AST/SGOT 14 U/L (7-37); BILIRUBIN,TOTAL 0.1 MG/DL (0.2-1.0); BLOOD UREA NITROGEN 14 MG/DL (7-18); C REACTIVE PROTEIN QUANTITATIV 1.74 MG/DL (0.00-0.30); CALCIUM LEVEL 7.9 MG/DL (8.8-10.2); CARBON DIOXIDE LEVEL 34 MEQ/L (21-32); CHLORIDE LEVEL 100 MEQ/L (98-107); CREATININE FOR GFR 0.48 MG/DL (0.70-1.30); GLOMERULAR FILTRATION RATE > 60.0 (>49); GLUCOSE, FASTING 107 MG/DL (80-110); POTASSIUM SERUM 4.3 MEQ/L (3.5-5.1); SODIUM LEVEL 137 MEQ/L (136-145); TOTAL PROTEIN 5.6 GM/DL (6.4-8.2)
[2017-06-06 06:56] LABS: CK-MB VALUE MASS 1.2 NG/ML (0.0-3.6); CPK CREATINE PHOSPHOKINASE 22 U/L (39-308); MB/CK RELATIVE INDEX 5.45 (< OR =4); TROPONIN I < 0.02 NG/ML (< 0.10)
[2017-06-06 07:04] LABS: LACTIC ACID SEPSIS PROTOCOL 0.9 MMOL/L (0.4-2.0)
[2017-06-06] MEDS: ASPIRIN 81 MG ENTERIC TAB PO (09:27)
[2017-06-06] MEDS: PANTOPRAZOLE 40MG TAB (PROTONIX) PO (09:27)
[2017-06-06] MEDS: LACTOBACILLUS ACIDOPHILUS CAP (BACID) PO ×2 (09:27→21:47)
[2017-06-06] MEDS: fentaNYL 12 MCG/HR PATCH TOP (09:28)
[2017-06-06] MEDS: SANTYL OINT 30GM TOP (09:28)
[2017-06-06] MEDS: FENTANYL REMOVAL DOCUMENTATION MISC XX (09:32)
[2017-06-06] MEDS: DIGOXIN 0.0625MG PER 1/2TABLET PO (11:30)
[2017-06-06] MEDS: FIDAXOMICIN 200 MG TAB (DIFICID) PO ×2 (11:31→21:47)
[2017-06-07] MEDS: oxyCODONE 5MG TAB PO ×6 (01:14→20:39)
[2017-06-07] MEDS: DIGOXIN 0.0625MG PER 1/2TABLET PO (09:05)
[2017-06-07] MEDS: ASPIRIN 81 MG ENTERIC TAB PO (09:05)
[2017-06-07] MEDS: LACTOBACILLUS ACIDOPHILUS CAP (BACID) PO ×2 (09:05→20:38)
[2017-06-07] MEDS: FIDAXOMICIN 200 MG TAB (DIFICID) PO ×2 (09:06→20:38)
[2017-06-07] MEDS: PANTOPRAZOLE 40MG TAB (PROTONIX) PO (09:06)
[2017-06-07] MEDS: SANTYL OINT 30GM TOP (09:07)
[2017-06-08] MEDS: oxyCODONE 5MG TAB PO ×6 (01:24→21:07)
[2017-06-08] MEDS: LACTOBACILLUS ACIDOPHILUS CAP (BACID) PO ×2 (08:58→21:07)
[2017-06-08] MEDS: FIDAXOMICIN 200 MG TAB (DIFICID) PO ×2 (08:58→21:07)
[2017-06-08] MEDS: PANTOPRAZOLE 40MG TAB (PROTONIX) PO (08:59)
[2017-06-08] MEDS: ASPIRIN 81 MG ENTERIC TAB PO (08:59)
[2017-06-08] MEDS: SANTYL OINT 30GM TOP (08:59)
[2017-06-08] MEDS: DIGOXIN 0.0625MG PER 1/2TABLET PO (08:59)
[2017-06-09] MEDS: oxyCODONE 5MG TAB PO ×6 (01:50→21:39)
[2017-06-09] MEDS: FIDAXOMICIN 200 MG TAB (DIFICID) PO ×2 (09:19→21:38)
[2017-06-09] MEDS: PANTOPRAZOLE 40MG TAB (PROTONIX) PO (09:19)
[2017-06-09] MEDS: LACTOBACILLUS ACIDOPHILUS CAP (BACID) PO ×2 (09:19→21:38)
[2017-06-09] MEDS: ASPIRIN 81 MG ENTERIC TAB PO (09:22)
[2017-06-09] MEDS: DIGOXIN 0.0625MG PER 1/2TABLET PO (09:22)
[2017-06-09] MEDS: SANTYL OINT 30GM TOP (09:23)
[2017-06-09] MEDS: fentaNYL 12 MCG/HR PATCH TOP (09:28)
[2017-06-10] MEDS: oxyCODONE 5MG TAB PO ×6 (01:00→21:26)
[2017-06-10] MEDS: ASPIRIN 81 MG ENTERIC TAB PO (10:03)
[2017-06-10] MEDS: PANTOPRAZOLE 40MG TAB (PROTONIX) PO (10:03)
[2017-06-10] MEDS: FIDAXOMICIN 200 MG TAB (DIFICID) PO ×2 (10:04→21:25)
[2017-06-10] MEDS: DIGOXIN 0.0625MG PER 1/2TABLET PO (10:04)
[2017-06-10] MEDS: LACTOBACILLUS ACIDOPHILUS CAP (BACID) PO ×2 (10:04→21:25)
[2017-06-10] MEDS: SANTYL OINT 30GM TOP (10:06)
[2017-06-10 10:40] LABS: HEMATOCRIT 31.2 % (42.0-52.0); HEMOGLOBIN 9.7 g/dl (14.0-18.0); MEAN CORPUSCULAR HEMOGLOBIN 27.3 pg (27.0-33.0); MEAN CORPUSCULAR HGB CONC 31.1 g/dl (32.0-36.5); MEAN CORPUSCULAR VOLUME 87.9 fl (80.0-96.0); PLATELET COUNT, AUTOMATED 696 10^3/uL (150-450); RED BLOOD COUNT 3.55 10^6/uL (4.30-6.10); RED CELL DISTRIBUTION WIDTH 17.9 % (11.5-14.5); WHITE BLOOD COUNT 6.7 10^3/uL (4.0-10.0)
[2017-06-10 10:59] LABS: ANION GAP 4 MEQ/L (8-16); BLOOD UREA NITROGEN 23 MG/DL (7-18); CALCIUM LEVEL 8.6 MG/DL (8.8-10.2); CARBON DIOXIDE LEVEL 36 MEQ/L (21-32); CHLORIDE LEVEL 98 MEQ/L (98-107); CREATININE FOR GFR 0.55 MG/DL (0.70-1.30); GLOMERULAR FILTRATION RATE > 60.0 (>49); GLUCOSE, FASTING 96 MG/DL (80-110); POTASSIUM SERUM 4.5 MEQ/L (3.5-5.1); SODIUM LEVEL 138 MEQ/L (136-145)
[2017-06-11] MEDS: oxyCODONE 5MG TAB PO ×6 (01:57→21:19)
[2017-06-11] MEDS: FIDAXOMICIN 200 MG TAB (DIFICID) PO ×2 (09:15→21:18)
[2017-06-11] MEDS: ASPIRIN 81 MG ENTERIC TAB PO (09:15)
[2017-06-11] MEDS: LACTOBACILLUS ACIDOPHILUS CAP (BACID) PO ×2 (09:15→21:18)
[2017-06-11] MEDS: DIGOXIN 0.0625MG PER 1/2TABLET PO (09:15)
[2017-06-11] MEDS: PANTOPRAZOLE 40MG TAB (PROTONIX) PO (09:15)
[2017-06-11] MEDS: SANTYL OINT 30GM TOP (09:26)
[2017-06-12] MEDS: oxyCODONE 5MG TAB PO ×4 (01:11→12:52)
[2017-06-12] MEDS: SANTYL OINT 30GM TOP (09:00)
[2017-06-12] MEDS: FIDAXOMICIN 200 MG TAB (DIFICID) PO (09:03)
[2017-06-12] MEDS: DIGOXIN 0.0625MG PER 1/2TABLET PO (09:03)
[2017-06-12] MEDS: LACTOBACILLUS ACIDOPHILUS CAP (BACID) PO (09:03)
[2017-06-12] MEDS: PANTOPRAZOLE 40MG TAB (PROTONIX) PO (09:03)
[2017-06-12] MEDS: ASPIRIN 81 MG ENTERIC TAB PO (09:03)
[2017-06-12] MEDS: fentaNYL 12 MCG/HR PATCH TOP (09:07)
== END 2017-06-12 13:05 | disposition home or self-care (01) | DRG 371 ==
LOC: M MSPAV 05-26 15:16 → M ED 02:23 → M ED INP 05:27 → M PCU 12:19
DX: A04.72 Enterocolitis due to Clostridium difficile, not specified as recurrent (principal); E43 Unspecified severe protein-calorie malnutrition; I50.32 Chronic diastolic (congestive) heart failure; M87.051 Idiopathic aseptic necrosis of right femur; F11.20 Opioid dependence, uncomplicated; N13.8 Other obstructive and reflux uropathy; L89.210 Pressure ulcer of right hip, unstageable; Z66 Do not resuscitate; L89.220 Pressure ulcer of left hip, unstageable; M16.11 Unilateral primary osteoarthritis, right hip; G89.29 Other chronic pain; Z79.899 Other long term (current) drug therapy; Z79.82 Long term (current) use of aspirin; L40.8 Other psoriasis; K57.30 Diverticulosis of large intestine without perforation or abscess without bleeding; F17.200 Nicotine dependence, unspecified, uncomplicated; L30.9 Dermatitis, unspecified; Z74.01 Bed confinement status